=== PATIENT | female | born 1980 | race Caucasian/White ===

== ENCOUNTER → 2017-06-28 13:00 | Outpatient (CLI) | payer BC, SELFPAY ==
[2017-07-01 14:46] LABS: HPV Reflexed? NOT INDICATED
== END ==
PROVIDERS: Visit Provider Obstetrics & Gynecology
DX: Z12.4 Encounter for screening for malignant neoplasm of cervix (principal)
CPT/HCPCS: 88175; G0145

== ENCOUNTER → 2019-07-19 09:05 | Outpatient (CLI) | payer BC, SELFPAY ==
[2019-07-03 08:41] VITALS: BMI 39.8
[2019-07-19 10:20] LABS: Absolute Lymphocyte Count 1.18 X10^3/uL (0.83-4.51); Absolute Neutrophil Count 4.1 X10^3/uL (2.0-7.7); Basophil# 0.06 X10^3/uL; Eosinophil# 0.08 X10^3/uL; Eosinophils% 1.4 % (0-5); Hematocrit 39.7 % (37-47); Hemoglobin 13.1 g/dL (12.0-15.0); Lymphocyte # 1.18 X10^3/ul (4.0); Lymphocyte % 20.1 % (19-41); Mean Corpuscular Hgb 29.5 pg (27.0-32.0); Mean Corpuscular Volume 89.4 fL (81-99); Mean Platelet Vol. 10.8 fl (6.2-12.0); Monocyte# 0.48 X10^3/uL; Monocyte% 8.2 % (0-10); NRBC Flagged by Analyzer 0 % (0-5); Neutrophil # 4.05 X10^3/uL (2.7-7.7); Platelet Count 222 K/mm3 (150-450); RBC Distribution Width CV 11.8 % (11.6-14.6); RBC Distribution Width SD 38.4 fl (35.1-43.9); Red Blood Count 4.44 M/mm3 (4.2-5.4); White Blood Count 5.9 K/mm3 (4.4-11.0)
[2019-07-23 03:06] LABS: Alternaria tenuis <0.10 kU/L (Class 0); Ash, White <0.10 kU/L (Class 0); Aspergillus fumigatus <0.10 kU/L (Class 0); Bermuda Grass <0.10 kU/L (Class 0); Birch <0.10 kU/L (Class 0); Black Walnut <0.10 kU/L (Class 0); Cat Hair / Dander,Stand <0.10 kU/L (Class 0); Cedar, Mountain <0.10 kU/L (Class 0); Cladosporium herbarum <0.10 kU/L (Class 0); Cockroach, American <0.10 kU/L (Class 0); Cottonwood <0.10 kU/L (Class 0); D farinae Mite <0.10 kU/L (Class 0); D pteronyssinus <0.10 kU/L (Class 0); Dog Epithelia <0.10 kU/L (Class 0); Elm, American White <0.10 kU/L (Class 0); Immunoglobulin E < 2 IU/mL (6-495); Maple/Box Elder <0.10 kU/L (Class 0); Mulberry, White <0.10 kU/L (Class 0); Oak, White <0.10 kU/L (Class 0); Pecan <0.10 kU/L (Class 0); Penicillium Notatum <0.10 kU/L (Class 0); Pigweed, Rough <0.10 kU/L (Class 0); Ragweed, Short/Common <0.10 kU/L (Class 0); Russian Thistle <0.10 kU/L (Class 0); Sheep Sorrel <0.10 kU/L (Class 0); Sycamore, American <0.10 kU/L (Class 0); Timothy Grass <0.10 kU/L (Class 0)
[2019-07-23 12:33] LABS: Immunoglobulin E 2 IU/mL (6-495)
[2019-07-23 13:19] LABS: Mouse Urine <0.10 kU/L (Class 0)
== END ==
PROVIDERS: Internal Medicine Critical Care Medicine; PCP Physician Assistant; Referring Provider Family Medicine; Visit Provider Family Medicine
DX: R06.02 Shortness of breath (principal)
CPT/HCPCS: 36415; 82785; 85025; 86003

== ENCOUNTER → 2019-07-19 09:14 | Outpatient (CLI) | payer BC, SELFPAY ==
[2019-07-03 08:41] VITALS: BMI 39.8
--- NOTE | 2019-07-20 11:05 | PFT ---
INTRODUCTION: The patient is a 39-year-old female that presents for pulmonary function studies secondary to a diagnosis of shortness of breath. Respiratory therapy reports good patient effort. Bronchodilators were used during testing. INTERPRETATION: Forced expiration spirometry demonstrates no evidence of a large airways obstructive ventilatory defect. There was no significant response to aerosolized bronchodilators. Spirograms are of good quality and plateau normally. Body plethysmography was performed and reveals lung volumes to be within normal limits. Diffusing capacity by single breath CO is also within normal limits as well. IMPRESSION: Normal pulmonary function studies.
== END ==
PROVIDERS: PCP Physician Assistant; Referring Provider Internal Medicine Critical Care Medicine; Visit Provider Internal Medicine Critical Care Medicine
DX: R06.02 Shortness of breath (principal)
CPT/HCPCS: 94060; 94726; 94729

== ENCOUNTER → 2020-04-23 15:31 | Outpatient (CLI) | payer BC, SELFPAY ==
[2019-11-14 06:32] VITALS: BMI 42.7
[2020-04-26 03:07] LABS: Chlamydia By Nucleic Acid AMP Negative (Negative)
[2020-04-28 04:27] LABS: Gonococcus By Nucleic Acid AMP Negative (Negative)
[2020-04-28 13:02] LABS: HPV Reflexed? NOT INDICATED
== END ==
PROVIDERS: PCP Physician Assistant; Visit Provider Obstetrics & Gynecology
DX: Z12.4 Encounter for screening for malignant neoplasm of cervix (principal); Z11.3 Encounter for screening for infections with a predominantly sexual mode of transmission
CPT/HCPCS: 87491; 87591; 88175; G0145

== ENCOUNTER → 2022-11-08 | Outpatient (CLI) | payer BC, SELFPAY ==
--- NOTE | 2022-11-08 15:53 | US_ITS ---
INDICATION: IUD STRINGS EXAMINATION: Ultrasound US Pelvis Non OB Complete With Transvaginal Imaging TECHNIQUE: Transabdominal and transvaginal pelvic ultrasound was performed. Grayscale, spectral waveform, and color flow Doppler evaluation of the adnexa. COMPARISON: None. FINDINGS: UTERUS: Anteverted. The uterus measures 8.2 x 4.7 x 3.7 cm. There is no uterine mass. The endometrial stripe measures 4.4 mm in AP diameter which is within normal limits. There is an IUD in place with probable string at the cervical level. There is fluid in the cervical canal. Nabothian cysts. RIGHT OVARY: 2.3 x 1.5 x 1.5 cm. Non-enlarged, normal echogenicity. LEFT OVARY: 2.4 x 1.9 x 1.6 cm. Non-enlarged, normal echogenicity. FREE FLUID: None. US/Pelvic w/ Transvaginal IMPRESSION: Nabothian cysts. IUD in place. There is fluid in the cervical canal. Electronically Signed: Dario Boo DO at 19:53 EDT Reading Location ID and State: [facility] / [place] Tel [phone], Service support ,
== END | disposition home or self-care (01) ==
PROVIDERS: PCP Physician Assistant; Referring Provider Physician Assistant; Visit Provider Physician Assistant
DX: T83.32XA Displacement of intrauterine contraceptive device, initial encounter (principal)
CPT/HCPCS: 76830; 76856

== ENCOUNTER → 2024-03-19 | Outpatient (CLI) | payer OTHER, SELFPAY | END | disposition home or self-care (01) | PROVIDERS: PCP Physician Assistant; Referring Provider Physician Assistant; Visit Provider Physician Assistant | DX: E06.3 Autoimmune thyroiditis (principal) | CPT/HCPCS: 36415; 84443 ==

== ENCOUNTER → 2024-09-07 | Outpatient (CLI) | payer OTHER, SELFPAY ==
[2024-09-07 10:10] LABS: Absolute Neutrophil Count 3.8 X10^3/uL (2.0-7.7); Basophil# 0.07 X10^3/uL; Basophil% 1.2 % (0-1); Eosinophil# 0.14 X10^3/uL; Eosinophils% 2.4 % (0-5); Hematocrit 39.3 % (37-47); Hemoglobin 13.3 g/dL (12.0-15.0); Lymphocyte % 25.4 % (19-41); Mean Corp Hgb Conc 33.8 g/dL (32-36); Mean Corpuscular Hgb 29.6 pg (27.0-32.0); Mean Corpuscular Volume 87.5 fL (81-99); Mean Platelet Vol. 10.8 fl (6.2-12.0); Monocyte# 0.36 X10^3/uL; Monocyte% 6.1 % (0-10); NRBC Flagged by Analyzer 0 % (0-5); Neutrophil # 3.81 X10^3/uL (2.7-7.7); Neutrophil % 64.4 % (47-70); Platelet Count 249 K/mm3 (150-450); RBC Distribution Width CV 11.6 % (11.6-14.6); Red Blood Count 4.49 M/mm3 (4.2-5.4); White Blood Count 5.9 K/mm3 (4.4-11.0)
[2024-09-07 10:55] LABS: ALB/GLOB Ratio 1.4 RATIO (0.9-2.4); AST(SGOT) 27 U/L (<=31); Alanine Aminotransfer ALT/SGPT 32 U/L (<=34); Albumin, Serum 4.1 g/dL (3.5-5.0); Alkaline Phosphatase 58 U/L (35-104); Anion Gap 9 (5-15); BUN 12 mg/dL (4-19); BUN/Creat Ratio 13.8 RATIO (10-20); Calcium,Total 9.1 mg/dL (7.6-11.0); Carbon Dioxide 23.8 mmol/L (21.0-32.0); Chloride 106 mmol/L (98-108); Creatinine, Serum 0.88 mg/dL (0.70-1.20); EST Glomerular Filtration Rate 84 (>60); Globulin 2.9 g/dL (2.2-4.2); Glucose 102 mg/dL (70-99); Potassium 4.1 mmol/L (3.3-5.1); Sodium Level 139 mmol/L (133-145); Total Bilirubin 0.34 mg/dL (0.00-1.30)
[2024-09-11 23:07] LABS: Giardia Lamblia, Stool EIA Negative (Negative)
[2024-09-12 03:07] LABS: Calprotectin, Stool 10 ug/g (0-120)
== END | disposition home or self-care (01) ==
LOC: LAB 09:13 → LABSPEC 13:54
PROVIDERS: PCP Physician Assistant
DX: K58.0 Irritable bowel syndrome with diarrhea (principal); M35.00 Sjogren syndrome, unspecified; E06.3 Autoimmune thyroiditis; M35.1 Other overlap syndromes
CPT/HCPCS: 36415; 80053; 82653; 82784; 82785; 83516; 83993; 85025; 86003; 86005; 86036; 86037; 86671; 87329; 87506

== ENCOUNTER → 2024-10-17 | Outpatient (CLI) | payer OTHER, SELFPAY ==
--- NOTE | 2024-10-17 12:57 | US_ITS ---
PROCEDURE: THYROID 10/17/2024 REASON FOR EXAM: NONTOXIC SINGLE THYROID NODULE TECHNIQUE: High-frequency thyroid ultrasound, including grayscale and color-flow images. REFERENCE LINKS: TI-RADS Chart: [email or web address] TI-RADS Calculator Tool with Reference Images: [email or web address]/ COMPARISON: None FINDINGS: Right thyroid lobe size: 4.5 cm x 1.2 cm 1.2 cm Left thyroid lobe size: 3.2 cm x 1.3 cm x 0.9 cm Isthmus: 0.24 cm Background parenchymal echotexture is heterogeneous. Nodules: . Lobe: Left, Location: Inferior, Size: 1 cm x 0.7 cm x 0.4 cm, Stability: N/A Composition: Solid or almost completely solid (+2) Echogenicity: Hypoechoic (+2) Margin: Smooth (+0) Shape: Wider than tall (+0) Echogenic Foci: None (+0) TI-RADS: <2 = TR 1 * 2 = TR 2 * 3 = TR 3 * 4-6 = TR 4 * >6 = TR 5 US/Thyroid IMPRESSION: 1 cm x 0.7 cm 0.4 cm hypoechoic solid nodule in the inferior aspect of the left lobe of the thyroid. No vascularity is seen. Annual follow-up recommended. RECOMMENDATION: Based on most suspicious nodule. Nodule size = largest diameter Only evaluate nodule if =>5 mm. Growth > 20% in 2 dimensions = worsening. Follow up to 4 nodules. Recommend biopsy for no more than 2 nodules. Reading Location: [place] [id number]
[2024-10-17 16:39] LABS: Thyroid Stim Hormone (TSH) 0.492 uIU/mL (0.300-4.200)
== END | disposition home or self-care (01) ==
LOC: US 12:41
PROVIDERS: Internal Medicine Endocrinology, Diabetes & Metabolism; PCP Physician Assistant; Referring Provider Physician Assistant; Visit Provider Physician Assistant
DX: E04.1 Nontoxic single thyroid nodule (principal)
CPT/HCPCS: 36415; 76536; 84439; 84443

== ENCOUNTER → 2025-03-15 | Outpatient (CLI) | payer OTHER, SELFPAY ==
[2025-03-15 12:50] LABS: CPK Total, Creatine Kinase 141 U/L (24-195); Ferritin 117 ng/mL (22-378)
[2025-03-15 13:16] LABS: CRP 5.60 mg/L (0.0-3.0); Iron 73 ug/dL (50-170); LDH 289 U/L (84-246); Magnesium 2.3 mg/dL (1.5-2.2)
[2025-03-18 11:08] LABS: Vitamin D 1,25-Dihydroxy 39.6 pg/mL (24.8-81.5)
[2025-03-20 11:09] LABS: Albumin 4.0 g/dL (2.9-4.4); Gamma Globulin 1.2 g/dL (0.4-1.8); Gastrin, Serum 202 pg/mL (0-115); IgG, Quant 1221 mg/dL (586-1602); Immunoglobulin A 165 mg/dL (87-352); Immunoglobulin G, Subclass 1 694 mg/dL (248-810); Immunoglobulin G, Subclass 2 424 mg/dL (130-555); Immunoglobulin G, Subclass 3 51 mg/dL (15-102); Immunoglobulin G, Subclass 4 1 mg/dL (2-96); Immunoglobulin M 133 mg/dL (26-217); PROEL- TOTAL PROTEIN 7.2 g/dL (6.0-8.5)
== END | disposition home or self-care (01) ==
LOC: LAB 10:13
PROVIDERS: PCP Physician Assistant; Referring Provider Internal Medicine Gastroenterology; Visit Provider Internal Medicine Gastroenterology
DX: K58.0 Irritable bowel syndrome with diarrhea (principal); M35.1 Other overlap syndromes
CPT/HCPCS: 82085; 82550; 82652; 82728; 82784; 82785; 82787; 82941; 83540; 83615; 83735; 84165; 85652; 86140; 86334

== ENCOUNTER → 2025-04-05 | Outpatient (CLI) | payer OTHER, SELFPAY ==
[2025-04-05 13:51] LABS: CRP 5.36 mg/L (0.0-3.0); LDH 282 U/L (84-246); Magnesium 2.3 mg/dL (1.5-2.2)
== END | disposition home or self-care (01) ==
LOC: LAB 11:21
PROVIDERS: PCP Physician Assistant; Referring Provider Physician Assistant; Visit Provider Physician Assistant
DX: E83.41 Hypermagnesemia (principal); R79.82 Elevated C-reactive protein (CRP)
CPT/HCPCS: 36415; 83615; 83735; 86140

== ENCOUNTER → 2025-04-16 | Outpatient (CLI) | payer OTHER, SELFPAY ==
--- NOTE | 2025-04-16 17:20 | CT_ITS ---
PROCEDURE: ABDOMEN/PELVIS WITH CONTRAST 04/16/2025 REASON FOR EXAM: ABN LABS AND INFLAMMATION TECHNIQUE: Procedure Code: [id number] Modality: CT Procedure: ABDOMEN/PELVIS WITH IV and oral contrast. Coronal and Sagittal reconstruction series were provided. CONTRAST: Isovue-300 VOLUME: 100 mL One or more dose reduction techniques were used (e.g., Automated exposure control, adjustment of the mA and/or kV according to patient size, use of iterative reconstruction technique. RADIATION DOSE SUMMARY: DLP: 1214.23 mGycm COMPARISON: None available. FINDINGS: Lower chest: Lung bases are clear. Liver: Normal size. Normal morphology and enhancement. No enhancing lesion. Gallbladder and biliary ducts: Contracted gallbladder. Normal caliber intrahepatic and common bile ducts. Pancreas:Unremarkable. No ductal dilatation or mass. No peripancreatic fluid. Spleen: Unremarkable. Adrenal glands: Unremarkable. Kidneys and ureters: Normal renal size, morphology, and enhancement. No nephroureterolithiasis, hydronephrosis, or renal mass. Urinary bladder: Unremarkable. GI: Unremarkable stomach and duodenum. Normal caliber small bowel and large bowel.No evidence for bowel wall thickening. Appendix: Surgically absent. Peritoneum: No ascites. Tiny fat containing umbilical hernia. Lymph nodes: No lymphadenopathy. Prominent nonspecific bilateral inguinal lymph nodes. Vasculature: Portal, splenic, and superior mesenteric veins are patent. No abdominal aortic aneurysm. Reproductive organs: Limited evaluation on CT. The uterus is present. There is an intrauterine device. No adnexal mass. Musculoskeletal and soft tissues: No aggressive osseous lesions. Unremarkable soft tissues. CT/Abdomen/Pelvis WITH Contrast IMPRESSION: No acute pathology in the abdomen or pelvis. Reading Location: [id number]
== END | disposition home or self-care (01) ==
PROVIDERS: PCP Physician Assistant; Referring Provider Internal Medicine Gastroenterology; Visit Provider Internal Medicine Gastroenterology
DX: R89.9 Unspecified abnormal finding in specimens from other organs, systems and tissues (principal)
CPT/HCPCS: 74177; Q9967

== ENCOUNTER → 2025-05-14 | Outpatient (CLI) | payer OTHER, SELFPAY ==
[2025-05-14 14:19] LABS: Magnesium 2.2 mg/dL (1.5-2.2)
== END | disposition home or self-care (01) ==
PROVIDERS: PCP Physician Assistant; Referring Provider Internal Medicine Endocrinology, Diabetes & Metabolism; Visit Provider Internal Medicine Endocrinology, Diabetes & Metabolism
DX: E04.1 Nontoxic single thyroid nodule (principal)
CPT/HCPCS: 36415; 83735; 84439; 84443

== ENCOUNTER 2025-05-22 08:24 | Day surgery (SDC) | payer OTHER, SELFPAY ==
[2025-05-22] VITALS (7 sets, daily range): BP systolic 120–141; BP diastolic 75–82; PULSE 80–92; RESP 16–18; TEMP 36.1–36.6; O2SAT 96–100; BMI 43.0
--- NOTE | 2025-05-22 08:35 | PCM.PRE.AN2 ---
ASA Classification* ASA Classification ASA Classification: 2 Assessment & Plan Anesthesia* Anesthesia Assessment Anesthesia Assessment: Discussed sedation and/or anesthesia options, risks, benefits, and alternatives with patient/parents/legal guardian/POA. Questions invited. The patient/parents/legal guardian/POA seems to understand and agrees to proceed with anesthesia plan. Reviewed the physical assessment, medical history, allergy history and patient home medications list prior to surgery/procedure/anesthetic and documented any changes. Performed airway and anesthesia risk assessments. Anesthesia Type Anesthesia Type: MAC Anesthesia Focused Assessment* Airway Assessment Mouth opens: >3 cm Mallampati Score: II Labs Anesthesia Preop lab: CBC WBC, (4.4-11.0) 5.9 K/mm3 09/07/24, 09:17 RBC, (4.2-5.4) 4.49 M/mm3 09/07/24, 09:17 Hgb, (12.0-15.0) 13.3 g/dL 09/07/24, 09:17 Hct, (37-47) 39.3 % 09/07/24, 09:17 Plt Count, (150-450) 249 K/mm3 09/07/24, 09:17 CHEMISTRY Potassium, (3.3-5.1) 4.1 mmol/L 09/07/24, 09:17 Sodium, (133-145) 139 mmol/L 09/07/24, 09:17 Magnesium, (1.5-2.2) 2.2 mg/dL 05/14/25, 12:55 BUN, (4-19) 12 mg/dL 09/07/24, 09:17 Creatinine, (0.70-1.20) 0.88 mg/dL 09/07/24, 09:17 Glucose, (70-99) 102 mg/dL H 09/07/24, 09:17 TSH, (0.300-4.200) 2.110 uIU/mL 05/14/25, 12:54 COAG Pre-Assessment Diagnosis/Proposed Procedure Planned Operative Procedure(s): egd, colonoscopy Anesthesia History Anesthesia History - ambulance officer: Anesthesia History - ambulance officer Hx Hospitalization No 05/13/25 16:09 Any Problems With Anesthesia No 05/13/25 16:09 Cholinesterase deficiency No 05/13/25 16:09 You/Your Family Experience No 05/13/25 16:09 fever (hyperthermia) with Relationship Recent Exposure to Contagious Disease Does patient have nerve No 05/13/25 16:09 stimulator Patient instructed to have device shut off --Does patient have Pacemaker or ICD? When Was Last Pacemaker Check QUESTION #4 FULL TEXT: You/Your Family Experience fever (hyperthermia) with Anesthesia Last Oral Intake Last Oral intake: Last Oral Intake NPO since Meds taken in AM with sips of water? Meds patient instructed to take am of surgery PONV PONV - ambulance officer: PONV - ambulance officer Female Yes 05/13/25 16:09 HX of Motion Sickness Yes 05/13/25 16:09 HX of N/V After Surgery No 05/13/25 16:09 Non-Smoker Yes 05/13/25 16:09 Duration of Surgery greater No 05/13/25 16:09 than 60 minutes Number of Risk Factors 3 05/13/25 16:09 PONV Score Moderate Risk 05/13/25 16:09 Height & Weight Height & Weight: Anesthesia: Height & Weight Height 5 ft 01/22/25 05:32 Respiratory Assessment Respiratory Assessment - ambulance officer: Respiratory Tract Infection Hx - ambulance officer Hx Respiratory Tract Infection No 05/13/25 16:09 STOP Sleep Apnea STOP Sleep Apnea - ambulance officer: STOP Sleep Apnea - ambulance officer Hx Hypertension No 05/13/25 16:09 Hx Sleep Apnea Yes 05/13/25 16:09 CPAP No 05/13/25 16:09 BIPAP No 05/13/25 16:09 Do you snore loudly (louder No 05/13/25 16:09 than talking or can be heard Do you often feel tired/ No 05/13/25 16:09 fatigued/ sleepy during daytime? Has anyone observed you stop No 05/13/25 16:09 breathing during sleep? STOP Results Positive 05/13/25 16:09 QUESTION #5 FULL TEXT : Do you snore loudly (louder than talking or can be heard through closed doors)? 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 Specify any problems Hx of Preganancy in last 3 N/A 05/13/25 16:09 Months Nurse Filling Out Transfusion BEATRIS 05/13/25 16:09 & Questions: Date: 05/13/25 05/13/25 16:09 Time: 16:16 05/13/25 16:09 Patient unable to answer at this time (ie. 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 Osteoarthritis Hypoglycemia Hives Migraines Allergies Strep throat Yeast infection Lower urinary tract symptoms UTI (urinary tract infection) Acute cystitis Sinusitis Home Medications ?Medication ?Instructions ?Recorded ?Last Taken ?Type hydroxychloroquine 200 mg tablet 200 mg PO BID 06/26/19 Unknown History loratadine 5 mg disintegrating 5 mg PO DAILY 06/29/21 Unknown History tablet (Claritin RediTabs) cholecalciferol (vitamin D3) 50 50 mcg PO DAILY 02/28/23 Unknown History mcg (2,000 unit) capsule erythromycin 5 mg/gram (0.5 %) eye 1 applic ophthalmic (eye) QDAY 07/31/24 Unknown History ointment fluticasone propionate 44 2 puff inhalation BID PRN cough 07/31/24 Unknown History mcg/actuation HFA aerosol inhaler hypochlorous acid 0.01 %-sodium 1 spray topical BID 07/31/24 Unknown History chloride topical spray (Thera Tears SteriLid) metronidazole 0.75 % topical gel 1 applic topical DAILY 07/31/24 Unknown History saliva stimulant comb. no.3 1 applic mucous membrane 4-6XD PRN 07/31/24 Unknown History (Biotene Moisturizing Mouth dry mouth mucosal spray) dicyclomine 10 mg capsule 10 mg PO BID PRN abdominal pain 12/28/24 Unknown Rx #60 caps famotidine 40 mg tablet 40 mg PO QHS #30 tabs 12/28/24 Unknown Rx ondansetron HCl 4 mg tablet 4 mg PO Q8H PRN nausea and 12/28/24 Unknown Rx vomiting #30 tabs albuterol sulfate 90 mcg/actuation 2 puff inhalation Q4H PRN 01/22/25 Unknown Rx aerosol inhaler shortness of breath or wheezing #1 ea levothyroxine 100 mcg tablet 100 mcg PO .qd, 1/2 on Sundays #90 04/01/25 Unknown Rx tabs Lactobacillus acidophilus 250 1,000 mmu cells PO DAILY 05/07/25 Unknown History million cell capsule (Probiotic Acidophilus) budesonide-formoterol HFA 80 2 puff inhalation BID PRN wheezing 05/07/25 Unknown History mcg-4.5 mcg/actuation aerosol inhaler (Symbicort) pantoprazole 40 mg tablet,delayed 40 mg PO DAILY 05/13/25 Unknown History release Allergy/AdvReac Type Severity Reaction Status Date / Time hydrocodone bitartrate (From Allergy Anaphylaxis Verified 05/13/25 16:02 Vicodin) Family History Uncle Hypertension CAD (coronary artery disease) Grandfather Cancer Lung cancer Diabetes Colon cancer Grandmother Cancer Aunt Cancer Father Thyroid disorder Sarcoidosis Hemolytic anemia Lui syndrome CKD (chronic kidney disease) COPD (chronic obstructive pulmonary disease) Autoimmune disorder Mother CAD (coronary artery disease) Depression Other Myocardial infarction Surgical History H/O: History of appendectomy Social History Smoking Status: Never smoker Electronic Cigarette Use: not used second hand exposure: No alcohol intake: never substance use type: does not use what type of physical activity do you participate in: bicycling, yoga and other details: stretching duration: 15-30 minutes/day Review of Systems (Anesthesia) ROS Narrative System reviewed and no additional complaints, except as documented.
--- OUTSIDE RECORDS SUMMARY | 2025-05-22 08:38 | XMS RPT_ITS | CCD ---
Author Organization [facility] Care Team Providers Care Pulverizing And Sifting Operator Name Role Phone Lexi Moya PA-C Unavailable Lexi Moay PA-C Unavailable Physical Therapy Provider Unavailable Mireille Peña MD, Genoveva Adams Unavailable Sean Gregg MD Unavailable Kaylie Townsend PA-C Unavailable [phone] Mellissa Zhao Unavailable Unavailable Sidney MOTTAN, Ana Unavailable Unavailable Thomas URBAN, Carisa Gee Unavailable Unavailable Hattie PHARMACY AFFAIRS ASSISTANT, Genoveva Chandra Unavailable Unavailab eva Cano PHARMACY AFFAIRS ASSISTANT, Elida Unavailable Unavailabl e Bev PHARMACY AFFAIRS ASSISTANT, Teresa Irving Unavailable Unavaila ble Zaugg PHARMACY AFFAIRS ASSISTANT, Gabriela Unavailable Unavailable Unavailable Unavailable Gastroenterology Provider Unavailable Mireille Cole LPN, Andra Unavailable Unavaillonny e Unavailable Unavailable Lexi Day Primary Care Provider [facility] Attending Unavailable Endocrinology Provider Unavailable Unavailab LEXI Khan Primary Care Unavailable HAKAN SOTO Referring Unavailable LEXI MOYA Primary Care Unavailable LEXI MOYA Primary Care Unavailable Lexi Day Primary Care Provider Lexi Day Referring Provider Dr. Bon Cowan MD Attending Provider [phone] Raisa Link Attending Provider Raisa Link Referring Provider Moya PA, Lexi Attending Provider King ANGELINE, Dr. Crockett Other Provider MOYA, LEXI J Primary Care Unavailable MOYA, LEXI J Consulting Unavailable MOYA, LEXI J Attending Unavailable MOYA, LEXI J Admitting Unavailable PROVIDER, UNKNOWN Consulting Unavailable MOYA, LEXI J Primary Care Unavailable MOYA, LEXI J Consulting Unavailable MOYA, LEXI J Attending Unavailable MOYA, LEXI J Admitting Unavailable PROVIDER, UNKNOWN Consulting Unavailable Moya PA, Lexi Primary Care Provider Moya PA, Lexi Referring Provider [phone] Hu CORPORATE SECURITY OFFICER-C, Raisa Attending Provider Armen CORPORATE SECURITY OFFICER-CUsha Attending Provider Moya PA, Lexi Primary Care Provider PRACHI SALTER Attending Unavailable MOYA, LEXI Primary Care Unavailable PRACHI SALTER Attending Unavailable MOYA, LEXI Primary Care Unavailable HAKAN SOTO Attending Unavailable MOYA, LEXI Primary Care Unavailable Moya, Lexi Primary Care Unavailable Raisa Lui Attending Unavailable Moya, Lexi Referring Unavailable Moya, Lexi Primary Care Unavailable Friend, Hayes Attending Unavailable Friend, Hayes Referring Unavailable Chapo, Bon Consulting Unavailable Moya, Lexi Primary Care Unavailable Moya, Lexi Attending Unavailable Moya, Lexi Referring Unavailable Moya, Lexi Primary Care Unavailable Friend, Hayes Attending Unavailable Friend, Hayes Referring Unavailable Moya, Lexi Referring Unavailable Chapo, Bon Attending Unavailable Moya, Lexi Primary Care Unavailable Lui, Raisa Attending Unavailable Moya, Lexi Primary Care Unavailable Moya, Lexi Referring Unavailable Lui, Raisa Attending Unavailable Uli, Raisa Referring Unavailable Moya, Lexi Primary Care Unavailable Moya, Lexi Primary Care Unavailable Usha Ayers Attending Unavailable Moya, Lexi Referring Unavailable Moya, Lexi Primary Care Unavailable Friend, Hayes Attending Unavailable Moya, Lexi Referring Unavailable Allergies Allergy Classification Reported Allergen(s) Allergy Type Date of Onset Reaction(s) Facility (1 source) Acetaminophen Drug Allergy 01-05-2022 Anaphylaxis [facility] (2 sources) HYDROcodone; Translations: [hydrocodone bitartrate] Drug Allergy 01-05-2022 Anaphylaxis [facility] (20 sources) Acetaminophen / HYDROcodone Drug Allergy 07-03-2024 Anaphylaxis [facility]. (2 sources) Acetaminophen / HYDROcodone; Translations: [HYDROCODONE-ACETA MINOPHEN] Drug Allergy 07-03-[address] [facility] (1 source) Acetaminophen / HYDROcodone Drug Allergy [facility] (1 source) Acetaminophen Drug Allergy 07-31-2024 [facility] Repository Medications Current Medications Medication Drug Class(es) Dates Sig (Normalized) Sig (Original) [id number] 200 actuat albuterol 0.09 mg/actuat metered dose inhaler (20 sources) beta2-Adrenergic Agonist Start: 07-03-2019 End: 01-22-2025 Albuterol Sulfate 90 mcg/actuation HFA aerosol inhaler Active 2 NMA INHALATION Q4H as needed for shortness of breath or wheezing 05 28January 22, 2025 9:37am administer with spacer Start: 07-03-2019 End: 01-05-2022 take 1 puff(s) by inhalation every four hours Albuterol Sulfate Active 2 PUFF INHALATION Q4H January 05, 2022 1:01pm administer with spacer Albuterol Sulfat e HFA 108 (90 Base) MCG/ACT Inhalation Aerosol Solution ; as needed (108 (90 Base) MCG/ACT) Comments: Medication taken as needed. Comment on above: Medication taken as needed. Budesonide-Formoterol (6 sources) Corticosteroid, beta2-Adrenergic Agonist Start: 01-22-2025 Budesonide-Formoterol (Symbicort) 80-4.5 mcg/actuation HFA aerosol inhaler Active 2 NMA INHALATION TWICE A DAY 10.2 2 January 22, 2025 12:00am use with a spacer Start: 01-05-2022 End: 02-11-2022 Budesonide-Formoterol (Symbi anjel) 80-4.5 mcg/actuation HFA aerosol inhaler Discontinued 2 NMA INHALATION TWICE A DAY 10.2 11 January 05, 2022 12:00am February 11, 2022 9:36am Start: 01-05-2022 End: 02-11-2022 Budesonide-Formoterol (Symbi anjel) 80-4.5 mcg/actuation HFA aerosol inhaler Discontinued 2 NMA INHALATION TWICE A DAY 10.2 January 05, 2022 12:00am February 11, 2022 9:36am Start: 01-05-2022 End: 02-11-2022 take 1 puff(s) by inhalation twice daily Budesonide-Formoterol (Symbicort) 80-4.5 mcg/actuation HFA aerosol inhaler Discontinued 2 PUFF INHALATION TWICE A DAY 10.2 January 05, 2022 12:00am February 11, 2022 9:36am take 2 puff(s) by mo uth twice daily budesonide-formoterol (Symbicort) 160-4.5 mcg/actuation inhaler Inhale 2 puffs 2 times a day. Rinse mouth with water after use to reduce aftertaste and incidence of candidiasis. Do not swallow. Active calcium carbonate 1250 mg / cholecalciferol 100 unt / vitamin k 0.04 mg chewable tablet (20 sources) Vitamin D take 1 tablet by mouth once daily VIACTIV, 500-100-40 (Oral Tablet Chewable) ; 1 tablet daily (500-100-40) take 1 tablet by mouth once jaida y VIACTIV, [id number] (Oral Tablet Chewable) ; 1 daily (500-500-40 MG-UNT-MCG) Status: Inactive cholecalciferol 0.05 mg oral capsule (4 sources) Vitamin D Start: 02-28-2023 take 1 capsule by mouth once daily Cholecalciferol (Vitamin D3) 50 mcg (2,000 unit) capsule Active 50 ug PO DAILY February 28, 2023 12:00am take 2 tablets by mouth once lesly ly cholecalciferol (Vitamin D3) 25 mcg (1,000 units) tablet Take 2 tablets (50 mcg) by mouth once daily. Active dicyclomine hydrochloride 10 mg oral capsule (3 sources) Anticholinergic Start: 10-30-2024 End: 12-28-2024 take 1 capsule by mouth twice daily as needed for pain Dicyclomine 10 mg capsule Active 10 mg PO TWICE A DAY as needed for abdominal pain 60 2 December 28, 2024 9:43am erythromycin 0.005 mg/mg ophthalmic ointment (20 sources) Macrolide, Macrolide Antimicrobial Start: 07-31-2024 Erythromycin 5 mg/gram (0.5 %) ointment Active 1 NMA OPHTHALMIC daily July 31, 2024 12:00am erythromycin (Ro mycin) 5 mg/gram (0.5 %) ophthalmic ointment Apply 10 cm to both eyes once daily at bedtime. Apply Amount per Dose: 0.5 inch (~1 cm) per dose. Active famotidine 40 mg oral tablet (8 sources) Histamine-2 Receptor Antagonist Start: 09-07-2024 End: 12-28-2024 take 1 tablet by mouth at bedtime Famotidine 40 mg tablet Active 40 mg PO AT BEDTIME 30 3 December 28, 2024 9:43am Start: 07-31-2024 End: 09-07-2024 take 1 tablet by mouth once daily Famotidine 20 mg tablet Discontinued 20 mg PO daily July 31, 2024 12:00am September 07, 2024 8:55am Fluticasone Propionate 44 mcg/actuation HFA aerosol inhaler (3 sources) Start: 07-31-2024 Fluticasone Propionate 44 mcg/actuation HFA aerosol inhaler Active 2 NMA INHALATION TWICE A DAY as needed July 31, 2024 12:00am administer with spacer hydroxychloroquine sulfate 200 mg oral tablet (20 sources) Antimalarial, Antirheumatic Agent Start: 06-26-2019 take 1 tablet by mouth twice daily hydroxychloroquine (Plaquenil) 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 180 tablet 1 11/10/2024 Active Start: 04-12-2015 End: 06-26-2019 Hydroxychloroquine 200 MG ta blet Discontinued 100 mg PO DAILY April 12, 2015 1:00am June 26, 2019 9:45am Start: 04-12-2015 End: 06-26-2019 take 1 tablet by mouth once daily Hydroxychloroquine 200 MG tablet Discontinued 200 mg PO DAILY April 12, 2015 1:00am June 26, 2019 9:46am Start: 04-12-2015 End: 06-26-2019 take 100 mg by mouth once daily Hydroxychloroquine Discontinued 100 MG PO DAILY April 12, 2015 1:00am June 26, 2019 9:45am Hypochlorous Acid-Sodium Chlor (Thera Tears Sterilid) 0.01 % spray,non-aerosol (3 sources) Start: 07-31-2024 apply 0.01 spray(s) topically twice daily Hypochlorous Acid-Sodium Chlor (Thera Tears Sterilid) 0.01 % spray,non-aerosol Active 1 NMA TOPICAL TWICE A DAY July 31, 2024 12:00am levothyroxine sodium 0.1 mg oral tablet (20 sources) l-Thyro xine Start: 08-14-2024 take 1 tablet by mouth once daily Levothyroxine 100 mcg tablet Active 100 ug PO daily 90 August 14, 2024 12:00am Start: 06-13-2024 take 4 tablets by mo ut in the morning levothyroxine (Synthroid, Levoxyl) 25 mcg tablet Take 4 tablets (100 mcg) by mouth early in the morning.. 1 tablet daily 100 mcg 06/13/2024 Active Start: 06-13-2024 levothyroxine 25 mcg tablet ; 1 (one) tablet daily for 0 days Quantity: 90 {Tablet} Refills: 1 Ordered: 13-Jun-2024 ROGELIO Moya Start: 13-Jun-2024 Start: 03-21-2024 levothyroxine 25 mcg tablet ; 1 (one) tablet daily for 0 days Quantity: 90 {Tablet} Refills: 0 Ordered: 21-Mar-2024 ROGELIO Moya Start: 21-Mar-2024 Start: 02-03-2024 End: 08-14-2024 take 1 tablet by mouth once daily Levothyroxine 25 mcg tablet Discontinued 25 ug PO daily March 19, 2024 12:00am August 14, 2024 3:20pm loratadine 5 mg disintegrating oral tablet (20 sources) Start: 06-29-2021 take 1 tablet by mouth once daily Loratadine (Claritin Reditabs) 5 mg tablet,disintegrating Active 5 mg PO DAILY June 29, 2021 1:00am take 1 tablet by mouth once jaida y loratadine (Claritin) 10 mg tablet Take 1 tablet (10 mg) by mouth once daily. Active melatonin 3 mg oral capsule (20 sources) Start: 07-31-2024 take 1 capsule by mouth at bedtime as needed Melatonin 3 mg capsule Active 3 mg PO BEDTIME as needed July 31, 2024 12:00am melatonin 3 mg t ablet ; as needed (3 mg) Comments: Medication taken as needed. Comment on above: Medication taken as needed. metroNIDAZOLE 0.0075 mg/mg topical gel (20 sources) Nitroimidazole Antimicrobial Start: 11-12-2024 metroNIDAZOLE 0.75 % topical gel ; 1 (one) application as directed for 0 days Quantity: 60 {Gram} Refills: 1 Ordered: 12-Nov-2024 ROGELIO Moya Start: 12-Nov-2024 Start: 07-31-2024 Metronidazole 0.75 % gel Active TOPICAL July 31, 2024 12:00am Start: 08-11-2023 metroNIDAZOLE 0.75 % topical gel ; 1 (one) application as directed for 0 days Quantity: 60 {Gram} Refills: 1 Ordered: 11-Aug-2023 BENJAMIN Kuhn Start: 11-Aug-2023 multivitamin tablet (5 sources) take 1 tablet by mouth once daily multivitamin tablet Take 1 tablet by mouth once daily. Active MULTIVITAMINS (Oral Tablet) (20 sources) take 1 tablet by mouth once daily MULTIVITAMINS (Oral Tablet) ; 1 daily mycophenolate mofetil 500 mg oral tablet (1 source) Start: 03-26-20 End: 03-26-20 take 1 tablet by mouth twice daily mycophenolate (CellCept) 500 mg tablet Indications: MCTD (mixed connective tissue disease) ([facility]) Take 1 tablet (500 mg) by mouth 2 times a day. 60 tablet 2 03/26/2025 03/26/2026 Active ondansetron 4 mg oral tablet (3 sources) Serotonin-3 Receptor Antagonist Start: 10-31-19 End: 12-29-19 take 1 tablet by mouth every eight hours as needed for nausea and vomiting Ondansetron Hcl 4 mg tablet Active 4 mg PO Q8H as needed for nausea and vomiting 30 December 28, 2024 9:44am pantoprazole 40 mg delayed release oral tablet (20 sources) Proton Pump Inhibitor Start: 11-20-19 End: 12-29-19 25 take 1 tablet by mouth twice daily Pantoprazole 40 mg tablet,delayed release (DR/EC) Active 40 mg PO TWICE A DAY 60 3 December 28, 2024 9:44am Start: 09-07-2024 End: 10-30-2024 take 1 tablet by mouth twice daily Pantoprazole 40 mg tablet,delayed release (DR/EC) Discontinued 40 mg PO TWICE A DAY 60 2 September 07, 2024 12:00am October 30, 2024 9:32am Start: 08-11-2023 End: 11-10-2023 pantoprazole 20 mg tablet,de layed release ; 1 (one) tablet 30-60 minutes before first meal of day for 0 days Quantity: 30 {Tablet} Refills: 1 Ordered: 10-Nov-2023 ROGELIO Moya Start: 11-Aug-2023 End: 10-Nov-2023 Status: Inactive take 1 tablet by mina th once daily before mealtime pantoprazole (ProtoNix) 40 mg EC tablet Take 1 tablet (40 mg) by mouth once daily in the morning. Take before meals. Do not crush, chew, or split. Active predniSONE 5 mg oral tablet (3 sources) Start: 03-26-2025 predniSONE (De ltasone) 5 mg tablet Indications: MCTD (mixed connective tissue disease) ([facility]) Take 2 pills/day x 10 days and 1 pill day x 10 days 10 tablet 03/26/2025 Active End: 07-03-2024 take 1 tablet by mouth once daily predniSONE (Deltasone) 10 mg tablet Take 1 tablet (10 mg) by mouth once daily. 07/03/2024 Discontinued (Other) Saliva Stimulant Comb. No.3 (Biotene Moisturizing Mouth) spray,non-aerosol (3 sources) Start: 07-31-2024 Saliva Stimula nt Comb. No.3 (Biotene Moisturizing Mouth) spray,non-aerosol Active 1 NMA MUCOUS MEM 4 to 6 times per day as needed July 31, 2024 12:00am triamcinolone acetonide 1 mg/ml topical cream (20 sources) Corticosteroid Start: 02-03-2024 triamcinolone acetonide 0.1 % topical cream ; 1 (one) application to affected areas TID prn for 0 days Quantity: 30 {Gram} Refills: 0 Ordered: 03-Feb-2024 ROGELIO Moya Start: 03-Feb-2024 Start: 04-13-2017 End: 06-05-2018 Triamcinolone Acetonide 0.1 % External Cream ; 1 (one) application to affected areas QID prn for 0 days Quantity: 30 {Gram} Refills: 0 Ordered: 05-Jun-2018 BENJAMIN Cano Start: 13-Apr-2017 End: 05-Jun-2018 Status: Inactive Vitamin E (20 sources) Thera Tears Nutr ition Comments: are drops 2-3 x daily Comment on above: are drops 2-3 x jaida y Completed/Discontinued Medications Medication Drug Class(es) Dates Sig (Normalized) Sig (Original) amoxicillin 875 mg / clavulanate 125 mg oral tablet (20 sources) Penicillin-class Antibacterial Start: 04-09-2019 End: 02-11-2020 take 1 tablet by mouth twice daily Amoxicillin-Pot Clavulanate 875-125 MG Oral Tablet ; 1 (one) Tablet two times daily for 0 days Quantity: 20 {Tablet} Refills: 0 Ordered: 11-Feb-2020 BENJAMIN Kuhn Start: 09-Apr-2019 End: 11-Feb-2020 Status: Inactive Start: 10-08-2015 End: 10-18-2015 take 1 tablet by mouth twice daily at mealtime AUGMENTIN, 875-125MG (Oral Tablet) ; 1 (one) Tablet BID for 10 days Quantity: 20 {Tablet} Refills: 0 Ordered: 08-Oct-2015 ROGELIO Moya Start: 08-Oct-2015 End: 18-Oct-2015 Status: Inactive Comments: Take with food Comment on above: Take with food azithromycin 500 mg oral tablet (20 sources) Macrolide Antimicrobial Start: 12-04-19 16 End: 12-07-19 16 take 1 tablet by mouth once daily AZITHROMYCIN, 500MG (Oral Tablet) ; 1 (one) Tablet daily for 3 days Quantity: 3 {Tablet} Refills: 0 Ordered: 04-Dec-2015 MD Sean Gregg Start: 04-Dec-2015 End: 07-Dec-2015 Status: Inactive ciprofloxacin 500 mg oral tablet (20 sources) Quinolone Antimicrobial Start: 03-30-20 12 End: 04-02-20 12 take 1 tablet by mouth twice daily CIPRO, 500MG (Oral Tablet) ; 1 Tablet BID for 3 days Quantity: 6 {Tablet} Refills: 0 Ordered: 30-Mar-2012 ROGELIO Moya Start: 30-Mar-2012 End: 02-Apr-2012 Status: Inactive diphenhydrAMINE (20 sources) Histamine-1 Receptor Antagonist Benadryl Allergy ; prn Status: Inactive doxycycline hyclate 100 mg oral tablet (20 sources) Tetracycline-class Drug Start: 04-05-20 End: 04-15-20 take 1 tablet by mouth twice daily Doxycycline Hyclate 100 MG Oral Tablet ; 1 (one) Tablet BID for 10 days Quantity: 20 {Tablet} Refills: 0 Ordered: 05-Apr-2019 ROGELIO Moya Start: 05-Apr-2019 End: 15-Apr-2019 Status: Inactive esomeprazole 40 mg delayed release oral capsule (2 sources) Proton Pump Inhibitor Start: 10-31-19 End: 11-20-19 take 1 capsule by mouth twice daily Esomeprazole Magnesium 40 mg capsule,delayed release(DR/EC) Discontinued 40 mg PO TWICE A DAY 60 2 October 30, 2024 12:00am November 19, 2024 2:26pm Flintstones Complete (4 sources) Start: 04-12-20 15 End: 02-29-20 23 take 2 tablets by mouth once daily Flintstones Complete Discontinued 2 TAB.CHEW PO DAILY April 12, 2015 1:00am February 28, 2023 9:53am Start: 04-12-2015 take 2 tablets by mo uth once daily Flintstones Complete Active 2 TAB.CHEW PO DAILY April 12, 2015 1:00am fluconazole 150 mg oral tablet (20 sources) Azole Antifungal Start: 07-13-2019 End: 02-11-2020 Diflucan 150 MG Oral Tablet ; 1 (one) Tablet every 72 hours for 0 days Quantity: 2 {Tablet} Refills: 0 Ordered: 11-Feb-2020 BENJAMIN Kuhn Start: 13-Jul-2019 End: 11-Feb-2020 Status: Inactive 120 actuat fluticasone propionate 0.11 mg/actuat metered dose inhaler (20 sources) Corticosteroid Start: 12-22-2020 End: 01-05-2022 Fluticasone Propionate (Flovent Hfa) 110 mcg/actuation HFA aerosol inhaler Discontinued 2 NMA INHALATION TWICE A DAY 12 January 05, 2022 1:01pm January 05, 2022 1:13pm Start: 12-22-2020 End: 01-05-2022 take 1 puff(s) by inhalation twice daily Fluticasone Propionate (Flovent Hfa) 110 mcg/actuation HFA aerosol inhaler Discontinued 2 PUFF INHALATION TWICE A DAY January 05, 2022 1:01pm January 05, 2022 1:13pm Start: 06-19-2014 End: 08-04-2016 take 1 spray(s) nasal route twice daily FLONASE, 50MCG/ACT (Nasal Suspension) ; 1 (one) spray spray in each nostril BID for 0 days Quantity: 1 {Bottle} Refills: 0 Ordered: 19-Jun-2014 BENJAMIN Cano Start: 19-Jun-2014 End: 04-Aug-2016 Status: Discontinued Comments: This order discontinued per [facility]. take 1 puff(s) by mo uth twice daily fluticasone (Flovent Diskus) 50 mcg/actuation diskus inhaler Inhale 1 puff 2 times a day. Rinse mouth with water after use to reduce aftertaste and incidence of candidiasis. Do not swallow. Active Flovent HFA 110 mcg/actuation aerosol inhaler ; as needed (110 mcg/actuat) Comments: Medication taken as needed. Comment on above: Medication taken as needed. This order discontin ued per [facility]. Fluticasone Propionate (Flovent Hfa) 110 mcg/actuation HFA aerosol inhaler (10 sources) Start: 02-28-2023 End: 03-19-2024 Fluticasone Propionate (Flovent Hfa) 110 mcg/actuation HFA aerosol inhaler Discontinued 2 NMA INHALATION TWICE A DAY 04 27February 28, 2023 3:48pm March 19, 2024 1:28pm Start: 02-28-2023 End: 03-19-2024 Fluticasone Propionate (Flov ent Hfa) 110 mcg/actuation HFA aerosol inhaler Discontinued 2 NMA INHALATION TWICE A DAY February 28, 2023 3:48pm March 19, 2024 1:28pm Start: 02-28-2023 End: 02-28-2023 Fluticasone Propionate (Flov ent Hfa) 110 mcg/actuation HFA aerosol inhaler Discontinued 2 NMA INHALATION TWICE A DAY 12 February 28, 2023 10:02am February 28, 2023 3:48pm Start: 02-28-2023 End: 02-28-2023 Fluticasone Propionate (Flov ent Hfa) 110 mcg/actuation HFA aerosol inhaler Discontinued 2 NMA INHALATION TWICE A DAY February 28, 2023 10:02am February 28, 2023 3:48pm Start: 02-11-2022 End: 02-28-2023 Fluticasone Propionate (Flov ent Hfa) 110 mcg/actuation HFA aerosol inhaler Discontinued 2 NMA INHALATION TWICE A DAY 12 February 11, 2022 12:00am February 28, 2023 10:02am Start: 02-11-2022 End: 02-28-2023 Fluticasone Propionate (Flov ent Hfa) 110 mcg/actuation HFA aerosol inhaler Discontinued 2 NMA INHALATION TWICE A DAY February 11, 2022 12:00am February 28, 2023 10:02am Start: 02-11-2022 take 1 puff(s) by in halation twice daily Fluticasone Propionate (Flovent Hfa) 110 mcg/actuation HFA aerosol inhaler Active 2 PUFF INHALATION TWICE A DAY February 11, 2022 12:00am ibuprofen 600 mg oral tablet (4 sources) Nonsteroidal Anti-inflammatory Drug Start: 04-12-2015 End: 06-29-2021 take 1 tablet by mouth every six hours as needed for pain Ibuprofen 600 MG tablet Discontinued 600 mg PO EVERY 6 HOURS NEEDED as needed for cramping or mild/moderate pain 30 2 April 12, 2015 1:00am June 29, 2021 10:47am Mometasone (Asmanex Hfa) 200 mcg/actuation HFA aerosol inhaler (3 sources) Start: 03-19-2024 End: 07-31-2024 Mometasone (Asmanex Hfa) 200 mcg/actuation HFA aerosol inhaler Discontinued 2 NMA INHALATION TWICE A DAY 13 March 19, 2024 12:00am July 31, 2024 8:57am Start: 03-19-2024 End: 07-31-2024 Mometasone (Asmanex Hfa) 200 mcg/actuation HFA aerosol inhaler Discontinued 2 NMA INHALATION TWICE A DAY March 19, 2024 12:00am July 31, 2024 8:57am omeprazole 20 mg delayed release oral capsule (20 sources) Proton Pump Inhibitor Start: 08-06-2016 End: 03-30-2017 Omeprazole 20 MG Oral Capsule Delayed Release ; 1 (one) Capsule DR 30 minutes before 1st meal of day for 0 days Quantity: 30 {Capsule} Refills: 1 Ordered: 30-Mar-2017 BENJAMIN Cano Start: 06-Aug-2016 End: 30-Mar-2017 Status: Inactive oxyCODONE hydrochloride 5 mg oral tablet (4 sources) Opioid Agonist Start: 04-12-2015 End: 06-29-2021 take 1 tablet by mouth every four hours as needed for pain Oxycodone 5 MG tablet Discontinued 5 mg PO EVERY 4 HOURS NEEDED as needed for Moderate To Severe Pain 30 0 April 12, 2015 1:00am June 29, 2021 10:48am penicillin v potassium 500 mg oral tablet (20 sources) Start: 06-25-2016 End: 07-05-2016 take 1 tablet by mouth twice daily Penicillin V Potassium 500 MG Oral Tablet ; 1 (one) Tablet BID for 10 days Quantity: 20 {Tablet} Refills: 0 Ordered: 25-Jun-2016 ROGELIO Moya Start: 25-Jun-2016 End: 05-Jul-2016 Status: Inactive raNITIdine 150 mg oral tablet (20 sources) Histamine-2 Receptor Antagonist Start: 06-26-2019 End: 06-29-2021 take 1 tablet by mouth once daily Ranitidine Hcl (Zantac Maximum Strength) 150 mg tablet Discontinued 150 mg PO DAILY June 26, 2019 1:00am June 29, 2021 10:47am sulfamethoxazole 800 mg / trimethoprim 160 mg oral tablet (20 sources) Dihydrofolate Reductase Inhibitor Antibacterial, Sulfonamide Antimicrobial Start: 03-30-2017 End: 04-04-2017 take 1 tablet by mouth twice daily Sulfamethoxazole- Trimethoprim 800-160 MG Oral Tablet ; 1 Tablet two times daily for 5 days Quantity: 10 {Tablet} Refills: 0 Ordered: 30-Mar-2017 ROGELIO Moya Start: 30-Mar-2017 End: 04-Apr-2017 Status: Inactive traMADol hydrochloride 50 mg oral tablet (4 sources) Opioid Agonist Start: 04-14-2015 End: 06-29-2021 take 2 tablets by mouth every four hours as needed for pain Tramadol 50 MG tablet Discontinued 100 mg PO EVERY 4 HOURS NEEDED as needed for Abdominal Pain 30 April 14, 2015 1:00am June 29, 2021 10:47am Start: 04-14-2015 End: 06-29-2021 take 100 mg by mouth every four hours as needed Tramadol Discontinued 100 MG PO EVERY 4 HOURS NEEDED April 14, 2015 1:00am June 29, 2021 10:47am Viactiv Soft Chew Tablet (4 sources) Start: 04-12-2015 End: 02-28-2023 take 1 tablet by mouth once daily Viactiv Soft Chew Tablet Discontinued 500 TAB.CHEW PO DAILY April 12, 2015 1:00am February 28, 2023 9:53am Start: 04-12-2015 take 1 tablet by mouth once da makayla Viactiv Soft Chew Tablet Active 500 TAB.CHEW PO DAILY April 12, 2015 1:00am Problems Active Problems Problem Classification Problem Date Documented Date Episodic/Chronic Allergic reactions (20 sources) Eczema; Translations: [Dermatitis, unspecified] 04-05-2019 Episodic Asthma (5 sources) Asthma; Translations: [Unspecified asthma, uncomplicated] 06-29-2021 Chronic Coma; stupor; and brain damage (20 sources) Daytime somnolence; Translations: [Somnolence] 08-11-2023 Episodic Complication of device; implant or graft (20 sources) IUD threads lost; Translations: [Displacement of intrauterine contraceptive device, initial encounter] 02-28-2023 Episodic Esophageal disorders (20 sources) Gastroesophageal reflux disease; Translations: [Gastro-esophageal reflux disease without esophagitis] 03-15-2022 Chronic distress and abnormal forces of labor (4 sources) Arrested active phase of labor; 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] 04-12-2015 Episodic Genitourinary symptoms and ill-defined conditions (20 sources) Lower urinary tract symptoms; Translations: [Unspecified symptoms and signs involving the genitourinary system] 07-03-2019 Episodic Immunizations and screening for infectious disease (20 sources) Needs influenza immunization; Translations: [Encounter for immunization] 02-11-2020 Episodic Malaise and fatigue (20 sources) Fatigue; Translations: [Other fatigue] 04-03-2021 Episodic Mycoses (20 sources) Mycosis; Translations: [Candidiasis, unspecified] 07-03-2019 Episodic Nonmalignant breast conditions (2 sources) Cyst of breast; Translations: [Solitary cyst of unspecified breast] 01-15-2025 Episodic Other connective tissue disease (4 sources) Pain in finger of right hand; Translations: [Pain in right finger(s)] 07-03-2024 Episodic Other connective tissue disease (2 sources) Swelling of lower limb; Translations: [Other specified soft tissue disorders] 03-26-2025 Episodic Other connective tissue disease (2 sources) Other specified soft tissue disorders; Translations: [Other specified soft tissue disorders] Onset: Episodic Other gastrointestinal disorders (6 sources) Irritable bowel syndrome with diarrhea; Translations: [Irritable bowel syndrome with diarrhea] 09-07-2024 Chronic Other gastrointestinal disorders (3 sources) Irritable bowel syndrome; Translations: [Irritable bowel syndrome without diarrhea] 03-19-2024 Chronic Other gastrointestinal disorders (1 source) Irritable bowel syndrome with diarrhea; Translations: [Irritable bowel syndrome with diarrhea] Onset: Chronic Other gastrointestinal disorders (20 sources) Gastrointestinal symptom; Translations: [Other specified symptoms and signs involving the digestive system and abdomen] 07-29-2023 Episodic Other inflammatory condition of skin (20 sources) Rosacea; Translations: [Rosacea, unspecified] 08-11-2023 Chronic Other lower respiratory disease (4 sources) Dyspnea; Translations: [Shortness of breath] 12-22-2020 Episodic Other lower respiratory disease (20 sources) Lower respiratory tract infection; Translations: [Unspecified acute lower respiratory infection] 04-03-2021 Episodic Other non-traumatic joint disorders (20 sources) Ankle pain; Translations: [Pain in left ankle and joints of left foot] 02-28-2023 Episodic Other non-traumatic joint disorders (20 sources) Pain in left shoulder; Translations: [Pain in joint, shoulder region] 03-15-2022 Episodic Other nutritional; endocrine; and metabolic disorders (20 sources) Morbid obesity; Translations: [Morbid (severe) obesity due to excess calories] 02-28-2023 Chronic Other nutritional; endocrine; and metabolic disorders (20 sources) History of nutritional deficiency; Translations: [Personal history of other endocrine, nutritional and metabolic disease] 02-28-2023 Episodic Other screening for suspected conditions (not mental disorders or infectious disease) (20 sources) Patient encounter status; Translations: [Encounter for screening for lipoid disorders] Onset: 5 04-05-2019 Episodic Other upper respiratory infections (20 sources) Sinusitis; Translations: [Chronic sinusitis, unspecified] 07-03-2019 Chronic Other upper respiratory infections (20 sources) Streptococcal sore throat; Translations: [Streptococcal pharyngitis] 07-03-2019 Episodic Polyhydramnios and other problems of amniotic cavity (4 sources) Premature rupture of membranes; Translations: [Premature rupture of membranes, unspecified as to length of time between rupture and onset of labor, unspecified weeks of gestation] 04-12-2015 Episodic Residual codes; unclassified (20 sources) Obstructive sleep apnea syndrome; Translations: [Obstructive sleep apnea (adult) (pediatric)] 09-07-2023 Chronic Residual codes; unclassified (20 sources) Insomnia; Translations: [Sleep disorder, unspecified] 08-11-2023 Episodic Systemic lupus erythematosus and connective tissue disorders (20 sources) Hypocomplementemic urticarial vasculitis; 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 Unclassified (20 sources) Number of Children 02-28-2023 Comment on above: 1. Unclassified (20 sources) Number of Pregnancies 03-30-2017 Comment on above: 1. 0. Unclassified (20 sources) Cold Symptoms - Symptoms include nasal congestion (chronic due to allergies), sore throat, dry cough (resolving), fever, chills, general malaise and headache, but do not include ear pain. The onset was sudden 2 day(s) ago. The symptoms occur constantly. The patient describes this as moderate in severity and worsening. Current treatment includes acetaminophen. Risk factors do not include smoking. The patient has not been exposed to an individual with strep. Medical history includes seasonal allergies, but patient denies history of tonsillectomy. 06-25-2016 Unclassified (20 sources) Well adult female - The patient feels well with no complaints, has good energy level and is sleeping well. The first day of the last menstrual period was : (01/28/13; regular). The current method of contraception is: condom-male. The patient has a balanced diet and takes supplemental vitamins. The patient does not exercise. The patient sleeps 8 hours per night. Note for Well adult female: Recently became sexually active. Last pelvic exam was done through [facility] (01/2012) - no history of abnormal pap smears. 02-08-2013 Unclassified (20 sources) Follow up for chronic condition - The patient is here for follow-up of obesity and GERD. The patient always takes the prescribed medications. No side effects noted. The patient states that the disease has no overall impact. Note for Chronic condition follow-up: Met with functional medicine provider and had labs done. Started compounded T3/T4 med - T4 57mcg/13.5mcg once daily. Feels her energy has improved since starting this.GI symptoms are better - berberine tablets BID helped her symptoms. Still symptomatic with dairy (not even doing fairlife) and gluten foods. Diarrhea and gas improved. Took pantoprazole x 6 weeks - no GERD anymore; also cut out coffee.Taking melatonin and feels she is sleeping better.Less joint pain than she had before. 11-10-2023 Urinary tract infections (20 sources) Urinary tract infectious disease; Translations: [Urinary tract infection, site not specified] 07-03-2019 Episodic Viral infection (20 sources) Unspecified viral infection 04-05-2019 Episodic Past or Other Problems Problem Classification Problem Date Documented Date Episodic/Chronic Fracture of upper limb (6 sources) Closed fracture finger middle phalanx; Translations: [Nondisplaced fracture of middle phalanx of unspecified finger, subsequent encounter for fracture with delayed healing] Onset: 07-03-2024 07-03-2024 Episodic Other connective tissue disease (4 sources) Pain in right finger(s); Translations: [Pain in right finger(s)] Onset: 07-03-2024 Episodic Unclassified (20 sources) Well adult female - The patient feels well with no complaints, has good energy level and is sleeping well. The current method of contraception is: intrauterine device. The patient has a balanced diet and takes supplemental vitamins. The patient does not exercise. The patient sleeps 7 hours per night. Note for Well adult female: Last CBC with rheum was reviewed on patient's phone today and was normal.Has had some intermittent hot flashes. No night sweats. May be stress related - she will monitor. IUD so periods are irregular/spotty. 02-28-2023 Unclassified (20 sources) Ankle pain - The onset of the ankle pain has been acute and has been occurring in a persistent pattern for 2 weeks. The course has been constant. The pain is characterized as a moderate dull aching. The pain is in the left ankle and is described as being located in the medial ankle. The pain is aggravated by physical activity. Relieving factors include rest. There have been no previous diagnostic tests. Note for Ankle pain: Pt had ankle injury on 08/29/2022 (tweaked a little when stepped in a whole) and then hurt it again on 09/13/2022 (walking the dog and stepped in a whole again; thinks foot turned in).Didn't feel anything pop. Has been doing ice and aleve. Wore a compression wrap which helps while she has it on. Seems to improve some overnight.Swelling. 09-16-2022 Unclassified (20 sources) Well adult female - The patient feels well with no complaints, has good energy level and is sleeping well. The first day of the last menstrual period was : (Has IUD and does not have periods). The current method of contraception is: intrauterine device. The patient has a balanced diet and takes supplemental vitamins (Vit D). The patient exercises 3 - 4 times per week. The patient sleeps 7 hours per night. 03-15-2022 Unclassified (20 sources) Well adult female - The patient feels well with no complaints, has good energy level and is sleeping well. The first day of the last menstrual period was : (03/25/2021). The current method of contraception is: intrauterine device. The patient has a balanced diet and takes supplemental vitamins. The patient exercises 3 - 4 times per week (20-30 minutes 5 days aweek). The patient sleeps 7 hours per night. Note for Well adult female: Dr. St did a pap 04/2020 per patient when he replaced IUD.PMS 1 week before menses.Trouble losing weight. 04-03-2021 Unclassified (20 sources) Shoulder pain - The onset of the shoulder pain has been sudden following an incident not at work and has been occurring in a persistent pattern for 5 weeks. The course has been constant. The pain is characterized as a moderate to severe dull aching and sharp stabbing (when she moves it a certain way). The pain is described as being located in the left shoulder and is aggravated by physical activity. The symptoms have been associated with painful ROM and decreased ROM. Note for Shoulder pain: Pt fell off a step stool and hyperextended her left arm and now has shoulder pain. Pt thinks she might need some PT.Had popping when got up and moved shoulder.Wore a sling x days after injury.Icy hot helped some. Took a little bit of ibuprofen but irritated stomach.Left arm is feeling weaker.Can't sleep on left side. 03-27-2020 Unclassified (20 sources) Well adult female - The patient feels well with no complaints, has good energy level and is sleeping well. The first day of the last menstrual period was : (01/14/2020). The current method of contraception is: intrauterine device. The patient has a balanced diet and takes supplemental vitamins. The patient does not exercise. The patient sleeps 7 hours per night. Note for Well adult female: Last pap was 2018. Is going to have IUD changed in March. 02-11-2020 Unclassified (20 sources) Cold Symptoms - Symptoms include nasal congestion, ear pain, sore throat (from coughing), dry cough, fever (high 102.4- 2 doses of motrin and bath.), chills, general malaise (back at bra line from coughing) and headache, but do not include runny nose. The onset was gradual 7 day(s) ago. The symptoms occur constantly. The patient describes this as moderate in severity and worsening. Current treatment includes non-prescription cold medication and NSAIDs. The patient has been exposed to an individual with similar symptoms. Medical history includes seasonal allergies and recurrent sinusitis, but patient denies history of recurrent strep pharyngitis, asthma, tonsillectomy or recurrent ear infections. 04-05-2019 Unclassified (20 sources) Well adult female - The patient feels well with no complaints, has good energy level and is sleeping well. The first day of the last menstrual period was : (04/12/2018- not reuglar- IUD placed 04/2015). The patient has a balanced diet and takes supplemental vitamins. The patient exercises weekly (5 x a wk, started in october). The patient sleeps 7 hours per night. Note for Well adult female: Looking for another job - some anxiety associated with workplace issues. 07-12-2018 Unclassified (20 sources) UTI - Symptoms include dysuria, urinary frequency, urinary urgency, malodorous urine and abdominal pain (pressure), but do not include back pain. The pain is located in the suprapubic area. The patient describes the pain as aching (pressure). Onset was sudden hour(s) ago (this am). The symptoms occur constantly. The patient describes this as moderate in severity and worsening. Associated symptoms do not include fever, chills or nausea. 03-31-2017 Unclassified (20 sources) Well adult female - The patient feels well with minor complaints (Been having a cough for 2 wks - has been seeing Dr Greer for this. Allergies and sinus infections. Extra tired lately (for atleast a month) even after having a full night sleep (no snoring, apnea, etc). Has been having increased yeast infections. Taking antacid daily - tums/zantac. Taking flinstone/viactiv daily. ) and has good energy level. The first day of the last menstrual period was : (07/21/16 is regular and just had pelvic check 06/15/16 IUD.). The current method of contraception is: intrauterine device. The patient has a balanced diet and takes supplemental vitamins. The patient does not exercise. The patient sleeps 7 hours per night. Note for Well adult female: Weight is down 7 pounds in 1 year - has been working at it.Stress with work and not being able to move but needing to get out of house that has mold in it.Checks her BP - last was 117/74. 08-06-2016 Unclassified (20 sources) Cold Symptoms - Symptoms include nasal congestion, runny nose, scratchy throat (on occasion), hoarseness, dry cough, fever (low grade), headache and facial pain, but do not include sneezing, ear pain, ear fullness, sore throat, chills or general malaise. The onset was sudden 2 week(s) ago. The symptoms occur constantly. The patient describes this as moderate in severity and unchanged. Current treatment includes non-prescription cold medication. The patient has been exposed to an individual with an upper respiratory infection. 12-04-2015 Unclassified (20 sources) Cold Symptoms - Symptoms include nasal congestion, runny nose, ear fullness, sore throat and dry cough, but do not include fever, chills or general malaise. The onset was gradual 2 week(s) ago. The symptoms occur constantly. The patient describes this as moderate in severity and unchanged. Current treatment includes an oral decongestant, a decongestant nasal spray and saline nasal spray/drops. The patient has been exposed to an individual with similar symptoms (daughter). Medical history includes seasonal allergies, but patient denies history of recurrent sinusitis, recurrent strep pharyngitis, asthma, tonsillectomy or recurrent ear infections. 10-08-2015 Unclassified (20 sources) Cold Symptoms - Symptoms include nasal congestion, ear pain (pressure on the left side), dry cough, headache and facial pain, but do not include sore throat or fever (did last wk). The onset was gradual 2 week(s) ago. The symptoms occur constantly. The patient describes this as moderate in severity and worsening (past wk). Current treatment includes an oral decongestant, acetaminophen and mucinex. Medical history includes seasonal allergies and recurrent sinusitis, but patient denies history of recurrent strep pharyngitis, asthma, tonsillectomy or recurrent ear infections. 07-17-2015 Unclassified (20 sources) Cold Symptoms - Symptoms include nasal congestion, runny nose (yellow drainage), sore throat, dry cough, headache and facial pain, but do not include ear pain or fever. The onset was gradual 4 day(s) ago. The symptoms occur constantly. The patient describes this as moderate in severity and unchanged. Current treatment includes non-prescription cold medication (mucinex-D). The patient has not been exposed to an individual with similar symptoms. Medical history includes seasonal allergies and recurrent sinusitis, but patient denies history of recurrent strep pharyngitis, asthma, tonsillectomy or recurrent ear infections. Note for Upper respiratory infection: using musinex 06-19-2014 Unclassified (20 sources) UTI - Symptoms include dysuria, urinary frequency, urinary urgency and abdominal pain (pressure), but do not include hematuria, malodorous urine or back pain. There is no assiciated pain. There is no radiation. The patient describes the pain as burning. Onset was sudden hour(s) ago. The symptoms occur constantly. The patient describes this as moderate in severity and worsening. Symptoms are relieved by cranberry juice. Associated symptoms do not include fever or nausea. 12-11-2013 Unclassified (20 sources) Cold Symptoms - Symptoms include sneezing, nasal congestion, runny nose (drainage is thick, sticky, and yellow), headache and facial pain (lots of pressure), but do not include ear pain, sore throat, dry cough or fever. The onset was gradual 1 week(s) ago. The symptoms occur constantly. The patient describes this as moderate in severity and worsening. Current treatment includes non-prescription cold medication (mucinex), allergy medications, an oral decongestant and acetaminophen. The patient has not been exposed to an individual with similar symptoms. Medical history includes seasonal allergies and recurrent sinusitis, but patient denies history of recurrent strep pharyngitis, asthma, tonsillectomy or recurrent ear infections. Note for Upper respiratory infection: Had some improvement with OTC but then symptoms worsened again over the weekend. 07-02-2013 Unclassified (20 sources) Cold Symptoms - Symptoms include nasal congestion, runny nose (just starting this morning), sore throat (getting worse), fever (100 was the highest temp recorded; + body aches and chills; none since yesterday morning) and headache (neck pain - left side feels swollen), but do not include ear pain (no pain but has had pressure). The onset was gradual 3 day(s) ago. The patient describes this as moderate in severity and worsening. Current treatment includes non-prescription cold medication (mucinex and other OTC medications). Risk factors do not include smoking. The patient has not been exposed to an individual with similar symptoms. 03-28-2013 Unclassified (20 sources) UTI - Symptoms include dysuria, urinary frequency, urinary urgency and abdominal pain. The pain is located in the suprapubic area. There is no radiation. The patient describes the pain as dull, aching and burning. Onset was sudden 12 hour(s) ago. There is no known event that preceded symptom onset. The symptoms occur constantly. The patient describes this as moderate in severity and worsening. Symptoms are relieved by cranberry juice. Associated symptoms do not include fever, chills, nausea or vomiting. 02-03-2013 Unclassified (20 sources) Ear pain - The onset of the pain has been acute and has been occurring in a persistent pattern for 3 days. The course has been constant. The pain is described as a moderate pressure. The pain is described as being located in the inner ear. The pain is felt in the left ear. The symptoms have been associated with fever (didn't check it but has had chills) and runny nose, while the symptoms have not been associated with sore throat or cough. Medical History includes seasonal allergies and recurrent sinusitis, but there is no history of ear infections. Note for Ear pain: Has had sinus pressure and some neck tightness. Took 2 tylenol last night. Her ears have been itching - L>R. Has taken sudafed and raquel seltzer plus. Makes her ear hurt to open her mouth all the way. Hasn't really had teeth pain. History of grinding her teeth to the point of needing to wear a mouth guard but that resolved on its own over time. 08-03-2012 Unclassified (20 sources) UTI - Symptoms include dysuria, urinary frequency, urinary urgency and abdominal pain (pressure), but do not include hematuria, flank pain or back pain. The pain is located in the suprapubic area. There is no radiation. The patient describes the pain as dull. Onset was gradual 4 day(s) ago. The symptoms occur frequently. The patient describes this as moderate in severity and worsening. Symptoms are relieved by cranberry juice, but are not relieved by phenazopyridine or urinary anesthetics. Associated symptoms include nausea and urinary hesitancy, but do not include fever, chills, vomiting, urinary retention, urethral discharge or vaginal discharge. Risk factors do not include indwelling catheter or fecal incontinence. Note for UTI: seen here in Nov for culture positive UTI that was treated with cipro; did improve; has not has these frequently in the past but did notice an increase in them since using a new sexual toy with lubricant. Has stopped using that now. 06-17-2012 Unclassified (20 sources) UTI - Symptoms include dysuria, urinary frequency, abdominal pain and back pain. The pain is located in the suprapubic area (pressure feeling). There is no radiation. Onset was sudden 1 day(s) ago. There is no known event that preceded symptom onset. The symptoms occur constantly. The patient describes this as moderate in severity and unchanged. Symptoms are not relieved by cranberry juice. Associated symptoms do not include fever, chills, nausea or vomiting. Risk factors do not include indwelling catheter or fecal incontinence. Note for UTI: Due for next period in a couple of days. Has been drinking lots of cranberry juice but hasn't taken anything OTC. Pt is here to establish care. Recently moved from [place] - doesn't have records with her today but is planning to bring by. 03-30-2012 Unclassified (20 sources) Follow up laboratory test results - Lab results returned on : (08/04/2023) . Current symptoms include abdominal pain and diarrhea. Note for Laboratory test results follow-up: No longer seeing Dr. Brady. Is going to a new senior dot net developer that she will be seeing every 6 months. Rheum says rash on face is not related to autoimmune condition but more likely rosacea. Starting a program through her insurance to try to help with weight loss. Really rancid gas. Has been trying to eat more vegetables. Lots of gas, indigestion, diarrhea/constipation , nausea. Does better with cooked vegetables and worse with raw vegetables. Did start doing FODMAPS - did 5 days gluten free and then added it back in and thought I was going to within 30 minutes of eating it. No gluten since last week now. Drinks fair life milk which is lactose free but still doing some cheese. Started lactose free or silk yogurt. Did this for 10 days and then had coffee with regular milk and did have diarrhea and gas - no bloating or pain.Eating large amount of eggs - feels ok with those.Taking vitamin D and MV - 2000-3000IU daily.Having acid reflux pretty bad recently but when was lactose/dairy and gluten free was doing better.Having trouble with sleep again and feeling like it is affecting her memory. Does talk in her sleep. No significant snoring. Side sleeper. Once she falls asleep she feels like she gets a few good hours of sleep. Exercising regularly now.Taking famotidine. No RUQ pain. 08-11-2023 Unclassified (20 sources) Well adult female - The patient feels well with no complaints, has good energy level and is sleeping well. The current method of contraception is: intrauterine device. The patient has a balanced diet and takes supplemental vitamins. The patient exercises 3 - 4 times per week. The patient sleeps 7 hours per night. 02-03-2024 Unclassified (5 sources) Onset: 07-05-2023 Resolved: 07-03-2024 07-05-2023 Results Test Name Value Interpretation Reference Range Facility C-REACTIVE PROTEINon 025 CRP [Mass/Vol] 6.6 mg/L Normal <8.0 [facility] Comment on above: Performed By: #### [id number] #### [facility] [place] [address] [employer] Field Supervisor: Asad Fitzpatrick MD CBC (INCLUDES DIFF/PLT)on Basophils (Bld) [#/Vol] 0.063 10*3/uL Normal 0-200 [facility] Comment on above: Performed By: #### [id number], [id number] #### [facility] [place] [address] [address] Field Supervisor: Asad Fitzpatrick MD Basophils/100 WBC (Bld) 1.0 % Normal [facility] Comment on above: Performed By: #### 3 51, 93657, 255, 4420, 6399, 353 #### [facility] [place] [address] Broadcast Field Supervisor: Asad Fitzpatrick MD Eosinophils (Bld) [#/Vol] 0.139 10*3/uL Normal 15-500 [facility] Comment on above: Performed By: #### 3 51, 45187, 255, 4420, 6399, 353 #### [facility] [place] [address] Broadcast Field Supervisor: Asad Fitzpatrick MD Eosinophils/100 WBC (Bld) 2.2 % Normal [facility] Comment on above: Performed By: #### 3 51, 45866, 255, 4420, 6399, 353 #### [facility] of [place] [address] Broadcast Field Supervisor: Asad Fitzpatrick MD Erythrocyte distribution width (RBC) [Ratio] 11.9 % Normal 11.0-15.0 [facility] Comment on above: Performed By: #### 3 51, 41864, 255, 4420, 6399, 353 #### [facility] of [address], [address] [place] [address] Broadcast Field Supervisor: Asad Fitzpatrick MD Hematocrit (Bld) [Volume fraction] 40.9 % Normal 35.0-45.0 [facility] Comment on above: Performed By: #### 3 51, 58773, 255, 4420, 6399, 353 #### [facility] [place] [address] Broadcast Field Supervisor: Asad Fitzpatrick MD Hemoglobin (Bld) [Mass/Vol] 13.3 g/dL Normal 11.7-15.5 [facility] Comment on above: Performed By: #### 3 51, 00988, 255, 4420, 6399, 353 #### [facility] [place] [address] Broadcast Field Supervisor: Asad Fitzpatrick MD Lymphocytes (Bld) [#/Vol] 1.336 10*3/uL Normal 850-3900 [facility] Comment on above: Performed By: #### 3 51, 05861, 255, 4420, 6399, 353 #### [facility] [place] [address] Broadcast Field Supervisor: Asad Fitzpatrick MD Lymphocytes/100 WBC (Bld) 21.2 % Normal [facility] Comment on above: Performed By: #### 3 51, 75524, 255, 4420, 6399, 353 #### [facility] [place] [address] Broadcast Field Supervisor: Asad Fitzpatrick MD MCH (RBC) [Entitic mass] 29.0 pg Normal 27.0-33.0 [facility] Comment on above: Performed By: #### 3 51, 10140, 255, 44, 63, 353 #### [facility] [place] [address] Broadcast Field Supervisor: Asad Fitzpatrick MD MCHC (RBC) [Mass/Vol] 32.5 g/dL Normal 32.0-36.[address] [facility] Comment on above: Result Comment: For adults, a slight decrease in the calculated MCHC value (in the range of 30 to 32 g/dL) is most likely not clinically significant; however, it should be interpreted with caution in correlation with other red cell parameters and the patient's clinical condition. Performed By: #### 3 , , 255, 44, 63, 353 #### [facility] [place] [address] Broadcast Field Supervisor: Asad Fitzpatrick MD MCV (RBC) [Entitic vol] 89.1 fL Normal 80.0-100.0 [facility] Comment on above: Performed By: #### 3 , , 255, 44, 63, 353 #### [facility] [place] [address] Broadcast Field Supervisor: Asad Fitzpatrick MD Monocytes (Bld) [#/Vol] 0.523 10*3/uL Normal 200-950 [facility] Comment on above: Performed By: #### 3 , , 255, 4420, 6399, 353 #### [facility] [place] [address] Broadcast Field Supervisor: Asad Fitzpatrick MD Monocytes/100 WBC (Bld) 8.3 % Normal [facility] Comment on above: Performed By: #### 3 , , 255, 4420, 6399, 353 #### [facility] [place] [address] Broadcast Field Supervisor: Asad Fitzpatrick MD Neutrophils (Bld) [#/Vol] 4.24 10*3/uL Normal 1238-1078 [facility] Comment on above: Performed By: #### 3 51, 56826, 255, 4420, 6399, 353 #### [facility] of [address], [address] [place] [address] Broadcast Field Supervisor: Asad Fitzpatrick MD Neutrophils/100 WBC (Bld) 67.3 % Normal [facility] Comment on above: Performed By: #### 3 51, 80575, 255, 4420, 6399, 353 #### [facility] [place] [address] Broadcast Field Supervisor: Asad Fitzpatrick MD Platelet mean volume (Bld) [Entitic vol] 10.9 fL Normal 7.5-12.5 [facility] Comment on above: Performed By: #### 3 51, 78445, 255, 4420, 6399, 353 #### [facility] [place] [address] Broadcast Field Supervisor: Asad Fitzpatrick MD Platelets (Bld) [#/Vol] 237 10*3/uL Normal 140-400 [facility] Comment on above: Performed By: #### 3 51, 17082, 255, 4420, 6399, 353 #### [facility] [place] [address] Broadcast Field Supervisor: Asad Fitzpatrick MD RBC (Bld) [#/Vol] 4.59 10*6/uL Normal 3.80-5.10 [facility] Comment on above: Performed By: #### 3 51, 05713, 255, 4420, 6399, 353 #### [facility] [place] [address] Broadcast Field Supervisor: Asad Fitzpatrick MD WBC (Bld) [#/Vol] 6.3 10*3/uL Normal 3.8-10.8 [facility] Comment on above: Performed By: #### 3 51, 47582, 255, 4420, 6399, 353 #### [facility] of [address], [address] [place] [address] Broadcast Field Supervisor: Asad Fitzpatrick MD COMPLEMENT COMPONENT C3Con 1 05-27-2024 COMPLEMENT COMPONENT C3C 142 mg/dL Normal 83-193 [facility] Comment on above: Performed By: #### 3 51, 10660, 255, 4420, 6399, 353 #### [facility] of [address], [address] [place] [address] Broadcast Field Supervisor: Asad Fitzpatrick MD COMPLEMENT COMPONENT C4Con 1 05-27-2024 COMPLEMENT COMPONENT C4C 27 mg/dL Normal 15-57 [facility] Comment on above: Performed By: #### 9 2665, 6399, 351, 4420, 353 #### [facility] [place] [address] Broadcast Field Supervisor: Asad Fitzpatrick MD COMPREHENSIVE METABOLIC PANE L W/ANION GAPon 03-27-2025 Albumin [Mass/Vol] 4.4 g/dL Normal 3.6-5.1 [facility] Comment on above: Order Comment: FASTI NG:NO FASTING: NO Performed By: #### 3 51, 65334, 255, 4420, 6399, 353 #### [facility] [place] [address] Broadcast Field Supervisor: Asad Fitzpatrick MD ALP [Catalytic activity/Vol] 48 U/L Normal 31-125 [facility] Comment on above: Order Comment: FASTI NG:NO FASTING: NO Performed By: #### 3 51, 81547, 255, 4420, 6399, 353 #### [facility] [address], [address] [place] [address] Broadcast Field Supervisor: Asad Fitzpatrick MD ALT [Catalytic activity/Vol] 22 U/L Normal 6-29 [facility] Comment on above: Order Comment: FASTI NG:NO FASTING: NO Performed By: #### 3 51, 81516, 255, 4420, 6399, 353 #### [facility] [address], [address] [place], [place] [address] Broadcast Field Supervisor: Asad Fitzpatrick MD AST [Catalytic activity/Vol] 21 U/L Normal 10-30 [facility] Comment on above: Order Comment: FASTI NG:NO FASTING: NO Performed By: #### 3 51, 90540, 255, 4420, 6399, 353 #### [facility] [place] [address] Broadcast Field Supervisor: Asad Fitzpatrick MD Bilirubin [Mass/Vol] 0.4 mg/dL Normal 0.2-1.2 [facility] Comment on above: Order Comment: FASTI NG:NO FASTING: NO Performed By: #### 3 51, 67424, 255, 4420, 6399, 353 #### [facility] [place] [address] Broadcast Field Supervisor: Asad Fitzpatrick MD Calcium [Mass/Vol] 9.2 mg/dL Normal 8.6-10.2 [facility] Comment on above: Order Comment: FASTI NG:NO FASTING: NO Performed By: #### 3 51, 83574, 255, 4420, 6399, 353 #### [facility] [place] [address] Broadcast Field Supervisor: Asad Fitzpatrick MD Chloride [Moles/Vol] 106 mmol/L Normal 98-110 [facility] Comment on above: Order Comment: FASTI NG:NO FASTING: NO Performed By: #### 3 51, 19348, 255, 4420, 6399, 353 #### [facility] [place] [address] Broadcast Field Supervisor: Asad Fitzpatrick MD CO2 [Moles/Vol] 27 mmol/L Normal 20-32 [facility] Comment on above: Order Comment: FASTI NG:NO FASTING: NO Performed By: #### 3 51, 22930, 255, 4420, 6399, 353 #### [facility] [place] [address] Broadcast Field Supervisor: Asad Fitzpatrick MD Creatinine [Mass/Vol] 0.85 mg/dL Normal 0.50-0.[address] [facility] Comment on above: Order Comment: FASTI NG:NO FASTING: NO Performed By: #### 3 51, 85421, 255, 4420, 6399, 353 #### [facility] [address], [address] [place] [address] Broadcast Field Supervisor: Asad Fitzpatrick MD ELECTROLYTE BALANCE 9 mmol/L (calc) Normal 7-17 [facility] Comment on above: Order Comment: FASTI NG:NO FASTING: NO Performed By: #### 3 51, 78996, 255, 4420, 6399, 353 #### [facility] [place] [address] Broadcast Field Supervisor: Asad Fitzpatrick MD GFR/1.73 sq M.predicted among non-blacks MDRD (S/P/Bld) [Vol rate/Area] 87 mL/min/{1.73_m2} Normal > OR = 60 [facility] Comment on above: Order Comment: FASTI NG:NO FASTING: NO Performed By: #### 3 51, 73026, 255, 4420, 6399, 353 #### [facility] [place] [address] Broadcast Field Supervisor: Asad Fitzpatrick MD Glucose [Mass/Vol] 80 mg/dL Normal 65-139 [facility] Comment on above: Order Comment: FASTI NG:NO FASTING: NO Result Comment: Non-fasting reference interval Performed By: #### 3 51, 05417, 255, 4420, 6399, 353 #### [facility] [address], [address] [place] [address] Broadcast Field Supervisor: Asad Fitzpatrick MD Potassium [Moles/Vol] 4.2 mmol/L Normal 3.5-5.[address] [facility] Comment on above: Order Comment: FASTI NG:NO FASTING: NO Performed By: #### 3 51, 40235, 255, 4420, 6399, 353 #### [facility] [address], [address] [place] [address] Broadcast Field Supervisor: Asad Fitzpatrick MD Protein [Mass/Vol] 7.0 g/dL Normal 6.1-8.1 [facility] Comment on above: Order Comment: FASTI NG:NO FASTING: NO Performed By: #### 3 51, 47861, 255, 4420, 6399, 353 #### [facility] [address], [address] [place] [address] Broadcast Field Supervisor: Asad Fitzpatrick MD Sodium [Moles/Vol] 142 mmol/L Normal 135-146 [facility] Comment on above: Order Comment: FASTI NG:NO FASTING: NO Performed By: #### 3 51, 60722, 255, 4420, 6399, 353 #### [facility] [place] [address] Broadcast Field Supervisor: Asad Fitzpatrick MD Urea nitrogen [Mass/Vol] 17 mg/dL Normal 7-25 [facility] Comment on above: Order Comment: FASTI NG:NO FASTING: NO Performed By: #### 3 51, 57625, 255, 4420, 6399, 353 #### [facility] [address], [address] [place] [address] Broadcast Field Supervisor: Asad Fitzpatrick MD DNA (DS) ANTIBODYon 03-27-20 25 DNA (DS) ANTIBODY 1 IU/mL Normal [facility] Comment on above: Result Comment: IU/m L Interpretation < or = 4 Negative 5-9 Indeterminate > or = 10 Positive Performed By: #### 3 51, 84968, 255, 4420, 6399, 353 #### [facility] [address], [address] [place] [address] Broadcast Field Supervisor: Asad Fitzpatrick MD Aldolaseon 03-20-2025 ALDOLASE 5.7 U/L Normal 3.3-10.3 [facility] Comment on above: Result Comment: Perf ormed at: [facility] [address] [id number] Clinical Implementation Specialist: Juaquin Eason PhD, Phone: [phone] Performed at: - [facility] [id number] Clinical Implementation Specialist: Zay Gutierrez MD, Phone: [phone] Performed By: #### L 3200.1100, L3300.1800, L101.9900, L503.6150, L3300.0960, L3200.0500, L501.5200, L3100.7000, L501.3620, L501.6710, L504.2610, L3100.3425, L503.6550 ####[facility] [address] [place], [place], [phone](204) Gastrin, Serumon 03-20-2025 GASTRIN 202 pg/mL High 0-115 [facility] Comment on above: Result Comment: Siem ens Ortho-tagte 2000 Immunochemiluminometric assay (ICMA) Values obtained with different assay methods or kits cannot be used interchangeably. Results cannot be interpreted as absolute evidence of the presence or absence of malignant disease. Performed By: #### L 3200.1100, L3300.1800, L101.9900, L503.6150, L3300.0960, L3200.0500, L501.5200, L3100.7000, L501.3620, L501.6710, L504.2610, L3100.3425, L503.6550 ####[facility] [address] [place], [place], [phone] ADRIANA + Protein Elect, Serumon 03-20-2025 Albumin [Mass/Vol] 4.0 g/dL Normal 2.9-4.4 [facility] Comment on above: Order Comment: N Performed By: #### L 3200.1100, L3300.1800, L101.9900, L503.6150, L3300.0960, L3200.0500, L501.5200, L3100.7000, L501.3620, L501.6710, L504.2610, L3100.3425, L503.6550 ####[facility] [address] [place], [place], [phone](372) Albumin/Globulin [Mass ratio] 1.3 {ratio} Normal 0.7-1.7 [facility] Comment on above: Order Comment: N Performed By: #### L 3200.1100, L3300.1800, L101.9900, L503.6150, L3300.0960, L3200.0500, L501.5200, L3100.7000, L501.3620, L501.6710, L504.2610, L3100.3425, L503.6550 ####[facility] [address] [place], [address](621) HNPSZ-4-NKZE 0.2 g/dL Normal 0.0-0.4 [facility] Comment on above: Order Comment: N Performed By: #### L 3200.1100, L3300.1800, L101.9900, L503.6150, L3300.0960, L3200.0500, L501.5200, L3100.7000, L501.3620, L501.6710, L504.2610, L3100.3425, L503.6550 ####[facility] [address] [place], [address] ALNRX-4-IWNX 0.7 g/dL Normal 0.4-1.0 [facility] Comment on above: Order Comment: N Performed By: #### L 3200.1100, L3300.1800, L101.9900, L503.6150, L3300.0960, L3200.0500, L501.5200, L3100.7000, L501.3620, L501.6710, L504.2610, L3100.3425, L503.6550 ####[facility] [address] [place], [address](712) BETA GLOBULIN 1.1 g/dL Normal 0.7-1.3 [facility] Comment on above: Order Comment: N Performed By: #### L 3200.1100, L3300.1800, L101.9900, L503.6150, L3300.0960, L3200.0500, L501.5200, L3100.7000, L501.3620, L501.6710, L504.2610, L3100.3425, L503.6550 ####[facility] [address] [place], [place], [phone] GAMMA GLOBULIN 1.2 g/dL Normal 0.4-1.8 [facility] Comment on above: Order Comment: N Performed By: #### L 3200.1100, L3300.1800, L101.9900, L503.6150, L3300.0960, L3200.0500, L501.5200, L3100.7000, L501.3620, L501.6710, L504.2610, L3100.3425, L503.6550 ####[facility] [address] [place], [place], [phone] Globulin (S) [Mass/Vol] 3.2 g/dL Normal 2.2-3.9 [facility] Comment on above: Order Comment: N Performed By: #### L 3200.1100, L3300.1800, L101.9900, L503.6150, L3300.0960, L3200.0500, L501.5200, L3100.7000, L501.3620, L501.6710, L504.2610, L3100.3425, L503.6550 ####[facility] [address] [place], [place], [phone] ADRIANA RESULT,S Comment Normal . [facility] Comment on above: Order Comment: N Result Comment: No m onoclonality detected. Performed By: #### L 3200.1100, L3300.1800, L101.9900, L503.6150, L3300.0960, L3200.0500, L501.5200, L3100.7000, L501.3620, L501.6710, L504.2610, L3100.3425, L503.6550 ####[facility] [address] [place], [place], [phone] IMMUNOGLOB A QN 165 mg/dL Normal 87-352 [facility] Comment on above: Order Comment: N Performed By: #### L 3200.1100, L3300.1800, L101.9900, L503.6150, L3300.0960, L3200.0500, L501.5200, L3100.7000, L501.3620, L501.6710, L504.2610, L3100.3425, L503.6550 ####[facility] [address] [place], [place], [address] IMMUNOGLOB M QN 133 mg/dL Normal 26-217 [facility] Comment on above: Order Comment: N Performed By: #### L 3200.1100, L3300.1800, L101.9900, L503.6150, L3300.0960, L3200.0500, L501.5200, L3100.7000, L501.3620, L501.6710, L504.2610, L3100.3425, L503.6550 ####[facility] [address] [place], [place], [phone] M-Shayne Not Observed Normal Not Observed [facility] Comment on above: Order Comment: N Performed By: #### L 3200.1100, L3300.1800, L101.9900, L503.6150, L3300.0960, L3200.0500, L501.5200, L3100.7000, L501.3620, L501.6710, L504.2610, L3100.3425, L503.6550 ####[facility] [address] [place], [place], [phone] NOTE: Comment Normal . [facility] Comment on above: Order Comment: N Result Comment: Prot ein electrophoresis scan will follow via computer, mail, or help desk associate delivery. Performed By: #### L 3200.1100, L3300.1800, L101.9900, L503.6150, L3300.0960, L3200.0500, L501.5200, L3100.7000, L501.3620, L501.6710, L504.2610, L3100.3425, L503.6550 ####[facility] [address] [place], [address] Protein [Mass/Vol] 7.2 g/dL Normal 6.0-8.5 [facility] Comment on above: Order Comment: N Performed By: #### L 3200.1100, L3300.1800, L101.9900, L503.6150, L3300.0960, L3200.0500, L501.5200, L3100.7000, L501.3620, L501.6710, L504.2610, L3100.3425, L503.6550 ####[facility] [address] [place], [address] IgG Subclasseson 03-20-2025 IgG, SUBCLASS 1 694 mg/dL Normal 248-810 [facility] Comment on above: Performed By: #### L 3200.1100, L3300.1800, L101.9900, L503.6150, L3300.0960, L3200.0500, L501.5200, L3100.7000, L501.3620, L501.6710, L504.2610, L3100.3425, L503.6550 ####[facility] [address] [place], [address] IgG, SUBCLASS 2 424 mg/dL Normal 130-555 [facility] Comment on above: Performed By: #### L 3200.1100, L3300.1800, L101.9900, L503.6150, L3300.0960, L3200.0500, L501.5200, L3100.7000, L501.3620, L501.6710, L504.2610, L3100.3425, L503.6550 ####[facility] [address] [place], [address] IgG, SUBCLASS 3 51 mg/dL Normal 15-102 [facility] Comment on above: Performed By: #### L 3200.1100, L3300.1800, L101.9900, L503.6150, L3300.0960, L3200.0500, L501.5200, L3100.7000, L501.3620, L501.6710, L504.2610, L3100.3425, L503.6550 ####[facility] [address] [place], [address] IgG, SUBCLASS 4 1 mg/dL Low 2-96 [facility] Comment on above: Performed By: #### L 3200.1100, L3300.1800, L101.9900, L503.6150, L3300.0960, L3200.0500, L501.5200, L3100.7000, L501.3620, L501.6710, L504.2610, L3100.3425, L503.6550 ####[facility] [address] [place], [address] IGG,QUANT 1221 mg/dL Normal 586-1602 [facility] Comment on above: Performed By: #### L 3200.1100, L3300.1800, L101.9900, L503.6150, L3300.0960, L3200.0500, L501.5200, L3100.7000, L501.3620, L501.6710, L504.2610, L3100.3425, L503.6550 ####[facility] [address] [place], [place], [phone](724) Immunoglobulins G/A/M/Sean IMMUNOGLOB E QN < 2 Low 6-495 [facility] Comment on above: Order Comment: N Performed By: #### L 3200.1100, L3300.1800, L101.9900, L503.6150, L3300.0960, L3200.0500, L501.5200, L3100.7000, L501.3620, L501.6710, L504.2610, L3100.3425, L503.6550 ####[facility] [address] [place], [place], [phone] Vitamin D 1,25-Dihydroxyon 1 VIT D 1,25 DIHY 39.6 pg/mL Normal 24.8-81.5 [facility] Comment on above: Result Comment: Perf ormed at: - [facility] [id number] Clinical Implementation Specialist: Zay Gutierrez MD, Phone: [phone] Performed By: #### L 3200.1100, L3300.1800, L101.9900, L503.6150, L3300.0960, L3200.0500, L501.5200, L3100.7000, L501.3620, L501.6710, L504.2610, L3100.3425, L503.6550 ####[facility] [address] [place], [place], [phone] CPK Total, Creatine Kinaseon 03-15-2025 CPK TOTAL 141 U/L Normal 24-195 [facility] Comment on above: Performed By: #### L 3200.1100, L3300.1800, L101.9900, L503.6150, L3300.0960, L3200.0500, L501.5200, L3100.7000, L501.3620, L501.6710, L504.2610, L3100.3425, L503.6550 ####[facility] [address] [place], [place], [phone] CRPon 03-15-2025 C-REACTIVE PROT 5.60 mg/L High 0.0-3.0 [facility] Comment on above: Performed By: #### L 3200.1100, L3300.1800, L101.9900, L503.6150, L3300.0960, L3200.0500, L501.5200, L3100.7000, L501.3620, L501.6710, L504.2610, L3100.3425, L503.6550 ####[facility] [address] [place], [place], [address] Erythrocyte Sed Rateon 03-15 SED RATE 8 mm/hr Normal 0-30 [facility] Comment on above: Performed By: #### L 3200.1100, L3300.1800, L101.9900, L503.6150, L3300.0960, L3200.0500, L501.5200, L3100.7000, L501.3620, L501.6710, L504.2610, L3100.3425, L503.6550 #### [facility] [address], [address] Ferritinon 03-15-2025 Ferritin [Mass/Vol] 117 ng/mL Normal 22-378 [facility] Comment on above: Performed By: #### L 3200.1100, L3300.1800, L101.9900, L503.6150, L3300.0960, L3200.0500, L501.5200, L3100.7000, L501.3620, L501.6710, L504.2610, L3100.3425, L503.6550 ####[facility] [address] [place], [address] Gastroenterology Visit Repor ton 03-15-2025 Gastroenterology Visit Report [facility] [address] [place] [address] OFFICE VISIT Date of Service: 03/15/25 MR#: [id number] Acct: [id number] Name: ELIDA COWAN Rep #: [id number] : 1980 Provider: Hayes Lr DO Age/Sex: 44/F Location: [email or web address] Status: Signed Intake Vital Signs 08/14/24 14:16 01/22/25 05:32 Height 5 ft 5 ft Weight: 204 lb BMI 39.8 BP 118/80 Blood Pressure Location Lt brachial Position Sitting Respiration 20 H Pulse 72 Pulse Source Monitor Temp 97.2 F L Pulse Oximetry (%) 99 Oxygen Delivery Method room air Intake Visit Reasons: 3 M FU Allergies hydrocodone bitartrate (From Vicodin) Allergy (Verified 01/22/25 09:08) Anaphylaxis Medications ???Medication ???Instructions ???Recorded ???Confirmed ???Type hydroxychloroquine 200 mg tablet 200 mg PO BID 06/26/19 03/15/25 Hi story loratadine 5 mg disintegrating 5 mg PO DAILY 06/29/21 03/15/25 Hi story tablet (Claritin RediTabs) cholecalciferol (vitamin D3) 50 50 mcg PO DAILY 02/28/23 03/15/25 History mcg (2,000 unit) capsule erythromycin 5 mg/gram (0.5 %) eye 1 applic ophthalmic (eye) QDAY 0 07/31/24 03/15/25 History ointment fluticasone propionate 44 2 puff inhalation BID PRN 07/31/24 03/15/25 History mcg/actuation HFA aerosol inhaler hypochlorous acid 0.01 %-sodium 1 spray topical BID 07/31/2403/15 History chloride topical spray (Thera Tears SteriLid) melatonin 3 mg capsule 3 mg PO HS PRN 07/31/24 03/15/25 H istory metronidazole 0.75 % topical gel topical 07/31/24 03/15/25 History saliva stimulant comb. no.3 1 applic mucous membrane 4-6XD PRN 07/31/24 03/15/25 History (Biotene Moisturizing Mouth mucosal spray) levothyroxine 100 mcg tablet 100 mcg PO QDAY #90 tabs 08/14/24 03/15/25 Rx dicyclomine 10 mg capsule 10 mg PO BID PRN abdominal pain 03/15/25 Rx #60 caps famotidine 40 mg tablet 40 mg PO QHS #30 tabs 12/28/24 Rx ondansetron HCl 4 mg tablet 4 mg PO Q8H PRN nausea and 5 03/15/25 Rx vomiting #30 tabs pantoprazole 40 mg tablet,delayed 40 mg PO BID #60 tabs 12/28/24 Rx release albuterol sulfate 90 mcg/actuation 2 puff inhalation Q4H PRN 03/15/25 Rx aerosol inhaler shortness of breath or wheezing #1 ea budesonide-formoterol HFA 80 2 puff inhalation BID #10.2 grams 01/22/25 03/15/25 Rx mcg-4.5 mcg/actuation aerosol inhaler (Symbicort) PFSH Medical History 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 Osteoarthritis Hypoglycemia Hives Migraines Allergies Strep throat Yeast infection Lower urinary tract symptoms UTI (urinary tract infection) Acute cystitis Sinusitis Surgical History H/O: History of appendectomy Family History Uncle Hypertension CAD (coronary artery disease) Grandfather Cancer Lung cancer Diabetes Colon cancer Grandmother Cancer Aunt Cancer Father Thyroid disorder Sarcoidosis Hemolytic anemia Lui syndrome CKD (chronic kidney disease) COPD (chronic obstructive pulmonary disease) Autoimmune disorder Mother CAD (coronary artery disease) Depression Other Myocardial infarction Social History Smoking Status: Never smoker Electronic Cigarette Use: not used second hand exposure: No alcohol intake: never substance use type: does not use what type of physical activity do you participate in: bicycling, yoga and other details: stretching duration: 15-30 minutes/day HPI HPI Details: ELIDA COWAN, is a 44-year-old female who presents with persistent symptoms of GERD and worsening food sensitivities. 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 She reports daily issues with excessive gas and abdominal cramping, along with loose bowel movements multiple times a day. Her heartburn symptoms occur daily despite taking famotidine several times a day and using multiple Tums for relief. She reports having previously been on pantoprazole, which helped, but her PCP discontinued it due to concerns about long-term use. The patient is a long-term user of low FODMAP and elimination diets but notes her list of tolerated foods is shrinking. She has eliminated all raw vegetables and now only tolerates cooked green beans and carrots. She also reports throat clearing and occasional cough. She denies any ill contacts or changes to her water source. She states she has been unable to lose weight despite a reduced-calorie diet, good food hygiene, and e (more content not included)... Normal [facility] Ironon 03-15-2025 Iron [Mass/Vol] 73 ug/dL Normal 50-170 [facility] Comment on above: Performed By: #### L 3200.1100, L3300.1800, L101.9900, L503.6150, L3300.0960, L3200.0500, L501.5200, L3100.7000, L501.3620, L501.6710, L504.2610, L3100.3425, L503.6550 ####[facility] [address] [place], [place], [id number] LDHon 03-15-2025 LDH 289 U/L High 84-246 [facility] Comment on above: Order Comment: 1 Performed By: #### L 3200.1100, L3300.1800, L101.9900, L503.6150, L3300.0960, L3200.0500, L501.5200, L3100.7000, L501.3620, L501.6710, L504.2610, L3100.3425, L503.6550 ####[facility] [address] [place], [place], [id number] Magnesiumon 03-15-2025 Magnesium [Mass/Vol] 2.3 mg/dL High 1.5-2.2 [facility] Comment on above: Performed By: #### L 3200.1100, L3300.1800, L101.9900, L503.6150, L3300.0960, L3200.0500, L501.5200, L3100.7000, L501.3620, L501.6710, L504.2610, L3100.3425, L503.6550 ####[facility] [address] [place], [place], [id number] Pulmonary Visit Reporton Pulmonary Visit Report [facility] [address] [place] [address] OFFICE VISIT Date of Service: 01/22/25 MR#: [id number] Acct: [id number] Name: ELIDA COWAN Rep #: [id number] : 1980 Provider: Usha Ayers NP Age/Sex: 44/F Location: [facility] Status: Signed with Addenda ADDENDUM by Usha Ayers NP on 02/12/25 at 0948 Assessment and Plan Assessment and Plan (1) Asthma: Status: Chronic Qualifiers: Asthma severity: mild Asthma persistence: intermittent Asthma complication type: uncomplicated Qualified Code(s): J45.20 - Mild intermittent asthma, uncomplicated Plan: This patient has mild intermittent asthma that is cough variant. Medications: New budesonide-formoterol 80-4.5 mcg/actuation (Symbicort) use with a spacer 2 puffs inhalation BID 10.2 grams 2RF Refilled albuterol sulfate 90 mcg/actuation administer with spacer 2 puffs inhalation Q4H PRN 1 ea 6RF shortness of breath or wheezing Plan Details Follow Up: 1 Year (LMR) 02/12/25 0948 Date Usha AyersC cc: * Signed Assessment and Plan Assessment and Plan (1) Asthma: Status: Chronic Qualifiers: Asthma complication type: uncomplicated Asthma persistence: intermittent Asthma severity: mild Qualified Code(s): J45.20 - Mild intermittent asthma, uncomplicated Plan: Stable, no signs of exacerbation of asthma today. No change in maintenance medications. She utilizes an inhaled corticosteroid as needed which has been effective for her. She then increases therapy to ICS/LABA if she has respiratory symptoms and this has prevented her from requiring treatment for exacerbation. I have refilled the Symbicort to use as needed during that time. She understands not to use the Symbicort with the Flovent/Asmanex together. Continue to use albuterol on an as needed basis, this has also been refilled today. Notify this practice if there are worsening respiratory symptoms. Follow-up in January 2026. Medications: New budesonide-formoterol 80-4.5 mcg/actuation (Symbicort) use with a spacer 2 puffs inhalation BID 10.2 grams 2RF Refilled albuterol sulfate 90 mcg/actuation administer with spacer 2 puffs inhalation Q4H PRN 1 ea 6RF shortness of breath or wheezing Plan Details Follow Up: 1 Year (LMR) HPI HPI Comments Details: This patient presents to the office today to follow-up on her cough variant asthma. She is ambulatory and currently on room air. She has not recently been seen in the ED or urgent care for any respiratory illness. She has not recently required any antibiotics or steroid burst for respiratory problems. She is compliant with use of Flovent as needed when there were worsening respiratory symptoms. At last visit she was given Asmanex due to insurance not covering Flovent but has not needed to use the Asmanex yet. She has some Flovent remaining. She will then escalate therapy to Symbicort from Flovent when she has respiratory illness. This regimen has prevented her from exacerbation. She has not required oral prednisone or antibiotics for respiratory illness in the last year. She is unable to use Symbicort on a daily basis as it will cause her to feel anxious. She uses albuterol no more than twice a week when she has worsening symptoms. She reports that she can go many months without using albuterol. She does use a spacer. She also rinses her mouth out after each use. She denies any medication side effect such as sore throat or thrush. She is compliant with the use of loratadine daily. She denies any shortness of breath. She denies any sputum production and cough. She denies any wheezing, chest tightness, chest pain or palpitations. She has not had any fever, chills or body aches. She is a lifelong never smoker. Intake Vital Signs 03/19/24 07:48 08/14/24 14:16 01/22/25 05:32 Height 5 ft 5 ft 5 ft Weight: 204 lb BMI 39.8 BP 118/80 Blood Pressure Location Lt brachial Position Sitting Respiration 20 H Pulse 72 Pulse Source Monitor Temp 97.2 F L Temperature Source Temporal Artery Pulse Oximetry (%) 99 Oxygen Delivery Method room air Intake Visit Reasons: 11 M FU Chief Complaint: F/U Client Development Manager Required: No DME Vendor: n/a Accompanied by: Self Is patient in pain?: No Allergies hydrocodone bitartrate (From Vicodin) Allergy (Verified 01/22/25 09:08) Anaphylaxis Medications ???Medication ???Instructions ???Recorded ???Confirmed ???Type hydroxychloroquine 200 mg tablet 200 mg PO BID 06/26/19 01/22/25 Hi story loratadine 5 mg disintegrating 5 mg PO DAILY 06/29/21 01/22/25 Hi story tablet (Claritin RediTabs) cholecalciferol (vitamin D3) 50 50 mcg PO DAILY 02/28/23 01/22/25 History (more content not included)... Normal [facility] 3D MAMM UNILAT RT DIAGNOSTIC on 01-14-2025 3D MAMM UNILAT RT DIAGNOSTIC [place] [address] Patient: ELIDA COWAN Phone#: : 1980 Age: 44 Gender: F Pt. Type: Out Account: [id number] Location: [facility] Ordering: LEXI MOYA Exam Date: 01/14/2025/10:01 Family Phys: Charge Code: [id number] Physician: [place] Order #: [id number] Dose#: PROCEDURE: RIGHT DIAGNOSTIC BREAST TOMOSYNTHESIS MAMMOGRAM WITH CAD COMPARISON: [facility], 3D BILAT SCREEN, 12/23/2023, 9:30. [facility], 3D BILAT SCREEN, 01/10/2025, 8:56. INDICATIONS: Abnormal mammogram. BREAST COMPOSITION: There are scattered areas of fibroglandular density FINDINGS: DIAGNOSTIC CATEGORY 0--INCOMPLETE: NEED ADDITIONAL IMAGING EVALUATION. RIGHT BREAST: MASS (finding with convex borders visible on two orthogonal views), characterized by obscured indeterminate morphology, anterior depth, 3 x 9 x 5 millimeters, stable since previous exam. Further evaluation by ultrasound will be performed. RECOMMENDATIONS: ULTRASOUND: RIGHT BREAST --We will call the patient back for an ultrasound and provide an additional report. PLEASE NOTE: A NORMAL MAMMOGRAM DOES NOT EXCLUDE THE POSSIBILITY OF BREAST CANCER. A CLINICALLY SUSPICIOUS PALPABLE LUMP SHOULD BE BIOPSIED. THIS FACILITY UTILIZES A REMINDER SYSTEM TO ENSURE THAT ALL PATIENTS RECEIVE REMINDER LETTERS FOR APPOINTMENTS. THIS INCLUDES REMINDERS FOR ROUTINE MAMMOGRAMS, DIAGNOSITC MAMMOGRAMS, OR OTHER BREAST IMAGING INTERVENTIONS WHEN APPROPRIATE. THIS PATIENT WILL BE PLACED IN THE APPROPRIATE REMINDER SYSTEM. Dictated by: Any Cody MD on 01/14/2025 at 13:38 Approved by: Any Cody MD on 01/14/2025 at 13:44 Normal [facility] US BREAST RT UNILATERAL COMP LETEon 01-14-2025 US BREAST RT UNILATERAL [address] [address] Patient: ELIDA COWAN Phone#: : 1980 Age: 44 Gender: F Pt. Type: Out Account: [id number] Location: [facility] Ordering: [facility] Exam Date: 01/14/2025/10:41 Family Phys: Charge Code: [id number] Physician: [place] Order #: [id number] Dose#: PROCEDURE: ULTRASOUND BREAST RT COMPARISON: None. INDICATIONS: Abnormal mammogram. TECHNIQUE: Breast ultrasound was performed, with evaluation focusing on all four quadrants. FINDINGS: DIAGNOSTIC CATEGORY 2--BENIGN: RIGHT BREAST: Simple benign-appearing cyst, anechoic echotexture, anterior depth, 2 o'clock position, and 9 x 5 x 9 mm size. There is a grouping of cysts corresponding to the mammographic finding. RECOMMENDATIONS: ROUTINE MAMMOGRAM AND CLINICAL EVALUATION IN 12 MONTHS. PLEASE NOTE: A NORMAL MAMMOGRAM DOES NOT EXCLUDE THE POSSIBILITY OF BREAST CANCER. A CLINICALLY SUSPICIOUS PALPABLE LUMP SHOULD BE BIOPSIED. Dictated by: Any Cody MD on 01/14/2025 at 14:51 Approved by: Any Cody MD on 01/14/2025 at 14:52 [facility] 3D MAMM BILAT SCREENon 01-10 3D MAMM BILAT SCREEN [address] [address] Patient: ELIDA COWAN Phone#: : 1980 Age: 44 Gender: F Pt. Type: Out Account: [id number] Location: 052 Ordering: LEXI MOYA Exam Date: 01/10/2025/8:56 Family Phys: Charge Code: [id number] Physician: [place] Order #: [id number] Dose#: PROCEDURE: BILATERAL SCREENING BREAST TOMOSYNTHESIS MAMMOGRAM WITH CAD COMPARISON: [facility], 3D BILAT SCREEN, 12/30/2022, 8:04. [facility], 3D BILAT SCREEN, 12/23/2023, 9:30. INDICATIONS: Screening. BREAST COMPOSITION: There are scattered areas of fibroglandular density FINDINGS: DIAGNOSTIC CATEGORY 0--INCOMPLETE: NEED ADDITIONAL IMAGING EVALUATION. RIGHT BREAST: FOCAL ASYMMETRY (finding without convex borders usually visible on two orthogonal views), characterized by obscured indeterminate morphology, anterior depth, 3 o'clock position, and 10 x 5 x 8 mm size. Additional spot compression views are recommended. LEFT BREAST: No significant suspicious finding. No significant change has occurred. RECOMMENDATIONS: ADDITIONAL MAMMOGRAPHIC VIEWS REQUIRED: RIGHT BREAST --We will call the patient back for additional views and issue an addendum report. PLEASE NOTE: A NORMAL MAMMOGRAM DOES NOT EXCLUDE THE POSSIBILITY OF BREAST CANCER. A CLINICALLY SUSPICIOUS PALPABLE LUMP SHOULD BE BIOPSIED. THIS FACILITY UTILIZES A REMINDER SYSTEM TO ENSURE THAT ALL PATIENTS RECEIVE REMINDER LETTERS FOR APPOINTMENTS. THIS INCLUDES REMINDERS FOR ROUTINE MAMMOGRAMS, DIAGNOSITC MAMMOGRAMS, OR OTHER BREAST IMAGING INTERVENTIONS WHEN APPROPRIATE. THIS PATIENT WILL BE PLACED IN THE APPROPRIATE REMINDER SYSTEM. Dictated by: Any Cody MD on 01/10/2025 at 16:49 Approved by: Any Cody MD on 01/10/2025 at 16:56 Normal [facility] Gastroenterology Visit Repor ton 10-30-2024 Gastroenterology Visit Report [facility] [address] [place] [address] OFFICE VISIT Date of Service: 10/30/24 MR#: [id number] Acct: [id number] Name: ELIDA COWAN Rep #: [id number] : 1980 Provider: SELENA adams Age/Sex: 44/F Location: [facility] Status: Signed Intake Vital Signs 08/14/24 14:16 Height 5 ft Intake Visit Reasons: 1 M FU Chief Complaint: F/U Allergies hydrocodone bitartrate (From Vicodin) Allergy (Verified 10/30/24 09:07) Anaphylaxis Medications ???Medication ???Instructions ???Recorded ???Confirmed ???Type hydroxychloroquine 200 mg tablet 200 mg PO BID 06/26/19 10/30/24 Hi story loratadine 5 mg disintegrating 5 mg PO DAILY 06/29/21 10/30/24 Hi story tablet (Claritin RediTabs) albuterol sulfate 90 mcg/actuation 2 puff inhalation Q4H PRN 10/30/24 Rx aerosol inhaler shortness of breath or wheezing #1 ea cholecalciferol (vitamin D3) 50 50 mcg PO DAILY 02/28/23 10/30/24 History mcg (2,000 unit) capsule erythromycin 5 mg/gram (0.5 %) eye 1 applic ophthalmic (eye) QDAY 0 07/31/24 10/30/24 History ointment fluticasone propionate 44 2 puff inhalation BID PRN 07/31/24 10/30/24 History mcg/actuation HFA aerosol inhaler hypochlorous acid 0.01 %-sodium 1 spray topical BID 07/31/2410/30 History chloride topical spray (Thera Tears SteriLid) melatonin 3 mg capsule 3 mg PO HS PRN 07/31/24 10/30/24 H istory metronidazole 0.75 % topical gel topical 07/31/24 10/30/24 History saliva stimulant comb. no.3 1 applic mucous membrane 4-6XD PRN 07/31/24 10/30/24 History (Biotene Moisturizing Mouth mucosal spray) levothyroxine 100 mcg tablet 100 mcg PO QDAY #90 tabs 08/14/24 10/30/24 Rx famotidine 40 mg tablet 40 mg PO QHS #30 tabs 09/07/2403/16 Rx dicyclomine 10 mg capsule 10 mg PO BID PRN abdominal pain 10/30/24 Rx #30 caps esomeprazole magnesium 40 mg 40 mg PO BID #60 caps 10/30/2403/16 Rx capsule,delayed release ondansetron HCl 4 mg tablet 4 mg PO Q8H PRN nausea and 5 10/30/24 Rx vomiting #30 tabs Nurse's Note: Patient states in general she is doing better, acid reflux has gotten better with meds. Had a bad flare up last Tuesday that hit her pretty hard. Has slowly been trying to reintroduce vegetables. When she had her flare up last Tuesday she had severe pain and nothing but liquid diarrhea. After the diarrhea she had gotten constipated. Has been taking a daily 4 in 1 probiotic as well. 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 Osteoarthritis Hypoglycemia Hives Migraines Allergies Strep throat Yeast infection Lower urinary tract symptoms UTI (urinary tract infection) Acute cystitis Sinusitis Surgical History H/O: History of appendectomy Family History Uncle Hypertension CAD (coronary artery disease) Grandfather Cancer Lung cancer Diabetes Colon cancer Grandmother Cancer Aunt Cancer Father Thyroid disorder Sarcoidosis Hemolytic anemia Lui syndrome CKD (chronic kidney disease) COPD (chronic obstructive pulmonary disease) Autoimmune disorder Mother CAD (coronary artery disease) Depression Other Myocardial infarction Social History Smoking Status: Never smoker Electronic Cigarette Use: not used second hand exposure: No alcohol intake: never substance use type: does not use what type of physical activity do you participate in: bicycling, yoga and other details: stretching duration: 15-30 minutes/day HPI HPI Chief Complaint: F/U Details: ELIDA COWAN, is a 44 F who presents to the office today for FU. 09.07.24 OV established with [facility] for c/o GERD and increasing food sensitivities. She reports daily issues with excessive gas and abdominal cramping. BMs are loose multiple times. She has daily heartburn, takes famotidine several times throughout the day and even has to use multiple TUMs to get relief. 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 Her PMHx significantly includes: sjogren's, mixed connective tissue, IBS, Tai's, urticarial vasculitis. She is a patient of endocrinology and rheumatology. She has been using low FODMAP and elimination diets to find a reduction in symptoms. She states that the list of foods she is able to eat without difficulty is getting smaller and smaller. She cannot do any raw vegetables, and can eat only cooked green beans and carrots. She reports throat clearing, occasional cough. She yari (more content not included)... Normal [facility] T4 Free Directon 10-17-2024 T4 FREE DIRECT 1.70 ng/dL High 0.76-1.46 [facility] Comment on above: Performed By: #### L 501.9520, L506.0400 #### [facility] [address] [place], [address] T4 freeOrdered By: Bon on 10-17-2024 Free T4 [Mass/Vol] 1.70 ng/dL High 0.76-1.46 [facility] TSH DL <= 0.005 mIU/L QnOrde red By: Bon on 10-17-2024 TSH Qn 0.492 uIU/mL 0.300-4.20 0 [facility] Thyroidon 10-17-2024 Thyroid [facility] [address] [place] [address] Thyroid MR#: [id number] Acct: [id number] Name: ELIDA COWAN Rep #: [id number] : 1980 F 44 From: Tomasz torres MD PCP: KEON Graff Status: [facility] Study: Thyroid Date of Exam: 10/17/24 Exam# [id number] Ordering Dr: Lexi Moya PA ADDENDUM by Dr. Tomasz Garcia MD on 11/15/24 at 0820 Addendum report for BI-RADS category. BI-RADS category 4. Follow-up recommended due to the small size of the nodule. Reading Location: [facility] 11/15/24819 Date cc: KEON Graff * Signed PROCEDURE: THYROID 10/17/2024 REASON FOR EXAM: NONTOXIC SINGLE THYROID NODULE TECHNIQUE: High-frequency thyroid ultrasound, including grayscale and color-flow images. REFERENCE LINKS: TI-RADS Chart: [email or web address] nt.nl/head-neck/ti-rads/ ti-rads TI-RADS Calculator Tool with Reference Images: [email or web address]://Mersimo/ra diology-calculators/body -imaging/tirads-calculat or/ COMPARISON: None FINDINGS: Right thyroid lobe size: 4.5 cm x 1.2 cm 1.2 cm Left thyroid lobe size: 3.2 cm x 1.3 cm x 0.9 cm Isthmus: 0.24 cm Background parenchymal echotexture is heterogeneous. Nodules: . Lobe: Left, Location: Inferior, Size: 1 cm x 0.7 cm x 0.4 cm, Stability: N/A Composition: Solid or almost completely solid (+2) Echogenicity: Hypoechoic (+2) Margin: Smooth (+0) Shape: Wider than tall (+0) Echogenic Foci: None (+0) TI-RADS: <2 = TR 1 * 2 = TR 2 * 3 = TR 3 * 4-6 = TR 4 * >6 = TR 5 US/Thyroid IMPRESSION: 1 cm x 0.7 cm 0.4 cm hypoechoic solid nodule in the inferior aspect of the left lobe of the thyroid. No vascularity is seen. Annual follow-up recommended. RECOMMENDATION: Based on most suspicious nodule. Nodule size = largest diameter Only evaluate nodule if =>5 mm. Growth > 20% in 2 dimensions = worsening. Follow up to 4 nodules. Recommend biopsy for no more than 2 nodules. Reading Location: [facility] CC: KEON Graff Artistic Director: Signed Normal [facility] Thyroid Stim Hormone (TSH)on 10-17-2024 TSH 0.492 uIU/mL Normal 0.300-4.20 0 [facility] Comment on above: Performed By: #### L 501.9520, L506.0400 #### [facility] [place], [address] REKHA Comprehensive Panelon REKHA TABLE Comment Normal . [facility] Comment on above: Result Comment: Auto antibody Disease Association Condition Frequency --------- Antinuclear Antibody, SLE, mixed connective Direct (REKHA-D) tissue diseases --------- dsDNA SLE 40 - 60% --------- Chromatin Drug induced SLE 90% SLE 48 - 97% --------- SSA (Ro) SLE 25 - 35% Sjogren's Syndrome 40 - 70% Lupus 100% --------- SSB (La) SLE 10% Sjogren's Syndrome 30% --------- Sm (anti-Chandler) SLE 15 - 30% --------- C D STILL OPERATOR Mixed Connective Tissue Disease 95% (U1 nRNP, SLE 30 - 50% anti-ribonucleoprotein) Polymyositis and/or Dermatomyositis 20% --------- Scl-70 (antiDNA Scleroderma (diffuse) 20 - 35% topoisomerase) Crest 13% --------- Vania-1 Polymyositis and/or Dermatomyositis 20 - 40% --------- Centromere B Scleroderma - Crest variant 80% AMENDED REPORT 09/14/24 0707 COMMENT previously reported as: Test not performed Performed By: #### L 3100.5440, L3200.1100, L100.0100, L2100.0000, L3300.1200, L500.4050, L5500.0550 ####[facility] [address] [place], [place], [id number] ANTI-CENT B AB <0.2 Normal 0.0-0.9 [facility] Comment on above: Result Comment: AMENDED REPORT 09/14/24706 ANTI-CENT B previously reported as: Test not performed Performed By: #### L 3100.5440, L3200.1100, L100.0100, L2100.0000, L3300.1200, L500.4050, L5500.0550 ####[facility] [address] [place], [place], [id number] ANTI-DNA (DS)AB <1 Normal 0-9 [facility] Comment on above: Result Comment: Nega tive <5 Equivocal 5 - 9 Positive >9 AMENDED REPORT 09/14/24706 dsDNA AB previously reported as: Test not performed Performed By: #### L 3100.5440, L3200.1100, L100.0100, L2100.0000, L3300.1200, L500.4050, L5500.0550 ####[facility] [address] [place], [place], [id number] ANTI-VANIA-1 <0.2 Normal 0.0-0.9 [facility] Comment on above: Result Comment: AMENDED REPORT 09/14/24706 ANTI-VANIA previously reported as: Test not performed Performed By: #### L 3100.5440, L3200.1100, L100.0100, L2100.0000, L3300.1200, L500.4050, L5500.0550 ####[facility] [address] [place], [place], [id number] ANTI-SS-A < 0.2 Normal 0.0-0.9 [facility] Comment on above: Result Comment: AMENDED REPORT 09/14/24706 Anti-SS-A previously reported as: Test not performed Performed By: #### L 3100.5440, L3200.1100, L100.0100, L2100.0000, L3300.1200, L500.4050, L5500.0550 ####[facility] [address] [place], [address] ANTI-SS-B < 0.2 Normal 0.0-0.9 [facility] Comment on above: Result Comment: AMENDED REPORT 09/14/24706 Anti-SS-B previously reported as: Test not performed Performed By: #### L 3100.5440, L3200.1100, L100.0100, L2100.0000, L3300.1200, L500.4050, L5500.0550 ####[facility] [address] [place], [place], [id number] ANTICHROMATIN 0.4 AI Normal 0.0-0.9 [facility] Comment on above: Result Comment: AMENDED REPORT 09/14/24706 ANTICHROMATIN previously reported as: Test not performed Performed By: #### L 3100.5440, L3200.1100, L100.0100, L2100.0000, L3300.1200, L500.4050, L5500.0550 ####[facility] [address] [place], [place], [address] ANTISCLERODERM <0.2 Normal 0.0-0.9 [facility] Comment on above: Result Comment: AMENDED REPORT 09/14/24706 ANTISCLER previously reported as: Test not performed Performed By: #### L 3100.5440, L3200.1100, L100.0100, L2100.0000, L3300.1200, L500.4050, L5500.0550 ####[facility] [address] [place], [place], [id number] C D STILL OPERATOR Ab >8.0 Abnormal 0.0-0.9 [facility] Comment on above: Result Comment: AMENDED REPORT 09/14/24706 C D STILL OPERATOR Ab previously reported as: Test not performed Performed By: #### L 3100.5440, L3200.1100, L100.0100, L2100.0000, L3300.1200, L500.4050, L5500.0550 ####[facility] [address] [place], [place], [address] CHANDLER Ab <0.2 Normal 0.0-0.9 [facility] Comment on above: Result Comment: AMENDED REPORT 09/14/24 0707 CHANDLER Ab previously reported as: Test not performed Performed By: #### L 3100.5440, L3200.1100, L100.0100, L2100.0000, L3300.1200, L500.4050, L5500.0550 ####[facility] [address] [place], [place], [address] ANCAon 09-14-2024 Atypical pANCA <1:20 Normal Neg:<1:20 [facility] Comment on above: Result Comment: The atypical pANCA pattern has been observed in a significant percentage of patients with ulcerative colitis, primary sclerosing cholangitis and autoimmune hepatitis. Performed at: [facility] [address] [id number] Clinical Implementation Specialist: Zay Gutierrez MD, Phone: [phone] Performed at: [facility] [address] [id number] Clinical Implementation Specialist: Juaquin Eason PhD, Phone: [phone] Performed By: #### L 3100.5440, L3200.1100, L100.0100, L2100.0000, L3300.1200, L500.4050, L5500.0550 ####[facility] [address] [place], [place], [address] Cytoplasmic Ab <1:20 Normal Neg:<1:20 [facility] Comment on above: Performed By: #### L 3100.5440, L3200.1100, L100.0100, L2100.0000, L3300.1200, L500.4050, L5500.0550 ####[facility] [address] [place], [place], [address] Perinuclear Ab. <1:20 Normal Neg:<1:20 [facility] Comment on above: Result Comment: The presence of positive fluorescence exhibiting P-ANCA or C-ANCA patterns alone is not specific for the diagnosis of Ck's Granulomatosis (WG) or microscopic polyangiitis. Decisions about treatment should not be based solely on ANCA IFA results. The International ANCA Group Consensus recommends follow up testing of positive sera with both MT- 3 and MPO-ANCA enzyme immunoassays. As many as 5% serum samples are positive only by EIA. Ref. AM J Clin Pathol 1999;111:507-513. Performed By: #### L 3100.5440, L3200.1100, L100.0100, L2100.0000, L3300.1200, L500.4050, L5500.0550 ####[facility] [address] [place], [address] Immunoglobulins G/A/M/Sean IMMUNOGLOB A QN 187 mg/dL Normal 87-352 [facility] Comment on above: Order Comment: N Performed By: #### L 3100.5440, L3200.1100, L100.0100, L2100.0000, L3300.1200, L500.4050, L5500.0550 ####[facility] [address] [place], [address] IMMUNOGLOB E QN < 2 Low 6-495 [facility] Comment on above: Order Comment: N Performed By: #### L 3100.5440, L3200.1100, L100.0100, L2100.0000, L3300.1200, L500.4050, L5500.0550 ####[facility] [address] [place], [address] IMMUNOGLOB G QN 1163 mg/dL Normal 586-1602 [facility] Comment on above: Order Comment: N Performed By: #### L 3100.5440, L3200.1100, L100.0100, L2100.0000, L3300.1200, L500.4050, L5500.0550 ####[facility] [address] [place], [address] IMMUNOGLOB M QN 138 mg/dL Normal 26-217 [facility] Comment on above: Order Comment: N Performed By: #### L 3100.5440, L3200.1100, L100.0100, L2100.0000, L3300.1200, L500.4050, L5500.0550 ####[facility] [address] [place], [place], [id number](535) L2100.0000on 09-14-2024 ACCA 21 units Normal 0-90 [facility] Comment on above: Result Comment: Nega tive: <80 Equivocal: 80-90 Positive: >90 Performed By: #### L 3100.5440, L3200.1100, L100.0100, L2100.0000, L3300.1200, L500.4050, L5500.0550 ####[facility] [address] [place], [place], [id number] ALCA 25 units Normal 0-60 [facility] Comment on above: Result Comment: Nega tive:<55 Equivocal: 55-60 Positive: >60 Performed By: #### L 3100.5440, L3200.1100, L100.0100, L2100.0000, L3300.1200, L500.4050, L5500.0550 ####[facility] [address] [place], [place], [id number] AMCA 9 units Normal 0-100 [facility] Comment on above: Result Comment: Nega tive: <90 Equivocal: 90-100 Positive: >100 This test was developed and its performance characteristics determined by [email or web address]. It has not been cleared or approved by the Food and Drug Administration. The FDA has determined that such clearance or approval is not necessary. Performed By: #### L 3100.5440, L3200.1100, L100.0100, L2100.0000, L3300.1200, L500.4050, L5500.0550 ####[facility] [address] [place], [address] Atypical pANCA Negative Normal Negative [facility] Comment on above: Performed By: #### L 3100.5440, L3200.1100, L100.0100, L2100.0000, L3300.1200, L500.4050, L5500.0550 ####[facility] [address] [place], [address] COMMENT Comment Normal . [facility] Comment on above: Result Comment: Shonna margareth is not suggestive of Inflammatory Bowel Disease Performed By: #### L 3100.5440, L3200.1100, L100.0100, L2100.0000, L3300.1200, L500.4050, L5500.0550 ####[facility] [address] [place], [address] Dusty 31 units Normal 0-50 [facility] Comment on above: Result Comment: Nega tive: <45 Equivocal: 45-50 Positive: >50 Performed By: #### L 3100.5440, L3200.1100, L100.0100, L2100.0000, L3300.1200, L500.4050, L5500.0550 ####[facility] [address] [place], [address] L5500.0550on 09-14-2024 BEEF <0.10 Normal Class 0 [facility] Comment on above: Performed By: #### L 3100.5440, L3200.1100, L100.0100, L2100.0000, L3300.1200, L500.4050, L5500.0550 ####[facility] [address] [place], [address] CHOCOLATE <0.10 Normal Class 0 [facility] Comment on above: Performed By: #### L 3100.5440, L3200.1100, L100.0100, L2100.0000, L3300.1200, L500.4050, L5500.0550 ####[facility] [address] [place], [address] CODFISH <0.10 Normal Class 0 [facility] Comment on above: Performed By: #### L 3100.5440, L3200.1100, L100.0100, L2100.0000, L3300.1200, L500.4050, L5500.0550 ####[facility] [address] [place], [place], [phone] COMMENT Comment Normal . [facility] Comment on above: Result Comment: Jeanna hills of Specific IgE Class Description of Class ----- < 0.10 0 Negative 0.10 - 0.31 0/I Equivocal/Low 0.32 - 0.55 I Low 0.56 - 1.40 II Moderate 1.41 - 3.90 III High 3.91 - 19.00 IV Very High 19.01 - 100.00 V Very High >100.00 Very High Performed By: #### L 3100.5440, L3200.1100, L100.0100, L2100.0000, L3300.1200, L500.4050, L5500.0550 ####[facility] [address] [place], [place], [phone] CORN <0.10 Normal Class 0 [facility] Comment on above: Performed By: #### L 3100.5440, L3200.1100, L100.0100, L2100.0000, L3300.1200, L500.4050, L5500.0550 ####[facility] [address] [place], [place], [id number] EGG, WHOLE <0.10 Normal Class 0 [facility] Comment on above: Result Comment: Perf ormed at: [address] [id number] Clinical Implementation Specialist: Juaquin Eason PhD, Phone: [phone] Performed at: [facility] [address] [id number] Clinical Implementation Specialist: Zay Gutierrez MD, Phone: [phone] Performed By: #### L 3100.5440, L3200.1100, L100.0100, L2100.0000, L3300.1200, L500.4050, L5500.0550 ####[facility] [address] [place], [address] MILK (COW) <0.10 Normal Class 0 [facility] Comment on above: Performed By: #### L 3100.5440, L3200.1100, L100.0100, L2100.0000, L3300.1200, L500.4050, L5500.0550 ####[facility] [address] [place], [address] MUSSELS <0.10 Normal Class 0 [facility] Comment on above: Performed By: #### L 3100.5440, L3200.1100, L100.0100, L2100.0000, L3300.1200, L500.4050, L5500.0550 ####[facility] [address] [place], [place], [phone] PEANUT <0.10 Normal Class 0 [facility] Comment on above: Performed By: #### L 3100.5440, L3200.1100, L100.0100, L2100.0000, L3300.1200, L500.4050, L5500.0550 ####[facility] [address] [place], [address] PORK <0.10 Normal Class 0 [facility] Comment on above: Performed By: #### L 3100.5440, L3200.1100, L100.0100, L2100.0000, L3300.1200, L500.4050, L5500.0550 ####[facility] [address] [place], [address] SALMON <0.10 Normal Class 0 [facility] Comment on above: Performed By: #### L 3100.5440, L3200.1100, L100.0100, L2100.0000, L3300.1200, L500.4050, L5500.0550 ####[facility] [address] [place], [address] SHRIMP <0.10 Normal Class 0 [facility] Comment on above: Performed By: #### L 3100.5440, L3200.1100, L100.0100, L2100.0000, L3300.1200, L500.4050, L5500.0550 ####[facility] [address] [place], [address] SOYBEAN <0.10 Normal Class 0 [facility] Comment on above: Performed By: #### L 3100.5440, L3200.1100, L100.0100, L2100.0000, L3300.1200, L500.4050, L5500.0550 ####[facility] [address] [place], [address] TUNA <0.10 Normal Class 0 [facility] Comment on above: Performed By: #### L 3100.5440, L3200.1100, L100.0100, L2100.0000, L3300.1200, L500.4050, L5500.0550 ####[facility] [address] [place], [address] WHEAT <0.10 Normal Class 0 [facility] Comment on above: Performed By: #### L 3100.5440, L3200.1100, L100.0100, L2100.0000, L3300.1200, L500.4050, L5500.0550 ####[facility] [address] [place], [address] Calprotectin, Stoolon [address] 10 ug/g Normal 0-120 [facility] Comment on above: Result Comment: Conc entration Interpretation Follow-Up < 5 - 50 ug/g Normal None >50 -120 ug/g Borderline Re-evaluate in 4-6 weeks >120 ug/g Abnormal Repeat as clinically indicated Performed at: [facility] [address] [id number] Clinical Implementation Specialist: Zay Gutierrez MD, Phone: [phone] Performed By: #### L 7000.0700, M100.637, L7400.3300 #### [facility] [address] [place], [address] Giardia Lamblia, Stool EIAon 09-11-2024 Giardia Stool Negative Normal Negative [facility] Comment on above: Result Comment: Perf ormed at: [facility] [address] [id number] Clinical Implementation Specialist: Zay Gutierrez MD, Phone: [phone] Performed at: [facility] [address] [id number] Clinical Implementation Specialist: Juaquin Eason PhD, Phone: [phone] Performed By: #### L 7000.0700, M100.637, L7400.2128 #### [facility] [address] [facility] [place], [place], [id number] Absolute lymphocyte countOrd ered By: Raisa Lui on 09-07-2024 Lymphocytes Auto (Unsp spec) [#/Vol] 1.50 10*3/uL 0.83-4.51 [facility] Absolute neutrophil countOrd ered By: Raisa Lui on 09-07-2024 Neutrophils (Bld) [#/Vol] 3.8 10*3/uL 2.0-7.7 [facility] Anion gap in Serum or Plasma Ordered By: Raisa Lui on 09-07-2024 Anion gap [Moles/Vol] 9 mmol/L 5-15 [facility] Automated lymphocyte count a s percentage of total leukocytesOrdered By: Raisa Lui on 09-07-2024 Lymphocytes/100 WBC Auto (Unsp spec) 25.4 % -41 [facility] BUN/creatinine ratioOrdered By: Raisa Lui on 09-07-2024 Urea nitrogen/Creatinine [Mass ratio] 13.8 mg/mg 10-20 [facility] Basophil percentageOrdered B y: Raisa Lui on 09-07-2024 Basophils/100 WBC (Bld) 1.2 % High 0-1 [facility] Bilirubin, totalOrdered By: Raisa Lui on 09-07-2024 Bilirubin [Mass/Vol] 0.34 mg/dL 0.00-1.30 [facility] CBC W/Diff, Automatedon 08-21 Absolute Lymph 1.50 X10 3/uL Normal 0.83-4.51 [facility] Comment on above: Performed By: #### L 3100.5440, L3200.1100, L100.0100, L2100.0000, L3300.1200, L500.4050, L5500.0550 ####[facility] [address] [place], [address] Absolute Neut 3.8 X10 3/uL Normal 2.0-7.7 [facility] Comment on above: Performed By: #### L 3100.5440, L3200.1100, L100.0100, L2100.0000, L3300.1200, L500.4050, L5500.0550 ####[facility] [address] [place], [address] Basophils/100 WBC (Bld) 1.2 % High 0-1 [facility] Comment on above: Performed By: #### L 3100.5440, L3200.1100, L100.0100, L2100.0000, L3300.1200, L500.4050, L5500.0550 ####[facility] [address] [place], [address] Eosinophils/100 WBC (Bld) 2.4 % Normal 0-5 [facility] Comment on above: Performed By: #### L 3100.5440, L3200.1100, L100.0100, L2100.0000, L3300.1200, L500.4050, L5500.0550 ####[facility] [address] [place], [address] Erythrocyte distribution width (RBC) [Ratio] 11.6 % Normal 11.6-14.6 [facility] Comment on above: Performed By: #### L 3100.5440, L3200.1100, L100.0100, L2100.0000, L3300.1200, L500.4050, L5500.0550 ####[facility] [address] [place], [place], [phone] Hematocrit (Bld) [Volume fraction] 39.3 % Normal 37-47 [facility] Comment on above: Performed By: #### L 3100.5440, L3200.1100, L100.0100, L2100.0000, L3300.1200, L500.4050, L5500.0550 ####[facility] [address] [place], [address] Hemoglobin (Bld) [Mass/Vol] 13.3 g/dL Normal 12.0-15.0 [facility] Comment on above: Performed By: #### L 3100.5440, L3200.1100, L100.0100, L2100.0000, L3300.1200, L500.4050, L5500.0550 ####[facility] [address], [address] IG% 0.500 Normal 0.0-0.9 [facility] Comment on above: Result Comment: IG% - Immature Granulocytes (promyelocytes, myelocytes and metamyelocytes) > 1% indicates that a LEFT SHIFT is Present. Performed By: #### L 3100.5440, L3200.1100, L100.0100, L2100.0000, L3300.1200, L500.4050, L5500.0550 ####[facility] [address] [place], [address] Lymphocytes/100 WBC (Bld) 25.4 % Normal 19-41 [facility] Comment on above: Performed By: #### L 3100.5440, L3200.1100, L100.0100, L2100.0000, L3300.1200, L500.4050, L5500.0550 ####[facility] [address] [place], [address] MCH (RBC) [Entitic mass] 29.6 pg Normal 27.0-32.0 [facility] Comment on above: Performed By: #### L 3100.5440, L3200.1100, L100.0100, L2100.0000, L3300.1200, L500.4050, L5500.0550 ####[facility] [address] [place], [address] MCHC (RBC) [Mass/Vol] 33.8 g/dL Normal 32-36 [facility] Comment on above: Performed By: #### L 3100.5440, L3200.1100, L100.0100, L2100.0000, L3300.1200, L500.4050, L5500.0550 ####[facility] [address] [place], [address] MCV (RBC) [Entitic vol] 87.5 fL Normal 81-99 [facility] Comment on above: Performed By: #### L 3100.5440, L3200.1100, L100.0100, L2100.0000, L3300.1200, L500.4050, L5500.0550 ####[facility] [address] [place], [address] Monocytes/100 WBC (Bld) 6.1 % Normal 0-10 [facility] Comment on above: Performed By: #### L 3100.5440, L3200.1100, L100.0100, L2100.0000, L3300.1200, L500.4050, L5500.0550 ####[facility] [address] [place], [address] Neutrophils/100 WBC (Bld) 64.4 % Normal 47-70 [facility] Comment on above: Performed By: #### L 3100.5440, L3200.1100, L100.0100, L2100.0000, L3300.1200, L500.4050, L5500.0550 ####[facility] [address] [place], [address] Nucleated RBC (Bld) [#/Vol] 0 10*3/uL Normal 0-5 [facility] Comment on above: Performed By: #### L 3100.5440, L3200.1100, L100.0100, L2100.0000, L3300.1200, L500.4050, L5500.0550 ####[facility] [address] [place], [address] Platelet mean volume (Bld) [Entitic vol] 10.8 fL Normal 6.2-12.0 [facility] Comment on above: Performed By: #### L 3100.5440, L3200.1100, L100.0100, L2100.0000, L3300.1200, L500.4050, L5500.0550 ####[facility] [address] [place], [address] Platelets (Bld) [#/Vol] 249 10*3/uL Normal 150-450 [facility] Comment on above: Performed By: #### L 3100.5440, L3200.1100, L100.0100, L2100.0000, L3300.1200, L500.4050, L5500.0550 ####[facility] [address] [place], [address] RBC (Bld) [#/Vol] 4.49 10*6/uL Normal 4.2-5.4 [facility] Comment on above: Performed By: #### L 3100.5440, L3200.1100, L100.0100, L2100.0000, L3300.1200, L500.4050, L5500.0550 ####[facility] [address] [place], [address] RDW SD 37.0 fl Normal 35.1-43.9 [facility] Comment on above: Performed By: #### L 3100.5440, L3200.1100, L100.0100, L2100.0000, L3300.1200, L500.4050, L5500.0550 ####[facility] [address] [place], [place], [phone] WBC (Bld) [#/Vol] 5.9 10*3/uL Normal 4.4-11.0 [facility] Comment on above: Performed By: #### L 3100.5440, L3200.1100, L100.0100, L2100.0000, L3300.1200, L500.4050, L5500.0550 ####[facility] [address] [place], [place], [id number] Calprotectin stoolOrdered By : Raisa Lui on 09-07-2024 Calprotectin stool 10 ug/g 0-120 [facility] Comment on above: Concentration Interp retation Follow-Up< 5 - 50 ug/g Normal None>50 -120 ug/g Borderline Re-evaluate in 4-6 weeks >120 ug/g Abnormal Repeat as clinically indicatedPerformed at: [facility] [address] [id number] Director: Zay Gutierrez MD, Phone: [phone] Carbon dioxide, total [Moles /volume] in Central venous bloodOrdered By: Raisa Lui on 09-07-2024 CO2 [Moles/Vol] 23.8 mmol/L 21.0-32.0 [facility] Chitobioside IgA antibody as sayOrdered By: Raisa Lui on 09-07-2024 Chitobioside IgA IA Qn 21 units 0-90 [facility] Comment on above: Negative: <80 Equivo codey: 80-90 Positive: >90 Chloride assayOrdered By: Robb Lui on 09-07-2024 Chloride [Moles/Vol] 106 mmol/L 98-108 [facility] Comprehensive Metabolic Prof ilon 09-07-2024 Albumin [Mass/Vol] 4.1 g/dL Normal 3.5-5.0 [facility] Comment on above: Performed By: #### L 3100.5440, L3200.1100, L100.0100, L2100.0000, L3300.1200, L500.4050, L5500.0550 ####[facility] [address] [place], [address] Albumin/Globulin [Mass ratio] 1.4 {ratio} Normal 0.9-2.4 [facility] Comment on above: Performed By: #### L 3100.5440, L3200.1100, L100.0100, L2100.0000, L3300.1200, L500.4050, L5500.0550 ####[facility] [address] [place], [address] ALK PHOS 58 U/L Normal 35-104 [facility] Comment on above: Performed By: #### L 3100.5440, L3200.1100, L100.0100, L2100.0000, L3300.1200, L500.4050, L5500.0550 ####[facility] [address] [place], [address] ALT [Catalytic activity/Vol] 32 U/L Normal <=34 [facility] Comment on above: Performed By: #### L 3100.5440, L3200.1100, L100.0100, L2100.0000, L3300.1200, L500.4050, L5500.0550 ####[facility] [address] [place], [address] AST [Catalytic activity/Vol] 27 U/L Normal <=31 [facility] Comment on above: Performed By: #### L 3100.5440, L3200.1100, L100.0100, L2100.0000, L3300.1200, L500.4050, L5500.0550 ####[facility] [address] [place], [address] Bilirubin [Mass/Vol] 0.34 mg/dL Normal 0.00-1.30 [facility] Comment on above: Performed By: #### L 3100.5440, L3200.1100, L100.0100, L2100.0000, L3300.1200, L500.4050, L5500.0550 ####[facility] [address] [place], [address] BUN/CRE 13.8 RATIO Normal 10-20 [facility] Comment on above: Performed By: #### L 3100.5440, L3200.1100, L100.0100, L2100.0000, L3300.1200, L500.4050, L5500.0550 ####[facility] [address] [place], [address] Calcium [Mass/Vol] 9.1 mg/dL Normal 7.6-11.0 [facility] Comment on above: Performed By: #### L 3100.5440, L3200.1100, L100.0100, L2100.0000, L3300.1200, L500.4050, L5500.0550 ####[facility] [address] [place], [address] Chloride [Moles/Vol] 106 mmol/L Normal 98-108 [facility] Comment on above: Performed By: #### L 3100.5440, L3200.1100, L100.0100, L2100.0000, L3300.1200, L500.4050, L5500.0550 ####[facility] [address] [place], [address] CO2 [Moles/Vol] 23.8 mmol/L Normal 21.0-32.0 [facility] Comment on above: Performed By: #### L 3100.5440, L3200.1100, L100.0100, L2100.0000, L3300.1200, L500.4050, L5500.0550 ####[facility] [address] [place], [address] Creatinine [Mass/Vol] 0.88 mg/dL Normal 0.70-1.20 [facility] Comment on above: Performed By: #### L 3100.5440, L3200.1100, L100.0100, L2100.0000, L3300.1200, L500.4050, L5500.0550 ####[facility] [address] [place], [address] GAP 9 Normal 5-15 [facility] Comment on above: Performed By: #### L 3100.5440, L3200.1100, L100.0100, L2100.0000, L3300.1200, L500.4050, L5500.0550 ####[facility] [address], [address] GFR/1.73 sq M.predicted among non-blacks MDRD (S/P/Bld) [Vol rate/Area] 84 mL/min/{1.73_m2} Normal >60 [facility] Comment on above: Result Comment: mL/m in/1.73m2 CKD-EPI Creatinine Equation (2020) Performed By: #### L 3100.5440, L3200.1100, L100.0100, L2100.0000, L3300.1200, L500.4050, L5500.0550 ####[facility] [address] [place], [place], [phone] Globulin (S) [Mass/Vol] 2.9 g/dL Normal 2.2-4.2 [facility] Comment on above: Performed By: #### L 3100.5440, L3200.1100, L100.0100, L2100.0000, L3300.1200, L500.4050, L5500.0550 ####[facility] [address] [place], [place], [phone] Glucose [Mass/Vol] 102 mg/dL High 70-99 [facility] Comment on above: Performed By: #### L 3100.5440, L3200.1100, L100.0100, L2100.0000, L3300.1200, L500.4050, L5500.0550 ####[facility] [address], [address] Potassium [Moles/Vol] 4.1 mmol/L Normal 3.3-5.1 [facility] Comment on above: Performed By: #### L 3100.5440, L3200.1100, L100.0100, L2100.0000, L3300.1200, L500.4050, L5500.0550 ####[facility] [address] [place], [address] Sodium [Moles/Vol] 139 mmol/L Normal 133-145 [facility] Comment on above: Performed By: #### L 3100.5440, L3200.1100, L100.0100, L2100.0000, L3300.1200, L500.4050, L5500.0550 ####[facility] [address] [place], [address] T PROT 7.0 g/dL Normal 5.9-8.4 [facility] Comment on above: Performed By: #### L 3100.5440, L3200.1100, L100.0100, L2100.0000, L3300.1200, L500.4050, L5500.0550 ####[facility] [address] [place], [address] Urea nitrogen [Mass/Vol] 12 mg/dL Normal 4-19 [facility] Comment on above: Performed By: #### L 3100.5440, L3200.1100, L100.0100, L2100.0000, L3300.1200, L500.4050, L5500.0550 ####[facility] [address] [place], [address] ENTERIC PATHOGEN PANEL STOOL on 09-07-2024 EP PANEL Normal Reference Ran ge = Not Detected Nucleic acid amplification test method Not detected for Campylobacter group, Salmonella species, Shigella species, Vibrio Group, Yersinia enterocolitica, EHEC (Shiga Toxin 1, Shiga Toxin 2), Norovirus Gl/Gll, and Rotavirus A. Other common stool pathogens are not detected on this panel include: Aeromonas/Plesiomonas or parasites. Order testing for these organisms separately if suspected. This is an amplified DNA test which makes it both specific and sensitive. CAMPYLOBACTER Not Detected Norovirus Not Detected Rotavirus Not Detected Salmonella Not Detected Shiga Toxin Not Detected Shigella sp. Not Detected VIBRIO Not Detected Yersinia Not Detected Normal [facility] Comment on above: Performed By: #### L 7000.0700, M100.637, L7400.3300 #### [facility] [address] [place], [address] Eosinophil percentageOrdered By: Raisa Lui on 09-07-2024 Eosinophils/100 WBC (Bld) 2.4 % 0-5 [facility] Erythrocyte distribution wid th ratioOrdered By: Raisa Lui on 09-07-2024 Erythrocyte distribution width (RBC) [Ratio] 11.6 % 11.6-14.6 [facility] Erythrocyte distribution wid th standard deviationOrdered By: Raisa Lui on 09-07-2024 Erythrocyte distribution width (RBC) [Ratio] 37.0 fl 35.1-43.9 [facility] Gastroenterology Visit Repor ton 09-07-2024 Gastroenterology Visit Report [facility] [address] [place] [address] OFFICE VISIT Date of Service: 09/07/24 MR#: [id number] Acct: [id number] Name: ELIDA COWAN Rep #: [id number] : 1980 Provider: SELENA adams Age/Sex: 44/F Location: [facility] Status: Signed Intake Vital Signs 08/14/24 14:16 Height 5 ft Weight: 227 lb BMI 44.3 BP 129/84 H Blood Pressure Location Lt brachial Position Sitting Pulse 99 Pulse Source Monitor Pulse Oximetry (%) 68 Oxygen Delivery Method room air Intake Visit Reasons: Gastroesophageal reflux disease (GERD) Allergies hydrocodone bitartrate (From Vicodin) Allergy (Verified 09/07/24 08:21) Anaphylaxis Medications ???Medication ???Instructions ???Recorded ???Confirmed ???Type hydroxychloroquine 200 mg tablet 200 mg PO BID 06/26/19 09/07/24 Hi story loratadine 5 mg disintegrating 5 mg PO DAILY 06/29/21 09/07/24 Hi story tablet (Claritin RediTabs) albuterol sulfate 90 mcg/actuation 2 puff inhalation Q4H PRN 09/07/24 Rx aerosol inhaler shortness of breath or wheezing #1 ea cholecalciferol (vitamin D3) 50 50 mcg PO DAILY 02/28/23 09/07/24 History mcg (2,000 unit) capsule erythromycin 5 mg/gram (0.5 %) eye 1 applic ophthalmic (eye) QDAY 0 07/31/24 09/07/24 History ointment fluticasone propionate 44 2 puff inhalation BID PRN 07/31/24 09/07/24 History mcg/actuation HFA aerosol inhaler hypochlorous acid 0.01 %-sodium 1 spray topical BID 07/31/2409/07 History chloride topical spray (Thera Tears SteriLid) melatonin 3 mg capsule 3 mg PO HS PRN 07/31/24 09/07/24 H istory metronidazole 0.75 % topical gel topical 07/31/24 09/07/24 History saliva stimulant comb. 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 Osteoarthritis Hypoglycemia Hives Migraines Allergies Strep throat Yeast infection Lower urinary tract symptoms UTI (urinary tract infection) Acute cystitis Sinusitis Surgical History H/O: History of appendectomy Family History Uncle Hypertension CAD (coronary artery disease) Grandfather Cancer Lung cancer Diabetes Colon cancer Grandmother Cancer Aunt Cancer Father Thyroid disorder Sarcoidosis Hemolytic anemia Lui syndrome CKD (chronic kidney disease) COPD (chronic obstructive pulmonary disease) Autoimmune disorder Mother CAD (coronary artery disease) Depression Other Myocardial infarction Social History Smoking Status: Never smoker Electronic Cigarette Use: not used second hand exposure: No alcohol intake: never substance use type: does not use what type of physical activity do you participate in: bicycling, yoga and other details: stretching duration: 15-30 minutes/day HPI HPI Details: ELIDA COWAN, is a 44 F who presents to the office today for establishment with I for c/o GERD and increasing food sensitivities. She reports daily issues with excessive gas and abdominal cramping. BMs are loose multiple times. She has daily heartburn, takes famotidine several times throughout the day and even has to use multiple TUMs to get relief. She states that she had been on pantoprazole in the past, which helped tremendously, but her PCP did not want her on it jail. Her PMHx significantly includes: sjogren's, mixed connective tissue, IBS, Tai's, urticarial vasculitis. She is a patient of endocrinology and rheumatology. She has been using low FODMAP and elimination diets to find a reduction in symptoms. She states that the list of foods she is able to eat without difficulty is getting smaller and smaller. She cannot do any raw vegetables, and can eat only cooked green beans and carrots. She reports throat clearing, occasional cough. She denies ill contacts or change in water source. She reports inability to lose weight despite calorie reduction, food hygiene, and exercise. ROS Const Constitutional: Positive for fatigue, fever(s) and headache(s); No chills or weight change Eyes Eyes: No blurry vision ENT ENT: Positive for headache(s); No abnormal hearing or difficulty swallowing Resp Respiratory: Positive for cough Cardio Cardiology: Positive for l (more content not included)... Normal [facility] Giardia lamblia ag stool EIA Ordered By: Raisa Lui on 04-18-2025 G. lamblia Ag IA Ql (Stl) Negative Negative [facility] Comment on above: Performed at: [facility] - [facility] [address] [id number] Director: Zay Gutierrez MD, Phone: [phone] at: CB - [facility] [id number] [place], [place] [id number] Director: Juaquin Eason PhD, Phone: [phone] Glomerular filtration rate ( GFR) estimation/1.73 sq m using serum, plasma, or whole bOrdered By: Raisa Lui on 09-07-2024 GFR/1.73 sq M.predicted among non-blacks MDRD (S/P/Bld) [Vol rate/Area] 84 mL/min/{1.73_m2} >60 [facility] Comment on above: mL/min/1.73m2 CKD-EP I Creatinine Equation (2020) Hematocrit Auto (Bld) [Volum e fraction]Ordered By: Raisa Lui on 09-07-2024 Hematocrit (Bld) [Volume fraction] 39.3 % 37-47 [facility] Hemoglobin measurementOrdere d By: Raisa Lui on 09-07-2024 Hemoglobin (Bld) [Mass/Vol] 13.3 g/dL 12.0-15.0 [facility] IgEOrdered By: Raisa Lui on 09-07-2024 IgE < 2 IU/mL Low 6-495 [facility] Immature granulocytes/100 WB C Auto (Bld)Ordered By: Raisa Lui on 09-07-2024 Immature granulocytes/100 WBC (Bld) 0.500 % 0.0-0.9 [facility] Comment on above: IG% - Immature Granu locytes (promyelocytes, myelocytes and metamyelocytes) > 1% indicates that a LEFT SHIFT is Present. Laboratory - Chemistry and C hemistry - challengeOrdered By: Raisa Lui on 09-07-2024 AST [Catalytic activity/Vol] 27 U/L <32 [facility] Laboratory - Miscellaneous t estsOrdered By: Raisa Lui on 09-07-2024 Laboratory comment Cristóbal (Report) Comment . [facility] Comment on above: Pattern is not sugge stive of Inflammatory Bowel Disease Service comment (Unsp spec) [Interp] Comment . [facility] Comment on above: Levels of Specific I gE Class Description of Class ----- < 0.10 0 Negative 0.10 - 0.31 0/I Equivocal/Low 0.32 - 0.55 I Low 0.56 - 1.40 II Moderate 1.41 - 3.90 III High 3.91 - 19.00 IV Very High 19.01 - 100.00 V Very High >100.00 Very High Laminaribioside carbohydrate IgG antibody assayOrdered By: Raisa Lui on 09-07-2024 Laminaribioside IgG IA Qn 25 units 0-60 [facility] Comment on above: Negative:<55 Equivoc al: 55-60 Positive: >60 MCV (mean corpuscular volume ) determinationOrdered By: Raisa Lui on 09-07-2024 MCV (RBC) [Entitic vol] 87.5 fL 81-99 [facility] Mean corpuscular hemoglobin (MCH) determinationOrdered By: Raisa Lui on 09-07-2024 MCH (RBC) [Entitic mass] 29.6 pg 27.0-32.0 [facility] Mean corpuscular hemoglobin concentration (MCHC) determinationOrdered By: Raisa Lui on 09-07-2024 MCHC (RBC) [Mass/Vol] 33.8 g/dL 32-36 [facility] Mean platelet volume determi nationOrdered By: Raisa Lui on 09-07-2024 Platelet mean volume (Bld) [Entitic vol] 10.8 fL 6.2-12.0 [facility] Monocyte percentageOrdered B y: Raisa Lui on 09-07-2024 Monocytes/100 WBC (Bld) 6.1 % 0-10 [facility] Neutrophil percentageOrdered By: Raisa Lui on 09-07-2024 Neutrophils/100 WBC (Bld) 64.4 % 47-70 [facility] Nucleated red blood cell per centageOrdered By: Raisa Lui on 09-07-2024 Nucleated RBC/100 WBC (Bld) [Ratio] 0 % 0-5 [facility] Platelet countOrdered By: Robb deon Lui on 09-07-2024 Platelets (Bld) [#/Vol] 249 10*3/uL 150-450 [facility] Potassium measurement (mass/ volume)Ordered By: Raisa Lui on 09-07-2024 Potassium (Unsp spec) [Mass/Vol] 4.1 mmol/L 3.3-5.1 [facility] RBC Auto (Bld) [#/Vol]Ordere d By: Raisa Lui on 09-07-2024 RBC (Bld) [#/Vol] 4.49 10*6/uL 4.2-5.4 [facility] Serum DNA double strand anti body assay (units/volume)Ordered By: Raisa Lui on 09-07-2024 DNA double strand Ab Qn (S) [IU]/mL 0-9 [facility] Comment on above: Negative <5 Equivoca l 5 - 9 Positive >9Previous reported result: TNP IU/mLEdited by: MASOUD on 09/14/24:0707 AMENDED REPORT 09/14/24 0707 dsDNA AB previously reported as: Test not performed Serum Scl-70 antibody assay (units/volume)Ordered By: Raisa Lui on 09-07-2024 SCL-70 extractable nuclear Ab Qn (S) <0.2 AI 0.0-0.9 [facility] Comment on above: Previous reported re sult: TNP AIEdited by: MASOUD on 09/14/24:0707 AMENDED REPORT 09/14/24 0707 ANTISCLER previously reported as: Test not performed Serum beef IgE antibody assa y (units/volume)Ordered By: Raisa Lui on 09-07-2024 Beef IgE Qn (S) <0.10 kU/L Class 0 [facility] Serum classic neutrophil cyt oplasmic antibody assay (units/volume)Ordered By: Raisa Lui on 09-07-2024 Neutrophil cytoplasmic Ab.classic Qn (S) <1:20 titer Neg:<1:20 [facility] Serum codfish IgE antibody a ssay (units/volume)Ordered By: Raisa Lui on 09-07-2024 Codfish IgE Qn (S) <0.10 kU/L Class 0 [facility] Serum corn IgE antibody assa y (units/volume)Ordered By: Raisa Lui on 09-07-2024 [place] IgE Qn (S) <0.10 kU/L Class 0 [facility] Serum cow milk IgE antibody assay (units/volume)Ordered By: Raisa Lui on 09-07-2024 Cow milk IgE Qn (S) <0.10 kU/L Class 0 [facility] Serum creatinine measurement (mass/volume)Ordered By: Raisa Lui on 09-07-2024 Creatinine [Mass/Vol] 0.88 mg/dL 0.70-1.20 [facility] Serum globulin measurementOr dered By: Raisa Lui on 09-07-2024 Globulin (S) [Mass/Vol] 2.9 g/dL 2.2-4.2 [facility] Serum glucose measurement (m ass/volume)Ordered By: Raisa Lui on 09-07-2024 Glucose [Mass/Vol] 102 mg/dL High 70-99 [facility] Serum or plasma IgA measurem ent (mass/volume)Ordered By: Raisa Lui on 09-07-2024 IgA [Mass/Vol] 187 mg/dL 87-352 [facility] Serum or plasma IgG measurem ent (mass/volume)Ordered By: Raisa Lui on 09-07-2024 IgG [Mass/Vol] 1163 mg/dL 586-1602 [facility] Serum or plasma alanine lott otransferase (ALT) measurementOrdered By: Raisa Lui 09-07-2024 ALT [Catalytic activity/Vol] 32 U/L <35 [facility] Serum or plasma albumin paulino urement (mass/volume)Ordered By: Raisa Lui on 09-07-2024 Albumin [Mass/Vol] 4.1 g/dL 3.5-5.0 [facility] Serum or plasma albumin/glob ulin mass ratioOrdered By: Raisa Lui on 09-07-2024 Albumin/Globulin [Mass ratio] 1.4 {ratio} 0.9-2.4 [facility] Serum or plasma alkaline heriberto sphatase measurementOrdered By: Raisa Lui 09-07-2024 ALP [Catalytic activity/Vol] 58 U/L 35-104 [facility] Serum or plasma calcium paulino urement (mass/volume)Ordered By: Raisa Lui on 09-07-2024 Calcium [Mass/Vol] 9.1 mg/dL 7.6-11.0 [facility] Serum or plasma mannobioside IgG antibody assay by immunoassay (units/volume)Ordered By: Raisa Lui on 09-07-2024 Mannobioside IgG IA Qn 9 units 0-100 [facility] Comment on above: Negative: <90 Equivo codey: 90-100 Positive: >100 This test was developed and its performance characteristics determined by [employer]. It has not been cleared or approved by the Food and Drug Administration. The FDA has determined that such clearance or approval is not necessary. Serum or plasma urea nitroge n measurement (mass/volume)Ordered By: Raisa Lui on 09-07-2024 Urea nitrogen [Mass/Vol] 12 mg/dL 4-19 [facility] Serum peanut IgE antibody as say (units/volume)Ordered By: Raisa Lui on 09-07-2024 Peanut IgE Qn (S) <0.10 kU/L Class 0 [facility] Serum perinuclear neutrophil cytoplasmic antibody titer by immunofluorescenceOrdered By: Raisa Lui on 09-07-2024 Neutrophil cytoplasmic Ab.perinuclear IF (S) [Titer] <1:20 titer Neg:<1:20 [facility] Comment on above: The presence of posi tive fluorescence exhibiting P-ANCA orC-ANCA patterns alone is not specific for the diagnosis ofWegener's Granulomatosis (WG) or microscopic polyangiitis.Decisions about treatment should not be based solely onANCA IFA results. The [employer] ANCA Group Consensusrecommends follow up testing of positive sera with both MT-3 and MPO-ANCA enzyme immunoassays. As many as 5% serumsamples are positive only by EIA. Ref. AM J Clin Eiampz5350;111:507-513. Serum pork IgE antibody assa y (units/volume)Ordered By: Raisa Lui on 09-07-2024 Pork IgE Qn (S) <0.10 kU/L Class 0 [facility] Serum salmon IgE antibody as say (units/volume)Ordered By: Raisa Lui on 09-07-2024 [place] IgE Qn (S) <0.10 kU/L Class 0 [facility] Serum soybean IgE antibody a ssay (units/volume)Ordered By: Raisa Lui on 09-07-2024 Soybean IgE Qn (S) <0.10 kU/L Class 0 [facility] Serum tuna IgE antibody assa y (units/volume)Ordered By: Raisa Lui on 09-07-2024 Tuna IgE Qn (S) <0.10 kU/L Class 0 [facility] Serum wheat IgE antibody ass ay (units/volume)Ordered By: Raisa Lui on 09-07-2024 Wheat IgE Qn (S) <0.10 kU/L Class 0 [facility] Serum whole egg IgE antibody assay (units/volume)Ordered By: Raisa Lui on 09-07-2024 Whole Egg IgE Qn (S) <0.10 kU/L Class 0 [facility] Comment on above: Performed at: [address] [id number] Director: Juaquin Eason PhD, Phone: [phone] at: [facility] [id number] Director: Zay Gutierrez MD, Phone: [phone] Sodium levelOrdered By: Anson Lui on 09-07-2024 Sodium [Moles/Vol] 139 mmol/L 133-145 [facility] Total proteinOrdered By: Anabel Lui on 09-07-2024 Protein [Mass/Vol] 7.0 g/dL 5.9-8.4 [facility] White blood cell (WBC) count Ordered By: Raisa Lui on 09-07-2024 WBC (Bld) [#/Vol] 5.9 10*3/uL 4.4-11.0 [facility] Endocrinology Visit Reporton 08-14-2024 Endocrinology Visit Report [facility] [address] [place] [address] [address] [place], [place] [address] OFFICE VISIT Date of Service: 08/14/24 MR#: [id number] Acct: [id number] Name: ELIDA COWAN Rep #: [id number] 2 : 1980 Provider: Corazon Goodman Age/Sex: 44/F [place] [facility] [place]: Signed Intake Vital Signs 03/19/24 07:48 08/14/24 14:16 Height 5 ft 5 ft Weight: 227 lb 227 lb BMI 44.3 44.3 BP 133/82 H 129/84 H Blood Pressure Location Lt brachial Lt brachial Position Sitting Sitting Respiration 20 H Pulse 84 99 Pulse Source Monitor Monitor Temp 97.4 F L Pulse Oximetry (%) 97 68 Oxygen Delivery Method room air room air Intake Visit Reasons: Thyroid Chief Complaint: thyroid Client Development Manager Required: No Accompanied by: Daughter Is patient in pain?: No Allergies acetaminophen (From Vicodin) Allergy (Verified 07/31/24 08:54) Anaphylaxis hydrocodone bitartrate (From Vicodin) Allergy (Verified 07/31/24 08:54) Anaphylaxis Medications ???Medication ???Instructions ???Recorded ???Confirmed ???Type hydroxychloroquine 200 mg tablet 200 mg PO BID 06/26/19 07/31/24 Hi story loratadine 5 mg disintegrating 5 mg PO DAILY 06/29/21 07/31/24 Hi story tablet (Claritin RediTabs) albuterol sulfate 90 mcg/actuation 2 puff inhalation Q4H PRN 07/31/24 Rx aerosol inhaler shortness of breath or wheezing #1 ea cholecalciferol (vitamin D3) 50 50 mcg PO DAILY 02/28/23 07/31/24 History mcg (2,000 unit) capsule erythromycin 5 mg/gram (0.5 %) eye 1 applic ophthalmic (eye) QDAY 0 07/31/24 07/31/24 History ointment famotidine 20 mg tablet 20 mg PO QDAY 07/31/24 07/31/24 Hi story fluticasone propionate 44 2 puff inhalation BID PRN 07/31/24 07/31/24 History mcg/actuation HFA aerosol inhaler hypochlorous acid 0.01 %-sodium 1 spray topical BID 07/31/2407/31 History chloride topical spray (Thera Tears SteriLid) melatonin 3 mg capsule 3 mg PO HS PRN 07/31/24 07/31/24 H istory metronidazole 0.75 % topical gel topical 07/31/24 07/31/24 History saliva stimulant comb. 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 Osteoarthritis Hypoglycemia Hives Migraines Allergies Strep throat Yeast infection Lower urinary tract symptoms UTI (urinary tract infection) Acute cystitis Sinusitis Surgical History H/O: History of appendectomy Family History Uncle Hypertension CAD (coronary artery disease) Grandfather Cancer Lung cancer Diabetes Colon cancer Grandmother Cancer Aunt Cancer Father Thyroid disorder Sarcoidosis Hemolytic anemia Lui syndrome CKD (chronic kidney disease) COPD (chronic obstructive pulmonary disease) Autoimmune disorder Mother CAD (coronary artery disease) Depression Other Myocardial infarction Social History Smoking Status: Never smoker Electronic Cigarette Use: not used second hand exposure: No alcohol intake: never substance use type: does not use what type of physical activity do you participate in: bicycling, yoga and other details: stretching duration: 15-30 minutes/day HPI HPI Chief Complaint: thyroid Details: ELIDA COWAN, is a 44 F who presents to the office today for evaluation and management of thyroid disease. She was diagnosed with Tai's thyroiditis by her senior dot net developer. She has mixed connective tissue disease. Highest TSH was 4.8. Recent TSH 3.01. She has fatigue, body aches, hair loss, skin changes, cold intolerance. She has a lot of GI distress. She tries to follow a gluten free diet and FODMOP. She states high fiber food makes her feel terrible. She is taking levothyroxine 25 mcg daily. She is aware of most of the rules. She has weight gain. ROS Const Constitutional: Positive for fatigue and weight change (Weight Gain); No weakness or change in appetite Eyes Eyes: No change in vision ENT ENT: No hearing loss, nasal congestion or difficulty swallowing Cardio Cardiology: No chest pain at rest, chest pain with exertion or shortness of breath Musc Musculoskeletal: Positive for joint pain and myalgias; No numbness Neuro Neurology: No weakness, memory loss or numbness Psych Psychiatric: No change in appetite, No memory loss and No Thoughts of harming yourself/Others Resp Respiratory: No cough, chest congestion or shortness of (more content not included)... Normal [facility] C-REACTIVE PROTEINon 025 CRP [Mass/Vol] 6.7 mg/L Normal <8.0 [facility] Comment on above: Performed By: #### 9 2665, 6399, 351, 4420, 353 #### [facility] [place] [address] [address]cast Field Supervisor: Asad Fitzpatrick MD CBC (INCLUDES DIFF/PLT)on Basophils (Bld) [#/Vol] 0.092 10*3/uL Normal 0-200 [facility] Comment on above: Performed By: #### 9 2665, 6399, 351, 4420, 353 #### [facility] of [address], [address] [place] [address] Broadcast Field Supervisor: Asad Fitzpatrick MD Basophils/100 WBC (Bld) 1.3 % Normal [facility] Comment on above: Performed By: #### 9 2665, 6399, 351, 4420, 353 #### [facility] [place] [address] [employer] Supervisor: Asad Fitzpatrick MD Eosinophils (Bld) [#/Vol] 0.114 10*3/uL Normal 15-500 [facility] Comment on above: Performed By: #### 9 2665, 6399, 351, 4420, 353 #### [facility] [place] [address] [employer] Supervisor: Asad Fitzpatrick MD Eosinophils/100 WBC (Bld) 1.6 % Normal [facility] Comment on above: Performed By: #### 9 2665, 6399, 351, 4420, 353 #### [facility] [address], [address] [place] [address] Broadcast Field Supervisor: Asad Fitzpatrick MD Erythrocyte distribution width (RBC) [Ratio] 11.7 % Normal 11.0-15.0 [facility] Comment on above: Performed By: #### 9 517, 6399, 351, 4420, 353 #### [facility] [place] [address] [employer] Supervisor: Asad Fitzpatrick MD Hematocrit (Bld) [Volume fraction] 42.3 % Normal 35.0-45.0 [facility] Comment on above: Performed By: #### 9 5, 6399, 351, 4420, 353 #### [facility] [place] [address] [employer] Supervisor: Asad Fitzpatrick MD Hemoglobin (Bld) [Mass/Vol] 14.0 g/dL Normal 11.7-15.5 [facility] Comment on above: Performed By: #### 9 129, 6399, 351, 4420, 353 #### [facility] [place] [address] [employer] Field Supervisor: Asad Fitzpatrick MD Lymphocytes (Bld) [#/Vol] 1.598 10*3/uL Normal 850-3900 [facility] Comment on above: Performed By: #### 9 102, 6399, 351, 4420, 353 #### [facility] [place] [address] [employer] Field Supervisor: Asad Fitzpatrick MD Lymphocytes/100 WBC (Bld) 22.5 % Normal [facility] Comment on above: Performed By: #### 9 266, 6399, 351, 4420, 353 #### [facility] [place] [address] [employer] Field Supervisor: Asad Fitzpatrick MD MCH (RBC) [Entitic mass] 29.6 pg Normal 27.0-33.0 [facility] Comment on above: Performed By: #### 9 641, 6399, 351, 4420, 353 #### [facility] [place] [address] [employer] Field Supervisor: Asad Fitzpatrick MD MCHC (RBC) [Mass/Vol] 33.1 g/dL Normal 32.0-36.[address] [facility] Comment on above: Result Comment: For adults, a slight decrease in the calculated MCHC value (in the range of 30 to 32 g/dL) is most likely not clinically significant; however, it should be interpreted with caution in correlation with other red cell parameters and the patient's clinical condition. Performed By: #### 9 5, 6399, 351, 4420, 353 #### [facility] [place] [address] [employer] Field Supervisor: Asad Fitzpatrick MD MCV (RBC) [Entitic vol] 89.4 fL Normal 80.0-100.0 [facility] Comment on above: Performed By: #### 9 2664, 63, 351, 4420, 353 #### [facility] [place] [address] [employer] Field Supervisor: Asad Fitzpatrick MD Monocytes (Bld) [#/Vol] 0.504 10*3/uL Normal 200-950 [facility] Comment on above: Performed By: #### 9 2664, 63, 351, 4420, 353 #### [facility] [place] [address] [employer] Field Supervisor: Asad Fitzpatrick MD Monocytes/100 WBC (Bld) 7.1 % Normal [facility] Comment on above: Performed By: #### 9 2664, 6399, 351, 4420, 353 #### [facility] [place] [address] [employer] Field Supervisor: Asad Fitzpatrick MD Neutrophils (Bld) [#/Vol] 4.793 10*3/uL Normal 8619-6647 [facility] Comment on above: Performed By: #### 9 2664, 6399, 351, 4420, 353 #### [facility] [place] [address] [employer] Field Supervisor: Asad Fitzpatrick MD Neutrophils/100 WBC (Bld) 67.5 % Normal [facility] Comment on above: Performed By: #### 9 2665, 6399, 351, 4420, 353 #### [facility] [place] [address] [employer] Field Supervisor: Asad Fitzpatrick MD Platelet mean volume (Bld) [Entitic vol] 11.2 fL Normal 7.5-12.5 [facility] Comment on above: Performed By: #### 9 2665, 6399, 351, 4420, 353 #### [facility] [place] [address] [employer] Supervisor: Asad Fitzpatrick MD Platelets (Bld) [#/Vol] 287 10*3/uL Normal 140-400 [facility] Comment on above: Performed By: #### 9 7815, 6399, 351, 4420, 353 #### [facility] [place] [address] [employer] Field Supervisor: Asad Fitzpatrick MD RBC (Bld) [#/Vol] 4.73 10*6/uL Normal 3.80-5.10 [facility] Comment on above: Performed By: #### 9 5525, 6399, 351, 4420, 353 #### [facility] [place] [address] [employer] Field Supervisor: Asad Fitzpatrick MD WBC (Bld) [#/Vol] 7.1 10*3/uL Normal 3.8-10.8 [facility] Comment on above: Performed By: #### 9 2665, 6399, 351, 4420, 353 #### [facility] [place] [address] [employer] Field Supervisor: Asad Fitzpatrick MD COMPLEMENT COMPONENT C3Con 0 07-04-2024 COMPLEMENT COMPONENT C3C 136 mg/dL Normal 83-193 [facility] Comment on above: Performed By: #### 9 2205, 6399, 351, 4420, 353 #### [facility] [place] [address] [employer] Field Supervisor: Asad Fitzpatrick MD COMPLEMENT COMPONENT C4Con 0 07-04-2024 COMPLEMENT COMPONENT C4C 29 mg/dL Normal 15-57 [facility] Comment on above: Performed By: #### 9 8175, 6399, 351, 4420, 353 #### [facility] [place] [address] [employer]cast Field Supervisor: Asad Fitzpatrick MD COMPREHENSIVE METABOLIC PANE L W/ANION GAPon 07-04-2024 Albumin [Mass/Vol] 4.4 g/dL Normal 3.6-5.1 [facility] Comment on above: Order Comment: FASTI NG:NO FASTING: NO Performed By: #### 9 0755, 6399, 351, 4420, 353 #### [facility] [place] [address] [employer] Field Supervisor: Asad Fitzpatrick MD ALP [Catalytic activity/Vol] 54 U/L Normal 31-125 [facility] Comment on above: Order Comment: FASTI NG:NO FASTING: NO Performed By: #### 9 1595, 6399, 351, 4420, 353 #### [facility] [place] [address] [employer] Supervisor: Asad Fitzpatrick MD ALT [Catalytic activity/Vol] 37 U/L High 6-29 [facility] Comment on above: Order Comment: FASTI NG:NO FASTING: NO Performed By: #### 9 8965, 6399, 351, 4420, 353 #### [facility] [place] [address] [employer] Supervisor: Asad Fitzpatrick MD AST [Catalytic activity/Vol] 31 U/L High 10-30 [facility] Comment on above: Order Comment: FASTI NG:NO FASTING: NO Performed By: #### 9 2555, 6399, 351, 4420, 353 #### [facility] [place] [address] [employer] Supervisor: Asad Fitzpatrick MD Bilirubin [Mass/Vol] 0.4 mg/dL Normal 0.2-1.2 [facility] Comment on above: Order Comment: FASTI NG:NO FASTING: NO Performed By: #### 9 4325, 6399, 351, 4420, 353 #### [facility] [place] [address] [employer]cast Field Supervisor: Asad Fitzpatrick MD Calcium [Mass/Vol] 9.1 mg/dL Normal 8.6-10.2 [facility] Comment on above: Order Comment: FASTI NG:NO FASTING: NO Performed By: #### 9 2975, 6499, 351, 4420, 353 #### [facility] [place] [address] [employer] Field Supervisor: Asad Fitzpatrick MD Chloride [Moles/Vol] 107 mmol/L Normal 98-110 [facility] Comment on above: Order Comment: FASTI NG:NO FASTING: NO Performed By: #### 9 7915, 83, 351, 4420, 353 #### [facility] [place] [address] [employer] Field Supervisor: Asad Fitzpatrick MD CO2 [Moles/Vol] 25 mmol/L Normal 20-32 [facility] Comment on above: Order Comment: FASTI NG:NO FASTING: NO Performed By: #### 9 6895, 2677, 351, 4420, 353 #### [facility] [place] [address] [employer]cast Field Supervisor: Asad Fitzpatrick MD Creatinine [Mass/Vol] 0.78 mg/dL Normal 0.50-0.99 [facility] Comment on above: Order Comment: FASTI NG:NO FASTING: NO Performed By: #### 9 8715, 0399, 351, 4420, 353 #### [facility] [place] [address] [employer]cast Field Supervisor: Asad Fitzpatrick MD ELECTROLYTE BALANCE 8 mmol/L (calc) Normal 7-17 [facility] Comment on above: Order Comment: FASTI NG:NO FASTING: NO Performed By: #### 9 1255, 6399, 351, 4420, 353 #### [facility] [address], [address] [place] [address] Broadcast Field Supervisor: Asad Fitzpatrick MD GFR/1.73 sq M.predicted among non-blacks MDRD (S/P/Bld) [Vol rate/Area] 97 mL/min/{1.73_m2} Normal > OR = 60 [facility] Comment on above: Order Comment: FASTI NG:NO FASTING: NO Performed By: #### 9 5495, 6399, 351, 4420, 353 #### [facility] [place] [address] Broadcast Field Supervisor: Asad Fitzpatrick MD Glucose [Mass/Vol] 82 mg/dL Normal 65-139 [facility] Comment on above: Order Comment: FASTI NG:NO FASTING: NO Result Comment: Non-fasting reference interval Performed By: #### 9 1345, 06, 351, 4420, 353 #### [facility] [address], [address] [place] [address] Broadcast Field Supervisor: Asad Fitzpatrick MD Potassium [Moles/Vol] 4.8 mmol/L Normal 3.5-5.3 [facility] Comment on above: Order Comment: FASTI NG:NO FASTING: NO Performed By: #### 9 4595, 24, 351, 4420, 353 #### [facility] [place] [address] Broadcast Field Supervisor: Asad Fitzpatrick MD Protein [Mass/Vol] 6.9 g/dL Normal 6.1-8.1 [facility] Comment on above: Order Comment: FASTI NG:NO FASTING: NO Performed By: #### 9 2965, 6399, 351, 4420, 353 #### [facility] [place] [address] Broadcast Field Supervisor: Asad Fitzpatrick MD Sodium [Moles/Vol] 140 mmol/L Normal 135-146 [facility] Comment on above: Order Comment: FASTI NG:NO FASTING: NO Performed By: #### 9 2665, 6399, 351, 4420, 353 #### [facility] [address], [address] [place] [address] Broadcast Field Supervisor: Asad Fitzpatrick MD Urea nitrogen [Mass/Vol] 18 mg/dL Normal 7-25 [facility] Comment on above: Order Comment: FASTI NG:NO FASTING: NO Performed By: #### 9 2665, 6399, 351, 4420, 353 #### [facility] [address], [address] [place] [address] Broadcast Field Supervisor: Asad Fitzpatrick MD DNA (DS) ANTIBODYon 07-04-19 25 DNA (DS) ANTIBODY <1 Normal [facility] Comment on above: Result Comment: IU/m L Interpretation < or = 4 Negative 5-9 Indeterminate > or = 10 Positive Performed By: #### 9 2665, 6399, 351, 4420, 353 #### [facility] [address], [address] [place] [address] Broadcast Field Supervisor: Asad Fitzpatrick MD Proteinon 07-03-2024 Protein [Mass/Vol] 7.0 g/dL Normal 6.4-8.2 [facility] Comment on above: Performed By: #### 2 885-2 #### MADDISON Carreon ([id number]) [facility] ([facility]) [address] [place] [address] 14408 Protein electrophoresis pane samantha 07-03-2024 Albumin [Mass/Vol] 4.2 g/dL Normal 3.4-5.0 [facility] Comment on above: Performed By: #### 2 4351-9 #### MADDISON Carreon ([id number]) [facility] ([facility]) [id number] [place] [address] 35508 ALPHA 1 GLOBULIN 0.3 g/dL Normal 0.2-0.[address] [facility] Comment on above: Performed By: #### 2 4351-9 #### MADDISON Carreon ([id number]) [facility] ([facility]) [address] [place] [address] 48944 ALPHA 2 GLOBULIN 0.6 g/dL Normal 0.4-1.[address] [facility] Comment on above: Performed By: #### 2 4351-9 #### MADDISON Carreon ([id number]) [facility] ([facility]) [address] [place] [address] 54469 BETA GLOBULIN 0.8 g/dL Normal 0.5-1.2 [facility] Comment on above: Performed By: #### 2 4351-9 #### MADDISON Carreon ([id number]) [facility] ([facility]) [address] [place] [address] 60082 GAMMA GLOBULIN 1.1 g/dL Normal 0.5-1.4 [facility] Comment on above: Performed By: #### 2 4351-9 #### MADDISON Carreon ([id number]) [facility] ([facility]) [address] [place] [address] 78792 PATH REVIEW-SERUM PROTEIN ELECTROPHORESIS Reviewed and approved by JAMEL JACKSON on 07/05/24 at 8:11 PM. [facility] Comment on above: Performed By: #### 2 4351-9 #### MADDISON Carreon ([id number]) [facility] ([facility]) [address] [place] [address] 91059 PROTEIN ELECTROPHORESIS COMMENT Normal. [facility] Comment on above: Performed By: #### 2 4351-9 #### MADDISON Carreon ([id number]) [facility] ([facility]) [address] [place] [address] 48028 SERUM IMMUNOFIXATIONon 07-03 IMMUNOFIXATION COMMENT Detected Normal [facility] Comment on above: Performed By: #### I EPIN #### MADDISON Carreon ([id number]) [facility] ([facility]) [address] [place] [address] 71298 PATH REVIEW - SERUM IMMUNOFIXATION Reviewed and approved by JAMEL JACKSON on 07/05/24 at 8:11 PM. [facility] Comment on above: Performed By: #### I EPIN #### MADDISON Carreon ([id number]) [id number] XR FINGERS RIGHT 2+ VIEWSon 07-03-2024 XR FINGERS RIGHT 2+ VIEWS Interpreted By: Kimberly Leung, STUDY: XR FINGERS RIGHT 2+ VIEWS; 07/03/2024 11:39 am INDICATION: Signs/Symptoms:pain right third finger. COMPARISON: None. ACCESSION NUMBER(S): [id number] ORDERING CLINICIAN: HAKAN SOTO FINDINGS: Cortical irregularity of the base of the 3rd middle phalanx is noted which may be related to a tiny avulsion fracture. Adjacent soft tissue swelling is noted. No dislocation is noted. IMPRESSION: Tiny motor fracture of the base of the 3rd middle phalanx. MACRO: Critical Finding: See findings. Notification was initiated on 07/04/2024 at 6:23 pm by Kimberly Leung. (-YCF-) Signed by: Kimberly Leung 07/04/2024 6:24 PM Dictation workstation: [id number] Normal [facility] Comment on above: Order Comment: Right third finger 3 views TSHon 06-09-2024 TSH Qn 3.01 m[IU]/L Normal [facility] Comment on above: Result Comment: Refe rence Range > or = 20 Years 0.40-4.50 Ranges First trimester 0.26-2.66 Second trimester 0.55-2.73 Third trimester 0.43-2.91 Performed By: #### 9 2475, 6348, 351, 4420, 353 #### [facility] [address], [address] [place] [address] Broadcast Field Supervisor: Asad Fitzpatrick MD Laboratory - Chemistry and C hemistry - challengeon 06-08-2024 TSH Qn 3.01 m[IU]/L Normal [employer] No Panel Informationon 03-19 TSH 2.440 {uIU/mL} Normal 0.358 - 3.740 {uIU/mL} [employer] CBC W Auto Differential pane l (Bld)on 01-13-2024 Basophils (Bld) [#/Vol] 0.07 x10*3/uL Normal 0.00-0.10 [facility] Comment on above: Performed By: #### 5 7021-8 #### MADDISON Carreon ([id number]) [facility] ([facility]) [address] [place] [address] 74041 Basophils/100 WBC (Bld) 1.1 % Normal 0.0-2.0 [facility] Comment on above: Performed By: #### 5 7021-8 #### MADDISON Carreon ([id number]) [facility] ([facility]) [address] [place] [address] 30433 Eosinophils (Bld) [#/Vol] 0.13 x10*3/uL Normal 0.00-0.70 [facility] Comment on above: Performed By: #### 5 7021-8 #### MADDISON Carreon ([id number]) [facility] ([facility]) [address] [place] [address] 35517 Eosinophils/100 WBC (Bld) 2.0 % Normal 0.0-6.0 [facility] Comment on above: Performed By: #### 5 7021-8 #### MADDISON Carreon ([id number]) [facility] ([facility]) [address] [place] [address] 43438 Erythrocyte distribution width (RBC) [Ratio] 11.7 % Normal 11.5-14.5 [facility] Comment on above: Performed By: #### 5 7021-8 #### MADDISON Carreon ([id number]) [facility] ([facility]) [address] [place] [address] 17237 Hematocrit (Bld) [Volume fraction] 41.5 % Normal 36.0-46.0 [facility] Comment on above: Performed By: #### 5 7021-8 #### MADDISON Carreon ([id number]) [facility] ([facility]) [address] [place] [address] 75491 Hemoglobin (Bld) [Mass/Vol] 13.5 g/dL Normal 12.0-16.0 [facility] Comment on above: Performed By: #### 5 7021-8 #### MADDISON Carreon ([id number]) [facility] ([facility]) [id number] [place] [address] 02177 Immature granulocytes (Bld) [#/Vol] 0.02 x10*3/uL Normal 0.00-0.70 [facility] Comment on above: Performed By: #### 5 7021-8 #### MADDISON Carreon ([id number]) [facility] ([facility]) [id number] [place] [address] 73311 Immature granulocytes/100 WBC (Bld) 0.3 % Normal 0.0-0.9 [facility] Comment on above: Result Comment: Salome ture Granulocyte Count (IG) includes promyelocytes, myelocytes and metamyelocytes but does not include bands. Percent differential counts (%) should be interpreted in the context of the absolute cell counts (cells/UL). Performed By: #### 5 7021-8 #### MADDISON Carreon ([id number]) [facility] ([facility]) [address] [place] [address] 92645 Lymphocytes (Bld) [#/Vol] 1.47 x10*3/uL Normal 1.20-4.80 [facility] Comment on above: Performed By: #### 5 7021-8 #### MADDISON Carreon ([id number]) [facility] ([facility]) [address] [place] [address] 91656 Lymphocytes/100 WBC (Bld) 22.1 % Normal 13.0-44.0 [facility] Comment on above: Performed By: #### 5 7021-8 #### MADDISON Carreon ([id number]) [facility] ([facility]) [address] [place] [address] 70676 MCH (RBC) [Entitic mass] 29.5 pg Normal 26.0-34.0 [facility] Comment on above: Performed By: #### 5 7021-8 #### MADDISON Carreon ([id number]) [facility] ([facility]) [id number] [place] [address] 14907 MCHC (RBC) [Mass/Vol] 32.5 g/dL Normal 32.0-36.0 [facility] Comment on above: Performed By: #### 5 7021-8 #### MADDISON Carreon ([id number]) [facility] ([facility]) [id number] [place] [address] 47569 MCV (RBC) [Entitic vol] 91 fL Normal 80-100 [facility] Comment on above: Performed By: #### 5 7021-8 #### MADDISON Carreon ([id number]) [facility] ([facility]) [address] [place] [address] 08418 Monocytes (Bld) [#/Vol] 0.44 x10*3/uL Normal 0.10-1.00 [facility] Comment on above: Performed By: #### 5 7021-8 #### MADDISON Carreon ([id number]) [facility] ([facility]) [id number] [place] [address] 79250 Monocytes/100 WBC (Bld) 6.6 % Normal 2.0-10.0 [facility] Comment on above: Performed By: #### 5 7021-8 #### MADDISON Carreon ([id number]) [facility] ([facility]) [address] [place] [address] 56063 Neutrophils (Bld) [#/Vol] 4.53 x10*3/uL Normal 1.20-7.70 [facility] Comment on above: Result Comment: Perc ent differential counts (%) should be interpreted in the context of the absolute cell counts (cells/uL). Performed By: #### 5 7021-8 #### MADDISON Carreon ([id number]) [facility] ([facility]) [address] [place] [address] Neutrophils/100 WBC (Bld) 67.9 % Normal 40.0-80.0 [facility] Comment on above: Performed By: #### 5 7021-8 #### MADDISON Carreon ([id number]) [facility] ([facility]) [id number] [place] [address] 27000 Nucleated RBC/100 WBC (Bld) [Ratio] 0.0 /100 WBCs Normal 0.0-0.0 [facility] Comment on above: Performed By: #### 5 7021-8 #### MADDISON Carreon ([id number]) [facility] ([facility]) [id number] [place] [address] 28344 Platelets (Bld) [#/Vol] 242 x10*3/uL Normal 150-450 [facility] Comment on above: Performed By: #### 5 7021-8 #### MADDISON Carreon ([id number]) [facility] ([facility]) [id number] [place] [address] 32639 RBC (Bld) [#/Vol] 4.58 x10*6/uL Normal 4.00-5.20 [facility] Comment on above: Performed By: #### 5 7021-8 #### MADDISON Carreon ([id number]) [facility] ([facility]) [address] [place] [address] 71864 WBC (Bld) [#/Vol] 6.7 x10*3/uL Normal 4.4-11.[address] [facility] Comment on above: Performed By: #### 5 7021-8 #### MADDISON Carreon ([id number]) [facility] ([facility]) [id number] [place] [address] 66769 Complement C3on 01-13-2024 Complement C3 [Mass/Vol] 132 mg/dL Normal 87-200 [facility] Comment on above: Performed By: #### 4 485-9 #### MADDISON Carreon ([id number]) [facility] ([facility]) [id number] [place] [address] 69017 Complement C4on 01-13-2024 Complement C4 [Mass/Vol] 38 mg/dL Normal 10-50 [facility] Comment on above: Performed By: #### 4 498-2 #### MADDISON Carreon ([id number]) [facility] ([facility]) [id number] [place] [address] 36348 Comprehensive metabolic 2000 panelon 01-13-2024 Albumin BCP dye [Mass/Vol] 4.2 g/dL Normal 3.4-5.0 [facility] Comment on above: Performed By: #### 2 4323-8 #### MADDISON Carreon ([id number]) [facility] ([facility]) [id number] [place] [address] 79519 ALP [Catalytic activity/Vol] 53 U/L Normal 33-110 [facility] Comment on above: Performed By: #### 2 4323-8 #### MADDISON Carreon ([id number]) [facility] ([facility]) [id number] [place] [address] 00669 ALT With P-5'-P [Catalytic activity/Vol] 25 U/L Normal 7-45 [facility] Comment on above: Result Comment: Melina ents treated with Sulfasalazine may generate falsely decreased results for ALT. Performed By: #### 2 4323-8 #### MADDISON Carreon ([id number]) [facility] ([facility]) [id number] [place] [address] 42637 Anion gap [Moles/Vol] 11 mmol/L Normal 10-20 [facility] Comment on above: Performed By: #### 2 4323-8 #### MADDISON Carreon ([id number]) [facility] ([facility]) [id number] [place] [address] 91382 AST With P-5'-P [Catalytic activity/Vol] 19 U/L Normal 9-39 [facility] Comment on above: Performed By: #### 2 4323-8 #### MADDISON Carreon ([id number]) [facility] ([facility]) [id number] [place] [address] 95769 Bilirubin [Mass/Vol] 0.4 mg/dL Normal 0.0-1.2 [facility] Comment on above: Performed By: #### 2 4323-8 #### MADDISON Carreon ([id number]) [facility] ([facility]) [id number] [place] [address] 46274 Calcium [Mass/Vol] 9.6 mg/dL Normal 8.6-10.6 [facility] Comment on above: Performed By: #### 2 4323-8 #### MADDISON Carreon ([id number]) [facility] ([facility]) [address] [place] [address] Chloride [Moles/Vol] 104 mmol/L Normal 98-107 [facility] Comment on above: Performed By: #### 2 4323-8 #### MADDISON MAXWELL L ([id number]) [facility] ([facility]) [address] [place] [address] CO2 [Moles/Vol] 31 mmol/L Normal 21-32 [facility] Comment on above: Performed By: #### 2 4323-8 #### MADDISON Carreon ([id number]) [facility] ([facility]) [address] [place] [address] Creatinine [Mass/Vol] 0.86 mg/dL Normal 0.50-1.05 [facility] Comment on above: Performed By: #### 2 4323-8 #### MADDISON Carreon ([id number]) [facility] ([facility]) [id number] [place] [address] 48690 Glomerular filtration rate/1.73 sq M.predicted 87 mL/min/1.73m*2 Normal >[address] [facility] Comment on above: Result Comment: Calc ulations of estimated GFR are performed using the 2020 CKD-EPI Study Refit equation without the race variable for the IDMS-Traceable creatinine methods. https://jasn.asnjournals.org/content//ASN.335 7552218 Performed By: #### 2 4323-8 #### MADDISON Carreon ([id number]) [facility] ([facility]) [address] [place] [address] Glucose [Mass/Vol] 100 mg/dL High 74-99 [facility] Comment on above: Performed By: #### 2 4323-8 #### MADDISON Carreon ([id number]) [facility] ([facility]) [id number] [place] [address] 47458 Potassium [Moles/Vol] 4.1 mmol/L Normal 3.5-5.3 [facility] Comment on above: Performed By: #### 2 4323-8 #### MADDISON Carreon ([id number]) [facility] ([facility]) [id number] [place] [address] 98478 Protein [Mass/Vol] 6.9 g/dL Normal 6.4-8.2 [facility] Comment on above: Performed By: #### 2 4323-8 #### MADDISON Carreon ([id number]) [facility] ([facility]) [address] [place] [address] 71961 Sodium [Moles/Vol] 142 mmol/L Normal 136-145 [facility] Comment on above: Performed By: #### 2 4323-8 #### MADDISON Carreon ([id number]) [facility] ([facility]) [address] [place] [address] 38754 Urea nitrogen [Mass/Vol] 14 mg/dL Normal - [facility] Comment on above: Performed By: #### 2 4323-8 #### MADDISON Carreon ([id number]) [facility] ([facility]) [address] [place] [address] 98981 DNA double strand Abon 01-12 DNA double strand Ab Qn (S) 1.0 [IU]/mL Normal <5.0 [facility] Comment on above: Result Comment: NEGA TIVE: <= 4 IU/ML EQUIVOCAL: 5- 9 IU/ML POSITIVE: >=10 IU/ML Performed By: #### 5 130-0 #### MADDISON Carreon ([id number]) [facility] ([facility]) [id number] [place] [address] 16798 Proteinon 01-13-2024 Protein Qn (U) 5 mg/dL Normal 5-24 [facility] Comment on above: Performed By: #### 2 7298-9 #### MADDISON Carreon ([id number]) [facility] ([facility]) [address] [place] [address] 55256 Protein Qn (U)on 01-13-2024 Creatinine (U) [Mass/Vol] 68.1 mg/dL Normal 20.0-320.0 [facility] Comment on above: Performed By: #### 2 7298-9 #### MADDISON Carreon ([id number]) [facility] ([facility]) [address] [place] [address] 49387 Protein/Creatinine (U) [Mass ratio] 0.07 mg/mg Creat Normal 0.00-0.17 [facility] Comment on above: Performed By: #### 2 7298-9 #### MADDISON Carreon ([id number]) [facility] ([facility]) [address] [place] [address] 09277 Thyrotropinon 01-13-2024 TSH Qn 4.80 m[IU]/L High 0.44-3.98 [facility] Comment on above: Order Comment: TSH t esting is performed using different testing methodology at [facility] than at other [facility]. Direct result comparisons should only be made within the same method. Performed By: #### 3 016-3 #### MADDISON Carreon ([id number]) [facility] ([facility]) [address] [place] [address] 15792 Urinalysis complete panel (U )on 01-13-2024 Appearance (U) Clear Normal Clear [facility] Comment on above: Performed By: #### 2 4356-8 #### MADDISON Carreon ([id number]) [facility] ([facility]) [address] [place] [address] 89820 Bilirubin (U) [Mass/Vol] Negative Normal NEGATIVE [facility] Comment on above: Performed By: #### 2 4356-8 #### MADDISON Carreon ([id number]) [facility] ([facility]) [address] [place] [address] 51532 Color (U) Light-Yellow Normal Light-Barbour ow, Yellow, Dark-Yello w [facility] Comment on above: Performed By: #### 2 4356-8 #### MADDISON Carreon ([id number]) [facility] ([facility]) [address] [place] [address] 26444 Glucose Auto test strip (U) [Mass/Vol] Normal Normal Normal [facility] Comment on above: Performed By: #### 2 4356-8 #### MADDISON Carreon ([id number]) [facility] ([facility]) [address] [place] [address] 59814 Ketones (U) [Mass/Vol] Negative Normal NEGATIVE [facility]: Performed By: #### 2 4356-8 #### MADDISON Carreon ([id number]) [facility] ([facility]) [address] [place] [address] 23162 Leukocyte esterase Auto test strip Ql (U) Negative Normal NEGATIVE [facility] Comment on above: Performed By: #### 2 4356-8 #### MADDISON Carreon ([id number]) [facility] ([facility]) [address] [place] [address] 54739 Nitrite Auto test strip Ql (U) Negative Normal NEGATIVE [facility] Comment on above: Performed By: #### 2 4356-8 #### MADDISON Carreon ([id number]) [facility] ([facility]) [address] [place] [address] 29377 pH (U) 7.0 [pH] Normal 5.0, 5.5, 6.0, 6.5, 7.0, 7.5, 8.0 [facility] Comment on above: Performed By: #### 2 4356-8 #### MADDISON Carreon ([id number]) [facility] ([facility]) [address] [place] [address] 41258 Protein (U) [Mass/Vol] Negative Normal NEGAT RAGHAV, 10 (TRACE), 20 (TRACE) [facility] Comment on above: Performed By: #### 2 4356-8 #### MADDISON Carreon ([id number]) [facility] ([facility]) [address] [place] [address] RBC (U) [#/Vol] Negative Normal NEGATIVE [facility] Comment on above: Performed By: #### 2 4356-8 #### MADDISON Carreon ([id number]) [facility] ([facility]) [id number] [place] [address] 41416 Specific gravity (U) [Rel density] 1.009 Normal 1.005-1.03 5 [facility] Comment on above: Performed By: #### 2 4356-8 #### MADDISON Carreon ([id number]) [facility] ([facility]) [id number] [place] [address] 63196 Urobilinogen (U) [Mass/Vol] Normal Normal Normal [facility] Comment on above: Performed By: #### 2 4356-8 #### MADDISON Carreon ([id number]) [facility] ([facility]) [address] [place] [address] 79440 Laboratory - Chemistry and C hemistry - challengeon 08-04-2023 Cobalamin (Vitamin B12) [Mass/Vol] 404 pg/mL Normal 200 - 1100 pg/mL [facility]. Ferritin [Mass/Vol] 81 ng/mL Normal 16 - 232 ng/mL [facility].; [facility]. Magnesium [Mass/Vol] 152 mg/dL Normal 47 - 31 0 mg/dL [facility]. No Panel Informationon 08-03 ALMOND (F20) IGE <0.10 Normal [facility].; [facility] CASHEW NUT (F202) IGE <0.10 Normal [facility] CLASS 0 Normal [facility], [facility].; [facility] CODFISH (F3) IGE <0.10 Normal [facility], [facility].; [facility] COW'S MILK (F2) IGE <0.10 Normal [facility], [facility].; [facility], [facility]. EGG WHITE (F1) IGE <0.10 Normal [facility].; [facility]. HAZELNUT (F17) IGE <0.10 Normal [facility].; [facility]. INTERPRETATION see note Normal [facility].; [facility], [facility]. INTERPRETATION See Below Normal [facility].; [facility] Work Phone: PEANUT (F13) IGE <0.10 Normal [facility].; [facility]. SALMON (F41) IGE <0.10 Normal [facility].; [facility], [facility] SCALLOP (F338) IGE <0.10 Normal [facility].; [facility], [facility]. SESAME SEED (F10) IGE <0.10 Normal [facility].; [facility] SHRIMP (F24) IGE <0.10 Normal [facility].; [facility]. SOYBEAN (F14) IGE <0.10 Normal [facility].; [facility]. TISSUE TRANSGLUTAMINASE AB, IGA <1.0 Normal [facility].; [facility]. TUNA (F40) IGE <0.10 Normal [facility].; [place] [employer] [facility], [facility]. VITAMIN D,25-OH,TOTAL,IA 63 ng/mL Normal 30 - 100 ng/mL [facility].; [facility]. WALNUT (F256) IGE <0.10 Normal [facility].; [place] [employer] [facility]. WHEAT (F4) IGE <0.10 Normal [facility].; [place] [employer] [facility], [facility]. Laboratory - Chemistry and C hemistry - challengeon 02-10-2023 25-hydroxyvitamin D3 [Mass/Vol] 51.40 ng/mL Normal 30.00 - 100 ng/mL [facility].; [facility], [facility]. Albumin [Mass/Vol] 4.0 g/dL Normal 3.4 - 5.0 g/dL [facility].; [facility] Albumin [Mass/Vol] 1.1 g/dL Normal 0.9 - 1.6 [facility].; [facility]. ALP [Catalytic activity/Vol] 55 U/L Normal 46 - 116 U/L [facility].; [facility], [facility]. ALT [Catalytic activity/Vol] 35 U/L Normal 14 - 59 U/L [facility].; [facility] Anion gap [Moles/Vol] 11 mmol/L Normal 10 - 2 0 mmol/L [facility].; [facility], [facility]. AST [Catalytic activity/Vol] 21 U/L Normal 13 - 39 U/L [facility]; [facility], [facility] Bilirubin [Mass/Vol] 0.4 mg/dL Normal 0.2 - 1 .0 mg/dL [facility]; [facility], [facility] Calcium [Mass/Vol] 10.0 mg/dL Normal 8.5 - 10. 1 mg/dL [facility]; [facility], [facility] Chloride [Moles/Vol] 105 mmol/L Normal 98 - 10 7 mmol/L [facility]; [facility], [facility] Cholesterol [Mass/Vol] 150 mg/dL Normal 0 - 2 40 mg/dL [facility].; [facility], [facility]. Cholesterol in HDL [Mass or moles/Vol] 51 mg/dL Normal 40 - 60 mg/dL [facility]; [facility], [facility] Cholesterol in LDL [Mass/Vol] 80 mg/dL Normal 0 - 129 mg/dL [facility].; [facility], [facility]. Cholesterol.total/Choles terol in HDL [Mass ratio] 2.9 {ratio} Normal 0.0 - 5.0 [facility]; [facility], [facility]. CO2 [Moles/Vol] 30.4 mmol/L Normal 21.0 - 32.0 mmol/L [facility].; [facility], [facility] Comprehensive metabolic 2000 panel CMP with eGFR Normal [facility]; [facility], [facility] Creatinine [Mass/Vol] 0.88 mg/dL Normal 0.55 - 1.02 mg/dL [facility].; [facility], [facility]. GFR/1.73 sq M.predicted among blacks MDRD (S/P/Bld) [Vol rate/Area] mL/min/{1.73_m2} Normal 60 - 999 {ML/MINUTE } [facility], [facility].; [facility], [facility]. GFR/1.73 sq M.predicted MDRD (S/P/Bld) [Vol rate/Area] mL/min/{1.73_m2} Normal 60 - 999 {ML/MINUTE } [facility], [facility].; [facility], [facility]. Globulin (S) [Mass/Vol] 3.5 g/dL Normal 1.5 - 3.8 g/dL [facility].; [facility], [facility]. Glucose [Mass/Vol] 84 mg/dL Normal 74 - 106 mg/dL [facility], [facility].; [place] [employer] [facility], [facility]. Lipid 1996 panel LIPID PROFILE Normal [facility].; [facility], [facility]. Potassium [Moles/Vol] 4.0 mmol/L Normal 3.5 - 5.1 mmol/L [facility].; [facility], [facility]. Protein [Mass/Vol] 7.5 g/dL Normal 6.4 - 8.2 g/dL [facility], [facility].; [place] [employer] [facility], [facility]. Sodium [Moles/Vol] 142 mmol/L Normal 136 - 145 mmol/L [facility], [facility].; [facility], [facility]. Triglyceride [Mass/Vol] 93 mg/dL Normal 0 - 150 mg/dL [facility].; [place] [employer] [facility], [facility]. TSH Qn 3.56 m[IU]/L Normal 0.35 - 3.74 {uIU/ml} [facility].; [place] [employer] [facility], [facility]. Urea nitrogen [Mass/Vol] 16 mg/dL Normal 7 - 18 mg/dL [facility].; [place] [employer] [facility], [facility]. Urea nitrogen/Creatinine [Mass ratio] 18 {ratio} Normal 0 - 30 {ratio} [facility].; [place] [employer] [facility], [facility]. No Panel Informationon 02-10 AGE 42 {years} Normal [facility].; [email or web address] No Panel Informationon 03-15 [id number] SEE NOTE Normal [facility]; [email or web address] CLINICAL INFORMATION: SEE NOTE Normal [facility].; [email or web address]. CELLULAR BIOLOGIST: SEE NOTE Normal [facility].; [email or web address]. HPV mRNA E6/E7 Not detected Normal [facility] WomenR[facility] HospitalShow[facility]; [employer]. INTERPRETATION/RESULT: SEE NOTE Normal [facility].; [email or web address]. LMP: SEE NOTE Normal [facility].; [employer]. PREV. BX: SEE NOTE Normal [facility].; [employer]. PREV. PAP: SEE NOTE Normal [facility].; [employer]. SOURCE: SEE NOTE Normal [facility] WomenR[facility]Show[facility]; [place] [employer]. STATEMENT OF ADEQUACY: SEE NOTE Normal [facility].; [email or web address]. Laboratory - Chemistry and C hemistry - challengeon 10-21-2021 Albumin [Mass/Vol] 4.3 g/dL Normal 3.9 - 4.9 g/dL [facility]; [employer]. Work Phone: ALP [Catalytic activity/Vol] 53 U/L Normal 34 - 123 U/L [facility].; [employer]. Work Phone: ALT [Catalytic activity/Vol] 19 U/L Normal 7 - 38 U/L [facility]; [employer]. Work Phone: Anion gap [Moles/Vol] 13 mmol/L Normal 9 - 18 mmol/L [place] [employer] [facility].; [employer]. Work Phone: AST [Catalytic activity/Vol] 20 U/L Normal 13 - 35 U/L [facility].; [employer]. Work Phone: Bilirubin [Mass/Vol] 0.4 mg/dL Normal 0.2 - 1 .3 mg/dL [facility].; [facility] Work Phone: Calcium [Mass/Vol] 9.1 mg/dL Normal 8.5 - 10. 2 mg/dL [facility]; [place] [employer] [facility] Work Phone: Chloride [Moles/Vol] 104 mmol/L Normal 97 - 10 5 mmol/L [facility].; [place] [employer] [facility] Work Phone: CO2 [Moles/Vol] 23 mmol/L Normal 22 - 30 mmol/L [facility]; [facility] Work Phone: Creatinine [Mass/Vol] 0.85 mg/dL Normal 0.58 - 0.96 mg/dL [facility]; [place] [employer] [facility] Work Phone: Glucose [Mass/Vol] 98 mg/dL Normal 74 - 99 mg/dL [facility]; [place] [employer] Work Phone: Potassium [Moles/Vol] 3.7 mmol/L Normal 3.7 - 5.1 mmol/L [facility]; [place] [employer] [facility] Work Phone: Protein [Mass/Vol] 7.0 g/dL Normal 6.3 - 8.0 g/dL [facility].; [place] [employer] [facility]. Work Phone: Sodium [Moles/Vol] 140 mmol/L Normal 136 - 144 mmol/L [facility].; [place] [employer] [facility]. Work Phone: Urea nitrogen [Mass/Vol] 12 mg/dL Normal 7 - 21 mg/dL [facility].; [place] [employer]. Work Phone: Laboratory - Hematology and Cell countson 10-21-2021 Basophils (Bld) [#/Vol] 0.10 {3/UL} Normal 0.00 - 0.10 {3/UL} [facility]; [facility] Work Phone: Basophils/100 WBC (Bld) 1.1 % Normal 0.0 - 2.0 % [facility]; [facility] Work Phone: CBC W Auto Differential panel (Bld) CBC + DIFF Normal [facility]; [facility] Work Phone: Eosinophils (Bld) [#/Vol] 0.10 {3/UL} Normal 0.00 - 0.50 {3/UL} [facility]; [facility] Work Phone: Eosinophils/100 WBC (Bld) 1.5 % Normal 0.0 - 7.0 % [facility]; [facility] Work Phone: Erythrocyte distribution width (RBC) [Ratio] 12.9 % Normal 12.0 - 15.6 % [facility]; [place] [employer] Work Phone: Hematocrit (Bld) [Volume fraction] 40.8 % Normal 34.0 - 46.0 % [facility]; [place] [employer] [facility] Work Phone: Hemoglobin (Bld) [Mass/Vol] 13.6 g/dL Normal 12.0 - 16.0 g/dL [facility]; [place] [employer] [facility] Work Phone: Lymphocytes (Bld) [#/Vol] 1.30 {3/UL} Normal 0.80 - 2.80 {3/UL} [facility]; [place] [employer] [facility] Work Phone: Lymphocytes/100 WBC (Bld) 20.9 % Normal 20.0 - 45.0 % [facility]; [place] [employer] [facility] Work Phone: MCH (RBC) [Entitic mass] 30 pg Normal 27 - 33 pg [facility]; [facility] Work Phone: MCHC (RBC) [Mass/Vol] 33 {X10_3} Normal 32 - 3 6 {X10_3} [facility]; [facility] Work Phone: MCV (RBC) [Entitic vol] 90 fL Normal 80 - 99 fL H [facility]; [facility] Work Phone: Monocytes (Bld) [#/Vol] 0.40 {3/UL} Normal 0.20 - 1.00 {3/UL} [facility]; [facility], [facility] Work Phone: [phone] Monocytes/100 WBC (Bld) 6.4 % Normal 0.0 - 10.0 % [facility]; [place] [employer]. Work Phone: Morphology Cristóbal (Bld) [Interp] N/A Normal [facility]; [place] [employer]. Work Phone: Neutrophils (Bld) [#/Vol] 4.30 {3/UL} Normal 1.50 - 7.10 {3/UL} [facility]; [place] [employer] Work Phone: Neutrophils/100 WBC (Bld) 70.1 % Normal 46.0 - 76.0 % [facility]; [place] [employer] Work Phone: Platelet mean volume (Bld) [Entitic vol] 8.8 fL Normal 6.6 - 10.5 fL [facility]; [place] [employer] Work Phone: Platelets (Bld) [#/Vol] 232 {3/UL} Normal 150 - 450 {3/UL} [facility].; [place] [employer] Work Phone: [phone] RBC (Bld) [#/Vol] 4.54 {6/UL} Normal 4.10 - 5.30 {6/UL} [place] [employer].; [id number]. Work Phone: WBC (Bld) [#/Vol] 6.1 {3/UL} Normal 4.5 - 10.8 {3/UL} [facility] [employer].; [employer]. Work Phone: No Panel Informationon 10-21 Estimated GlomerularFiltration Rate 89 {mL/min/1.m???} Normal [facility].; [employer]. Work Phone: MANUAL DIFF N/A Normal [place] [employer].; [employer]. Work Phone: Laboratory - Chemistry and C hemistry - challengeon 01-29-2020 Albumin [Mass/Vol] 4.4 g/dL Normal 3.6 - 5.1 g/dL [facility] [employer].; [employer]. Albumin/Globulin [Mass ratio] 1.6 {ratio} Normal 1.0 - 2.5 [place] [employer].; [id number]. ALP [Catalytic activity/Vol] 51 U/L Normal 31 - 125 U/L [place] [employer].; [id number]. ALT [Catalytic activity/Vol] 22 U/L Normal 6 - 29 U/L [place] [employer].; [id number]. AST [Catalytic activity/Vol] 20 U/L Normal 10 - 30 U/L [place] [employer].; [employer]. Bilirubin [Mass/Vol] 0.4 mg/dL Normal 0.2 - 1 .2 mg/dL [place] [employer].; [employer]. Calcium [Mass/Vol] 9.2 mg/dL Normal 8.6 - 10. 2 mg/dL [place] [employer].; [employer]. Chloride [Moles/Vol] 106 mmol/L Normal 98 - 11 0 mmol/L [place] [employer].; [employer]. Cholesterol [Mass/Vol] 147 mg/dL Normal [facility].; [facility], [facility]. Cholesterol in HDL [Mass/Vol] 45 mg/dL Abnormal [facility] WomenR[facility].; [facility], [facility]. Cholesterol in LDL [Mass/Vol] 83 mg/dL Normal [facility].; [place] [employer], [facility] CO2 [Moles/Vol] 25 mmol/L Normal 20 - 32 mmol/L [facility].; [place] [employer], [facility]. Creatinine [Mass/Vol] 0.89 mg/dL Normal 0.50 - 1.10 mg/dL [facility].; [place] [employer] [facility], [facility]. GFR/1.73 sq M.predicted among blacks MDRD (S/P/Bld) [Vol rate/Area] 95 mL/min/{1.73_m2} Normal [facility].; [place] [employer], [employer]. Glucose [Mass/Vol] 94 mg/dL Normal 65 - 99 mg/dL [facility].; [place] [employer], [facility]. Potassium [Moles/Vol] 4.0 mmol/L Normal 3.5 - 5.3 mmol/L [facility].; [place] [employer], [employer]. Protein [Mass/Vol] 7.1 g/dL Normal 6.1 - 8.1 g/dL [place] [employer] [facility].; [employer], [employer]. Sodium [Moles/Vol] 140 mmol/L Normal 135 - 146 mmol/L [facility], [facility].; [employer], [employer]. Triglyceride [Mass/Vol] 97 mg/dL Normal [facility].; [employer], [employer]. Urea nitrogen [Mass/Vol] 16 mg/dL Normal 7 - 25 mg/dL [facility].; [employer], [employer] No Panel Informationon 01-28 BUN/CREATININE RATIO NOT APPLICABLE Normal 6 - 22 [facility].; [employer] CHOL/HDLC RATIO 3.3 Normal [facility].; [employer] eGFR NON-AFR. HONDURAN 82 Normal [facility].; [place] [employer]. GLOBULIN 2.7 Normal 1.9 - 3.7 [facility]; [facility] NON HDL CHOLESTEROL 102 Normal [facility]; [facility] VITAMIN D,25-OH,TOTAL,IA 58 ng/mL Normal 30 - 100 ng/mL [facility]; [place] [employer] [facility] C3 Complementon 06-20-2019 C3 Complement 117 mg/dL Normal 86-166 [facility] Reference Lab Comment on above: Performed By: #### C 3COMP, C4COMP #### [facility] Laboratories Routine Lab [address], [place] [id number] C4 Complementon 06-20-2019 C4 Complement 29 mg/dL Normal 13-46 [facility] Reference [facility] Comment on above: Performed By: #### C 3COMP, C4COMP #### [facility] Routine Lab [address] [place], [place] [address] Laboratory - Microbiology an d Antimicrobial susceptibilityon 04-05-2019 FLUAV Ag IA Ql (Throat) Negative Normal H [facility]; [facility] Laboratory - Cytologyon 06-23 Microscopic observation Cyto stain Nom (Cvx) SEE NOTE Normal [facility]; [facility] Laboratory - Chemistry and C hemistry - challengeon 06-28-2017 Albumin [Mass/Vol] 4.4 g/dL Normal 3.4 - 4.8 g/dL [facility]; [place] [employer] [facility] Work Phone: Albumin [Mass/Vol] 1.5 g/dL Normal 0.9 - 1.6 [facility]; [place] [employer] [facility] Work Phone: ALP [Catalytic activity/Vol] 38 U/L Normal 38 - 126 U/L [facility]; [place] [employer] [facility] Work Phone: ALT [Catalytic activity/Vol] 30 U/L Normal 8 - 35 U/L [facility]; [place] [employer] Work Phone: Anion gap [Moles/Vol] 8 mmol/L Abnormal 10 - 2 0 mmol/L [facility]; [facility] Work Phone: AST [Catalytic activity/Vol] 23 U/L Normal 13 - 39 U/L [facility]; [facility] Work Phone: Bilirubin [Mass/Vol] 0.4 mg/dL Normal 0.0 - 1 .5 mg/dL [facility]; [facility] Work Phone: Calcium [Mass/Vol] 9.4 mg/dL Normal 8.6 - 10. 2 mg/dL [facility]; [facility] Work Phone: Chloride [Moles/Vol] 103 mmol/L Normal 98 - 10 7 mmol/L [facility]; [facility] Work Phone: CO2 [Moles/Vol] 30.9 mmol/L Normal 21.0 - 31.0 mmol/L [facility]; [facility] Work Phone: Comprehensive metabolic 2000 panel CMP with eGFR Normal [facility]; [place] [employer] [facility] Work Phone: Creatinine [Mass/Vol] 0.8 mg/dL Normal 0.6 - 1.2 mg/dL [facility]; [place] [employer] [facility] Work Phone: GFR/1.73 sq M.predicted among blacks MDRD (S/P/Bld) [Vol rate/Area] mL/min/{1.73_m2} Normal 60 - 999 {ML/MINUTE } [facility]; [facility] Work Phone: GFR/1.73 sq M.predicted MDRD (S/P/Bld) [Vol rate/Area] mL/min/{1.73_m2} Normal 60 - 999 {ML/MINUTE } [facility]; [employer]. Work Phone: Globulin (S) [Mass/Vol] 3.0 g/dL Normal 1.5 - 3.8 g/dL [facility]; [place] [employer] Work Phone: Glucose [Mass/Vol] 77 mg/dL Normal 74 - 106 mg/dL [facility].; [place] [employer] Work Phone: Potassium [Moles/Vol] 3.9 mmol/L Normal 3.5 - 5.1 mmol/L [facility] [employer] [facility].; [employer] Work Phone: Protein [Mass/Vol] 7.4 g/dL Normal 6.4 - 8.3 g/dL [facility].; [employer] Work Phone: Sodium [Moles/Vol] 138 mmol/L Normal 136 - 145 mmol/L [facility]; [employer] Work Phone: Urea nitrogen [Mass/Vol] 13 mg/dL Normal 6 - 20 mg/dL [place] [employer]; [employer] Work Phone: Urea nitrogen/Creatinine [Mass ratio] 16 {ratio} Normal 0 - 30 {ratio} [facility].; [employer] Work Phone: Laboratory - Hematology and Cell countson 06-28-2017 Basophils (Bld) [#/Vol] 0.10 {3/UL} Normal 0.00 - 0.10 {3/UL} [place] [employer] [facility].; [employer]. Work Phone: Basophils/100 WBC (Bld) 0.9 % Normal 0.0 - 2.0 % [facility].; [employer] Work Phone: CBC W Auto Differential panel (Bld) CBC Normal [facility] [employer]; [employer]. Work Phone: Eosinophils (Bld) [#/Vol] 0.10 {3/UL} Normal 0.00 - 0.50 {3/UL} [facility]; [facility] Work Phone: Eosinophils/100 WBC (Bld) 1.0 % Normal 0.0 - 7.0 % [facility]; [facility] Work Phone: Erythrocyte distribution width (RBC) [Ratio] 12.1 % Normal 12.0 - 15.6 % [facility]; [facility] Work Phone: Hematocrit (Bld) [Volume fraction] 39.3 % Normal 34.0 - 46.0 % [facility]; [facility] Work Phone: Hemoglobin (Bld) [Mass/Vol] 13.4 g/dL Normal 12.0 - 16.0 g/dL [facility]; [facility] Work Phone: Lymphocytes (Bld) [#/Vol] 1.90 {3/UL} Normal 0.80 - 2.80 {3/UL} [facility]; [facility] Work Phone: Lymphocytes/100 WBC (Bld) 25.8 % Normal 20.0 - 45.0 % [facility]; [place] [employer] [facility] Work Phone: MCH (RBC) [Entitic mass] 30 pg Normal 27 - 33 pg [facility]; [place] [employer] Work Phone: MCHC (RBC) [Mass/Vol] 34 {X10_3} Normal 32 - 3 6 {X10_3} [facility]; [place] [employer] [facility] Work Phone: MCV (RBC) [Entitic vol] 88 fL Normal 80 - 99 fL H [facility]; [facility] WomenR[facility] Inc[employer] Work Phone: Monocytes (Bld) [#/Vol] 0.70 {3/UL} Normal 0.20 - 1.00 {3/UL} [place] [employer].; [place] [employer]. Work Phone: Monocytes/100 WBC (Bld) 9.1 % Normal 0.0 - 10.0 % [place] [employer].; [employer]. Work Phone: Morphology Cristóbal (Bld) [Interp] N/A Normal [place] [employer].; [employer]. Work Phone: Neutrophils (Bld) [#/Vol] 4.70 {3/UL} Normal 1.50 - 7.10 {3/UL} [place] [employer].; [employer], [employer]. Work Phone: Neutrophils/100 WBC (Bld) 63.2 % Normal 46.0 - 76.0 % [place] [employer].; [employer]. Work Phone: Platelet mean volume (Bld) [Entitic vol] 9.2 fL Normal 6.6 - 10.5 fL [place] [employer].; [employer]. Work Phone: Platelets (Bld) [#/Vol] 236 {3/UL} Normal 150 - 450 {3/UL} [employer].; [employer]. Work Phone: RBC (Bld) [#/Vol] 4.48 {6/UL} Normal 4.10 - 5.30 {6/UL} [employer].; [employer]. Work Phone: WBC (Bld) [#/Vol] 7.5 {3/UL} Normal 4.5 - 10.8 {3/UL} [employer].; [employer]. Work Phone: No Panel Informationon 02-06 -2018 AGE 37 {years} Normal [employer].; [employer]. Work Phone: MANUAL DIFF N/A Normal [employer]; [employer]. Work Phone: Laboratory - Chemistry and C hemistry - challengeon 03-30-2017 Bilirubin Ql (U) Negative Normal [employer]; [employer] Ketones Ql (U) Negative Normal [employer]; [employer]. pH (U) 7.0 [pH] Normal [employer]; [employer]. Specific gravity (U) [Rel density] 1.025 Normal [employer]; [employer] Urobilinogen Qn (U) 0.2 mg/dL Normal [employer]; [employer]. Laboratory - Hematology and Cell countson 03-30-2017 Hemoglobin Ql (U) moderate Abnormal [employer]; [employer]. Laboratory - Specimen inform ationon 03-30-2017 Appearance (U) cloudy Abnormal [employer]; [employer] Color (U) yellow Normal [employer]; [employer]. Laboratory - Urinalysison Glucose Test strip (U) [Mass/Vol] Negative Normal [employer]; [employer]. Leukocyte esterase Test strip Ql (U) small Abnormal [employer]; [employer]. Nitrite Ql (U) Negative Normal [employer]; [employer] Protein Ql (U) trace Normal [employer]; [employer]. Laboratory - Chemistry and C hemistry - challengeon 08-06-2016 25-hydroxyvitamin D3 [Mass/Vol] 28 ng/mL Abnormal 30 - 100 ng/mL [employer].; [employer]. Cholesterol [Mass/Vol] 152 mg/dL Normal 125 - 200 mg/dL [employer]; [employer]. Cholesterol in HDL [Mass/Vol] 42 mg/dL Abnormal [facility].; [place] [employer] [facility] MemorialR[facility]. Cholesterol in LDL [Mass/Vol] 84 mg/dL Normal [facility]; [place] [employer] [facility] MemorialR[facility]. Cholesterol non HDL [Mass/Vol] 110 mg/dL Normal [facility].; [place] [employer] [facility] MemorialR[facility]. Cholesterol.total/Choles terol in HDL [Mass ratio] 3.6 {ratio} Normal [facility].; [place] [employer] [facility] MemorialR[facility]. Cobalamin (Vitamin B12) [Mass/Vol] 504 pg/mL Normal 200 - 1100 pg/mL [facility].; [place] [employer] [facility]. Triglyceride [Mass/Vol] 131 mg/dL Normal [facility].; [place] [employer] [facility] MemorialR[facility]. TSH Qn 2.75 m[IU]/L Normal 0.40 - 4.50 {mIU/L} [facility].; [place] [employer] Laboratory - Microbiology an d Antimicrobial susceptibilityon 06-25-2016 S. pyogenes Ag EIA Ql (Throat) Positive Abnormal [facility].; [employer]. Laboratory - Chemistry and C hemistry - challengeon 12-11-2013 Bilirubin Ql (U) Negative Normal [facility]; [employer]. Ketones Ql (U) Negative Normal [facility].; [employer] [facility]. pH (U) 6.5 [pH] Normal [facility].; [employer]. Specific gravity (U) [Rel density] 1.010 Normal [facility]; [employer] Urobilinogen Qn (U) 0.2 mg/dL Normal [facility].; [employer]. Laboratory - Hematology and Cell countson 12-11-2013 Hemoglobin Ql (U) large Abnormal [place] [employer] [facility] MemorialR[facility].; [place] [employer] [facility]. Laboratory - Specimen inform ationon 12-11-2013 Appearance (U) Cloudy Abnormal [place] [employer] [facility] MemorialR[facility].; [employer] Color (U) yellow Normal [place] [employer] [facility] MemorialR[facility].; [employer]. Laboratory - Urinalysison Glucose Test strip (U) [Mass/Vol] Negative Normal [employer].; [employer]. Leukocyte esterase Test strip Ql (U) moderate Abnormal [employer].; [employer]. Nitrite Ql (U) Negative Normal [employer].; [employer]. Protein Ql (U) m Normal [employer].; [employer]. Laboratory - Microbiology an d Antimicrobial susceptibilityon 03-28-2013 FLUAV Ag IA Ql (Throat) Negative Normal [facility] [employer].; [employer]. S. pyogenes Ag EIA Ql (Throat) Negative Normal [employer].; [employer]. Laboratory - Cytologyon 01-21 Microscopic observation Cyto stain Nom (Cvx) SEE NOTE Normal [employer].; [employer]. Laboratory - Chemistry and C hemistry - challengeon 02-03-2013 Bilirubin Ql (U) Negative Normal [employer]; [employer]. Ketones Ql (U) Negative Normal [employer].; [employer]. pH (U) 5.5 [pH] Normal [employer].; [employer]. Specific gravity (U) [Rel density] >1.030 Normal [employer].; [employer]. Laboratory - Hematology and Cell countson 02-03-2013 Hemoglobin Ql (U) moderate Abnormal [employer].; [employer]. Laboratory - Specimen inform ationon 02-03-2013 Appearance (U) cloudy Abnormal [employer].; [employer]. Color (U) dark Yellow Normal [employer].; [employer]. Laboratory - Urinalysison Glucose Test strip (U) [Mass/Vol] Negative Normal [employer].; [employer]. Leukocyte esterase Test strip Ql (U) large Abnormal [employer].; [employer]. Nitrite Ql (U) Negative Normal [employer].; [employer]. Protein Ql (U) 100 Normal [email or web address] [facility]; [employer] No Panel Informationon 02-03 UA - UROBILINOGEN 0.2 mg/dL Normal [place] [employer]; [employer] Laboratory - Chemistry and C hemistry - challengeon 06-17-2012 Bilirubin Ql (U) Negative Normal [facility].; [employer] Ketones Ql (U) Negative Normal [place] [employer] [facility] MemorialR[facility]; [employer] pH (U) 7.0 [pH] Normal 4.6 - 8.0 [place] [employer]; [employer] Specific gravity (U) [Rel density] 1.020 Normal 1.001 - 1.025 [place] [employer]; [employer] Laboratory - Hematology and Cell countson 06-17-2012 Hemoglobin Ql (U) Abnormal [place] [employer] [facility]; [employer] Laboratory - Microbiology an d Antimicrobial susceptibilityon 06-17-2012 Ampicillin [Susc] 4 Normal [place] [employer]; [employer] Work Phone: Ampicillin+Sulbactam [Susc] <=2 Normal [place] [employer]; [employer] Work Phone: Bacteria identified Cx Nom (Unsp spec) SEE NOTE Abnormal [facility]; [employer] ceFAZolin [Susc] <=4 Normal [place] [employer] [facility] MemorialR[facility]; [employer]. Work Phone: Cefepime [Susc] <=1 Normal [place] [employer] [facility]; [employer] Work Phone: cefTAZidime [Susc] <=1 Normal [place]; [employer] Work Phone: cefTRIAXone [Susc] <=1 Normal [place] [employer]; [employer] Work Phone: Ciprofloxacin [Susc] <=0.25 Normal [facility].; [employer]. Work Phone: Ertapenem [Susc] <=0.5 Normal [facility]; [facility]. Work Phone: Gentamicin [Susc] <=1 Normal [facility]; [facility]. Work Phone: Imipenem [Susc] <=1 Normal [facility].; [facility]. Work Phone: levoFLOXacin [Susc] <=0.12 Normal [facility] HospitalR[facility].; [place] [employer] [facility] MemorialV[facility]. Work Phone: Nitrofurantoin [Susc] <=16 Normal [facility]; [place] [employer] [facility] MemorialR[facility]. Work Phone: Tobramycin [Susc] <=1 Normal [facility]; [place] [employer] [facility] MemorialV[facility]. Work Phone: Trimethoprim+Sulfamethox azole [Susc] <=20 Normal [facility].; [place] [employer] [facility]. Work Phone: Laboratory - Specimen inform ationon 06-17-2012 Appearance (U) clear Normal [facility]; [place] [employer] [facility] MemorialV[facility] Color (U) yellow Normal [facility]; [facility] Specimen source Nom (Unsp spec) URINE-CC Normal [facility]; [place] [employer] [facility] MemorialR[facility] Laboratory - Urinalysison Glucose Test strip (U) [Mass/Vol] Negative Normal [facility].; [place] [employer] [facility] MemorialR[facility] Leukocyte esterase Test strip Ql (U) small Abnormal [facility]; [place] [employer] [facility] MemorialR[facility] Nitrite Ql (U) Negative Normal [facility]; [place] [employer] Protein Ql (U) 30 mg/dL Abnormal [facility]; [place] [employer] [facility] MemorialR[facility] No Panel Informationon 06-17 CEFOXITIN <=4 Normal [facility]; [employer]. Work Phone: No Panel InformationOrdered By: Carisa Guzman on 06-17-2012 UA - UROBILINOGEN 0.2 mg/dL Normal [facility]; [employer] Laboratory - Chemistry and C hemistry - challengeon 03-30-2012 Bilirubin Ql (U) Negative Normal [facility]; [employer] Ketones Ql (U) Negative Normal [facility]; [employer] pH (U) 6.5 [pH] Normal 4.6 - 8.0 [place] [employer]; [employer] Specific gravity (U) [Rel density] >=1.030 Normal 1.001 - 1.025 [facility]; [employer] Laboratory - Hematology and Cell countson 03-30-2012 Hemoglobin Ql (U) Abnormal [place] [employer]; [employer] Laboratory - Microbiology an d Antimicrobial susceptibilityon 03-30-2012 Ampicillin [Susc] 8 Normal [place] [employer]; [employer]. Work Phone: Ampicillin+Sulbactam [Susc] 4 Normal [place] [employer].; [employer]. Work Phone: Bacteria identified # 2 Cx Nom (Unsp spec) SEE NOTE Normal [facility].; [place] [employer] Bacteria identified Cx Nom (Unsp spec) SEE NOTE Abnormal [place] [employer] [facility].; [employer]. ceFAZolin [Susc] <=4 Normal [place] [employer].; [employer]. Work Phone: Cefepime [Susc] <=1 Normal [place] [employer]; [employer]. Work Phone: cefTAZidime [Susc] <=1 Normal [employer]; [employer] Work Phone: cefTRIAXone [Susc] <=1 Normal [facility].; [facility]. Work Phone: Ciprofloxacin [Susc] <=0.25 Normal [facility].; [facility], [facility]. Work Phone: Ertapenem [Susc] <=0.5 Normal [facility], [facility].; [facility], [facility]. Work Phone: Gentamicin [Susc] <=1 Normal [facility], [facility].; [facility], [facility]. Work Phone: Imipenem [Susc] <=1 Normal [facility] WomenR[facility].; [facility], [facility]. Work Phone: levoFLOXacin [Susc] <=0.12 Normal [facility].; [place] [employer] [facility], [facility]. Work Phone: Nitrofurantoin [Susc] <=16 Normal [facility].; [facility], [facility]. Work Phone: Tobramycin [Susc] <=1 Normal [facility].; [facility], [facility]. Work Phone: Trimethoprim+Sulfamethox azole [Susc] <=20 Normal [facility].; [place] [employer] [facility], [employer]. Work Phone: Laboratory - Specimen inform ationon 03-30-2012 Appearance (U) Cloudy Abnormal [facility]; [facility] Color (U) yellow Normal [facility].; [facility] Specimen source Nom (Unsp spec) URINE-VOID Normal [facility]; [facility] Laboratory - Urinalysison Glucose Test strip (U) [Mass/Vol] Negative Normal [facility].; [place] [employer] [facility], [facility]. Leukocyte esterase Test strip Ql (U) Negative Normal [facility] WomenR[facility].; [place] [employer] [facility] MemorialV[facility]. Nitrite Ql (U) Negative Normal [facility] WomenR[facility].; [facility], [employer]. Protein Ql (U) 100 mg/dL Abnormal [facility].; [facility], [facility] No Panel Informationon 03-30 CEFOXITIN <=4 Normal [facility]; [facility], [facility] Work Phone: UA - UROBILINOGEN 0.2 mg/dL Normal [facility], [facility].; [facility], [employer] Vital Signs Date Time Vital Sign Value Performing Clinician Facility 03-26-2025 09:44-0500 Body height 152.4 cm Prachi Salter MD Work Phone: [facility] 03-26-2025 09:44-0500 Body mass index (BMI) [Ratio] 43.36 kg/m2 Prachi Salter MD Work Phone: [facility] 03-26-2025 09:44-0500 Body weight 100.7 kg Prachi Salter MD Work Phone: [facility] 03-26-2025 09:44-0500 Diastolic blood pressure 81 mm[Hg] Prachi Salter MD Work Phone: [facility] 03-26-2025 09:44-0500 Heart rate 90 /min Prachi Salter MD Work Phone: [facility] 03-26-2025 09:44-0500 Systolic blood pressure 128 mm[Hg] Prachi Salter MD Work Phone: [facility] 01-22-2025 05:32-0400 Body mass index (BMI) [Ratio] 39.8 kg/m2 Lexi HERBERT Work Phone: [facility] 01-22-2025 05:32-0400 Body temperature 97.2 [degF] Lexi HERBERT Work Phone: [facility] 01-22-2025 05:32-0400 Body weight 92.53 kg Lexi HERBERT Work Phone: [facility] 01-22-2025 05:32-0400 Diastolic blood pressure 80 mm[Hg] Lexi Moya PA Work Phone: [facility] 01-22-2025 05:32-0400 Heart rate 72 /min Lexi Moya PA Work Phone: [facility] 01-22-2025 05:32-0400 Respiratory rate 20 /min Lexi Moya PA Work Phone: [facility] 01-22-2025 05:32-0400 SaO2% (BldA) [Mass fraction] 99 % Lexi Moya PA Work Phone: [facility] 01-22-2025 05:32-0400 Systolic blood pressure 118 mm[Hg] Lexi Moya PA Work Phone: [phone] [place] [address] 08-14-2024 14:16-0400 Body height 152.4 cm Lexi Moya PA Work Phone: [phone] [place] [address] 08-14-2024 14:16-0400 Body mass index (BMI) [Ratio] 44.3 kg/m2 Lexi Moya PA Work Phone: [phone](701)[phone] [place] [address] 08-14-2024 14:16-0400 Body weight 102.96 kg Lexi Moya PA Work Phone: [phone] [place] [address] 08-14-2024 14:16-0400 Diastolic blood pressure 84 mm[Hg] Lexi Moya PA Work Phone: [facility] 08-14-2024 14:16-0400 Heart rate 99 /min Lexi Moya PA Work Phone: [facility] 08-14-2024 14:16-0400 SaO2% (BldA) [Mass fraction] 68 % Lexi Moya PA Work Phone: [facility] 08-14-2024 14:16-0400 Systolic blood pressure 129 mm[Hg] Lexi Moya PA Work Phone: [facility] 07-03-2024 11:13-0500 Body height 152.4 cm Hakan Soto MD Work Phone: [facility] 07-03-2024 11:13-0500 Body mass index (BMI) [Ratio] 44.33 kg/m2 Hakan Soto MD Work Phone: [facility] 07-03-2024 11:13-0500 Body weight 102.97 kg Hakan Soto MD Work Phone: [facility] 02-03-2024 13:18-0400 Body height 152.4 cm Genoveva Kuhn [facility] [employer]. 02-03-2024 13:18-0400 Body mass index (BMI) [Ratio] 44.33 kg/m2 Genoveva Chandra Hattie [facility] [employer] 02-03-2024 13:18-0400 Body surface area Derived from formula 1.97 m[address] H[address] [facility] [employer] [facility].; [employer]. 02-03-2024 13:18-0400 Body weight 102.97 kg Genoveva Corazon Hattie [facility] [employer] [facility], [facility].; [employer]. 02-03-2024 13:18-0400 Diastolic blood pressure 79 mm[Hg] Genoveva Kuhn [facility] [employer]. Comment on above: Patient Position: Sitting; Cuff Location : Left Arm; Cuff Size: Standard 02-03-2024 13:18-0400 Heart rate 87 /min Genoveva Kuhn PHARMACY AFFAIRS ASSISTANT [place] [employer] [facility] [employer]. Comment on above: Pattern: Regular 02-03-2024 13:18-0400 Systolic blood pressure 114 mm[Hg] Genoveva Kuhn [facility] [employer] [facility] MemorialRocketship Education Inc.; [employer]. Comment on above: Patient Position: Sitting; Cuff Location : Left Arm; Cuff Size: Standard 11-10-2023 14:39-0400 Body height 152.[address] [facility] [employer] [facility] [employer] 11-10-2023 14:39-0400 Body mass index (BMI) [Ratio] 43.55 kg/m2 Genoveva Kuhn [facility] [place] [facility] 11-10-2023 14:39-0400 Body surface area Derived from formula 1.96 m2 Genoveva Kuhn [facility] [employer] 11-10-2023 14:39-0400 Body weight 101.15 kg Genoveva Kuhn [facility] [employer] 11-10-2023 14:39-0400 Diastolic blood pressure 81 mm[Hg] Genoveva Kuhn [facility] [employer] Comment on above: Patient Position: Sitting; Cuff Location : Left Arm; Cuff Size: Standard 11-10-2023 14:39-0400 Heart rate 76 /min Genoveva Kuhn [facility], [facility].; [employer]. Comment on above: Pattern: Regular 11-10-2023 14:39-0400 Systolic blood pressure 121 mm[Hg] Genoveva Kuhn [facility] [employer]. Comment on above: Patient Position: Sitting; Cuff Location : Left Arm; Cuff Size: Standard 08-11-2023 07:48-0400 Body height 152.4 cm Genoveva Avaloslabach PHARMACY AFFAIRS ASSISTANT [facility].; [employer]. 08-11-2023 07:48-0400 Body mass index (BMI) [Ratio] 44.33 kg/m2 Genoveva Kuhn [facility] [employer] [facility], [facility].; [employer]. 08-11-2023 07:48-0400 Body surface area Derived from formula 1.[address] [facility] [employer] [facility], [facility].; [employer], [employer]. 08-11-2023 07:48-0400 Body weight 102.97 kg Genoveva Roseach PHARMACY AFFAIRS ASSISTANT [place] M[employer]dot [facility], [facility].; [employer]. 08-11-2023 07:48-0400 Diastolic blood pressure 82 mm[Hg] Genoveva Kuhn PHARMACY AFFAIRS ASSISTANT [facility], [facility].; [place] [facility] [facility]. Comment on above: Patient Position: Sitting; Cuff Location : Left Arm; Cuff Size: Standard 08-11-2023 07:48-0400 Heart rate 79 /min Genoveva Roseach [facility] [place] [employer]. Comment on above: Pattern: Regular 08-11-2023 07:48-0400 Systolic blood pressure 117 mm[Hg] Genoveva Roseach PHARMACY AFFAIRS ASSISTANT [facility], [facility].; [place] [employer]. Comment on above: Patient Position: Sitting; Cuff Location : Left Arm; Cuff Size: Standard 02-28-2023 14:27-0400 Body height 152.4 cm Genoveva Chnadra Hattie [facility], [facility].; [place] [employer] [facility] Memorial[facility]. 02-28-2023 14:27-0400 Body mass index (BMI) [Ratio] 44.14 kg/m2 Genoveva Chandra Hattie [facility], [facility].; [facility], [facility]. 02-28-2023 14:27-0400 Body surface area Derived from formula 1.97 m2 Genoveva Avaloslabach [facility], [facility].; [place] [employer] [facility], [facility]. 02-28-2023 14:27-0400 Body weight 102.51 kg Genoveva Avaloslabach [facility], [facility].; [place] [employer], [employer]. 02-28-2023 14:27-0400 Diastolic blood pressure 85 mm[Hg] Genoveva Roseach PHARMACY AFFAIRS ASSISTANT [facility], [facility].; [employer]. Comment on above: Patient Position: Sitting; Cuff Location : Left Arm; Cuff Size: Standard 02-28-2023 14:27-0400 Heart rate 79 /min Genoveva Roseach PHARMACY AFFAIRS ASSISTANT [facility], [facility].; [employer]. Comment on above: Pattern: Regular 02-28-2023 14:27-0400 Systolic blood pressure 126 mm[Hg] Genoveva Avaloslabach PHARMACY AFFAIRS ASSISTANT [facility], [facility].; [employer]. Comment on above: Patient Position: Sitting; Cuff Location : Left Arm; Cuff Size: Standard 09-16-2022 09:01-0400 Body height 152.4 cm Genoveva Kuhn [facility], [facility].; [place] [employer] [facility], [facility]. 09-16-2022 09:01-0400 Body mass index (BMI) [Ratio] 44.72 kg/m2 Genoveva Kuhn [facility].; [facility], [facility]. 09-16-2022 09:01-0400 Body surface area Derived from formula 1.98 m2 Genoveva Roseach [facility].; [place] [employer] [facility], [facility]. 09-16-2022 09:01-0400 Body weight 103.87 kg Genoveva Kuhn [facility], [facility].; [place] [employer] [facility], [facility]. 09-16-2022 09:01-0400 Diastolic blood pressure 85 mm[Hg] Genoveva Kuhn [facility], [facility].; [employer] Comment on above: Patient Position: Sitting; Cuff Location : Right Arm; Cuff Size: Standard 09-16-2022 09:01-0400 Heart rate 69 /min Genoveva Kuhn [facility].; [employer]. Comment on above: Pattern: Regular 09-16-2022 09:01-0400 Systolic blood pressure 135 mm[Hg] Genoveva Kuhn [facility], [facility].; [employer] Comment on above: Patient Position: Sitting; Cuff Location : Right Arm; Cuff Size: Standard 03-15-2022 08:24-0400 Body height 152.4 cm Genoveva Kuhn [facility], [facility].; [employer] [facility]. 03-15-2022 08:24-0400 Body mass index (BMI) [Ratio] 42.57 kg/m2 Genoveva Kuhn [facility] M[employer]dot [facility], Inc.; [employer], [employer]. 03-15-2022 08:24-0400 Body surface area Derived from formula 1.[address] [facility] M[employer]dot [facility], [facility].; [employer], [employer]. 03-15-2022 08:24-0400 Body weight 98.88 kg Genoveva Kuhn [facility].; [employer] [facility]. 03-15-2022 08:24-0400 Diastolic blood pressure 76 mm[Hg] Genoveva Kuhn [facility].; [employer]. Comment on above: Patient Position: Sitting; Cuff Location : Left Arm; Cuff Size: Standard 03-15-2022 08:24-0400 Heart rate 73 /min Genoveva Kuhn [facility].; [employer]. Comment on above: Pattern: Regular 03-15-2022 08:24-0400 Systolic blood pressure 120 mm[Hg] Genoveva Roseach PHARMACY AFFAIRS ASSISTANT [facility], [facility].; [employer], [employer]. Comment on above: Patient Position: Sitting; Cuff Location : Left Arm; Cuff Size: Standard 04-03-2021 08:23-0500 Body height 152.4 cm Genoveva Avaloslabach [facility] [place] [employer] 04-03-2021 08:23-0500 Body mass index (BMI) [Ratio] 43.75 kg/m2 Genoveva Chandra Hattie [facility], [facility].; [employer], [employer]. 04-03-2021 08:23-0500 Body surface area Derived from formula 1.96 m2 Genoveva M Hattie [facility].; [place] 04-03-2021 08:23-0500 Body weight 101.61 kg Genoveva Kuhn PHARMACY AFFAIRS ASSISTANT [facility], [facility].; [employer], [employer]. 04-03-2021 08:23-0500 Diastolic blood pressure 85 mm[Hg] Genoveva Kuhn PHARMACY AFFAIRS ASSISTANT [facility], [facility].; [employer], [employer]. Comment on above: Patient Position: Sitting; Cuff Location : Left Arm; Cuff Size: Standard 04-03-2021 08:23-0500 Heart rate 80 /min Genoveva Kuhn PHARMACY AFFAIRS ASSISTANT [facility], [facility].; [employer]. Comment on above: Pattern: Regular 04-03-2021 08:23-0500 Systolic blood pressure 121 mm[Hg] Genoveva Kuhn PHARMACY AFFAIRS ASSISTANT [facility].; [employer] [facility]. Comment on above: Patient Position: Sitting; Cuff Location : Left Arm; Cuff Size: Standard 03-27-2020 08:45-0500 Body height 152.4 cm Genoveva Kuhn PHARMACY AFFAIRS ASSISTANT [facility], [facility].; [place] [employer] 03-27-2020 08:45-0500 Body mass index (BMI) [Ratio] 43.75 kg/m2 Genoveva Roseach PHARMACY AFFAIRS ASSISTANT [facility], [facility].; [place] [employer] [facility] 03-27-2020 08:45-0500 Body surface area Derived from formula 1.96 m2 Genoveva Avaloslabach [facility] [place] [employer] [facility], [facility]. 03-27-2020 08:45-0500 Body weight 101.61 kg Genoveva Roseach [facility], [facility].; [employer] 03-27-2020 08:45-0500 Diastolic blood pressure 83 mm[Hg] Genoveva Roseach [facility].; [employer]. Comment on above: Patient Position: Sitting; Cuff Location : Left Arm; Cuff Size: Standard 03-27-2020 08:45-0500 Heart rate 90 /min Genoveva Kuhn [facility], [facility].; [employer] Comment on above: Pattern: Regular 03-27-2020 08:45-0500 Systolic blood pressure 126 mm[Hg] Genoveva Kuhn PHARMACY AFFAIRS ASSISTANT [facility], [facility].; [employer], [employer]. Comment on above: Patient Position: Sitting; Cuff Location : Left Arm; Cuff Size: Standard 02-11-2020 13:26-0400 Body height 152.4 cm Genoveva Roseach PHARMACY AFFAIRS ASSISTANT [facility], [facility].; [place] [employer], [employer]. 02-11-2020 13:26-0400 Body mass index (BMI) [Ratio] 43.16 kg/m2 Genoveva Roseach PHARMACY AFFAIRS ASSISTANT [facility], [facility].; [place] [employer], [employer] 02-11-2020 13:26-0400 Body surface area Derived from formula 1.95 m2 Genoveva Roseach [facility], [facility].; [email or web address] 02-11-2020 13:26-0400 Body weight 100.25 [address] H[address] [facility] M[employer]dot [facility], [facility].; [employer]. 02-11-2020 13:26-0400 Diastolic blood pressure 75 mm[Hg] Genoveva Chandra Hattie ALEXANDER [place] M[employer] [facility], [facility].; [email or web address] Comment on above: Patient Position: Sitting; Cuff Location : Left Arm; Cuff Size: Standard 02-11-2020 13:26-0400 Heart rate 87 /min [facility] M[facility].; [email or web address]. Comment on above: Pattern: Regular 02-11-2020 13:26-0400 Systolic blood pressure 110 mm[Hg] Genoveva Chandra Hattie [facility] M[employer]dot [facility], [facility].; [employer]. Comment on above: Patient Position: Sitting; Cuff Location : Left Arm; Cuff Size: Standard 04-05-2019 09:35-0500 Body height 152.4 cm Elida Cano LPN [place] M[employer] [facility], [facility].; [employer]. 04-05-2019 09:35-0500 Body mass index (BMI) [Ratio] 40.82 kg/m2 [facility] M[facility]dot [facility], [facility].; [employer] 04-05-2019 09:35-0500 Body surface area Derived from formula 1.9 m2 Elida Cano LPN [place] [employer] [facility], [facility].; [employer]. 04-05-2019 09:35-0500 Body temperature 98.5 [degF] [facility] [employer], [employer]. Comment on above: Method: Tympanic 04-05-2019 09:35-0500 Body weight 94.8 kg Elida Cano LPN [place] [employer], [employer].; [email or web address] 04-05-2019 09:35-0500 Diastolic blood pressure 69 mm[Hg] Elida Cano LPN [place] [employer], [employer].; [employer]. Comment on above: Patient Position: Sitting; Cuff Location : Left Arm; Cuff Size: Standard 04-05-2019 09:35-0500 Heart rate 93 /min Elida Rachael ALEXANDER [employer], Inc.; [employer] Comment on above: Pattern: Regular 04-05-2019 09:35-0500 Inhaled oxygen concentration 20 % Elida Rachael ALEXANDER [place], [employer] Comment on above: Room air 04-05-2019 09:35-0500 Inhaled oxygen concentration 21 % Elida Rachael MOTTAN [employer], [employer].; [employer], [employer]. Comment on above: Room air 04-05-2019 09:35-0500 SaO2% (BldA) [Mass fraction] 98 % Elida Wesheree PHARMACY AFFAIRS ASSISTANT [employer], Inc.; [employer] 04-05-2019 09:35-0500 Systolic blood pressure 108 mm[Hg] Elida Cano LPN [employer], [employer] Comment on above: Patient Position: Sitting; Cuff Location : Left Arm; Cuff Size: Standard 07-06-2018 09:21-0500 Body height 152.4 cm Elida Wesheree ALEXANDER [employer], [employer].; [employer] 07-06-2018 09:21-0500 Body mass index (BMI) [Ratio] 40.87 kg/m2 Elida Wesheree ALEXANDER [employer], [employer].; [employer] 07-06-2018 09:21-0500 Body surface area Derived from formula 1.9 m2 Elida Cano LPN [employer], [employer] 07-06-2018 09:21-0500 Body weight 94.92 kg Elida Wesheree MOTTAN [employer], [employer].; [employer] 07-06-2018 09:21-0500 Diastolic blood pressure 84 mm[Hg] Elida Cano LPN [employer], [employer] Comment on above: Patient Position: Sitting; Cuff Location : Left Arm; Cuff Size: Standard 07-06-2018 09:21-0500 Heart rate 86 /min Elida Cottoascencionsonal BENJAMIN [place] [employer], [employer], [employer]. Comment on above: Pattern: Regular 07-06-2018 09:21-0500 Systolic blood pressure 135 mm[Hg] Elida Cano BENJAMIN [place] [employer], [employer]. Comment on above: Patient Position: Sitting; Cuff Location : Left Arm; Cuff Size: Standard 03-30-2017 14:55-0500 Body height 152.4 cm Elida Cottodeana ALEXANDER [place] M[employer] [facility], [facility].; [employer] 03-30-2017 14:55-0500 Body mass index (BMI) [Ratio] 41.01 kg/m2 Elida Sanchezsheree [facility] [employer] 03-30-2017 14:55-0500 Body surface area Derived from formula 1.91 m2 Elida Sanchezsheree ALEXANDER [place] [employer], [employer] 03-30-2017 14:55-0500 Body temperature 97.7 [degF] Elida [facility]o [facility], Inc.; [employer]. Comment on above: Method: Tympanic 03-30-2017 14:55-0500 Body weight 95.26 kg Elida Reissonal ALEXANDER [place] [employer], [employer] 03-30-2017 14:55-0500 Diastolic blood pressure 82 mm[Hg] Elida Sancehzsheree ALEXANDER [employer], [employer].; [employer]. Comment on above: Patient Position: Sitting; Cuff Location : Left Arm; Cuff Size: Standard 03-30-2017 14:55-0500 Heart rate 94 /min Elida Sanchezsheree ALEXANDER [employer], Inc.; [email or web address] Comment on above: Pattern: Regular 03-30-2017 14:55-0500 Systolic blood pressure 138 mm[Hg] Elida Cottoascencionsonal PHARMACY AFFAIRS ASSISTANT [employer], Inc.; [email or web address]. Comment on above: Patient Position: Sitting; Cuff Location : Left Arm; Cuff Size: Standard 08-06-2016 08:170400 Body height 152.4 cm Lexi García Moya PA-C Work Phone: [employer].; [employer]. 08-06-2016 08:17-0400 Body mass index (BMI) [Ratio] 40.04 kg/m2 Lexi Ricky Moya PA-C Work Phone: [employer].; [employer]. 08-06-2016 08:170400 Body surface area Derived from formula 1.89 m2 Lexi García Moya PA-C Work Phone: [employer].; [employer]. 08-06-2016 08:170400 Body weight 92.99 kg Lexi García Moya PA-C Work Phone: [employer].; [employer]. 08-06-2016 08:170400 Diastolic blood pressure 84 mm[Hg] Lexi Ricky Moya PA-C Work Phone: [employer].; [employer]. Comment on above: Patient Position: Sitting; Cuff Location : Left Arm; Cuff Size: Standard 08-06-2016 08:17-0400 Heart rate 73 /min Lexi García Omya PA-C Work Phone: [employer]; [employer]. Comment on above: Pattern: Regular 08-06-2016 08:17-0400 Systolic blood pressure 112 mm[Hg] Lexi Ricky Moya PA-C Work Phone: [employer].; [employer]. Comment on above: Patient Position: Sitting; Cuff Location : Left Arm; Cuff Size: Standard 06-25-2016 08:17-0500 Body height 156.21 cm Teresa Pablo LPN [email or web address] 06-25-2016 08:170500 Body mass index (BMI) [Ratio] 37.36 kg/m2 Teresa Pablo LPN [employer].; [employer]. 06-25-2016 08:17-0500 Body surface area Derived from formula 1.9 m2 Teresa Pablo LPN [employer].; [employer]. 06-25-2016 08:17-0500 Body temperature 97.8 [degF] Teresarudy Pablo LPN [employer].; [employer]. Comment on above: Method: Tympanic 06-25-2016 08:17-0500 Body weight 91.17 kg Teresa Pablo LPN [employer].; [employer]. 06-25-2016 08:17-0500 Diastolic blood pressure 85 mm[Hg] Teresa Pablo LPN [employer].; [employer]. Comment on above: Patient Position: Sitting; Cuff Location : Left Arm; Cuff Size: Large 06-25-2016 08:17-0500 Heart rate 99 /min Teresa Pablo LPN [employer].; [employer]. Comment on above: Pattern: Regular 06-25-2016 08:17-0500 Systolic blood pressure 127 mm[Hg] Teresa Pablo LPN [employer].; [employer]. Comment on above: Patient Position: Sitting; Cuff Location : Left Arm; Cuff Size: Large 12-04-2015 16:31-0400 Body height 156.21 cm Lexi Moya PA-C Work Phone: [employer].; [employer]. 12-04-2015 16:31-0400 Body mass index (BMI) [Ratio] 39.22 kg/m2 Lexi Moya PA-C Work Phone: [employer].; [employer]. 12-04-2015 16:31-0400 Body surface area Derived from formula 1.94 m2 Lexi Moya PA-C Work Phone: [employer].; [employer]. 12-04-2015 16:31-0400 Body temperature 98.6 [degF] Lexi Moya PA-C Work Phone: [employer]; [employer]. Comment on above: Method: Tympanic 12-04-2015 16:31-0400 Body weight 95.71 kg Lexi Moya PA-C Work Phone: [employer]; [employer]. 12-04-2015 16:31-0400 Diastolic blood pressure 75 mm[Hg] Lexi Moya PA-C Work Phone: [employer]; [employer]. Comment on above: Patient Position: Sitting; Cuff Location : Left Arm; Cuff Size: Large 12-04-2015 16:31-0400 Heart rate 82 /min Lexi Moya PA-C Work Phone: [employer]; [employer]. Comment on above: Pattern: Regular 12-04-2015 16:31-0400 Inhaled oxygen concentration 20 % Lexi Moya PA-C Work Phone: [employer]; [employer] Comment on above: Room air 12-04-2015 16:31-0400 Inhaled oxygen concentration 21 % Lexi Moya PA-C Work Phone: [employer]; [employer] Comment on above: Room air 12-04-2015 16:31-0400 SaO2% (BldA) [Mass fraction] 98 % Lexi Moya PA-C Work Phone: [employer]; [employer]. 12-04-2015 16:31-0400 Systolic blood pressure 108 mm[Hg] Lexi Moya PA-C Work Phone: [employer]; [employer] Comment on above: Patient Position: Sitting; Cuff Location : Left Arm; Cuff Size: Large 10-08-2015 15:11-0400 Body temperature 98.1 [degF] Elida Cano LPN [employer]; [facility] Comment on above: Method: Tympanic 10-08-2015 15:11-0400 Body weight 97.07 kg Elida Wesheree ALEXANDER [employer], [employer].; [employer], [employer]. 10-08-2015 15:11-0400 Diastolic blood pressure 82 mm[Hg] Elida Rachael ALEXANDER [employer], [employer], [employer]. Comment on above: Patient Position: Sitting; Cuff Location : Left Arm; Cuff Size: Standard 10-08-2015 15:11-0400 Heart rate 95 /min Elida Rachael ALEXANDER [employer], [employer].; [employer], [employer]. Comment on above: Pattern: Regular 10-08-2015 15:11-0400 Inhaled oxygen concentration 20 % Elidajazmine Cano LPN [employer], [employer].; [employer] Comment on above: Room air 10-08-2015 15:110400 Inhaled oxygen concentration 21 % Elidajazmine Cano LPN [employer], [employer].; [employer]. Comment on above: Room air 10-08-2015 15:11-0400 SaO2% (BldA) [Mass fraction] 98 % Elida Wesheree PHARMACY AFFAIRS ASSISTANT [employer], [employer].; [employer], [employer]. 10-08-2015 15:11-0400 Systolic blood pressure 117 mm[Hg] Elida Wesheree ALEXANDER [employer], [employer], [employer]. Comment on above: Patient Position: Sitting; Cuff Location : Left Arm; Cuff Size: Standard 07-17-2015 13:59-0500 Body height 156.21 cm Elidajazmine Cano LPN [employer], [employer]. 07-17-2015 13:59-0500 Body mass index (BMI) [Ratio] 39.43 kg/m2 Elida Cano LPN [employer] 07-17-2015 13:59-0500 Body surface area Derived from formula 1.95 m2 Elida Cano PHARMACY AFFAIRS ASSISTANT [employer], [employer].; [employer]. 07-17-2015 13:59-0500 Body temperature 97.9 [degF] Elida Cottoascencionsonal BENJAMIN [place] [employer] [facility], [facility].; [employer], [employer]. Comment on above: Method: Tympanic 07-17-2015 13:59-0500 Body weight 96.22 kg Elida Cano BENJAMIN [facility], [facility] [employer] 07-17-2015 13:59-0500 Diastolic blood pressure 72 mm[Hg] [facility] [employer]. Comment on above: Patient Position: Sitting; Cuff Location : Left Arm; Cuff Size: Standard 07-17-2015 13:59-0500 Heart rate 82 /min Elida Danielsheree [facility] [employer]. Comment on above: Pattern: Regular 07-17-2015 13:59-0500 Inhaled oxygen concentration 20 % Elida Danielsheree [facility] M[employer]dot [facility], Inc.; [employer]. Comment on above: Room air 07-17-2015 13:59-0500 Inhaled oxygen concentration 21 % [facility]ree [facility] M[facility], Inc.; [employer], [employer]. Comment on above: Room air 07-17-2015 13:59-0500 SaO2% (BldA) [Mass fraction] 99 % Elida Wesheree ALEXANDER [place] [employer] [facility], [facility].; [employer] 07-17-2015 13:59-0500 Systolic blood pressure 105 mm[Hg] Elida Wesheree ALEXANDER [place] [employer] [facility], [facility].; [employer]. Comment on above: Patient Position: Sitting; Cuff Location : Left Arm; Cuff Size: Standard 06-19-2014 09:48-0500 Body height 156.21 cm Elida Danielsheree ALEXANDER [place] [employer] [facility], [employer].; [employer]. 06-19-2014 09:48-0500 Body mass index (BMI) [Ratio] 38.66 kg/m2 Elida Rachael ALEXANDER [place] [employer] [facility], Inc.; [employer]. 06-19-2014 09:48-0500 Body surface area Derived from formula 1.93 m2 Elida Sanchezhseree ALEXANDER [place] [employer] [facility], Inc.; [employer] 06-19-2014 09:48-0500 Body temperature 97.7 [degF] [facility]ida Cottodeana [facility] [employer], Inc. Comment on above: Method: Tympanic 06-19-2014 09:48-0500 Body weight 94.35 kg Elida Wes[facility]ree [facility] [employer], [employer] 06-19-2014 09:48-0500 Diastolic blood pressure 71 mm[Hg] Elida Sanchezsheree [facility] M[employer] [facility], [facility].; [employer]. Comment on above: Patient Position: Sitting; Cuff Location : Left Arm; Cuff Size: Standard 06-19-2014 09:48-0500 Heart rate 80 /min Elida Wesheree [facility], [facility].; [employer]. Comment on above: Pattern: Regular 06-19-2014 09:48-0500 Inhaled oxygen concentration 20 % [facility]ree [facility] M[employer] [facility], [facility].; [employer] Comment on above: Room air 06-19-2014 09:48-0500 Inhaled oxygen concentration 21 % Elida Wesheree ALEXANDER [place] M[employer] [facility], [facility].; [employer]. Comment on above: Room air 06-19-2014 09:48-0500 SaO2% (BldA) [Mass fraction] 98 % Elida Wesheree [facility] M.dot [facility], Inc.; [employer] 06-19-2014 09:48-0500 Systolic blood pressure 119 mm[Hg] Elida [facility]ree [facility] M[facility] Memorial[facility].; [employer], [employer]. Comment on above: Patient Position: Sitting; Cuff Location : Left Arm; Cuff Size: Standard 12-11-2013 09:01-0400 Body weight 90.72 kg Lexi Moya PA-C Work Phone: [place] [employer] [facility].; [employer]. 12-11-2013 09:01-0400 Diastolic blood pressure 74 mm[Hg] Lexi Moya PA-C Work Phone: [facility].; [employer]. Comment on above: Patient Position: Sitting; Cuff Location : Left Arm; Cuff Size: Standard 12-11-2013 09:01-0400 Heart rate 77 /min Lexi Solitarioer PA-C Work Phone: [place] [employer]. Comment on above: Pattern: Regular 12-11-2013 09:01-0400 Systolic blood pressure 117 mm[Hg] Lexi Solitarioer PA-C Work Phone: [facility].; [employer]. Comment on above: Patient Position: Sitting; Cuff Location : Left Arm; Cuff Size: Standard 07-02-2013 15:07-0500 Body height 156.21 cm Elida Cano LPN [facility] [place] [employer] 07-02-2013 15:07-0500 Body mass index (BMI) [Ratio] 37.18 kg/m2 Elida [facility] M[facility]dot [facility].; [employer] 07-02-2013 15:07-0500 Body surface area Derived from formula 1.9 m2 Elida Cano LPN [facility], [facility].; [employer] 07-02-2013 15:07-0500 Body temperature 98.9 [degF] Elida Cano [facility] M.dot [facility], [facility].; [employer], [employer]. Comment on above: Method: Tympanic 07-02-2013 15:07-0500 Body weight 90.72 kg Elida Cano LPN [place] M[employer] [facility], [facility].; [employer] 07-02-2013 15:07-0500 Diastolic blood pressure 76 mm[Hg] Elida Cano LPN [place] M[employer] [facility], [facility].; [employer]. Comment on above: Patient Position: Sitting; Cuff Location : Left Arm; Cuff Size: Standard 07-02-2013 15:07-0500 Heart rate 78 /min Elida Cano LPN [facility] [facility].; [place] [employer] [facility]. Comment on above: Pattern: Regular 07-02-2013 15:07-0500 Systolic blood pressure 110 mm[Hg] [facility], [facility].; [place] [employer] [facility]. Comment on above: Patient Position: Sitting; Cuff Location : Left Arm; Cuff Size: Standard 03-28-2013 08:46-0500 Body height 156.21 cm Genoveva M Hattie [facility], [facility].; [place] [employer] [facility]. 03-28-2013 08:46-0500 Body mass index (BMI) [Ratio] 37.73 kg/m2 Genoveva Corazon Hattie [facility] CenterR[facility].; [place] [employer] [facility]. 03-28-2013 08:46-0500 Body surface area Derived from formula 1.91 m2 Genoveva Corazon Hattie [facility], [facility].; [place] [employer] [facility]. 03-28-2013 08:46-0500 Body weight 92.08 kg Genoveva M Hattie [facility] CenterR[facility].; [place] [employer]. 03-28-2013 08:46-0500 Diastolic blood pressure 92 mm[Hg] Genoveva Chandra Hattie [facility] CenterR[facility].; [employer] [facility]. Comment on above: Patient Position: Sitting; Cuff Location : Left Arm; Cuff Size: Standard 03-28-2013 08:46-0500 Heart rate 98 /min Genoveva Kuhn [facility] CenterR[facility].; [employer]. Comment on above: Pattern: Regular 03-28-2013 08:46-0500 Systolic blood pressure 130 mm[Hg] Genoveva Chandra Hattie PHARMACY AFFAIRS ASSISTANT [facility].; [employer]. Comment on above: Patient Position: Sitting; Cuff Location : Left Arm; Cuff Size: Standard 02-08-2013 13:55-0400 Body height 156.21 cm Elida Cano LPN [facility] [employer]. 02-08-2013 13:55-0400 Body mass index (BMI) [Ratio] 38.87 kg/m2 Elida Cano [facility], [facility].; [place] [employer] [facility]. 02-08-2013 13:55-0400 Body surface area Derived from formula 1.94 m2 Elida Wesheree ALEXANDER [facility], [facility].; [place] [employer] [facility] 02-08-2013 13:55-0400 Body weight 94.86 kg [facility]ree [facility], [facility].; [place] Taodyne [facility]. 02-08-2013 13:55-0400 Diastolic blood pressure 71 mm[Hg] Elida Sanchezsheree [facility], [facility].; [employer]. Comment on above: Patient Position: Sitting; Cuff Location : Left Arm; Cuff Size: Standard 02-08-2013 13:55-0400 Heart rate 79 /min Elida Sanchezsheree [facility], [facility].; [employer]. Comment on above: Pattern: Regular 02-08-2013 13:55-0400 Systolic blood pressure 100 mm[Hg] Elida [facility]sheree [facility], [facility].; [employer]. Comment on above: Patient Position: Sitting; Cuff Location : Left Arm; Cuff Size: Standard 02-03-2013 10:31-0400 Body height 156.21 cm Teresa Pablo LPN [facility], [facility].; [employer]. 02-03-2013 10:31-0400 Body mass index (BMI) [Ratio] 38.29 kg/m2 Teresa Pablo LPN [facility] [employer] [facility]. 02-03-2013 10:31-0400 Body surface area Derived from formula 1.92 m2 Teresa Pablo LPN [place] [employer] [facility], [facility].; [employer]. 02-03-2013 10:31-0400 Body temperature 96.8 [degF] Teresa Pablo LPN [place] [employer] [facility], [facility].; [employer]. Comment on above: Method: Tympanic 02-03-2013 10:31-0400 Body weight 93.44 kg Teresa Pablo LPN [place] [employer] [facility] [employer]. 02-03-2013 10:31-0400 Diastolic blood pressure 82 mm[Hg] Teresa Pablo BENJAMIN [place] [employer] [facility].; [employer]. Comment on above: Patient Position: Sitting; Cuff Location : Right Arm; Cuff Size: Standard 02-03-2013 10:31-0400 Heart rate 91 /min Teresa Pablo PHARMACY AFFAIRS ASSISTANT [place] [employer] [facility].; [employer] Comment on above: Pattern: Regular 02-03-2013 10:31-0400 Systolic blood pressure 130 mm[Hg] Teresa Pablo PHARMACY AFFAIRS ASSISTANT [place] [employer] [facility].; [employer], [employer]. Comment on above: Patient Position: Sitting; Cuff Location : Right Arm; Cuff Size: Standard 08-03-2012 13:08-0400 Body height 156.21 cm Elida Cano LPN [place] [employer] [facility].; [employer]. 08-03-2012 13:08-0400 Body mass index (BMI) [Ratio] 39.22 kg/m2 Elida Cano [facility] M.dot [facility].; [employer], [employer]. 08-03-2012 13:08-0400 Body surface area Derived from formula 1.[address] [facility] M.dot [facility], [employer].; [employer], [employer]. 08-03-2012 13:08-0400 Body temperature 99.6 [degF] Elida Danielsheree [facility] M.dot [facility], [facility].; [employer]. Comment on above: Method: Tympanic 08-03-2012 13:08-0400 Body weight 95.71 kg [facility].; [employer], [employer]. 08-03-2012 13:08-0400 Diastolic blood pressure 86 mm[Hg] Elida Cano [facility] Campus[facility], [employer].; [employer]. Comment on above: Patient Position: Sitting; Cuff Location : Left Arm; Cuff Size: Standard 08-03-2012 13:08-0400 Heart rate 76 /min Elida Cano LPN [place] M[employer] [facility], [employer].; [employer]. Comment on above: Pattern: Regular 08-03-2012 13:08-0400 Systolic blood pressure 125 mm[Hg] Elida Cano LPN [place] [employer].; [employer]. Comment on above: Patient Position: Sitting; Cuff Location : Left Arm; Cuff Size: Standard 06-17-2012 11:27-0500 Body height 156.21 cm Carisa Guzman RN [place] [employer].; [employer]. 06-17-2012 11:27-0500 Body mass index (BMI) [Ratio] 39.07 kg/m2 Carisa Guzman RN [place] [employer].; [employer]. 06-17-2012 11:27-0500 Body surface area Derived from formula 1.94 m2 Carisa Guzman RN [place] [employer].; [employer]. 06-17-2012 11:27-0500 Body temperature 98.4 [degF] Carisa Guzman RN [place] [employer].; [employer]. Comment on above: Method: Tympanic 06-17-2012 11:27-0500 Body weight 95.35 kg Carisa Guzman RN [place] [employer].; [employer]. 06-17-2012 11:27-0500 Diastolic blood pressure 83 mm[Hg] Carisa Guzman RN [place] [employer].; [employer]. Comment on above: Patient Position: Sitting; Cuff Location : Left Arm; Cuff Size: Standard 06-17-2012 11:27-0500 Heart rate 80 /min Carisa Guzman RN [place] [employer].; [employer]. Comment on above: Pattern: Regular 06-17-2012 11:27-0500 Systolic blood pressure 115 mm[Hg] Carisa Guzman RN [employer].; [employer]. Comment on above: Patient Position: Sitting; Cuff Location : Left Arm; Cuff Size: Standard 03-30-2012 11:11-0500 Body height 156.46 cm Elida Cano LPN [employer].; [employer]. 03-30-2012 11:11-0500 Body mass index (BMI) [Ratio] 38.54 kg/m2 Elida Cottodeana ALEXANDER [employer] [facility], [employer].; [employer], [employer]. 03-30-2012 11:11-0500 Body surface area Derived from formula 1.93 m2 Elida Cottodeana [facility] M.dot [facility], [facility].; [employer] 03-30-2012 11:11-0500 Body temperature 98.9 [degF] Elida Cottodeana [facility] CampusEnerTech Environmental [facility].; [employer], [employer]. Comment on above: Method: Tympanic 03-30-2012 11:11-0500 Body weight 94.35 kg Elida Cottodeana [facility] CampusEnerTech Environmental [facility], [employer].; [employer]. 03-30-2012 11:11-0500 Diastolic blood pressure 77 mm[Hg] Elida Sanchezsheree [facility] CampusEnerTech Environmental [facility].; [employer]. Comment on above: Patient Position: Sitting; Cuff Location : Left Arm; Cuff Size: Standard 03-30-2012 11:11-0500 Heart rate 95 /min Elida Cottodeana ALEXANDER [employer] [facility].; [employer]. Comment on above: Pattern: Regular 03-30-2012 11:11-0500 Systolic blood pressure 119 mm[Hg] Elida Cano [facility] CampusNineSixFive.; [employer]. Comment on above: Patient Position: Sitting; Cuff Location : Left Arm; Cuff Size: Standard Encounters Encounter Date Encounter Type Care Provider Facility Start: 04-16-2025 [facility] Start: 03-26-2025 End: 03-26-2025 Office outpatient visit 40 minutes Prachi Salter MD Work Phone: [facility] Comment on above: MCTD (mixed connecti ve tissue disease) ([facility]) (Primary Dx); Leg swelling Start: 03-26-2025 End: 03-26-2025 ambulatory PRACHI [facility] Start: 03-15-2025 End: 03-15-2025 ambulatory [facility] Start: 03-15-2025 End: 03-15-2025 ambulatory Lexi Moya Facility:[facility] Start: 01-22-2025 End: 01-22-2025 Patient encounter procedure AVIVA Ayers -[facility] Work Phone: Start: 01-22-2025 End: 01-22-2025 ambulatory Lexi Moya PA Work Phone: [facility] Start: 01-15-2025 End: 01-15-2025 Orders Lexi Moya PA-C Work Phone: [facility] Start: 01-14-2025 End: 01-14-2025 ambulatory LEXI MOYA [facility] Start: 01-10-2025 End: 01-10-2025 ambulatory LEXI MOYA [facility] Start: 10-30-2024 End: 10-30-2024 Patient encounter procedure Raisa WALTERS -[facility] Work Phone: Start: 10-30-2024 End: 10-30-2024 ambulatory Lexi Moya PA Work Phone: [facility] Work Phone: Start: 10-17-2024 End: 10-17-2024 ambulatory Lexi Moya PA Work Phone: [facility] Work Phone: Start: 10-17-2024 End: 10-17-2024 Patient encounter procedure Lexi Moya PA -Ultrasound [facility] Work Phone: Start: 10-17-2024 End: 10-17-2024 ambulatory Bon Cowan Facility:[facility] Start: 09-07-2024 End: 09-07-2024 Patient encounter procedure Raisa WALTERS -[facility] Work Phone: Start: 09-07-2024 End: 09-07-2024 ambulatory Raisa Lui Facility:[facility] Start: 09-07-2024 End: 09-07-2024 ambulatory Raisa Lui Facility:[facility] Start: 08-24-2024 End: 08-24-2024 Orders Lexi Solitarioer PA-C Work Phone: [email or web address] Start: 08-14-2024 End: 08-14-[address] Bon Cowan MD -[facility] Work Phone: Start: 08-14-2024 End: 08-14-2024 ambulatory [facility] Start: 07-06-2024 End: 07-06-2024 Orders Lexi Moya PA-C Work Phone: [email or web address] Start: 07-04-2024 End: 07-04-2024 ambulatory [facility] Start: 07-03-2024 End: 07-03-2024 Subsequent hospital visit by physician Lexie [id number] X-Ray 2 [facility] Comment on above: Finger pain, right Start: 07-03-2024 End: 07-03-2024 Office consultation new/estab patient 40 min Hakan Soto MD Work Phone: [facility] Comment on above: Closed nondisplaced fracture of middle phalanx of right middle finger, initial encounter (Primary Dx); Finger pain, right Start: 07-03-2024 End: 07-03-2024 ambulatory [facility] Start: 07-03-2024 End: 07-03-2024 ambulatory [facility] Start: 07-03-2024 End: 07-03-2024 Office outpatient visit 25 minutes Prachi Salter MD Work Phone: [facility] Comment on above: MCTD (mixed connecti ve tissue disease) (Multi) (Primary Dx); Closed traumatic nondisplaced fracture of middle phalanx of finger with delayed healing Start: 06-13-2024 End: 06-13-2024 Orders Lexi Solitarioer PA-C Work Phone: [email or web address] Start: 06-13-2024 Review Lexi Moya PA-C Work Phone: [email or web address] Start: 06-08-2024 ambulatory [facility] Start: 03-21-2024 End: 03-21-2024 Orders Lexi Solitarioer PA-C Work Phone: [place] [facility] [employer]. Start: 02-03-2024 End: 02-03-2024 Patient encounter procedure Lexi Moya PA-C Work Phone: [place] [facility] [employer].; [employer]. Start: 02-03-2024 End: 02-03-2024 Periodic preventive med est patient 40-64yrs Lexi Solitarioer PA-C Work Phone: [email or web address]. Start: 02-03-2024 Review Lexi Solitarioer PA-C Work Phone: [employer] Start: 01-13-2024 End: 01-13-2024 ambulatory [facility] Start: 01-10-2024 End: 01-10-2024 Office outpatient visit 25 minutes Prachi Salter MD Work Phone: [facility] Comment on above: MCTD (mixed connecti ve tissue disease) (Multi) (Primary Dx) Start: 11-10-2023 End: 11-10-2023 Office outpatient visit 15 minutes Lexi Solitarioer PA-C Work Phone: [email or web address] Start: 09-15-2023 End: 09-15-2023 Orders Lexi Solitarioer PA-C Work Phone: [employer]. Start: 09-07-2023 End: 09-07-2023 Orders Lexi Solitarioer PA-C Work Phone: [employer]. Start: 08-11-2023 Review Lexi Solitarioer PA-C Work Phone: [email or web address] Start: 08-11-2023 End: 08-11-2023 Patient encounter procedure Lexi Solitarioer PA-C Work Phone: [email or web address] Start: 08-03-2023 End: 08-03-2023 Orders Lexi Moya PA-C Work Phone: [employer]. Start: 07-29-2023 End: 07-29-2023 Orders Lexi Moya PA-C Work Phone: [email or web address] Start: 02-28-2023 End: 02-28-2023 Patient encounter procedure Lexi Moya PA-C Work Phone: [employer]. Start: 01-27-2023 End: 01-27-2023 Orders Lexi Moya PA-C Work Phone: [email or web address] Start: 01-06-2023 End: 01-06-2023 Telephone follow-up Lexi Moya PA-C Work Phone: [email or web address] Start: 11-08-2022 End: 11-08-2022 ambulatory [facility] Work Phone: Start: 11-08-2022 End: 11-08-2022 Patient encounter procedure [facility] Start: 11-01-2022 End: 11-01-2022 Orders Lexi Moya PA-C Work Phone: [email or web address] Start: 10-13-2022 End: 10-13-2022 Orders Lexi Moya PA-C Work Phone: [email or web address] Start: 09-16-2022 End: 09-16-2022 Office outpatient visit 15 minutes Lexi Moya PA-C Work Phone: [email or web address] Start: 03-15-2022 End: 03-15-2022 Periodic preventive med est patient 40-64yrs Lexi Solitarioer PA-C Work Phone: [email or web address] Start: 04-03-2021 End: 04-03-2021 Patient encounter procedure Lexi Moya PA-C Work Phone: [email or web address] Start: 03-27-2020 End: 03-27-2020 Patient encounter procedure Lexiharleen Solitarioer PA-C Work Phone: [employer]. Start: 02-11-2020 End: 02-11-2020 Patient encounter procedure Lexi Moya PA-C Work Phone: [employer]. Start: 01-29-2020 End: 01-29-2020 Orders Lexi Moya PA-C Work Phone: [employer]. Start: 12-24-2019 End: 12-24-2019 Orders Lexi Moya PA-C Work Phone: [employer]. Start: 07-13-2019 End: 07-13-2019 Medication Lexi Moya PA-C Work Phone: [employer]. Start: 04-09-2019 End: 04-09-2019 Medication Lexi Moya PA-C Work Phone: [employer]. Start: 04-05-2019 End: 04-05-2019 Medication Lexi Moya PA-C Work Phone: [employer]. Start: 04-05-2019 End: 04-05-2019 Office outpatient visit 15 minutes Lexi Moya PA-C Work Phone: [employer]. Start: 07-13-2018 End: 07-13-2018 Medication Lexi Moya PA-C Work Phone: [employer]. Start: 07-06-2018 End: 07-12-2018 Periodic preventive med est patient 18-39 yrs Lexi Moya PA-C Work Phone: [employer]. Start: 06-05-2018 End: 06-05-2018 Historical Summary Lexi Moya PA-C Work Phone: [email or web address] Start: 03-01-2018 End: 03-01-2018 Medication Lexi Moya PA-C Work Phone: [email or web address] Start: 04-13-2017 End: 04-13-2017 Medication Lexi Moya PA-C Work Phone: [employer]. Start: 03-30-2017 End: 03-31-2017 Office outpatient visit 15 minutes Lexi Moya PA-C Work Phone: [employer]. Start: 08-06-2016 End: 08-06-2016 Patient encounter status Lexi Moya PA-C Work Phone: [employer]. Start: 08-06-2016 End: 08-06-2016 Periodic preventive med est patient 18-39 yrs Lexi Moya PA-C Work Phone: [employer]. Start: 06-25-2016 End: 06-25-2016 Patient encounter procedure Lexi Moya PA-C Work Phone: [employer]. Start: 12-04-2015 End: 12-04-2015 Patient encounter procedure Lexi Moya PA-C Work Phone: [employer]. Start: 10-08-2015 End: 10-08-2015 Patient encounter procedure Lexi Solitarioer PA-C Work Phone: [employer]. Start: 07-25-2015 End: 07-25-2015 Medication Lexi Moya PA-C Work Phone: [employer]. Start: 07-17-2015 End: 07-17-2015 Patient encounter procedure Lexi Moya PA-C Work Phone: [employer]. Start: 06-19-2014 End: 06-19-2014 Patient encounter procedure Lexiharleen Solitarioer PA-C Work Phone: [employer]. Start: 12-11-2013 End: 12-11-2013 Patient encounter procedure Lexiharleen Solitarioer PA-C Work Phone: [email or web address] Start: 07-02-2013 End: 07-02-2013 Patient encounter procedure Lexiharleen Solitarioer PA-C Work Phone: [email or web address] Start: 03-28-2013 End: 03-28-2013 Patient encounter procedure Lexi HERBERT-C [facility] Start: 02-08-2013 End: 02-08-2013 Patient encounter procedure Lexi HERBERT-C Work Phone: [facility] Start: 02-03-2013 End: 02-03-2013 Patient encounter procedure Lexi HERBERT-C Work Phone: [facility] Start: 08-03-2012 End: 08-03-2012 Patient encounter procedure Lexi HERBERT-Natalie Work Phone: [place] [facility] Start: 06-17-2012 End: 06-17-2012 Patient encounter procedure Lexi HERBERT-Natalie Work Phone: [place] [facility] Start: 03-30-2012 End: 03-30-2012 Patient encounter procedure Lexi HERBERT-Natalie Work Phone: [place] [facility] Patient encounter procedure Lexi HERBERT-C Work Phone: [place] [facility].; [employer] [facility] Patient encounter status Elida Sanchezsheree MOTTAN [facility].; [place] [facility] Procedures Date Procedure Procedure Detail Performing Clinician Start: 10-17-2024 US scan of thyroid Sendy HERBERT Work Phone: Start: 09-07-2024 Iadna-dna/rna gi pth gn multiplex probe tq 6-11 Lexi HERBERT Work Phone: Start: 09-07-2024 Nucleic acid assay Sendy HERBERT Work Phone: Start: 09-07-2024 Antibody measurement Me estrellita HERBERT Work Phone: Comment on above: *Additional results available. Contact laboratory/see report*The atypical pANCA pattern has been observed in asignificant percentage of patients with ulcerative colitis,primary sclerosing cholangitis and autoimmune hepatitis.Performed at: [address] [address] [place], [place] [id number] Director: Zay Gutierrez MD, Phone: [phone] at: [facility] [id number] [place], [place] [id number] Director: Juaquin Eason PhD, Phone: [phone] Start: 09-07-2024 Antibody to centrome re measurement Lexi Moya PA Work Phone: Comment on above: Previous reported re sult: TNP AIEdited by: INFCE on 09/14/24:0707 AMENDED REPORT 09/14/24 0707 ANTI-CENT B previously reported as: Test not performed Start: 09-07-2024 Antibody to extracta ble nuclear antigen measurement Lexi Moya PA Work Phone: Comment on above: Previous reported re sult: TNP AIEdited by: INFCE on 09/14/24:0707 AMENDED REPORT 09/14/24 0707 CHANDLER Ab previously reported as: Test not performed Start: 09-07-2024 Antibody to VANIA-1 measurement Lexi Moya PA Work Phone: Comment on above: Previous reported re sult: TNP AIEdited by: INFCE on 09/14/24:0707 AMENDED REPORT 09/14/24 0707 ANTI-VANIA previously reported as: Test not performed Start: 09-07-2024 Antibody to lupus La protein measurement Lexi Moya PA Work Phone: Comment on above: Previous reported re sult: TNP AIEdited by: INFCE on 09/14/24:0707 AMENDED REPORT 09/14/24 0707 Anti-SS-B previously reported as: Test not performed Start: 09-07-2024 Antibody to SS-A measurement Lexi Moya PA Work Phone: Comment on above: Previous reported re sult: TNP AIEdited by: INFCE on 09/14/24:0707 AMENDED REPORT 09/14/24 0707 Anti-SS-A previously reported as: Test not performed Start: 09-07-2024 Autoantibody measurement Lexi Moya PA Work Phone: Comment on above: Previous reported re sult: TNP AIEdited by: MASOUD on 09/14/24:0707 AMENDED REPORT 09/14/24 0707 ANTICHROMATIN previously reported as: Test not performed Start: 09-07-2024 Chocolate RAST Lexi Moya PA Work Phone: Start: 09-07-2024 Food RAST Lexi Herbert lmer PA Work Phone: Start: 09-07-2024 Immunoglobulin M measurement Lexi Solitarioer PA Work Phone: Start: 09-07-2024 Measurement of funga l antibody Lexi Solitarioer PA Work Phone: Comment on above: Negative: <45 Equivo codey: 45-50 Positive: >50 Start: 09-07-2024 C D STILL OPERATOR antibody measurement Lexi Solitarioer PA Work Phone: Comment on above: Previous reported re sult: TNP AIEdited by: MASOUD on 09/14/24:0707 AMENDED REPORT 09/14/24 0707 C D STILL OPERATOR Ab previously reported as: Test not performed Start: 09-07-2024 Shrimp RAST Lexi Herbert lmer PA Work Phone: Start: 08-24-2024 End: 01-15-2025 Screening digital breast tomosynthesis bi Lexi García Moya PA-C Work Phone: Comment on above: Due 12/2024 Start: 08-24-2024 End: 11-12-2024 Us soft tissue head & neck real time imge docm Lexi García Moya PA-C Work Phone: Comment on above: Due around October 06 - please compare with last one done at [facility] Start: 02-03-2024 End: 02-03-2024 Depression screening Lexi García Moya PA-C Work Phone: Start: 02-03-2024 End: 02-03-2024 Scr dep neg, no plan reqd Lexi García Palm er PA-C Work Phone: Start: 01-13-2024 Thyrotropin [Units/volume] in Serum or Plasma Prachi Salter MD Work Phone: Start: 11-10-2023 End: 12-29-2023 Screening digital breast tomosynthesis bi Lexi García Moya PA-C Work Phone: Start: 09-15-2023 End: 10-12-2023 Us soft tissue head & neck real time imge docm Lexi García Moya PA-C Work Phone: Start: 08-11-2023 End: 09-07-2023 Polysom 6/>yrs sleep 4/> addl femi attnd Lexi García Moya PA-C Work Phone: Comment on above: Home Sleep study Start: 08-04-2023 End: 08-04-2023 vit b12 Andra Cole LPN Comment on above: Normal. 404 Start: 08-04-2023 End: 08-04-2023 vit D Andra Cole LPN Comment on above: 63 Start: 07-05-2023 Thyrotropin [Units/volume] in Serum or Plasma Prachi Salter MD Work Phone: Start: 02-28-2023 End: 02-28-2023 Depression screening Lexi García Moya PA-C Work Phone: Start: 02-28-2023 End: 02-28-2023 Scr dep neg, no plan reqd Lexi García Kassi er PA-C Work Phone: Start: 02-10-2023 End: 02-10-2023 Thyrotropin [Units/volume] in Serum or Plasma Genoveva Kuhn LPN Comment on above: Normal. 3.56 Start: 02-10-2023 End: 02-10-2023 vit D Genoveva Kuhn LPN Comment on above: 51.40 Start: 01-27-2023 End: 01-27-2023 Lab findings surveillance Genoveva guardado LPN Comment on above: 84 CMP Start: 01-27-2023 End: 01-27-2023 Lipid panel Genoveva Kuhn LPN Comment on above: TC 150, HDL 51, LDL 80, Trig 93 Start: 11-08-2022 Pelvic echography Start: 11-01-2022 End: 11-10-2022 Us pelvic nonobstetric real-time image complete Lexi García Moya PA-C Work Phone: Start: 10-13-2022 End: 12-30-2022 Screening digital breast tomosynthesis bi Lexi García Moya PA-C Work Phone: Start: 09-16-2022 End: 09-17-2022 Radex ankle complete minimum 3 views Lexi García Moya PA-C Work Phone: Start: 03-15-2022 End: 03-15-2022 Depression screening Lexi Solitarioer PA-C Work Phone: Start: 03-15-2022 End: 03-15-2022 Microscopic examination of cervical Papanicolaou smear Genoveva Kuhn LPN Comment on above: Dr St Start: 03-15-2022 End: 03-15-2022 Scr dep neg, no plan reqd Lexi García Palm er PA-C Work Phone: Start: 03-15-2022 End: 04-16-2024 Screening digital breast tomosynthesis bi Lexi Ricky Solitarioer PA-C Work Phone: Start: 04-03-2021 End: 04-03-2021 Depression screening Lexi García Moya PA-C Work Phone: Start: 04-03-2021 End: 04-03-2021 Scr dep neg, no plan reqd Lexi García Palm er PA-C Work Phone: Start: 04-03-2021 End: 10-21-2021 Screening digital breast tomosynthesis bi Lexi García Moya PA-C Work Phone: Start: 02-11-2020 End: 02-11-2020 Flu immunize order/admin Lexi Ricky Talavera r PA-C Work Phone: Start: 07-06-2018 End: 07-06-2018 Depression screening Lexi SILVERMANC Work Phone: Start: 07-06-2018 End: 07-06-2018 Scr dep neg, no plan reqd Lexi García Kassi vegas PA-C Work Phone: Start: 07-05-2018 End: 07-05-2018 Microscopic examination of cervical Papanicolaou smear Elida Cano LPN Comment on above: Normal. 3 yr Start: 08-06-2016 End: 08-06-2016 vit b12 Genoveva Kuhn PHARMACY AFFAIRS ASSISTANT Comment on above: Normal. 504 Start: 05-23-2007 End: 05-23-2007 Appendectomy Elida Rachael ALEXANDER Comment on above: fairveiw Appendectomy Genoveva White ch PHARMACY AFFAIRS ASSISTANT Appendectomy Lexi SILVERMANC Work Phone: section Genoveva macias PHARMACY AFFAIRS ASSISTANT section Lexi SILVERMANC Work Phone: H/O: section H/O: History of appendectomy History of appendectomy Screening for malign ant neoplasm of large intestine Genoveva Kuhn LPN Comment on above: and endoscopy both d one between 6214-7998 Screening for malign ant neoplasm of large intestine Andra Cole LPN Comment on above: and endoscopy both d one between 9549-6970 tetnus-02/10/2010 Genoveva macias LPN tetnus-02/10/2010 Andra webster LPN Plan of Treatment Date Care Activity Detail Author Start: 2031 Zoster Vaccines (1 of 2) Zoster Vacc camila (1 of 2) [facility] Start: 02-10-2030 DTaP/Tdap/Td Vaccine s (8 - Td or Tdap) DTaP/Tdap/Td Vaccines (8 - Td or Tdap) [facility] Start: 01-12-2027 Diabetes mellitus screening Diabetes Screening [facility] Start: 03-23-2025 Us breast uni real t talat with image limited Breast US, Unilateral Complete, Right (67854) Start: 23-Mar-2025 Intent [facility] Start: 02-03-2025 Yearly Adult Physical Yearly Adult P hysical [facility] Start: 01-21-2025 COVID-19 Vaccine ( season) COVID-19 Vaccine ( season) [facility] Start: 01-12-2025 Thyroid stimulating hormone measurement TSH Level [facility] Start: 12-21-2024 Influenza vaccination Influenza Vacc ine (#1) [facility] Start: 11-20-2024 Assay of thyroid stimulating hormone tsh TSH (THYROID STIMULATING HORMONE) (40926) Start: 20-Nov-2024 Request bop[employer]fm; [employer]. Start: 11-09-2024 Screening for malign ant neoplasm of breast Mammogram [facility] Start: 08-24-2024 Screening digital br east tomosynthesis bi Mammogram 3D (tomosynthesis), bilateral (96671) Start: 24-Aug-2024 Intent Comments: Due 12/2024 [facility]fm; [facility]. Comment on above: Due 12/2024 Start: 08-24-2024 Us soft tissue head & neck real time [facility] Thyroid Ultrasound (00840) Start: 24-Aug-2024 Intent Comments: Due around October 06 - please compare with last one done at [facility] bop[facility]fm; [facility]. Comment on above: Due around October 06 - please compare with last one done at [facility] Start: 07-17-2024 End: 07-17-2024 Patient encounter procedure 07/17/2024 9:40 AM EST Office Visit [facility] [address] [facility] [address] [place] [id number] Hakan Soto MD [address] [place] [address] [facility] Start: 07-05-2024 Thyroid stimulating hormone measurement TSH Level [facility] Start: 07-03-2024 End: 07-03-2025 C reactive protein [Mass/volume] in Serum or Plasma C-Reactive Protein Lab Routine MCTD (mixed connective tissue disease) (Multi) Expected: 07/03/2024 (Approximate), Expires: 07/03/2025 [facility] Work Phone: Comment on above: Expected: 07/03/2024 (Approximate), Expires: 07/03/2025 Start: 07-03-2024 End: 07-03-2025 CBC W Auto Differential panel - Blood CBC and Auto Differential Lab Routine MCTD (mixed connective tissue disease) (Multi) Expected: 07/03/2024 (Approximate), Expires: 07/03/2025 [facility] Work Phone: Comment on above: Expected: 07/03/2024 (Approximate), Expires: 07/03/2025 Start: 07-03-2024 End: 07-03-2025 Complement C3 [Mass/volume] in Serum or Plasma C3 Complement Lab Routine MCTD (mixed connective tissue disease) (Multi) Expected: 07/03/2024 (Approximate), Expires: 07/03/2025 [facility] Service Area Work Phone: Comment on above: Expected: 07/03/2024 (Approximate), Expires: 07/03/2025 Start: 07-03-2024 End: 07-03-2025 Complement C4 [Mass/volume] in Serum or Plasma C4 Complement Lab Routine MCTD (mixed connective tissue disease) (Multi) Expected: 07/03/2024 (Approximate), Expires: 07/03/2025 [facility] Work Phone: Comment on above: Expected: 07/03/2024 (Approximate), Expires: 07/03/2025 Start: 07-03-2024 End: 07-03-2025 Comprehensive metabolic 2000 panel - Serum or Plasma Comprehensive Metabolic Panel Lab Routine MCTD (mixed connective tissue disease) (Multi) Expected: 07/03/2024 (Approximate), Expires: 07/03/2025 [facility] Work Phone: Comment on above: Expected: 07/03/2024 (Approximate), Expires: 07/03/2025 Start: 07-03-2024 End: 07-03-2025 DNA double strand Ab [Units/volume] in Serum Anti-DNA Antibody, Double-Stranded Lab Routine MCTD (mixed connective tissue disease) (Multi) Expected: 07/03/2024 (Approximate), Expires: 07/03/2025 [facility] Work Phone: Comment on above: Expected: 07/03/2024 (Approximate), Expires: 07/03/2025 Start: 07-03-2024 End: 07-03-2025 Protein electrophoresis panel - Serum or Plasma Serum Protein Electrophoresis Lab Routine MCTD (mixed connective tissue disease) (Multi) Expected: 07/03/2024 (Approximate), Expires: 07/03/2025 [facility] Work Phone: Comment on above: Expected: 07/03/2024 (Approximate), Expires: 07/03/2025 Start: 07-03-2024 End: 07-03-2025 Protein, Urine Random Protein, Urine Random Lab Routine MCTD (mixed connective tissue disease) (Multi) Expected: 07/03/2024 (Approximate), Expires: 07/03/2025 [facility] Work Phone: Comment on above: Expected: 07/03/2024 (Approximate), Expires: 07/03/2025 Start: 07-03-2024 End: 07-03-2025 XR Finger - right 2 Views [facility] Service A [place] Work Phone: Comment on above: Expected: 07/03/2024 , Expires: 07/03/2025 Once for 1 Occurrenc es starting 07/03/2024 until 07/03/2024 Start: 03-21-2024 Assay of thyroid stimulating hormone tsh TSH (THYROID STIMULATING HORMONE) ([id number]) Start: 21-Mar-2024 Request [employer] [facility]. Start: 03-16-2024 Assay of thyroid stimulating hormone tsh TSH (THYROID STIMULATING HORMONE) (03557) Start: 16-Mar-2024 Request [employer].; [employer], [employer]. Start: 02-21-2024 Assay of thyroid stimulating hormone tsh TSH W/ REFL FREE T4 (50075,89063) (73594) Start: 21-Feb-2024 Request [employer] [facility].; [facility]. Start: 02-21-2024 Microsomal antibodie s each THYROID ANTIBODY (16852) Start: 21-Feb-2024 Request [employer].; [facility]. Start: 02-03-2024 Patient encounter procedure Medical; PHYSICAL - physical [email or web address]. Start: 03-Feb-2024 13:10-04:00 ROGELIO Moya Appointment Request [facility]. Start: 01-22-2024 COVID-19 Vaccine () COVID-19 Vaccine () [facility] Start: 01-22-2024 Influenza vaccination Influenza Vacc ine (#1) [facility] Start: 11-10-2023 Screening digital br east tomosynthesis bi Mammogram 3D (tomosynthesis), bilateral (90179) Start: 10-Nov-2023 Intent [facility].; [facility]. Start: 10-14-2023 Screening for malign ant neoplasm of breast Mammogram [facility] Start: 09-15-2023 Us soft tissue head & neck real time [facility] Thyroid Ultrasound (65898) Start: 15-Sep-2023 Intent [employer].; [employer] Start: 09-07-2023 Xtrnl ecg & 48 hr re cord scan stor w/r&i 24 Hr Holter (68493) Start: 07-Sep-2023 Intent [employer] [facility].; [facility]. Start: 08-11-2023 Patient encounter procedure Medical; EXTENDED RTN - f/u labs [facility]. Start: 11-Aug-2023 14:40-04:00 ROGELIO Moya Appointment Request [employer] [facility]. Start: 08-11-2023 End: 08-11-2023 Polysom 6/>yrs sleep 4/> addl femi attnd [facility].; [facility]. Comment on above: Home Sleep study Start: 08-04-2023 Nursing evaluation o f patient and report Medical; Nurse visit - BW mjp-SCAN INS [facility]op[facility]fm Start: 04-Aug-2023 09:20-04:00 NURSE, FLOAT Appointment Request [facility]fm Start: 08-03-2023 25 hydroxy includes fractions if performed Vitamin D, 25-Hydroxy, LC/MS/MS (49529) Start: 03-Aug-2023 11:57-04:00 Request bop.fm; [facility]fm Start: 08-03-2023 Cyanocobalamin vitam in b-12 VITAMIN B-12 SERUM (58601) Start: 03-Aug-2023 11:57-04:00 Request bop.fm; bop.fm Start: 08-03-2023 Assay of ferritin FERRITIN (82 728) Start: 03-Aug-2023 11:57-04:00 Request bop.fm; [facility]. Start: 07-29-2023 Allergen spec ige cr ude allergen extract each XRONetCaps Food Allergy Profile Adult ([facility] only) ([id number]) (12940) Start: 29-Jul-2023 08:08-05:00 Request bop.fm; bop.fm Start: 07-29-2023 Immunoassay analyte qual/semiqual multiple step CELIAC DISEASE COMPREHENSIVE PANEL (26670, 07932) (64115) Start: 29-Jul-2023 08:07-05:00 Request bop.fm; [facility]. Start: 02-28-2023 Provider Instruction s for Treatment [facility] HM Issues, 20-39 female Indication: Annual physical exam Start: 28-Feb-2023 Instruction Type: Provider Instructions for Treatment bop[employer]fm; [facility]. Start: 01-21-2023 COVID-19 Vaccine () COVID-19 Vaccine () [facility] Start: 03-15-2022 Provider Instruction s for Treatment KDH HM Issues, 20-39 female Start: 15-Mar-2022 Instruction Type: Provider Instructions for Treatment bop[facility]fm; [facility]fm Start: 03-15-2022 Screening digital br east tomosynthesis bi Mammogram 3D (tomosynthesis), bilateral (63101) Start: 15-Mar-2022 Intent [facility] [employer] Start: 2021 Screening for malign ant neoplasm of breast Mammogram [facility] Start: 04-03-2021 Provider Instruction s for Treatment KDH HM Issues, 20-39 female Indication: Annual physical exam Start: 03-Apr-2021 Instruction Type: Provider Instructions for Treatment [employer] Start: 02-11-2020 Provider Instruction s for Treatment KDH HM Issues, 20-39 female Indication: Annual physical exam Start: 11-Feb-2020 Instruction Type: Provider Instructions for Treatment [employer] Start: 2008 HPV Vaccines (1 - 3- dose standard series) HPV Vaccines (1 - 3-dose standard series) [facility] Start: 2002 Screening for malign ant neoplasm of cervix [facility] Start: 2000 Pneumococcal Vaccine : Pediatrics and At-Risk Adult Patients (1 of 2 - PCV) Pneumococcal Vaccine: Pediatrics and At-Risk Adult Patients (1 of 2 - PCV) [facility] Start: 1999 Diabetes mellitus screening Diabetes Screening [facility] Start: 1994 Varicella vaccination Varicell a Vaccines (1 of 2 - 13+ 2-dose series) [facility] Start: 1982 MMR Vaccines (1 of 1 - Standard series) MMR Vaccines (1 of 1 - Standard series) [facility] Start: 1981 HIV screening HIV Screening [facility] Start: 1981 Lipid panel Lipid Panel [facility] Start: 1981 Yearly Adult Physical Yearly Adult P hysical [facility] End: 01-09-2025 CBC W Auto Differential panel - Blood CBC and Auto Differential Lab Routine MCTD (mixed connective tissue disease) (Multi) Every 6 months for 4 Occurrences starting 01/10/2024 until 01/09/2025 [facility] Work Phone: Comment on above: Every 6 months for 4 Occurrences starting 01/10/2024 until 01/09/2025 End: 01-09-2025 Complement C3 [Mass/volume] in Serum or Plasma C3 Complement Lab Routine MCTD (mixed connective tissue disease) (Multi) Every 6 months for 4 Occurrences starting 01/10/2024 until 01/09/2025 [facility] Service Area Work Phone: Comment on above: Every 6 months for 4 Occurrences starting 01/10/2024 until 01/09/2025 End: 01-09-2025 Complement C4 [Mass/volume] in Serum or Plasma C4 Complement Lab Routine MCTD (mixed connective tissue disease) (Multi) Every 6 months for 4 Occurrences starting 01/10/2024 until 01/09/2025 [facility] Work Phone: Comment on above: Every 6 months for 4 Occurrences starting 01/10/2024 until 01/09/2025 End: 01-09-2025 Comprehensive metabolic 2000 panel - Serum or Plasma Comprehensive Metabolic Panel Lab Routine MCTD (mixed connective tissue disease) (Multi) Every 6 months for 4 Occurrences starting 01/10/2024 until 01/09/2025 [facility] Work Phone: Comment on above: Every 6 months for 4 Occurrences starting 01/10/2024 until 01/09/2025 End: 01-09-2025 DNA double strand Ab [Units/volume] in Serum Anti-DNA Antibody, Double-Stranded Lab Routine MCTD (mixed connective tissue disease) (Multi) Every 6 months for 4 Occurrences starting 01/10/2024 until 01/09/2025 [facility] Work Phone: Comment on above: Every 6 months for 4 Occurrences starting 01/10/2024 until 01/09/2025 End: 01-09-2025 Protein, Urine Random Protein, Urine Random Lab Routine MCTD (mixed connective tissue disease) (Multi) Every 6 months for 4 Occurrences starting 01/10/2024 until 01/09/2025 [facility] Work Phone: Comment on above: Every 6 months for 4 Occurrences starting 01/10/2024 until 01/09/2025 End: 01-09-2025 Thyrotropin [Units/volume] in Serum or Plasma Thyroid Stimulating Hormone Lab Routine MCTD (mixed connective tissue disease) (Multi) Every 6 months for 4 Occurrences starting 01/10/2024 until 01/09/2025 [facility] Work Phone: Comment on above: Every 6 months for 4 Occurrences starting 01/10/2024 until 01/09/2025 Immunizations Immunization Date Immunization Notes Care Provider Tevin montague 03-01-2022 influenza virus vaccine, unspecified formulation Prachi Salter MD Work Phone: [facility] Work Phone: 03-02-2021 influenza, injectabl e, quadrivalent, contains preservative Lexi Moya PA-C Work Phone: bop.fm; [facility]fm 01-10-2021 COVID-Pfizer (30 MCG/0.3 ML) Lexi Moya PA-C Work Phone: bop.fm; bop.fm 12-20-2020 COVID-Pfizer (30 MCG/0.3 ML) Lexi Moya PA-C Work Phone: bop.fm; bop[facility]fm 02-11-2020 TD(adult) unspecifie d formulation Lexi Moya PA-C Work Phone: bop.fm; bop.fm 02-11-2020 influenza, injectabl e, quadrivalent, contains preservative Lexi Moya PA-C Work Phone: bop.fm; [facility]. Comment on above: Site: Left DeltoidVI S Given: * Influenza - Inactivated (12/27/14) 02-11-2020 tetanus and diphther ia toxoids, adsorbed, preservative free, for adult use (2 Lf of tetanus toxoid and 2 Lf of diphtheria toxoid) Lexi Moya PA-C Work Phone: bop.fm; bop.fm Comment on above: Site: Left Deltoid 01-22-2012 influenza, seasonal, injectable Lexi Moya PA-C Work Phone: [facility] 05-23-2010 influenza virus vaccine, unspecified formulation Lexi Moya PA-C Work Phone: [facility] 02-10-2010 tetanus toxoid, redu derick diphtheria toxoid, and acellular pertussis vaccine, adsorbed Lexi Moya PA-C Work Phone: [facility] 09-04-1998 diphtheria, tetanus toxoids and acellular pertussis vaccine, 5 pertussis antigens Lexi Moya PA-C Work Phone: [facility] 05-23-1994 hepatitis B vaccine, adult dosage Lexi Moya PA-C Work Phone: [facility].; [facility] 01-04-1994 hepatitis B vaccine, adult dosage Lexi Moya PA-C Work Phone: [facility].; [facility] 07-06-1993 hepatitis B vaccine, adult dosage Lexi Moya PA-C Work Phone: [facility].; [employer] [facility] Work Phone: 12-24-1983 diphtheria, tetanus toxoids and acellular pertussis vaccine, 5 pertussis antigens Lexi Moya PA-C Work Phone: [facility].; [employer] [facility] 11-30-1982 diphtheria, tetanus toxoids and acellular pertussis vaccine, 5 pertussis antigens Lexi Moya PA-C Work Phone: [employer] [facility] [employer] [facility] 08-04-1982 diphtheria, tetanus toxoids and acellular pertussis vaccine, 5 pertussis antigens Lexi Moya PA-C Work Phone: [facility] 1981 diphtheria, tetanus toxoids and acellular pertussis vaccine, 5 pertussis antigens Lexi Moya PA-C Work Phone: [facility] [employer] [facility] Payers Date Payer Category Payer Unknown [id number] 2024 Self-pay [id number] 2022 Managed Care (Private) [facility] PLAN [id number] 2022 Private Health Insurance [facility] Natalie [facility] PLAN [id number] 2022-Present [facility] [id number] [place] [address] [id number] 2022 Private Health Insurance [facility] [id number] 2015 Unknown [id number] 1981 Unknown [id number] .1245 1981 Unknown [id number] [id number] .1245 1981 Unknown [id number] [id number] .1245 1981 Unknown [id number] [id number] .651 1981 Unknown [id number] [id number] .651 1981 Unknown [id number] [id number] .1244 1981 Unknown [id number] [id number] .1244 1981 Unknown [id number] [id number] .1244 Private Health Insurance [id number] Unknown [employer] Unknown [id number] .462 Unknown [id number] [id number] .462 Unknown [id number] 2.840.1.285441.3.579.2 .462 Unknown [id number] [id number] .462 Unknown [id number] 2.16840.1.887295.3.579.2 .462 Unknown [id number] [id number] .462 Unknown [id number] [id number] .462 Unknown [id number] [id number] .462 Unknown [id number] [id number] .462 Social History Date Type Detail Facility Start: [facility]-05-2022 [facility] Start: 1980 Sex Assigned At Female W [facility] Alcohol Use: Alcohol Use: ; D rinks wine. [facility] Start: 07-05-2023 End: 07-03-2024 Caffeine Use Caffeine Use [facility]. Current Work/Study Status: Current Work/Study Status: ; Full-time. [employer]; [employer]. Marital status: Marital status: ; Single. [facility].; [facility]. Tobacco Use: Tobacco Use: ; N ever smoker. [facility].; [facility]. Single [employer]; [employer]. Work Phone: Drinks wine [employer]; [facility]. Work Phone: Full-time [employer]; [employer]. Work Phone: Start: 07-05-2023 End: 10-30-2024 Never smoked tobacco [facility] Start: 07-05-2023 Tobacco use and exposure Smokeless tobacco non-user [facility] Work Phone: Start: 07-05-2023 End: 07-03-2024 Alcoholic beverage intake Lifetime non-drinker (finding) [facility] Work Phone: Start: 07-05-2023 End: 07-03-2024 Tobacco use panel [facility] Work Phone: Start: 1980 Sex assigned at Not on file [facility] Work Phone: Start: 2024 End: 07-03-2024 Exposure to SARS-CoV-2 (event) Not sure [facility] Start: 03-26-2025 Alcoholic beverage intake Ex-drinker (finding) [facility] Work Phone: Start: 03-25-2025 Alcohol Comment Alcohol free a lmost 1 year. Previously it was about 1/wk [facility] Work Phone: Start: 04-17-2022 Sex Female (finding) [facility] Functional Status Date Assessment Result Facility 03-26-2025 Functional status 128/81 025 9:44 AM EST Maria Fernanda Powell MA 128/81 [facility] Work Phone: 03-26-2025 Vital signs 90 03/26/2025 9: 44 AM EST Maria Fernanda Powell MA [facility] Work Phone: Clinical Notes 01-10-2024 to 03-26-2025 Prachi Salter MD - 03/26/2025 9:40 AM EST Note Date & Type Note Facility 03-26-2025 History of Present illness Narrative 44 y.o. 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 She noticed a whole body rash in 01/27associated with itching. Skin biopsy revealed superficial to mild vasculocenteric inflammatory infiltrate with leukocytoclasis and disruption. She saw Dr. Neelima Escamilla and had blood work which revealed a CRP of 3.8 mg/dl, REKHA by EIA of 2.0, C3 61 AND C4.13. Was treated with Plaquenil. 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 CHIEF COMPLAINT: Follow up of urticarial vasculitis and MCTD HPI: At today's visit, the patient reports worsening leg swelling and varicose veins. She is using pneumatic stockings intermittently. She has pain in upper arms and thighs. Has difficulty combing her hair. The arms feel weak. She feels weakness in her legs. The hands get cold and white. Has no difficulty swallowing but has GERD. She has diffuse pain but no specific joint pain. REVIEW OF SYSTEMS: Constitutional: Energy is better Skin: No rash or psoriasis but has photosensitvity Head: No headache, oral ulcers or hair loss Neck: No difficulty swallowing or choking Eyes: Has dry eyes but no iritis Mouth: Has dry mouth but no oral ulcers Pulmonary: No wheezing, pleurisy or SOB Cardiovascular: No chest pain or palpitations Gastrointestinal: No abdominal pain, but GERD symptoms. Endocrine: No Raynaud's Musculoskeletal: As H/ PMH: Asthma Uritcarial vasculitis PSH: Father has sarcoid and ITP. Current Outpatient Medications Medication Sig Dispense Refill budesonide-formoterol (Symbicort) 160-4.5 mcg/actuation inhaler Inhale 2 puffs 2 times a day. Rinse mouth with water after use to reduce aftertaste and incidence of candidiasis. Do not swallow. cholecalciferol (Vitamin D3) 25 mcg (1,000 units) tablet Take 2 tablets (50 mcg) by mouth once daily. erythromycin (Romycin) 5 mg/gram (0.5 %) ophthalmic ointment Apply 10 cm to both eyes once daily at bedtime. Apply Amount per Dose: 0.5 inch (~1 cm) per dose. famotidine (Pepcid) 20 mg tablet Take 1 tablet (20 mg) by mouth once daily. fluticasone (Flovent Diskus) 50 mcg/actuation diskus inhaler Inhale 1 puff 2 times a day. Rinse mouth with water after use to reduce aftertaste and incidence of candidiasis. Do not swallow. hydroxychloroquine (Plaquenil) 200 mg tablet Take 1 tablet (200 mg) by mouth 2 times a day. 180 tablet 1 levothyroxine (Synthroid, Levoxyl) 25 mcg tablet Take 4 tablets (100 mcg) by mouth early in the morning.. 1 tablet daily 100 mcg loratadine (Claritin) 10 mg tablet Take 1 tablet (10 mg) by mouth once daily. pantoprazole (ProtoNix) 40 mg EC tablet Take 1 tablet (40 mg) by mouth once daily in the morning. Take before meals. Do not crush, chew, or split. multivitamin tablet Take 1 tablet by mouth once daily. (Patient not taking: Reported on 03/26/2025) No current facility-administered medications for this visit. Social History Tobacco Use Smoking status: Never Smokeless tobacco: Never Substance Use Topics Alcohol use: Not Currently Comment: Alcohol free almost 1 year. Previously it was about 1/wk Drug use: Never PHYSICAL EXAM: Blood pressure 128/81, pulse 90, height 1.524 m (5'), weight 101 kg (222 lb). General - NAD, sitting up in chair, well-groomed, pleasant, AAOx3 Head: Normocephalic, atraumatic Eyes - PERRLA, EOMI. No conjunctiva injection. Mouth/ENT - Moist oral and nasal mucosa. No facial rash. No enlarged parotid or submandibular gland. Adequate salivary pooling. Cardiovascular - Normal S1, S2. Regular rate and rhythm. No murmurs or rubs. Lungs - Symmetric chest expansion. Clear to auscultation bilaterally. Skin - No rashes or ulcers. Skin warm and dry. No erythema on bilateral cheeks. Abdomen - Soft, non-tender. No masses. Normal bowel sounds. Extremities - No edema, cyanosis ,or clubbing Neurological - Alert and oriented x 3, grossly intact. No focal deficit. Musculoskeletal - EXAMJOINTDETAILED, Shoulders: Full ROM, without pain, no swelling, warmth or tenderness. Elbows: Full ROM, without pain, no swelling, warmth or tenderness. Wrists: Full ROM, without pain, no swelling, warmth or tenderness. MCP: No swelling, warmth or tenderness. Metacarpal squeeze negative PIP: No swelling, warmth or tenderness. DIP: No swelling, warmth or tenderness. 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 Legs: Varicose veins. 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 She is having diffuse pain with muscle weakness. I reviewed her labs and she has elevated CRP of 5 mg/L. Rest of the labs are normal. Will start on Cellcept 500 mg BID. Start on prednisone 10 mg/day x 2 weeks , and then 5 mg/day x 1 week. Side effects discussed. Reviewed and approved by PRACHI SALTER on 03/26/25 at 9:54 AM. Prachi Salter MD documented in this encounter [facility] Work Phone: 10-30-2024 Evaluation note Diagnosis Onset Date Resolution Irritable bowel syndrome with diarrhea chronic October 9:05am Asthma chronic January 22, 2025 8:53am [facility] Work Phone: 1(832) 302-342305-30-2025 Radiology Diagnostic study note [facility] Imaging Services [address] [place] [address] Thyroid MR#: [id number] Acct: [id number] Name: ELIDA COWAN Rep #: [id number] : 1980 F 44 From: Tadeo Garcia MD PCP: KEON Graff Status: REG CLI Study:Thyroid Date of Exam: 10/17/24 Exam# [id number] Ordering Dr: Corazon Moya PROCEDURE: THYROID 10/17/2024 REASON FOR EXAM: NONTOXIC SINGLE THYROID NODULE TECHNIQUE: High-frequency thyroid ultrasound, including grayscale and color-flow images. REFERENCE LINKS: TI-RADS Chart: [email or web address] TI-RADS Calculator Tool with Reference Images: [email or web address]/ COMPARISON: None FINDINGS: Right thyroid lobe size: 4.5 cm x 1.2 cm 1.2 cm Left thyroid lobe size: 3.2 cm x 1.3 cm x 0.9 cm Isthmus: 0.24 cm Background parenchymal echotexture is heterogeneous. Nodules: . Lobe: Left, Location: Inferior, Size: 1 cm x 0.7 cm x 0.4 cm, Stability: N/A Composition: Solid or almost completely solid (+2) Echogenicity: Hypoechoic (+2) Margin: Smooth (+0) Shape: Wider than tall (+0) Echogenic Foci: None (+0) TI-RADS: <2 = TR 1 * 2 = TR 2 * 3 = TR 3 * 4-6 = TR 4 * >6 = TR 5 US/Thyroid IMPRESSION: 1 cm x 0.7 cm 0.4 cm hypoechoic solid nodule in the inferior aspect of the left lobe of the thyroid. No vascularity is seen. Annual follow-up recommended. RECOMMENDATION: Based on most suspicious nodule. Nodule size = largest diameter Only evaluate nodule if =>5 mm. Growth > 20% in 2 dimensions = worsening. Follow up to 4 nodules. Recommend biopsy for no more than 2 nodules. 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 August 142024 2:17pm Tai's disease acute September 07, 2024 8:17am Irritable bowel syndrome wit h diarrhea acute September 07, 2024 8:17am Mixed connective tissue disease acut e September 07, 2024 8:17am Sjogren syndrome acute September 072024 8:17am Gastroesophageal reflux disease none active September 07, 2024 8:17am [facility] Work Phone: 1(110) 630-894802-11-2025 History of Present illness Narrative* Hakan Soto MD - 07/03/2024 11:20 AM EST History of Present Illness Chief Complaint Patient presents with Right Middle Finger - Pain Struck the wall on 07/02/24 injuring right 3rd finger The patient is 44 y.o. nvpbs-pefu-fjjhfotl female here with a complaint of right middle finger injury. Referred by rheumatology provider Prachi Salter. injury occurred yesterday, says she was reaching for her dog when she accidentally jammed her finger on a wall. She was seen in rheumatology today,mention to her finger injury, provider recommended outpatient orthopedic follow-up. She says pain is focal to the PIP joint where there is swelling. She has pain with flexion and extension of the finger at the PIP joint. She admits to some bruising. She is not taking anything for pain. She has diagnosis of mixed connective tissue disorder, [facility] Past Medical History: Diagnosis Date Arthritis Asthma Mixed connective tissue disease (Multi) Urticarial vasculitis Medication Documentation Review Audit Reviewed by Lottie Isaac MA (Technologist) on 07/03/24 at 1115 Medication Order Taking? Sig Documenting Provider Last Dose Status erythromycin (Romycin) 5 mg/gram (0.5 %) ophthalmic ointment [id number] Apply 10 cm to both eyes once daily at bedtime. Apply Amount per Dose: 0.5 inch (~1 cm) per dose. Historical Provider, Active fluticasone (Flovent Diskus) 50 mcg/actuation diskus inhaler [id number] Inhale 1 puff 2 times a day.Rinse mouth with water after use to reduce aftertaste and incidence of candidiasis. Do not swallow.Historical Provider, Active hydroxychloroquine (Plaquenil) 200 mg tablet [id number] Take 1 tablet (200 mg) by mouth 2 times a day. Prachi Salter MD Active levothyroxine (Synthroid, Levoxyl) 25 mcg tablet [id number] Take 1 tablet (25 mcg) by mouth early inthe morning.. Historical ProviderMD Active loratadine (Claritin) 10 mg tablet [id number] Take 1 tablet (10 mg) by mouth once daily. Historical ProviderMD Active multivitamin tablet [id number] Take 1 tablet by mouth once daily. Historical ProviderMD Active Discontinued 07/03/24 1004 Allergies Allergen Reactions Vicodin [Hydrocodone-Acetaminophen] Anaphylaxis Social History Socioeconomic History Marital status: Unknown Spouse name: Not on file Number of children: Not on file Years of education: Not on file Highest education level: Not on file Occupational History Not on file Tobacco Use Smoking status: Never Smokeless tobacco: Never Substance and Sexual Activity Alcohol use: Never Drug use: Never Sexual activity: Not on file Other Topics Concern Not on file Social History Narrative Not on file Social Drivers of Health Financial Resource Strain: Not on file Food Insecurity: Not on file Transportation Needs: Not on file Physical Activity: Not on file Stress: Not on file Social Connections: Not on file Intimate Partner Violence: Not on file Housing Stability: Not on file No past surgical history on file. Review of Systems GENERAL: Negative GI: Negative MUSCULOSKELETAL: See HPI SKIN: Negative NEURO: Negative Physical Exam: General/Constitutional: well appearing, no distress, appears stated age HEENT: sclera clear Respiratory: non labored breathing Vascular: No edema, swelling or tenderness, except as noted in detailed exam. Integumentary: No impressive skin lesions present, except as noted in detailed exam. Neurological: Alert and oriented Psychological: Normal mood and affect. Musculoskeletal: Normal, except as noted in detailed exam and in HPI Right hand middle finger: There is some moderate swelling of the middle finger at the PIP joint with some ecchymosis present. She is tender ovation of the PIP joint more prominent on the volar surface at the base of the middle phalanx. She is slight decreased with active flexion extension of the PIP joint with pain. Good mobility at the MCP and DIP joint. There is no boutonniere or swan-neck deformity present. There is no gross instability of the PIP joint. Imaging: X-rays of the right hand middle finger obtained today and independently reviewed, there isevidence of a nondisplaced fracture of the volar base of the middle phalanx Assessment 1. Closed nondisplaced fracture of middle phalanx of right middle finger, initial encounter 2. Finger pain, right XR fingers right 2+ views CANCELED: XR fingers right 2+ views Plan: Nondisplaced volar base avulsion fracture of the middle phalanx. Discussed diagnosis, reviewed x-rays, treatment with patient. Recommending conservative management. Explained to patient that these types of fractures are treated best with early active range of motion, we discussed role of splinting versus amy taping, given minimal discomfort we opted for amy taping, did encourage that she start working on some range of motion exercises over the next few days to prevent stiffness, explained that swelling can linger for often more than a month, she will ice, she can use gfyw-kla-qmodyip medications as needed. I will have her follow-up in 2 weeks for reassessment, consider repeat x-rays pending clinical assessment. documented in this [facility] Work Phone: 1(779) 367-122102-11-2025 History of Present illness Narrative* Prachi Salter MD - 07/03/2024 9:40 AM EST 44 y.o. 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 She noticed a whole body rash in 01/27associated with itching. Skin biopsy revealed superficial to mild vasculocenteric inflammatory infiltrate with leukocytoclasis and disruption. She saw Dr. Neelima Escamilla and had blood work which revealed a CRP of 3.8 mg/dl, REKHA by EIA of 2.0, C3 OF 61 AND C4.13. Was treated with Plaquenil. 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 She hit her right hand with pain and swelling in the right middle finger CHIEF COMPLAINT: Follow up of urticarial vasculitis HPI: At today's visit, the patient reports no rash, mouth sores, Raynaud's or chest pain. She has arthralgias particularly in the hands. Also, has worsening dry eyes and dry mouth. Also, has lateral hip pain and knees. REVIEW OF SYSTEMS: Constitutional: Energy is better Skin: No rash or psoriasis but has photosensitvity Head: No headache, oral ulcers or hair loss Neck: No difficulty swallowing or choking Eyes: Has dry eyes but no iritis Mouth: Has dry mouth but no oral ulcers Pulmonary: No wheezing, pleurisy or SOB Cardiovascular: No chest pain or palpitations Gastrointestinal: No abdominal pain, but GERD symptoms. Endocrine: No Raynaud's Musculoskeletal: As H/ PMH: Asthma Uritcarial vasculitis PSH: Father has sarcoid and ITP. Current Outpatient Medications Medication Sig Dispense Refill erythromycin (Romycin) 5 mg/gram (0.5 %) ophthalmic ointment Apply 10 cm to both eyes once daily atbedtime. Apply Amount per Dose: 0.5 inch (~1 cm) per dose. fluticasone (Flovent Diskus) 50 mcg/actuation diskus inhaler Inhale 1 puff 2 times a day. Rinse mouth with water after use to reduce aftertaste and incidence of candidiasis. Do not swallow. hydroxychloroquine (Plaquenil) 200 mg tablet Take 1 tablet (200 mg) by mouth 2 times a day. 180 tablet 1 loratadine (Claritin) 10 mg tablet Take 1 tablet (10 mg) by mouth once daily. multivitamin tablet Take 1 tablet by mouth once daily. No current facility-administered medications for this visit. Social History Tobacco Use Smoking status: Never Smokeless tobacco: Never Substance Use Topics Alcohol use: Never Drug use: Never PHYSICAL EXAM: General - NAD, sitting up in chair, well-groomed, pleasant, AAOx3 Head: Normocephalic, atraumatic Eyes - PERRLA, EOMI. No conjunctiva injection. Mouth/ENT - Musculoskeletal - EXAMJOINTDETAILED, Shoulders: Full ROM, without pain, no swelling, warmth or tenderness. Elbows: Full ROM, without pain, no swelling, warmth or tenderness. Wrists: Full ROM, without pain, no swelling, warmth or tenderness. MCP: No swelling, warmth or tenderness. Metacarpal squeeze negative PIP: Swelling and tenderness in the right middle finger. DIP: No swelling, warmth or tenderness. 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 Component Latest Ref Rng 01/13/2024 WBC 4.4 - 11.3 x10*3/uL 6.7 nRBC 0.0 - 0.0 /100 WBCs 0.0 RBC 4.00 - 5.20 x10*6/uL 4.58 HEMOGLOBIN 12.0 - 16.0 g/dL 13.5 HEMATOCRIT 36.0 - 46.0 % 41.5 MCV 80 - 100 fL 91 MCH 26.0 - 34.0 pg 29.5 MCHC 32.0 - 36.0 g/dL 32.5 RED CELL DISTRIBUTION WIDTH 11.5 - 14.5 % 11.7 Platelets 150 - 450 x10*3/uL 242 Neutrophils % 40.0 - 80.0 % 67.9 Immature Granulocytes %, Automated 0.0 - 0.9 % 0.3 Lymphocytes % 13.0 - 44.0 % 22.1 Monocytes % 2.0 - 10.0 % 6.6 Eosinophils % 0.0 - 6.0 % 2.0 Basophils % 0.0 - 2.0 % 1.1 Neutrophils Absolute 1.20 - 7.70 x10*3/uL 4.53 Immature Granulocytes Absolute, Automated 0.00 - 0.70 x10*3/uL 0.02 Lymphocytes Absolute 1.20 - 4.80 x10*3/uL 1.47 Monocytes Absolute 0.10 - 1.00 x10*3/uL 0.44 Eosinophils Absolute 0.00 - 0.70 x10*3/uL 0.13 Basophils Absolute 0.00 - 0.10 x10*3/uL 0.07 GLUCOSE 74 - 99 mg/dL 100 (H) SODIUM 136 - 145 mmol/L 142 POTASSIUM 3.5 - 5.3 mmol/L 4.1 CHLORIDE 98 - 107 mmol/L 104 Bicarbonate 21 - 32 mmol/L 31 Anion Gap 10 - 20 mmol/L 11 Blood Urea Nitrogen 6 - 23 mg/dL 14 Creatinine 0.50 - 1.05 mg/dL 0.86 EGFR >60 mL/min/1.73m*2 87 Calcium 8.6 - 10.6 mg/dL 9.6 Albumin 3.4 - 5.0 g/dL 4.2 Alkaline Phosphatase 33 - 110 U/L 53 Total Protein 6.4 - 8.2 g/dL 6.9 AST 9 - 39 U/L 19 Bilirubin Total 0.0 - 1.2 mg/dL 0.4 ALT 7 - 45 U/L 25 C3 Complement 87 - 200 mg/dL 132 C4 Complement 10 - 50 mg/dL 38 Anti-DNA (DS) <5.0 IU/mL 1.0 Thyroid Stimulating Hormone 0.44 - 3.98 mIU/L 4.80 (H) Assessment/plan: 43 yr old with 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 Continue Plaquenil. She is upto date on her eye exam. She is having Raynaud's symptoms in winter. Advised to use gloves with warmers. She has injured her right middle finger. Refer to Ortho urgent care to rule out fracture. Reviewed and approved by PRACHI SALTER on 07/03/24 at 9:58 AM. Prachi Salter MD documented in this [facility] Work Phone: 1(782) 976-608008-20-2024 History of Present illness Narrative* Prachi Salter MD - 01/10/2024 11:20 AM EDT Virtual or Telephone Consent An interactive audio and video telecommunication system which permits real time communications between the patient (at the originating site) and provider (at the distant site) was utilized to providethis telehealth service. Verbal consent was requested and obtained from Elida Cowan on this date, 01/10/24 for a telehealth visit. 43 y.o. 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 She noticed a whole body rash in 01/27associated with itching. Skin biopsy revealed superficial to mild vasculocenteric inflammatory infiltrate with leukocytoclasis and disruption. She saw Dr. Neelima Escamilla and had blood work which revealed a CRP of 3.8 mg/dl, REKHA by EIA of 2.0, C3 OF 61 AND C4.13. Was treated with Plaquenil. 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 She has no rash, mouth sores, Raynaud's or chest pain. She has arthralgia's intermittently. PMH: Asthma Uritcarial vasculitis PSH: Father has sarcoid and ITP. Medication Documentation Review Audit Reviewed by Prachi Salter MD (Physician) on 07/05/23 at 1022 Medication Order Taking? Sig Documenting Provider Last Dose Status erythromycin (Romycin) 5 mg/gram (0.5 %) ophthalmic ointment [id number] Apply 10 cm to both eyes once daily at bedtime. Apply Amount per Dose: 0.5 inch (~1 cm) per dose. Historical ProviderMD Active fluticasone (Flovent Diskus) 50 mcg/actuation diskus inhaler [id number] Inhale 1 puff 2 times a day.Rinse mouth with water after use to reduce aftertaste and incidence of candidiasis. Do not swallow.Historical ProviderMD Active Discontinued 07/05/23 1021 hydroxychloroquine (Plaquenil) 200 mg tablet [id number] Take 1 tablet (200 mg) by mouth 2 times a day. Prachi Salter MD Active loratadine (Claritin) 10 mg tablet [id number] Take 1 tablet (10 mg) by mouth once daily. Historical ProviderMD Active multivitamin tablet [id number] Take 1 tablet by mouth once daily. Historical ProviderMD Active predniSONE (Deltasone) 10 mg tablet [id number] Take 1 tablet (10 mg) by mouth once daily. HistoricalProMD adriana Active No family history on file. Social History Tobacco Use Smoking status: Never Smokeless tobacco: Never Substance Use Topics Alcohol use: Never Drug use: Never REVIEW OF SYSTEMS: Constitutional: Energy is better Skin: No rash or psoriasis but has photosensitvity Head: No headache, oral ulcers or hair loss Neck: No difficulty swallowing or choking Eyes: Has dry eyes but no iritis Mouth: No dry mouth or oral ulcers Pulmonary: No wheezing, pleurisy or SOB Cardiovascular: No chest pain or palpitations Gastrointestinal: No abdominal pain, nausea, heartburn, or blood in stool Endocrine: No Raynaud's Musculoskeletal: As H/P PHYSICAL EXAM: There were no vitals taken for this visit. General - NAD, sitting up in chair, well-groomed, pleasant, AAOx3 Head: Normocephalic, atraumatic Eyes - PERRLA, EOMI. No conjunctiva injection. Mouth/ENT - Moist oral and nasal mucosa. No facial rash. No enlarged parotid or submandibular gland. Adequate salivary pooling. Musculoskeletal - EXAMJOINTDETAILED, Shoulders: Full ROM, without pain, no swelling, warmth or tenderness. Elbows: Full ROM, without pain, no swelling, warmth or tenderness. Wrists: Full ROM, without pain, no swelling, warmth or tenderness. MCP: No swelling, warmth or tenderness. Metacarpal squeeze negative PIP: No swelling, warmth or tenderness. DIP: No swelling, warmth or tenderness. 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 . She is in remission. Will increase Plaquenil to 200 mg BID. Upto date on an eye exam. Blood work every 6 mos. Reviewed and approved by PRACHI SALTER on 01/10/24 at 11:56 AM. Prachi [facility]ter [facility] Evaluation noteNo assessment information available [facility] Work Phone: Evaluation note* Diagnosis MCTD (mixed connective tissue disease) (Multi)- Primary Other specified diffuse disease of connective tissue documented in this encounter [facility] Work Phone: Evaluation note* Diagnosis MCTD (mixed connective tissue disease) (Multi)- Primary Other specified diffuse disease of connective tissue Closed traumatic nondisplaced fracture of middle phalanx of finger with delayed healing documented in this encounter [facility] Work Phone: Evaluation note* Diagnosis Closed nondisplaced fracture of middle phalanx of right middle finger, initial encounter- Primary Finger pain, right Pain in soft tissues of limb documented in this encounter [facility] Work Phone: Evaluation note* Diagnosis Finger pain, right Pain in soft tissues of limb documented in this encounter [facility] Work Phone: Evaluation note* Diagnosis MCTD (mixed connective tissue disease) ([facility])- Primary Other specified diffuse disease of connective tissue Leg swelling Swelling of limb documented in this encounter [facility] Work Phone: Reason for referral (narrative)* Consultation (Routine) - Authorized Specialty Diagnoses / Procedures Referred By Contac t Referred To Contact Rheumatology Diagnoses MCTD (mixed connective tissue disease) (Multi) Procedures [place] [address] [facility] Department of [place] [address] Referral ID Status Reason Start Date Expiration Date V isits Requested Visits Authorized [id number] Authorized 01/10/2024 01/09/2025 1 1 [facility] Work Phone: Reason for referral (narrative)No reason for referral information availableWTriHealth [facility] Work Phone: Reason for visit Narrative* Imaging (Routine) - Authorized Specialty Diagnoses / Procedures Referred By Contac t Referred To Contact Radiology Diagnoses Finger pain, right Procedures XR fingers right 2+ views Hakan Soto MD [address] [place] [address] Phone: tel: fax: Referral ID Status Reason Start Date Expiration Date Visits Requested Visits Authorized [id number] Authorized Perform Procedure 07/03/2024 07/03/2025 1 1 [facility] Work Phone: Summary Purpose Family History No Family History Records Found Relationship Condition Age at Onset Recorded Date/T talat Not Specified Myocardial infarction Unknown uncle Hypertension Unknown Coronary artery disease Unknown grandfather Malignant neoplasm Unknown Malignant neoplasm of lung Unknown Diabetes mellitus Unknown grandmother Malignant neoplasm Unknown aunt Malignant neoplasm Unknown father Disorder of thyroid Unknown Sarcoidosis Unknown Hemolytic anemia Unknown Lui syndrome Unknown Chronic kidney disease Unknown mother Coronary artery disease Unknown Breast Cancer Status:Active Comments:Paterna l Grandmother. Colon Cancer Status:Active Comments:Paterna l Grandfather. Coronary Artery Disease Status:Active Comments :Maternal Grandmother. Maternal Uncle. Diabetes Mellitus Type II Status:Active Commen ts:Paternal Grandfather. Father - Hypothyroidism, sarcoidosis, hemolytic anemia, Contreras's syndrome, ITP, CKD Status:Active father-sarcoidosis,lui syndrom,hemalytic anemia,CKD,hypothyrodism,ITP Status:Active Hypertension Status:Active Comments:Materna l Grandfather. Hypertension Status:Active Comments:Materna l Uncle. larynx cancer-pat. grandfather Status:Active Lung Cancer Status:Active Comments:Materna l Grandfather. Ovarian Cancer Status:Active Comments:Paterna l Aunt. Breast Cancer Status:Active Comments:Paterna l Grandmother. Colon Cancer Status:Active Comments:Paterna l Grandfather. Coronary Artery Disease Status:Active Comments :Maternal Grandmother. Maternal Uncle. Diabetes Mellitus Type II Status:Active Commen ts:Paternal Grandfather. Father - Hypothyroidism, sarcoidosis, hemolytic anemia, Contreras's syndrome, ITP, CKD Status:Active father-sarcoidosis,lui syndrom,hemalytic anemia,CKD,hypothyrodism,ITP Status:Active Hypertension Status:Active Comments:Materna l Grandfather. Hypertension Status:Active Comments:Materna l Uncle. larynx cancer-pat. grandfather Status:Active Lung Cancer Status:Active Comments:Materna l Grandfather. Ovarian Cancer Status:Active Comments:Paterna l Aunt. Breast Cancer Status:Active Comments:Paterna l Grandmother. Colon Cancer Status:Active Comments:Paterna l Grandfather. Coronary Artery Disease Status:Active Comments :Maternal Grandmother. Maternal Uncle. Diabetes Mellitus Type II Status:Active Commen ts:Paternal Grandfather. Father - Hypothyroidism, sarcoidosis, hemolytic anemia, Contreras's syndrome, ITP, CKD Status:Active father-sarcoidosis,lui syndrom,hemalytic anemia,CKD,hypothyrodism,ITP Status:Active Hypertension Status:Active Comments:Materna l Grandfather. Hypertension Status:Active Comments:Materna l Uncle. larynx cancer-pat. grandfather Status:Active Lung Cancer Status:Active Comments:Materna l Grandfather. Ovarian Cancer Status:Active Comments:Paterna l Aunt. Breast Cancer Status:Active Comments:Paterna l Grandmother. Colon Cancer Status:Active Comments:Paterna l Grandfather. Coronary Artery Disease Status:Active Comments :Maternal Grandmother. Maternal Uncle. Diabetes Mellitus Type II Status:Active Commen ts:Paternal Grandfather. Father - Hypothyroidism, sarcoidosis, hemolytic anemia, Contreras's syndrome, ITP, CKD Status:Active father-sarcoidosis,lui syndrom,hemalytic anemia,CKD,hypothyrodism,ITP Status:Active Hypertension Status:Active Comments:Materna l Grandfather. Hypertension Status:Active Comments:Materna l Uncle. larynx cancer-pat. grandfather Status:Active Lung Cancer Status:Active Comments:Materna l Grandfather. Ovarian Cancer Status:Active Comments:Paterna l Aunt. Breast Cancer Status:Active Comments:Paterna l Grandmother. Colon Cancer Status:Active Comments:Paterna l Grandfather. Coronary Artery Disease Status:Active Comments :Maternal Grandmother. Maternal Uncle. Diabetes Mellitus Type II Status:Active Commen ts:Paternal Grandfather. Father - Hypothyroidism, sarcoidosis, hemolytic anemia, Contreras's syndrome, ITP, CKD Status:Active father-sarcoidosis,lui syndrom,hemalytic anemia,CKD,hypothyrodism,ITP Status:Active Hypertension Status:Active Comments:Materna l Grandfather. Hypertension Status:Active Comments:Materna l Uncle. larynx cancer-pat. grandfather Status:Active Lung Cancer Status:Active Comments:Materna l Grandfather. Ovarian Cancer Status:Active Comments:Paterna l Aunt. Breast Cancer Status:Active Comments:Paterna l Grandmother. Colon Cancer Status:Active Comments:Paterna l Grandfather. Coronary Artery Disease Status:Active Comments :Maternal Grandmother. Maternal Uncle. Diabetes Mellitus Type II Status:Active Commen ts:Paternal Grandfather. Father - Hypothyroidism, sarcoidosis, hemolytic anemia, Contreras's syndrome, ITP, CKD Status:Active father-sarcoidosis,lui syndrom,hemalytic anemia,CKD,hypothyrodism,ITP Status:Active Hypertension Status:Active Comments:Materna l Grandfather. Hypertension Status:Active Comments:Materna l Uncle. larynx cancer-pat. grandfather Status:Active Lung Cancer Status:Active Comments:Materna l Grandfather. Ovarian Cancer Status:Active Comments:Paterna l Aunt. Breast Cancer Status:Active Comments:Paterna l Grandmother. Colon Cancer Status:Active Comments:Paterna l Grandfather. Coronary Artery Disease Status:Active Comments :Maternal Grandmother. Maternal Uncle. Diabetes Mellitus Type II Status:Active Commen ts:Paternal Grandfather. Father - Hypothyroidism, sarcoidosis, hemolytic anemia, Contreras's syndrome, ITP, CKD Status:Active father-sarcoidosis,lui syndrom,hemalytic anemia,CKD,hypothyrodism,ITP Status:Active Hypertension Status:Active Comments:Materna l Grandfather. Hypertension Status:Active Comments:Materna l Uncle. larynx cancer-pat. grandfather Status:Active Lung Cancer Status:Active Comments:Materna l Grandfather. Ovarian Cancer Status:Active Comments:Paterna l Aunt. Breast Cancer Status:Active Comments:Paterna l Grandmother. Colon Cancer Status:Active Comments:Paterna l Grandfather. Coronary Artery Disease Status:Active Comments :Maternal Grandmother. Maternal Uncle. Diabetes Mellitus Type II Status:Active Commen ts:Paternal Grandfather. Father - Hypothyroidism, sarcoidosis, hemolytic anemia, Contreras's syndrome, ITP, CKD Status:Active father-sarcoidosis,lui syndrom,hemalytic anemia,CKD,hypothyrodism,ITP Status:Active Hypertension Status:Active Comments:Materna l Grandfather. Hypertension Status:Active Comments:Materna l Uncle. larynx cancer-pat. grandfather Status:Active Lung Cancer Status:Active Comments:Materna l Grandfather. Ovarian Cancer Status:Active Comments:Paterna l Aunt. Breast Cancer Status:Active Comments:Paterna l Grandmother. Colon Cancer Status:Active Comments:Paterna l Grandfather. Coronary Artery Disease Status:Active Comments :Maternal Grandmother. Maternal Uncle. Diabetes Mellitus Type II Status:Active Commen ts:Paternal Grandfather. Father - Hypothyroidism, sarcoidosis, hemolytic anemia, Contreras's syndrome, ITP, CKD Status:Active father-sarcoidosis,lui syndrom,hemalytic anemia,CKD,hypothyrodism,ITP Status:Active Hypertension Status:Active Comments:Materna l Grandfather. Hypertension Status:Active Comments:Materna l Uncle. larynx cancer-pat. grandfather Status:Active Lung Cancer Status:Active Comments:Materna l Grandfather. Ovarian Cancer Status:Active Comments:Paterna l Aunt. Breast Cancer Status:Active Comments:Paterna l Grandmother. Colon Cancer Status:Active Comments:Paterna l Grandfather. Coronary Artery Disease Status:Active Comments :Maternal Grandmother. Maternal Uncle. Diabetes Mellitus Type II Status:Active Commen ts:Paternal Grandfather. Father - Hypothyroidism, sarcoidosis, hemolytic anemia, Contreras's syndrome, ITP, CKD Status:Active father-sarcoidosis,lui syndrom,hemalytic anemia,CKD,hypothyrodism,ITP Status:Active Hypertension Status:Active Comments:Materna l Grandfather. Hypertension Status:Active Comments:Materna l Uncle. larynx cancer-pat. grandfather Status:Active Lung Cancer Status:Active Comments:Materna l Grandfather. Ovarian Cancer Status:Active Comments:Paterna l Aunt. Breast Cancer Status:Active Comments:Paterna l Grandmother. Colon Cancer Status:Active Comments:Paterna l Grandfather. Coronary Artery Disease Status:Active Comments :Maternal Grandmother. Maternal Uncle. Diabetes Mellitus Type II Status:Active Commen ts:Paternal Grandfather. Father - Hypothyroidism, sarcoidosis, hemolytic anemia, Contreras's syndrome, ITP, CKD Status:Active father-sarcoidosis,lui syndrom,hemalytic anemia,CKD,hypothyrodism,ITP Status:Active Hypertension Status:Active Comments:Materna l Grandfather. Hypertension Status:Active Comments:Materna l Uncle. larynx cancer-pat. grandfather Status:Active Lung Cancer Status:Active Comments:Materna l Grandfather. Ovarian Cancer Status:Active Comments:Paterna l Aunt. Breast Cancer Status:Active Comments:Paterna l Grandmother. Colon Cancer Status:Active Comments:Paterna l Grandfather. Coronary Artery Disease Status:Active Comments :Maternal Grandmother. Maternal Uncle. Diabetes Mellitus Type II Status:Active Commen ts:Paternal Grandfather. Father - Hypothyroidism, sarcoidosis, hemolytic anemia, Contreras's syndrome, ITP, CKD Status:Active father-sarcoidosis,lui syndrom,hemalytic anemia,CKD,hypothyrodism,ITP Status:Active Hypertension Status:Active Comments:Materna l Grandfather. Hypertension Status:Active Comments:Materna l Uncle. larynx cancer-pat. grandfather Status:Active Lung Cancer Status:Active Comments:Materna l Grandfather. Ovarian Cancer Status:Active Comments:Paterna l Aunt. Breast Cancer Status:Active Comments:Paterna l Grandmother. Colon Cancer Status:Active Comments:Paterna l Grandfather. Coronary Artery Disease Status:Active Comments :Maternal Grandmother. Maternal Uncle. Diabetes Mellitus Type II Status:Active Commen ts:Paternal Grandfather. Father - Hypothyroidism, sarcoidosis, hemolytic anemia, Contreras's syndrome, ITP, CKD Status:Active father-sarcoidosis,lui syndrom,hemalytic anemia,CKD,hypothyrodism,ITP Status:Active Hypertension Status:Active Comments:Materna l Grandfather. Hypertension Status:Active Comments:Materna l Uncle. larynx cancer-pat. grandfather Status:Active Lung Cancer Status:Active Comments:Materna l Grandfather. Ovarian Cancer Status:Active Comments:Paterna l Aunt. Breast Cancer Status:Active Comments:Paterna l Grandmother. Colon Cancer Status:Active Comments:Paterna l Grandfather. Coronary Artery Disease Status:Active Comments :Maternal Grandmother. Maternal Uncle. Diabetes Mellitus Type II Status:Active Commen ts:Paternal Grandfather. Father - Hypothyroidism, sarcoidosis, hemolytic anemia, Contreras's syndrome, ITP, CKD Status:Active father-sarcoidosis,lui syndrom,hemalytic anemia,CKD,hypothyrodism,ITP Status:Active Hypertension Status:Active Comments:Materna l Grandfather. Hypertension Status:Active Comments:Materna l Uncle. larynx cancer-pat. grandfather Status:Active Lung Cancer Status:Active Comments:Materna l Grandfather. Ovarian Cancer Status:Active Comments:Paterna l Aunt. Breast Cancer Status:Active Comments:Paterna l Grandmother. Colon Cancer Status:Active Comments:Paterna l Grandfather. Coronary Artery Disease Status:Active Comments :Maternal Grandmother. Maternal Uncle. Diabetes Mellitus Type II Status:Active Commen ts:Paternal Grandfather. Father - Hypothyroidism, sarcoidosis, hemolytic anemia, Contreras's syndrome, ITP, CKD Status:Active father-sarcoidosis,lui syndrom,hemalytic anemia,CKD,hypothyrodism,ITP Status:Active Hypertension Status:Active Comments:Materna l Grandfather. Hypertension Status:Active Comments:Materna l Uncle. larynx cancer-pat. grandfather Status:Active Lung Cancer Status:Active Comments:Materna l Grandfather. Ovarian Cancer Status:Active Comments:Paterna l Aunt. Breast Cancer Status:Active Comments:Paterna l Grandmother. Colon Cancer Status:Active Comments:Paterna l Grandfather. Coronary Artery Disease Status:Active Comments :Maternal Grandmother. Maternal Uncle. Diabetes Mellitus Type II Status:Active Commen ts:Paternal Grandfather. Father - Hypothyroidism, sarcoidosis, hemolytic anemia, Contreras's syndrome, ITP, CKD Status:Active father-sarcoidosis,lui syndrom,hemalytic anemia,CKD,hypothyrodism,ITP Status:Active Hypertension Status:Active Comments:Materna l Grandfather. Hypertension Status:Active Comments:Materna l Uncle. larynx cancer-pat. grandfather Status:Active Lung Cancer Status:Active Comments:Materna l Grandfather. Ovarian Cancer Status:Active Comments:Paterna l Aunt. Breast Cancer Status:Active Comments:Paterna l Grandmother. Colon Cancer Status:Active Comments:Paterna l Grandfather. Coronary Artery Disease Status:Active Comments :Maternal Grandmother. Maternal Uncle. Diabetes Mellitus Type II Status:Active Commen ts:Paternal Grandfather. Father - Hypothyroidism, sarcoidosis, hemolytic anemia, Contreras's syndrome, ITP, CKD Status:Active father-sarcoidosis,lui syndrom,hemalytic anemia,CKD,hypothyrodism,ITP Status:Active Hypertension Status:Active Comments:Materna l Grandfather. Hypertension Status:Active Comments:Materna l Uncle. larynx cancer-pat. grandfather Status:Active Lung Cancer Status:Active Comments:Materna l Grandfather. Ovarian Cancer Status:Active Comments:Paterna l Aunt. Breast Cancer Status:Active Comments:Paterna l Grandmother. Colon Cancer Status:Active Comments:Paterna l Grandfather. Coronary Artery Disease Status:Active Comments :Maternal Grandmother. Maternal Uncle. Diabetes Mellitus Type II Status:Active Commen ts:Paternal Grandfather. Father - Hypothyroidism, sarcoidosis, hemolytic anemia, Contreras's syndrome, ITP, CKD Status:Active father-sarcoidosis,lui syndrom,hemalytic anemia,CKD,hypothyrodism,ITP Status:Active Hypertension Status:Active Comments:Materna l Grandfather. Hypertension Status:Active Comments:Materna l Uncle. larynx cancer-pat. grandfather Status:Active Lung Cancer Status:Active Comments:Materna l Grandfather. Ovarian Cancer Status:Active Comments:Paterna l Aunt. Breast Cancer Status:Active Comments:Paterna l Grandmother. Colon Cancer Status:Active Comments:Paterna l Grandfather. Coronary Artery Disease Status:Active Comments :Maternal Grandmother. Maternal Uncle. Diabetes Mellitus Type II Status:Active Commen ts:Paternal Grandfather. Father - Hypothyroidism, sarcoidosis, hemolytic anemia, Contreras's syndrome, ITP, CKD Status:Active father-sarcoidosis,lui syndrom,hemalytic anemia,CKD,hypothyrodism,ITP Status:Active Hypertension Status:Active Comments:Materna l Grandfather. Hypertension Status:Active Comments:Materna l Uncle. larynx cancer-pat. grandfather Status:Active Lung Cancer Status:Active Comments:Materna l Grandfather. Ovarian Cancer Status:Active Comments:Paterna l Aunt. Breast Cancer Status:Active Comments:Paterna l Grandmother. Colon Cancer Status:Active Comments:Paterna l Grandfather. Coronary Artery Disease Status:Active Comments :Maternal Grandmother. Maternal Uncle. Diabetes Mellitus Type II Status:Active Commen ts:Paternal Grandfather. Father - Hypothyroidism, sarcoidosis, hemolytic anemia, Contreras's syndrome, ITP, CKD Status:Active father-sarcoidosis,lui syndrom,hemalytic anemia,CKD,hypothyrodism,ITP Status:Active Hypertension Status:Active Comments:Materna l Grandfather. Hypertension Status:Active Comments:Materna l Uncle. larynx cancer-pat. grandfather Status:Active Lung Cancer Status:Active Comments:Materna l Grandfather. Ovarian Cancer Status:Active Comments:Paterna l Aunt. Breast Cancer Status:Active Comments:Paterna l Grandmother. Colon Cancer Status:Active Comments:Paterna l Grandfather. Coronary Artery Disease Status:Active Comments :Maternal Grandmother. Maternal Uncle. Diabetes Mellitus Type II Status:Active Commen ts:Paternal Grandfather. Father - Hypothyroidism, sarcoidosis, hemolytic anemia, Contreras's syndrome, ITP, CKD Status:Active father-sarcoidosis,lui syndrom,hemalytic anemia,CKD,hypothyrodism,ITP Status:Active Hypertension Status:Active Comments:Materna l Grandfather. Hypertension Status:Active Comments:Materna l Uncle. larynx cancer-pat. grandfather Status:Active Lung Cancer Status:Active Comments:Materna l Grandfather. Ovarian Cancer Status:Active Comments:Paterna l Aunt. Breast Cancer Status:Active Comments:Paterna l Grandmother. Colon Cancer Status:Active Comments:Paterna l Grandfather. Coronary Artery Disease Status:Active Comments :Maternal Grandmother. Maternal Uncle. Diabetes Mellitus Type II Status:Active Commen ts:Paternal Grandfather. Father - Hypothyroidism, sarcoidosis, hemolytic anemia, Contreras's syndrome, ITP, CKD Status:Active father-sarcoidosis,lui syndrom,hemalytic anemia,CKD,hypothyrodism,ITP Status:Active Hypertension Status:Active Comments:Materna l Grandfather. Hypertension Status:Active Comments:Materna l Uncle. larynx cancer-pat. grandfather Status:Active Lung Cancer Status:Active Comments:Materna l Grandfather. Ovarian Cancer Status:Active Comments:Paterna l Aunt. Breast Cancer Status:Active Comments:Paterna l Grandmother. Colon Cancer Status:Active Comments:Paterna l Grandfather. Coronary Artery Disease Status:Active Comments :Maternal Grandmother. Maternal Uncle. Diabetes Mellitus Type II Status:Active Commen ts:Paternal Grandfather. Father - Hypothyroidism, sarcoidosis, hemolytic anemia, Contreras's syndrome, ITP, CKD Status:Active father-sarcoidosis,lui syndrom,hemalytic anemia,CKD,hypothyrodism,ITP Status:Active Hypertension Status:Active Comments:Materna l Grandfather. Hypertension Status:Active Comments:Materna l Uncle. larynx cancer-pat. grandfather Status:Active Lung Cancer Status:Active Comments:Materna l Grandfather. Ovarian Cancer Status:Active Comments:Paterna l Aunt. Breast Cancer Status:Active Comments:Paterna l Grandmother. Colon Cancer Status:Active Comments:Paterna l Grandfather. Coronary Artery Disease Status:Active Comments :Maternal Grandmother. Maternal Uncle. Diabetes Mellitus Type II Status:Active Commen ts:Paternal Grandfather. Father - Hypothyroidism, sarcoidosis, hemolytic anemia, Contreras's syndrome, ITP, CKD Status:Active father-sarcoidosis,lui syndrom,hemalytic anemia,CKD,hypothyrodism,ITP Status:Active Hypertension Status:Active Comments:Materna l Grandfather. Hypertension Status:Active Comments:Materna l Uncle. larynx cancer-pat. grandfather Status:Active Lung Cancer Status:Active Comments:Materna l Grandfather. Ovarian Cancer Status:Active Comments:Paterna l Aunt. Breast Cancer Status:Active Comments:Paterna l Grandmother. Colon Cancer Status:Active Comments:Paterna l Grandfather. Coronary Artery Disease Status:Active Comments :Maternal Grandmother. Maternal Uncle. Diabetes Mellitus Type II Status:Active Commen ts:Paternal Grandfather. Father - Hypothyroidism, sarcoidosis, hemolytic anemia, Contreras's syndrome, ITP, CKD Status:Active father-sarcoidosis,lui syndrom,hemalytic anemia,CKD,hypothyrodism,ITP Status:Active Hypertension Status:Active Comments:Materna l Grandfather. Hypertension Status:Active Comments:Materna l Uncle. larynx cancer-pat. grandfather Status:Active Lung Cancer Status:Active Comments:Materna l Grandfather. Ovarian Cancer Status:Active Comments:Paterna l Aunt. Breast Cancer Status:Active Comments:Paterna l Grandmother. Colon Cancer Status:Active Comments:Paterna l Grandfather. Coronary Artery Disease Status:Active Comments :Maternal Grandmother. Maternal Uncle. Diabetes Mellitus Type II Status:Active Commen ts:Paternal Grandfather. Father - Hypothyroidism, sarcoidosis, hemolytic anemia, Contreras's syndrome, ITP, CKD Status:Active father-sarcoidosis,lui syndrom,hemalytic anemia,CKD,hypothyrodism,ITP Status:Active Hypertension Status:Active Comments:Materna l Grandfather. Hypertension Status:Active Comments:Materna l Uncle. larynx cancer-pat. grandfather Status:Active Lung Cancer Status:Active Comments:Materna l Grandfather. Ovarian Cancer Status:Active Comments:Paterna l Aunt. Breast Cancer Status:Active Comments:Paterna l Grandmother. Colon Cancer Status:Active Comments:Paterna l Grandfather. Coronary Artery Disease Status:Active Comments :Maternal Grandmother. Maternal Uncle. Diabetes Mellitus Type II Status:Active Commen ts:Paternal Grandfather. Father - Hypothyroidism, sarcoidosis, hemolytic anemia, Contreras's syndrome, ITP, CKD Status:Active father-sarcoidosis,lui syndrom,hemalytic anemia,CKD,hypothyrodism,ITP Status:Active Hypertension Status:Active Comments:Materna l Grandfather. Hypertension Status:Active Comments:Materna l Uncle. larynx cancer-pat. grandfather Status:Active Lung Cancer Status:Active Comments:Materna l Grandfather. Ovarian Cancer Status:Active Comments:Paterna l Aunt. Breast Cancer Status:Active Comments:Paterna l Grandmother. Colon Cancer Status:Active Comments:Paterna l Grandfather. Coronary Artery Disease Status:Active Comments :Maternal Grandmother. Maternal Uncle. Diabetes Mellitus Type II Status:Active Commen ts:Paternal Grandfather. Father - Hypothyroidism, sarcoidosis, hemolytic anemia, Contreras's syndrome, ITP, CKD Status:Active father-sarcoidosis,lui syndrom,hemalytic anemia,CKD,hypothyrodism,ITP Status:Active Hypertension Status:Active Comments:Materna l Grandfather. Hypertension Status:Active Comments:Materna l Uncle. larynx cancer-pat. grandfather Status:Active Lung Cancer Status:Active Comments:Materna l Grandfather. Ovarian Cancer Status:Active Comments:Paterna l Aunt. Breast Cancer Status:Active Comments:Paterna l Grandmother. Colon Cancer Status:Active Comments:Paterna l Grandfather. Coronary Artery Disease Status:Active Comments :Maternal Grandmother. Maternal Uncle. Diabetes Mellitus Type II Status:Active Commen ts:Paternal Grandfather. Father - Hypothyroidism, sarcoidosis, hemolytic anemia, Contreras's syndrome, ITP, CKD Status:Active father-sarcoidosis,lui syndrom,hemalytic anemia,CKD,hypothyrodism,ITP Status:Active Hypertension Status:Active Comments:Materna l Grandfather. Hypertension Status:Active Comments:Materna l Uncle. larynx cancer-pat. grandfather Status:Active Lung Cancer Status:Active Comments:Materna l Grandfather. Ovarian Cancer Status:Active Comments:Paterna l Aunt. Breast Cancer Status:Active Comments:Paterna l Grandmother. Colon Cancer Status:Active Comments:Paterna l Grandfather. Coronary Artery Disease Status:Active Comments :Maternal Grandmother. Maternal Uncle. Diabetes Mellitus Type II Status:Active Commen ts:Paternal Grandfather. Father - Hypothyroidism, sarcoidosis, hemolytic anemia, Contreras's syndrome, ITP, CKD Status:Active father-sarcoidosis,lui syndrom,hemalytic anemia,CKD,hypothyrodism,ITP Status:Active Hypertension Status:Active Comments:Materna l Grandfather. Hypertension Status:Active Comments:Materna l Uncle. larynx cancer-pat. grandfather Status:Active Lung Cancer Status:Active Comments:Materna l Grandfather. Ovarian Cancer Status:Active Comments:Paterna l Aunt. Breast Cancer Status:Active Comments:Paterna l Grandmother. Colon Cancer Status:Active Comments:Paterna l Grandfather. Coronary Artery Disease Status:Active Comments :Maternal Grandmother. Maternal Uncle. Diabetes Mellitus Type II Status:Active Commen ts:Paternal Grandfather. Father - Hypothyroidism, sarcoidosis, hemolytic anemia, Contreras's syndrome, ITP, CKD Status:Active father-sarcoidosis,lui syndrom,hemalytic anemia,CKD,hypothyrodism,ITP Status:Active Hypertension Status:Active Comments:Materna l Grandfather. Hypertension Status:Active Comments:Materna l Uncle. larynx cancer-pat. grandfather Status:Active Lung Cancer Status:Active Comments:Materna l Grandfather. Ovarian Cancer Status:Active Comments:Paterna l Aunt. Breast Cancer Status:Active Comments:Paterna l Grandmother. Colon Cancer Status:Active Comments:Paterna l Grandfather. Coronary Artery Disease Status:Active Comments :Maternal Grandmother. Maternal Uncle. Diabetes Mellitus Type II Status:Active Commen ts:Paternal Grandfather. Father - Hypothyroidism, sarcoidosis, hemolytic anemia, Contreras's syndrome, ITP, CKD Status:Active father-sarcoidosis,lui syndrom,hemalytic anemia,CKD,hypothyrodism,ITP Status:Active Hypertension Status:Active Comments:Materna l Grandfather. Hypertension Status:Active Comments:Materna l Uncle. larynx cancer-pat. grandfather Status:Active Lung Cancer Status:Active Comments:Materna l Grandfather. Ovarian Cancer Status:Active Comments:Paterna l Aunt. Breast Cancer Status:Active Comments:Paterna l Grandmother. Colon Cancer Status:Active Comments:Paterna l Grandfather. Coronary Artery Disease Status:Active Comments :Maternal Grandmother. Maternal Uncle. Diabetes Mellitus Type II Status:Active Commen ts:Paternal Grandfather. Father - Hypothyroidism, sarcoidosis, hemolytic anemia, Contreras's syndrome, ITP, CKD Status:Active father-sarcoidosis,lui syndrom,hemalytic anemia,CKD,hypothyrodism,ITP Status:Active Hypertension Status:Active Comments:Materna l Grandfather. Hypertension Status:Active Comments:Materna l Uncle. larynx cancer-pat. grandfather Status:Active Lung Cancer Status:Active Comments:Materna l Grandfather. Ovarian Cancer Status:Active Comments:Paterna l Aunt. Breast Cancer Status:Active Comments:Paterna l Grandmother. Colon Cancer Status:Active Comments:Paterna l Grandfather. Coronary Artery Disease Status:Active Comments :Maternal Grandmother. Maternal Uncle. Diabetes Mellitus Type II Status:Active Commen ts:Paternal Grandfather. Father - Hypothyroidism, sarcoidosis, hemolytic anemia, Contreras's syndrome, ITP, CKD Status:Active father-sarcoidosis,lui syndrom,hemalytic anemia,CKD,hypothyrodism,ITP Status:Active Hypertension Status:Active Comments:Materna l Grandfather. Hypertension Status:Active Comments:Materna l Uncle. larynx cancer-pat. grandfather Status:Active Lung Cancer Status:Active Comments:Materna l Grandfather. Ovarian Cancer Status:Active Comments:Paterna l Aunt. Breast Cancer Status:Active Comments:Paterna l Grandmother. Colon Cancer Status:Active Comments:Paterna l Grandfather. Coronary Artery Disease Status:Active Comments :Maternal Grandmother. Maternal Uncle. Diabetes Mellitus Type II Status:Active Commen ts:Paternal Grandfather. Father - Hypothyroidism, sarcoidosis, hemolytic anemia, Contreras's syndrome, ITP, CKD Status:Active father-sarcoidosis,lui syndrom,hemalytic anemia,CKD,hypothyrodism,ITP Status:Active Hypertension Status:Active Comments:Materna l Grandfather. Hypertension Status:Active Comments:Maternalison l Uncle. larynx cancer-pat. grandfather Status:Active Lung Cancer Status:Active Comments:Materna l Grandfather. Ovarian Cancer Status:Active Comments:Paterna l Aunt. Breast Cancer Status:Active Comments:Paterna l Grandmother. Colon Cancer Status:Active Comments:Paterna l Grandfather. Coronary Artery Disease Status:Active Comments :Maternal Grandmother. Maternal Uncle. Diabetes Mellitus Type II Status:Active Commen ts:Paternal Grandfather. Father - Hypothyroidism, sarcoidosis, hemolytic anemia, Contreras's syndrome, ITP, CKD Status:Active father-sarcoidosis,lui syndrom,hemalytic anemia,CKD,hypothyrodism,ITP Status:Active Hypertension Status:Active Comments:Materna l Grandfather. Hypertension Status:Active Comments:Maternalison l Uncle. larynx cancer-pat. grandfather Status:Active Lung Cancer Status:Active Comments:Materna l Grandfather. Ovarian Cancer Status:Active Comments:Paterna l Aunt. Relationship Condition Age at Onset Recorded Date/T talat Not Specified Myocardial infarction Unknown uncle Hypertension Unknown Coronary artery disease Unknown grandfather Malignant neoplasm Unknown Malignant neoplasm of lung Unknown Diabetes mellitus Unknown Malignant neoplasm of colon Unknown grandmother Malignant neoplasm Unknown aunt Malignant neoplasm Unknown father Disorder of thyroid Unknown Sarcoidosis Unknown Hemolytic anemia Unknown Lui syndrome Unknown Chronic kidney disease Unknown Chronic obstructive pulmonary disease Unk nown Autoimmune disorder Unknown mother Coronary artery disease Unknown Depression Unknown Breast Cancer Status:Active Comments:Paterna l Grandmother. Colon Cancer Status:Active Comments:Paterna l Grandfather. Coronary Artery Disease Status:Active Comments :Maternal Grandmother. Maternal Uncle. Diabetes Mellitus Type II Status:Active Commen ts:Paternal Grandfather. Father - Hypothyroidism, sarcoidosis, hemolytic anemia, Contreras's syndrome, ITP, CKD Status:Active father-sarcoidosis,lui syndrom,hemalytic anemia,CKD,hypothyrodism,ITP Status:Active Hypertension Status:Active Comments:Materna l Grandfather. Hypertension Status:Active Comments:Materna l Uncle. larynx cancer-pat. grandfather Status:Active Lung Cancer Status:Active Comments:Materna l Grandfather. Ovarian Cancer Status:Active Comments:Paterna l Aunt. Breast Cancer Status:Active Comments:Paterna l Grandmother. Colon Cancer Status:Active Comments:Paterna l Grandfather. Coronary Artery Disease Status:Active Comments :Maternal Grandmother. Maternal Uncle. Diabetes Mellitus Type II Status:Active Commen ts:Paternal Grandfather. Father - Hypothyroidism, sarcoidosis, hemolytic anemia, Contreras's syndrome, ITP, CKD Status:Active father-sarcoidosis,lui syndrom,hemalytic anemia,CKD,hypothyrodism,ITP Status:Active Hypertension Status:Active Comments:Materna l Grandfather. Hypertension Status:Active Comments:Materna l Uncle. larynx cancer-pat. grandfather Status:Active Lung Cancer Status:Active Comments:Materna l Grandfather. Ovarian Cancer Status:Active Comments:Paterna l Aunt. Breast Cancer Status:Active Comments:Paterna l Grandmother. Colon Cancer Status:Active Comments:Paterna l Grandfather. Coronary Artery Disease Status:Active Comments :Maternal Grandmother. Maternal Uncle. Diabetes Mellitus Type II Status:Active Commen ts:Paternal Grandfather. Father - Hypothyroidism, sarcoidosis, hemolytic anemia, Contreras's syndrome, ITP, CKD Status:Active father-sarcoidosis,lui syndrom,hemalytic anemia,CKD,hypothyrodism,ITP Status:Active Hypertension Status:Active Comments:Materna l Grandfather. Hypertension Status:Active Comments:Materna l Uncle. larynx cancer-pat. grandfather Status:Active Lung Cancer Status:Active Comments:Materna l Grandfather. Ovarian Cancer Status:Active Comments:Paterna l Aunt. Breast Cancer Status:Active Comments:Paterna l Grandmother. Colon Cancer Status:Active Comments:Paterna l Grandfather. Coronary Artery Disease Status:Active Comments :Maternal Grandmother. Maternal Uncle. Diabetes Mellitus Type II Status:Active Commen ts:Paternal Grandfather. Father - Hypothyroidism, sarcoidosis, hemolytic anemia, Contreras's syndrome, ITP, CKD Status:Active father-sarcoidosis,lui syndrom,hemalytic anemia,CKD,hypothyrodism,ITP Status:Active Hypertension Status:Active Comments:Materna l Grandfather. Hypertension Status:Active Comments:Materna l Uncle. larynx cancer-pat. grandfather Status:Active Lung Cancer Status:Active Comments:Materna l Grandfather. Ovarian Cancer Status:Active Comments:Elvirana l Aunt. Advance Directives No Advanced Directives Records Found Advance Directive Response Recorded Date/ Time Living Will No April 12, 2 015 4:27am Power of Continuous Miner No April 12, 2015 4:27am Advance Directive Response Recorded Date/ Time Living Will No April 12, 2 015 4:27am Do you have a Healthcare Power of Continuous Miner? 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, 2024 8:1 7am Irritable bowel syndrome with diarrhea A pril 2024 8:17am Mixed connective tissue disease September 072024 8:17am Sjogren syndrome September 07, 2024 8:1 7am Gastroesophageal reflux disease September 072024 8:17am Chief Complaint Admit Date Thyroid August 14, 2024 2:1 7pm Gastroesophageal reflux disease (GERD) A [facility] 2024 8:17am EORDERS September 07, 2024 9:1 1am NODULE /LABS EORDERS October 17, 2024 12:3 6pm 1 M FU October 30, 2024 9:05 am Chief Complaint Admit Date NODULE /LABS EORDERS October 17, 2024 12:3 6pm 1 M FU October 30, 2024 9:05 am 11 M FU January 22, 2025 8:53am Reason for Visit Admit Date Irritable bowel syndrome with diarrhea J 2024 9:05am Asthma January 22, 2025 8:53am Additional Source Comments INFORMATION SOURCE (unrecogn ized section and content) DATE CREATED AUTHOR 06/20/2019 [facility] DATE CREATED AUTHOR AUTHOR'S ORGANIZ ATION 06/11/2024 [facility] DATE CREATED AUTHOR AUTHOR'S ORGANIZ ATION 07/08/2024 [facility] DATE CREATED AUTHOR AUTHOR'S ORGANIZ ATION 01/14/2025 [facility] DATE CREATED AUTHOR AUTHOR'S ORGANIZ ATION 03/27/2025 [facility] DATE CREATED AUTHOR AUTHOR'S ORGANIZ ATION 03/28/2025 [facility] DATE CREATED AUTHOR AUTHOR'S ORGANIZ ATION 03/30/2025 [facility] Care Teams (unrecognized sec tion and content) Team Status: Active Member Role Status Dates KEON Vargas Family Provider Active KEON Vargas Primary Care Provider Active Team Status: Inactive Member Role Status Dates KEON Vargas Primary Care Provi cecelia, Attending Provider, Referring Provider Active Pulverizing And Sifting Operator Relationship Specialty Start Date End Date Lexi Moya PA [address] [place] [address] PCP - General 04/26/23 Pulverizing And Sifting Operator Relationship Specialty Start Date End Date Lexi Moya PA [address] [place] [address] PCP - General 04/26/23 Pulverizing And Sifting Operator Relationship Specialty Start Date End Date Lexi Moya PA [address] [place] [address] PCP - General 04/26/23 Team Status: Active Member Role Status Dates Lexi Moya PA, PA Primary Care Provider Active Team Status: Inactive Member Role Status Dates Lexi Moya PA, PA Primary Care Provider Active Start: August 14, 2024 End: August 14, 2024 Lexi Moya PA, PA Referring Provider Active Start: August 14, 2024 End: August 14, 2024 Dr. Bon Cowan MD Attending Provider Active Sta rt: August 14, 2024 End: August 14, 2024 Team Status: Inactive Member Role Status Dates Lexi Moya PA, PA Referring Provider Active Start: September 07, 2024 End: September 07, 2024 SELENA Goss Attending Provider Active S tart: September 07, 2024 End: September 07, 2024 Team Status: Inactive Member Role Status Dates Lexi Moya PA, PA Primary Care Provider Active Start: September 07, 2024 End: September 07, 2024 SELENA Goss Attending Provider Active S tart: September 07, 2024 End: September 07, 2024 SELENA Goss Referring Provider Active S tart: September 07, 2024 End: September 07, 2024 Team Status: Inactive Member Role Status Dates Lexi Moya PA, PA Primary Care Provider Active Start: October 17, 2024 End: October 17, 2024 Lexi Moya PA, PA Attending Provider Active Start: October 17, 2024 End: October 17, 2024 Lexi Moya PA, PA Referring Provider Active Start: October 17, 2024 End: October 17, 2024 Dr. Bon Cowan MD Other Provider Active Start: October 17, 2024 End: October 17, 2024 Team Status: Inactive Member Role Status Dates SELENA Goss Attending Provider Active S tart: October 30, 2024 End: October 30, 2024 Lexi Moya PA, PA Primary Care Provider Active Start: October 30, 2024 End: October 30, 2024 Lexi Moya PA, PA Referring Provider Active Start: October 30, 2024 End: October 30, 2024 Team Status: Active Member Role/Relationship Status Dates Lexi Moya PA, PA Primary Care Provider Active Team Status: Inactive Member Role/Relationship Status Dates KEON Vargas Primary Care Provider Active Start: October 17, 2024 End: October 17, 2024 KEON Vargas Attending Provider Active Start: October 17, 2024 End: October 17, 2024 KEON Vargas Referring Provider Active Start: October 17, 2024 End: October 17, 2024 Dr. Bon Cowan MD Other Provider Active Start: October 17, 2024 End: October 17, 2024 Team Status: Inactive Member Role/Relationship Status Dates SELENA Goss Attending Provider Active S tart: October 30, 2024 End: October 30, 2024 KEON Vargas Primary Care Provider Active Start: October 30, 2024 End: October 30, 2024 KEON Vargas Referring Provider Active Start: October 30, 2024 End: October 30, 2024 Team Status: Inactive Member Role/Relationship Status Dates KEON Vargas Primary Care Provider Active Start: January 22, 2025 End: January 22, 2025 KEON Vargas Referring Provider Active Start: January 22, 2025 End: January 22, 2025 SELENA Wilson Attending Provider Active Start: January 22, 2025 End: January 22, 2025 Pulverizing And Sifting Operator Relationship Specialty Start Date End Date Lexi Moya PA [address] [place] [address] PCP - General 04/26/23 Goals (unrecognized section and content) Goals may be documented in a n alternate sectionGoals may be documented in an alternate sectionGoals may be documented in an alternate sectionGoals may be documented in an alternate section Reason for Visit (unrecogniz ed section and content) Reason Comments Pain Struck the wall on injuring right 3rd finger Reason Comments Follow-up Refill on meds FOR RECORDS PERTAINING TO PATIENTS WHO ARE OR HAVE BEEN ENROLLED IN A CHEMICAL DEPENDENCY/SUBSTANCEABUSE PROGRAM, SOME INFORMATION MAY BE OMITTED. This clinical summary was aggregated from multiple sources. Caution should be exercised in using it in the provision of clinical care. This summary normalizes information from multiple sources, and as a consequence, information in this document may materially change the coding, format and clinical context of patient data. In addition, data may be omitted in some cases. CLINICAL DECISIONS SHOULD BE BASED ON THE PRIMARY CLINICAL RECORDS. [facility] [employer] [facility]. provides no warranty or guarantee of the accuracy or completeness of information in this document.
[2025-05-22] MEDS: Lactated Ringers 1,000 ML 15 ML IV (08:45)
[2025-05-22 08:46] LABS: Internal QC Validated? YES +Cl - CLEAR BKGD; Pregnancy, Urine Negative Negative
--- NOTE | 2025-05-22 09:45 | EGD_PTH ---
PATIENT: MIKKI GARCIA LOC: EN U#:[id number] AGE/SX: 44/F ROOM: RE05/22/[address]: Dr. Hayes Lr DO : 1980 BED: DIS: 05/22/2025 SPEC #: [id number] RECD: 05/22/25 11:23 STATUS: KIRSTIN YOLY #: [id number] SERGEI: 05/22/25 09:[address]: Hayes Lr DEPT: SURGICAL PATHOLOGY RECD BY: Vita Yadav ENTERED: 05/22/25 12:08 SP TYPE: EGD BIOPSY OT DR: KEON Graff Tissues: A - Duodenum, NOS B - Gastric mucous membrane C - Ileum, NOS D - COLON BIOPSY Procedures: Immunohistochemical Stains Surgery Specimen Level IV HEADER OPERATION: Colonoscopy with biopsy, EGD with biopsy PRE-OP DIAGNOSIS: Irritable bowel syndrome with diarrhea, mixed connective tissue disease TISSUE SUBMITTED: A. Duodenum, B. Gastric body (H.Pylori), C. Terminal ileum, D. Random colon MICROSCOPIC DIAGNOSIS A. Duodenum, biopsy: - Normal villous architecture with focally increased Intraepithelial lymphocytes - see note. Note: This pattern of injury is etiologically nonspecific?and the differential diagnosis includes sensitivity to gluten and non-gluten proteins, small intestinal bacterial overgrowth, stasis related changes, infection, protein calorie malnutrition, tropical sprue, and medication injury (NSAIDs, Olmesartan / Benicar, Mycophenolic acid, Idelalisib, for example). If celiac disease is a clinical concern, additional clinical studies, such as tTG-IgA, are recommended. Also note the diagnosis for part D. Recommend correlation with clinical and endoscopic findings. B. Stomach, body, biopsy: - Oxyntic mucosa with mild chronic inflammation and features of reactive gastropathy. - IHC negative for H. pylori organisms. C. Terminal ileum, biopsy: - Normal villous architecture with prominent mucosal lymphoid aggregates, favor reactive process. D. 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 Note: The histologic differential diagnosis also includes infection and medication injury reaction. No thickening of the subepithelial collagen plate is observed. Recommend correlation with clinical and endoscopic findings. MICROSCOPIC DESCRIPTION Slides are reviewed. All matched controls reacted appropriately. These tests were developed and their performance characteristics determined by [facility]. They may not have been cleared or approved by the U.S. Food and Drug Administration. The FDA has determined that such clearance or approval is not necessary. The above immunohistochemical markers are viewed by the Pathologist. GROSS DESCRIPTION A. Received is one container labeled with the patient name and designated duodenum. The specimen consists of multiple irregular fragments of light dougherty soft tissue that in aggregate measure 1 x 0.5 x 0.2 cm. The specimen is totally submitted in one cassette. B. Received is one container labeled with the patient name and designated gastric body. The specimen consists of one irregular fragment of light dougherty soft tissue that measures 0.6 x 0.6 x 0.3 cm. The specimen is totally submitted in one cassette. C. Received is one container labeled with the patient name and designated terminal ileum. The specimen consists of multiple irregular fragments of light dougherty soft tissue that in aggregate measure 1.3 x 1 x 0.3 cm. The specimen is totally submitted in one cassette. D. Received is one container labeled with the patient name and designated random colon. The specimen consists of multiple irregular fragments of light dougherty soft tissue that in aggregate measure 2 x 0.6 x 0.3 cm. The specimen is totally submitted in one cassette. 05/22/2025 CPT:50602x5,30667
--- NOTE | 2025-05-22 09:57 | PCM.HP.STD ---
[facility] - General General Date of Admission: 05/22/25 Date of Service: 05/22/25 Chief Complaint: Abdominal pain and diarrhea HPI Narrative [MIKKI GARCIA, is a 44-year-old female who presents with persistent symptoms of GERD and worsening food sensitivities. 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 She reports daily issues with excessive gas and abdominal cramping, along with loose bowel movements multiple times a day. Her heartburn symptoms occur daily despite taking famotidine several times a day and using multiple Tums for relief. She reports having previously been on pantoprazole, which helped, but her PCP discontinued it due to concerns about long-term use. The patient is a long-term user of low FODMAP and elimination diets but notes her list of tolerated foods is shrinking. She has eliminated all raw vegetables and now only tolerates cooked green beans and carrots. She also reports throat clearing and occasional cough. She denies any ill contacts or changes to her water source. She states she has been unable to lose weight despite a reduced-calorie diet, good food hygiene, and exercise. She reports a reduction in experienced reflux and heartburn while on pantoprazole, but still has episodes several times a week, particularly after consuming tomato-based products. She continues to follow a low FODMAP diet but has found that some low FODMAP foods cause gastrointestinal upset. She recently had an episode of severe abdominal cramping and emergent diarrhea while driving home, followed by a period of constipation. She states her stool is now more normal. The patient recently completed a course of rifaximin for suspected SIBO and now takes a daily probiotic. She also completed a course of nitrofurantoin for a urinary tract infection two weeks ago without reported complications. 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 Osteoarthritis Hypoglycemia Hives Migraines Allergies Strep throat Yeast infection Lower urinary tract symptoms UTI (urinary tract infection) Acute cystitis Sinusitis Home Medications ?Medication ?Instructions ?Recorded ?Last Taken ?Type hydroxychloroquine 200 mg tablet 200 mg PO BID 06/26/19 05/21/25 History loratadine 5 mg disintegrating 5 mg PO DAILY 06/29/21 05/21/25 History tablet (Claritin RediTabs) cholecalciferol (vitamin D3) 50 50 mcg PO DAILY 02/28/23 05/20/25 History mcg (2,000 unit) capsule erythromycin 5 mg/gram (0.5 %) eye 1 applic ophthalmic (eye) QDAY 07/31/24 05/21/25 History ointment fluticasone propionate 44 2 puff inhalation BID PRN cough 07/31/24 Unknown History mcg/actuation HFA aerosol inhaler hypochlorous acid 0.01 %-sodium 1 spray topical BID 07/31/24 Unknown History chloride topical spray (Thera Tears SteriLid) metronidazole 0.75 % topical gel 1 applic topical DAILY 07/31/24 Unknown History saliva stimulant comb. no.3 1 applic mucous membrane [id number] PRN 07/31/24 Unknown History (Biotene Moisturizing Mouth dry mouth mucosal spray) dicyclomine 10 mg capsule 10 mg PO BID PRN abdominal pain 12/28/24 Unknown Rx #60 caps famotidine 40 mg tablet 40 mg PO QHS #30 tabs 12/28/24 05/21/25 Rx ondansetron HCl 4 mg tablet 4 mg PO Q8H PRN nausea and 12/28/24 Unknown Rx vomiting #30 tabs albuterol sulfate 90 mcg/actuation 2 puff inhalation Q4H PRN 01/22/25 Unknown Rx aerosol inhaler shortness of breath or wheezing #1 ea levothyroxine 100 mcg tablet 100 mcg PO .qd, 1/2 on Sundays #90 04/01/25 05/21/25 Rx tabs Lactobacillus acidophilus 250 1,000 mmu cells PO DAILY 05/07/25 05/21/25 History million cell capsule (Probiotic Acidophilus) budesonide-formoterol HFA 80 2 puff inhalation BID PRN wheezing 05/07/25 Unknown History mcg-4.5 mcg/actuation aerosol inhaler (Symbicort) pantoprazole 40 mg tablet,delayed 40 mg PO DAILY 05/13/25 05/22/25 History release Allergy/AdvReac Type Severity Reaction Status Date / Time hydrocodone bitartrate (From Allergy Anaphylaxis Verified 05/22/25 08:41 Vicodin) Family History Uncle Hypertension CAD (coronary artery disease) Grandfather Cancer Lung cancer Diabetes Colon cancer Grandmother Cancer Aunt Cancer Father Thyroid disorder Sarcoidosis Hemolytic anemia Lui syndrome CKD (chronic kidney disease) COPD (chronic obstructive pulmonary disease) Autoimmune disorder Mother CAD (coronary artery disease) Depression Other Myocardial infarction Surgical History H/O: History of appendectomy Social History Smoking Status: Never smoker Electronic Cigarette Use: not used second hand exposure: No alcohol intake: never substance use type: does not use what type of physical activity do you participate in: bicycling, yoga and other details: stretching duration: 15-30 minutes/day ROS Constitutional Constitutional: Denies fatigue, fever(s), poor appetite, weight gain or weight loss Gastrointestinal Gastrointestinal: Denies belching, bloating, change in bowel habits, change in stool character, chewing difficulty, coffee ground emesis, constipation, cramping, diarrhea, dyspepsia, dysphagia, early satiety, excessive flatus, fecal incontinence, heartburn, hematemesis, hematochezia, hemorrhoids, loose stools, melena, nausea, odynophagia, rectal bleeding, tenesmus, vomiting or weight changes Patient's Goals Of Care . What would you like to achieve or improve as a result of your hospital stay?: None Vital Signs Vital Signs Vital Signs: 05/22/25 08:42 05/22/25 08:42 Temperature 97.9 F Temperature Source Temporal Pulse Rate 92 Respiratory Rate 18 Respiratory Pattern Normal Blood Pressure 141/82 H Blood Pressure Mean 101 Blood Pressure Source Monitor Blood Pressure Position Semi-Fowlers Blood Pressure Location Left Arm Pulse Ox 100 Oxygen Delivery Method Room Air Weight Weight: 220 lb 7.396 oz Body Mass Index (BMI) 43.0 Physical Exam Const alert, oriented x3, no apparent distress and healthy appearing General Appearance: cooperative GI normal to inspection, nondistended, normoactive bowel sounds, soft to palpation, non-tender and non-distended Percussion: normal to percussion Rectal Exam: deferred Results Lab / Micro Data Labs: Laboratory Results - last 24 hr 05/22/25 07:35: Urine Test Negative Assessment & Plan Assessment/Plan (1) IBS (irritable bowel syndrome): PLAN: Assessment and Plan Assessment and Plan (1) Irritable bowel syndrome with diarrhea: Status: Chronic (2) Mixed connective tissue disease: Status: Acute Plan: AssessmentGERD and Persistent GI Symptoms: The patient's presentation of persistent GERD symptoms despite acid suppression, along with chronic gas, bloating, and fluctuating bowel habits, suggests a multifactorial etiology. 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 Possible SIBO Recurrence: Given the patient's history of IBS, multiple autoimmune diseases, and prior relief with rifaximin, a recurrence of SIBO is highly likely. The ongoing gas, cramping, and alternating diarrhea/constipation are classic SIBO symptoms. The recent bubble gut episode with emergent diarrhea could represent a relapse triggered by the nitrofurantoin, which altered the gut microbiome. Proton pump inhibitors (PPIs), which the patient used previously, are also a known risk factor for SIBO.Microscopic Colitis: With a new onset of watery diarrhea, alternating with constipation, and a history of autoimmune disease, microscopic colitis (either collagenous or lymphocytic) is a significant concern. The patient's use of a PPI (pantoprazole) and her female sex over age 45 are additional risk factors. Endoscopic examination with biopsies is required for diagnosis, as the colonic mucosa appears normal macroscopically. Dysphagia/Laryngopharyngeal Reflux: The patient's throat clearing and cough are consistent with laryngopharyngeal reflux (LPR), where stomach contents reflux into the throat. This is a common complaint in patients with Sj?gren's syndrome due to decreased saliva and impaired esophageal motility. Differential Diagnoses: Recurrent SIBO:?Most likely given symptoms, history of IBS, and relief with prior rifaximin. Microscopic Colitis:?High suspicion due to chronic watery diarrhea, history of autoimmune disease, and PPI use. Reflux Hypersensitivity:?Possible cause of persistent GERD symptoms despite PPI therapy, especially since endoscopy was normal in some cases. Functional Heartburn:?Also a possibility for PPI-refractory reflux symptoms. LPR:?Explains throat clearing and cough. Incomplete or Unidentified Food Intolerance:?The narrowing list of tolerated foods and continued GI upset with low-FODMAP foods suggest further exploration is needed, potentially including allergies or non-FODMAP intolerances. Plan Further Diagnostics: Hydrogen and Methane Breath Test:?To confirm a recurrence of SIBO and identify the predominant gas type (hydrogen vs. methane) for targeted treatment. Colonoscopy with Random Biopsies:?To rule out microscopic colitis. Biopsies should be taken from multiple colonic segments, even if the mucosa appears normal. Esophageal pH-Impedance Monitoring:?To evaluate for both acid and non-acid reflux events, which could explain refractory GERD and LPR symptoms. Dietary Management: Continue low FODMAP diet but reinforce working with a dietitian to ensure adequate nutrition and further identify personal triggers. Avoid tomato-based products as they appear to exacerbate symptoms. Trial of an elemental diet could be considered if SIBO is confirmed and symptoms persist. Medication Management: Re-treatment for SIBO:?If the breath test confirms SIBO, another course of rifaximin may be necessary. If methane-predominant, neomycin or another agent may be added. Prokinetics:?To address underlying motility issues related to Sj?gren's and reduce risk of SIBO recurrence. GERD Treatment:?Adjust famotidine based on pH-impedance monitoring results. Continue PPI if partial relief, but consider tapering if no benefit is proven. Microscopic Colitis Treatment:?If diagnosed, budesonide is the treatment of choice.
[2025-05-22] MEDS: Lidocaine 1% (5 ml sdv) 5 ML Vial 10 ML IV (10:14)
--- NOTE | 2025-05-22 10:43 | PCM.POST.ANE ---
Anesthesia: Postop Eval I Current Vital Signs Temperature: 97.5 F Pulse Rate: 91 Blood Pressure: 120/78 Respiratory Rate: 16 Pulse Ox: 97 Oxygen Delivery Method: Room Air Assessment Airway patent: Yes Spontaneous unlabored respirations: Yes Mental status: Awake and Calm nausea: No Vomiting: No Anesthesia Complication: No Fluid Hydration Crystalloid volume administer (ml): 300 Total IV fluid infused: 300 Progress Note Anesthesia document: Postop Eval 1 completed: Yes
--- NOTE | 2025-05-22 10:45 | OP.EGD_ITS ---
Patient Name: Elida Cowan Procedure Date: 05/22/2025 10:01 AM Date of : 1980 Age: 44 Procedure: Upper GI endoscopy Indications: Epigastric abdominal pain, Functional Dyspepsia, Indigestion Providers: Hayes Lr DO Medicines: Monitored Anesthesia Care Patient Profile: This is a 44 year old female. Refer to note in patient chart for documentation of history and physical. Patient has symptoms of chronic epigastric abdominal pain and chronic dyspepsia. Complications: No immediate complications. Procedure: Pre-Anesthesia Assessment: - Prior to the procedure, a History and Physical was performed, and patient medications and allergies were reviewed. The patient is competent. The risks and benefits of the procedure and the sedation options and risks were discussed with the patient. All questions were answered and informed consent was obtained. Patient identification and proposed procedure were verified by the physician in the pre-procedure area. Mental Status Examination: alert and oriented. Airway Examination: normal oropharyngeal airway and neck mobility. Respiratory Examination: clear to auscultation. CV Examination: normal. Prophylactic Antibiotics: The patient does not require prophylactic antibiotics. Prior Anticoagulants: The patient has taken no anticoagulant or antiplatelet agents. ASA Grade Assessment: II - A patient with mild systemic disease. After reviewing the risks and benefits, the patient was deemed in satisfactory condition to undergo the procedure. The anesthesia plan was to use monitored anesthesia care (MAC). Immediately prior to administration of medications, the patient was re-assessed for adequacy to receive sedatives. The heart rate, respiratory rate, oxygen saturations, blood pressure, adequacy of pulmonary ventilation, and response to care were monitored throughout the procedure. The physical status of the patient was re-assessed after the procedure. After obtaining informed consent, the endoscope was passed under direct vision. Throughout the procedure, the patient's blood pressure, pulse, and oxygen saturations were monitored continuously. The Colonoscope was introduced through the mouth, and advanced to the fourth part of the duodenum. Small bowel enteroscopy was deemed necessary. The upper GI endoscopy was accomplished without difficulty. The patient tolerated the procedure well. Scope In: 10:17:11 AM Scope Out: 10:20:30 AM Total Procedure Duration Time 0 hours 3 minutes 19 seconds Findings: The examined esophagus was normal. Patchy mildly erythematous mucosa without bleeding was found in the gastric body. Biopsies were taken with a cold forceps for histology. Biopsies were taken with a cold forceps for Helicobacter pylori testing. Patchy mildly erythematous mucosa without active bleeding and with no stigmata of bleeding was found in the entire duodenum. Impression: - Normal esophagus. - Erythematous mucosa in the gastric body. Biopsied. - Erythematous duodenopathy. Recommendation: - Await pathology results. - Patient has a contact number available for emergencies. The signs and symptoms of potential delayed complications were discussed with the patient. Return to normal activities tomorrow. Written discharge instructions were provided to the patient. - Resume previous diet. - Continue present medications. - Await pathology results. Procedure Code(s): --- Professional --- 86129, Small intestinal endoscopy, enteroscopy beyond second portion of duodenum, not including ileum; with biopsy, single or multiple CPT copyright 2021 [employer]. All rights reserved. The codes documented in this report are preliminary and upon commercial sheet metal foreman review may be revised to meet current compliance requirements. Hayes Lr DO 05/22/2025 10:44:51 AM This report has been signed electronically. Number of Addenda: 0 Note Initiated On: 05/22/2025 10:01 AM
--- NOTE | 2025-05-22 10:45 | OP.PROVAT_ITS ---
05/22/2025 Lexi Moya Re : Upper GI endoscopy procedure for Elida Moya This procedure was performed on Thursday, May 22, 2025. My impressions and recommendations are as follows: Impressions : - Normal esophagus. - Erythematous mucosa in the gastric body. Biopsied. - Erythematous duodenopathy. Recommendations : - Await pathology results. - Patient has a contact number available for emergencies. The signs and symptoms of potential delayed complications were discussed with the patient. Return to normal activities tomorrow. Written discharge instructions were provided to the patient. - Resume previous diet. - Continue present medications. - Await pathology results. My findings are described in the full procedure note, which is enclosed. If I can be of further assistance, please feel free to contact me at . Sincerely, Hayes Lr, 05/22/2025 10:44:51 AM This report has been signed electronically.
--- NOTE | 2025-05-22 10:48 | OP.PROVAT_ITS ---
05/22/2025 Lexi Moya Re : Colonoscopy procedure for Elida Moya This procedure was performed on Thursday, May 22, 2025. My impressions and recommendations are as follows: Impressions : - Congested mucosa in the sigmoid colon, at the hepatic flexure and in the ascending colon. Biopsied. - Mild inflammation was found in the ileum secondary to ileitis. Biopsied. - The examination was otherwise normal on direct and retroflexion views. Recommendations : - Discharge patient to home. - Resume previous diet. - Continue present medications. - Await pathology results. - Repeat colonoscopy in 5 years for surveillance. My findings are described in the full procedure note, which is enclosed. If I can be of further assistance, please feel free to contact me at . Sincerely, Hayes Friend, 05/22/2025 10:47:38 AM This report has been signed electronically.
--- NOTE | 2025-05-22 10:48 | OP.COLON_ITS ---
Patient Name: Elida Cowan Procedure Date: 05/22/2025 10:20 AM Date of : 1980 Age: 44 Procedure: Colonoscopy Indications: Clinically significant diarrhea of unexplained origin Providers: Hayes Lr DO Medicines: Monitored Anesthesia Care Patient Profile: This is a 44 year old female. Refer to note in patient chart for documentation of history and physical. Patient has symptoms of chronic epigastric abdominal pain and chronic dyspepsia. Last Colonoscopy: none. The patient's first colonoscopy is today. Complications: No immediate complications. Procedure: Pre-Anesthesia Assessment: - Prior to the procedure, a History and Physical was performed, and patient medications and allergies were reviewed. The patient is competent. The risks and benefits of the procedure and the sedation options and risks were discussed with the patient. All questions were answered and informed consent was obtained. Patient identification and proposed procedure were verified by the physician in the pre-procedure area. Mental Status Examination: alert and oriented. Airway Examination: normal oropharyngeal airway and neck mobility. Respiratory Examination: clear to auscultation. CV Examination: normal. Prophylactic Antibiotics: The patient does not require prophylactic antibiotics. Prior Anticoagulants: The patient has taken no anticoagulant or antiplatelet agents. ASA Grade Assessment: II - A patient with mild systemic disease. After reviewing the risks and benefits, the patient was deemed in satisfactory condition to undergo the procedure. The anesthesia plan was to use monitored anesthesia care (MAC). Immediately prior to administration of medications, the patient was re-assessed for adequacy to receive sedatives. The heart rate, respiratory rate, oxygen saturations, blood pressure, adequacy of pulmonary ventilation, and response to care were monitored throughout the procedure. The physical status of the patient was re-assessed after the procedure. After I obtained informed consent, the scope was passed under direct vision. Throughout the procedure, the patient's blood pressure, pulse, and oxygen saturations were monitored continuously. The Colonoscope was introduced through the anus and advanced to the terminal ileum. The colonoscopy was performed without difficulty. The patient tolerated the procedure well. The quality of the bowel preparation was adequate. The terminal ileum, ileocecal valve, appendiceal orifice, and rectum were photographed. Scope In: 10:22:22 AM Scope Withdrawal Time 0 hours 11 minutes 12 seconds Scope Out: 10:36:19 AM Total Procedure Duration Time 0 hours 13 minutes 57 seconds Findings: The perianal and digital rectal examinations were normal. An area of mildly congested mucosa was found in the sigmoid colon, at the hepatic flexure and in the ascending colon. Biopsies were taken with a cold forceps for histology. Verification of patient identification for the specimen was done. Estimated blood loss was minimal. Patchy mild inflammation was found in the terminal ileum. Biopsies were taken with a cold forceps for histology. Verification of patient identification for the specimen was done. Estimated blood loss was minimal. The exam was otherwise without abnormality on direct and retroflexion views. Impression: - Congested mucosa in the sigmoid colon, at the hepatic flexure and in the ascending colon. Biopsied. - Mild inflammation was found in the ileum secondary to ileitis. Biopsied. - The examination was otherwise normal on direct and retroflexion views. Recommendation: - Discharge patient to home. - Resume previous diet. - Continue present medications. - Await pathology results. - Repeat colonoscopy in 5 years for surveillance. Procedure Code(s): --- Professional --- 77184, Colonoscopy, flexible; with biopsy, single or multiple CPT copyright 2021 [employer]. All rights reserved. The codes documented in this report are preliminary and upon fryer line helper review may be revised to meet current compliance requirements. Hayes Lr DO 05/22/2025 10:47:38 AM This report has been signed electronically. Number of Addenda: 0 Note Initiated On: 05/22/2025 10:20 AM
--- NOTE | 2025-05-22 11:03 | POSTOPAN2_ITS ---
Anesthesia Postop Eval I Sum Postop Eval Completion status Anesthesia document: Postop Eval 1 completed: Yes Anesthesia Postop Eval I Summary Anesthesia Postop Eval I Summary: Anesthesia Postop Eval I: Assessment Summary Airway patent Yes 05/22/25 10:44 [email or web address] Spontaneous unlabored Yes 05/22/25 10:44 [email or web address] respirations Mental status Awake,Calm 05/22/25 10:44 [email or web address] nausea No 05/22/25 10:44 [email or web address] Vomiting No 05/22/25 10:44 [email or web address] Anesthesia Postop Eval I: Fluid Summary Crystalloid volume administer 300 05/22/25 10:44 [email or web address] (ml) Colloids volume administered ( ml) Blood Product volume administered (ml) Total IV fluid infused 300 05/22/25 10:44 [email or web address] Anesthesia Postop Eval I: Summary Notes Anesthesia Complication No 05/22/25 10:44 [email or web address] Anesthesia Complication Comment: Post-operative progress note Anesthesia: Postop Eval II Evaluation Mental status: Awake Pain Level: 0 nausea: No Vomiting: No
--- NOTE | 2025-05-22 11:03 | PCM.POSTANE2 ---
Anesthesia Postop Eval I Sum Postop Eval Completion status Anesthesia document: Postop Eval 1 completed: Yes Anesthesia Postop Eval I Summary Anesthesia Postop Eval I Summary: Anesthesia Postop Eval I: Assessment Summary Airway patent Yes 05/22/25 10:44 [email or web address] Spontaneous unlabored Yes 05/22/25 10:44 [email or web address] respirations Mental status Awake,Calm 05/22/25 10:44 [email or web address] nausea No 05/22/25 10:44 [email or web address] Vomiting No 05/22/25 10:44 [email or web address] Anesthesia Postop Eval I: Fluid Summary Crystalloid volume administer 300 05/22/25 10:44 [email or web address] (ml) Colloids volume administered ( ml) Blood Product volume administered (ml) Total IV fluid infused 300 05/22/25 10:44 [email or web address] Anesthesia Postop Eval I: Summary Notes Anesthesia Complication No 05/22/25 10:44 [email or web address] Anesthesia Complication Comment: Post-operative progress note Anesthesia: Postop Eval II Evaluation Mental status: Awake Pain Level: 0 nausea: No Vomiting: No
== END 2025-05-22 11:20 | disposition home or self-care (01) ==
LOC: EN 08:25 → AC 08:26
PROVIDERS: Anesthesiology; PCP Physician Assistant; Referring Provider Physician Assistant; Visit Provider Internal Medicine Gastroenterology
PROC: 0DJD8ZZ Inspection of Lower Intestinal Tract, Via Natural or Artificial Opening Endoscopic (ICD-10-PCS; CPT 45378; principal; 2025-05-22 09:40)
DX: K29.50 Unspecified chronic gastritis without bleeding (principal); K21.9 Gastro-esophageal reflux disease without esophagitis; K58.0 Irritable bowel syndrome with diarrhea; E06.3 Autoimmune thyroiditis; Z79.899 Other long term (current) drug therapy; Z79.890 Hormone replacement therapy
CPT/HCPCS: 45380; 44361; 81025; 88305; 88342